=== PATIENT | female | born 2005 | race Caucasian/White ===

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

== ENCOUNTER 2025-02-04 17:15 | Emergency (ER) | payer BC, MEDICAID, SELFPAY ==
[2025-02-04] VITALS (7 sets, daily range): BP systolic 91–112; BP diastolic 55–75; PULSE 78–96; RESP 12–18; TEMP 36.2; O2SAT 95–100; BMI 24.8
--- NOTE | 2025-02-04 17:27 | EDS_ITS ---
HPI HPI - Psych History of Present Illness Chief Complaint: Mental Health [facility] Medical History (Updated 08/28/24 @ 08:[address] Mg Gustafson, DO) EtOH dependence ETOH abuse Cocaine abuse Cocaine abuse Cannabis use disorder Generalized anxiety disorder Bipolar 1 disorder, depressed, severe Allergy/AdvReac Type Severity Reaction Status Date / Time No Known Allergies Allergy Verified 02/04/25 22:36 Family History Other A-fib Alcoholism Anxiety Arthritis Asthma CVA (cerebral vascular accident) Depression Diabetes High cholesterol Melanoma Mental disorder Myocardial infarction Osteoporosis Supraventricular tachycardia Surgical History History of tonsillectomy and adenoidectomy Social History Smoking Status: Current every day smoker tobacco type: e-cigarettes alcohol intake: former substance use type: marijuana and other details: no current use what type of physical activity do you participate in: walking, running, weight training and additional details: Plays softball frequency: 5-6 times per week EXAM Physical Exam Const Vital Signs: 02/04/25 17:15 02/04/25 18:15 02/04/25 19:00 Temperature 97.1 F L Temperature Source Temporal Pulse Rate 92 81 82 Respiratory Rate 18 12 16 Blood Pressure 91/58 L 98/58 L 94/66 Blood Pressure Mean 69 71 75 Pulse Ox 99 95 98 Oxygen Delivery Method Nasal Cannula Room Air Room Air Oxygen Flow Rate (L/min) 2 02/04/25 20:00 02/04/25 21:00 02/04/25 22:00 Temperature Temperature Source Pulse Rate 96 92 95 Respiratory Rate 17 16 16 Blood Pressure 112/71 96/75 110/74 Blood Pressure Mean 84 82 86 Pulse Ox 100 99 97 Oxygen Delivery Method Room Air Room Air Room Air Oxygen Flow Rate (L/min) MDM MDM MDM Narrative Medical decision making narrative: HISTORY OF PRESENT ILLNESS: Chief complaint: Psychosis 19-year-old female history of bipolar, history of jen, approximately 19 weeks here with concern for manic episode. She is brought in by police. They note she is a history of bipolar disorder borderline personality disorder. Per their initial report the patient has not slept for last 6 days and not been eating for the last 2 weeks per their report. They mention bouts of screaming and violent outburst. That time she reported hearing voices. Per them the patient has not been on her medications. Patient received 10 mg of IM Versed and route secondary to violent behavior which limited her capacity to present initial history. REVIEW OF SYSTEMS: Pertinent positives: Violent behavior Pertinent negatives: Suicidal ideation, homicidal patient, auditory visual hallucinations PHYSICAL EXAM: Nursing triage notes reviewed, Vital signs reviewed Constitutional: please see mdm HENT: MMM Eyes: Pupils equal round and reactive to light, Extraocular muscles intact Neck: No stridor, no JVD, full neck ROM Lungs: Clear to auscultation, No wheezing or rales. No increased work of breathing, no conversational dyspnea, no accessory muscle use, no nasal flaring. No respiratory distress noted Heart: Regular rate and rhythm, No murmurs, No rubs and No gallops, 2+ distal pulses (radial, femoral, posterior tibial) in all extremities Abdomen: gravid uterus, Soft, there is no tenderness, rigidity, rebound or guarding, no obvious peritoneal signs, no palpable pulsatile abdominal masses, no auscultated abdominal bruit : No CVAT Extremities: No edema Neuro: No new focal neurological deficits, cranial nerves II through XII intact, 5/5 strength in all present extremities. Intact sensation to light touch in all present extremities, 2+ reflexes bilateral patella tendons. Skin: No rash or lesions noted MEDICAL DECISION MAKING: Chief Complaint: please see HPI External records reviewed: Reviewed prior ED records. Reviewed Clinisync: Was evaluated at [facility] in [place] on 12/18/2024 with a diagnosis of psychosis and discharged to psychiatric hospital. Medications were noted at that time to include Zoloft. Ultrasound at that time showed a single imaging with estimated due date of 06/27/2025 (~19 wks). Patient did receive droperidol during this admission. Factors affecting care: Anxiety, bipolar 1 disorder, PTSD, depression Social determinants of health: n history mental health disease History obtained from others: n please Consults: Behavioral Health - recommended inpatient psych admission. MDM Narrative: Patient was initially hemodynamically stable, afebrile and nontoxic-appearing. Patient was initially drowsy however when aroused to minimal stimuli and answer basic questions. She initially denied suicidal ideation, homicidal ideation, auditory visual hallucinations. Denied any drug use including alcohol. Denying abdominal pain vaginal bleeding or passage of any tissue. heart tones were assessed at greater than 150. IV was placed. Mental health workup initiated. ALL IMAGES (IF OBTAINED) HAVE BEEN PERSONALLY REVIEWED AND INTERPRETED BY MYSELF. Urine tox cream positive for cannabinoid CBC without leukocytosis to suggest systemic inflammation or infection, mild anemia, no thrombocytopenia BMP without evidence of significant electrolyte abnormalities, no anion gap, no acute kidney injury. Urine test is positive Urinalysis with asymptomatic bacteria will give oral antibiotics (will give Keflex) Serum alcohol negative Patient was medically cleared She was evaluated by behavioral medical social consultant recommended inpatient admission The patient and/or family, caregivers express understanding. The patient and/or family, caregivers agrees with the plan. Shared decision making: I will have a discussion with the patient and or visitors regarding risk/benefits of further testing or admission. They will be made aware of of the risk/benefits inherent in this decision they will be given the opportunity to voice understanding. Total critical care time today provided was at least 0 minutes. This excludes separately billable procedures. Critical care time (if documented) is secondary to the patient having high probability of clinically significant/life threatening deterioration in the patient's condition which required my urgent intervention. Impression: 1. Decompensated bipolar disorder 2. Acute psychosis 3. Suicide ideation 4. History of marijuana abuse 5. 19 weeks OB Dispo: Admit to inpatient psychiatric facility This note was generated with [employer] dictation software. It may contain incorrect words, spelling, and punctuation that were not noted in review of the chart prior to signing. Lab Data Labs: Laboratory Results - last 24 hr 02/04/25 02/04/25 18:00 19:27 WBC 9.4 RBC 4.07 L Hgb 11.9 L Hct 34.0 L MCV 83.5 MCH 29.2 MCHC 35.0 RDW Std Deviation 42.5 RDW Coeff of [place] 13.9 Plt Count 243 MPV 9.0 Immature Gran % (Auto) 0.600 Neut % (Auto) 72.0 H Lymph % (Auto) 18.9 L [place] % (Auto) 8.3 Eos % (Auto) 0.0 Baso % (Auto) 0.2 Absolute Neuts (auto) 6.8 Absolute Lymphs (auto) 1.78 Nucleated RBC % 0 Sodium 134 Potassium 3.6 Chloride 101 Carbon Dioxide 20.1 L Anion Gap 13 BUN 7 Creatinine 0.54 L Estim Creat Clear Calc 162.95 Est GFR (MDRD) Non-Af 136 BUN/Creatinine Ratio 13.8 Glucose 90 Calcium 9.2 Serum , Qual POSITIVE Urine Color Straw Urine Clarity Clear Urine pH 6.0 Ur Specific [place] 1.015 Urine Protein 30 H Urine Glucose (UA) Normal Urine Ketones 15 H Urine Occult Blood Negative Urine Nitrite Negative Urine Bilirubin Negative Urine Urobilinogen Normal Ur Leukocyte Esterase 100 H Urine RBC 0 SEEN Urine WBC 0-5 SEEN Ur Squamous Epith Cells 0-5 SEEN Urine Bacteria 2+ Urine Mucus 0 SEEN Urine Opiates Screen NEGATIVE U Buprenorphine Qual NEGATIVE Ur Oxycodone Screen NEGATIVE Urine Methadone Screen NEGATIVE Urine Fentanyl Screen NEGATIVE Ur Barbiturates Screen NEGATIVE Ur Phencyclidine Scrn NEGATIVE Ur Amphetamines Screen NEGATIVE U Benzodiazepines Scrn PRESUMPTIVE POSITIVE Urine Cocaine Screen NEGATIVE U Cannabinoids Screen PRESUMPTIVE POSITIVE Ethyl Alcohol < 10.1 Discharge Plan Triage Chief Complaint: Mental Health ED Provider: Mg Clemens Dx/Rx/DC Orders Primary Care Provider: Minerva Garcia NP Referrals: Minerva Garcia NP, [employer] [Primary Care Provider] - Print Language: Swedish
--- OUTSIDE RECORDS SUMMARY | 2025-02-04 17:43 | XMS RPT_ITS | CCD ---
Author Organization [facility] Team Providers Care Program Management Analyst Name Role Phone Isreal Vega Unavailable Unavailable PROVIDER, UNKNOWN Unavailable Unavailable Moiz Gordon Unavailable Unavailable Fuad Chung Unavailable Unavailable PROVIDER, UNKNOWN Unavailable Unavailable Moiz Gordon Unavailable Unavailable No cloth cutter, Md Primary Care Provider Anuja Moiz Vasquez MD Primary Care Provider Moiz Gordon MD Primary Care Provider [phone] Moiz Gordon MD Primary Care Provider [phone] Moiz Gordon MD Primary Care Provider MG HICKEY Attending Unavailable KAYLI BAILEY Admitting Unavailable MICHAEL LONGORIA Consulting Unavailable Unavailable Primary Care Provider UnavailRAHUL King Attending Unavailable MOIZ GORDON Primary Care Unavailable MOIZ GORDON Referring Unavailable RAHUL REID Attending Unavailable MOIZ GORDON Primary Care Unavailable MOIZ GORDON Referring Unavailable PROVIDER, UNKNOWN Admitting Unavailable PROVIDER, UNKNOWN Attending Unavailable PROVIDER, UNKNOWN Admitting Unavailable PROVIDER, UNKNOWN Attending Unavailable MOIZ GORDON Primary Care UnavailSUDHAKAR Baptiste Attending Unavailable Moiz Gordon MD Primary Care Provider JOSE MOORE-BENCH ASSEMBLER OPERATOR, MINERVA Darling Primary Care Physician [phone] Leo Glover Attending Unavailable Jose BENCH ASSEMBLER OPERATOR, Minerva Primary Care Unavailable Jose VARGAS, Minerva Primary Care Unavailable Amari Osborne Attending UnavailRose Mejia Attending Unavailable Rose Ramirez Referring Unavailable Jose VARGAS, Minerva Primary Care Unavailable Rose Ramirez Attending Unavailable Rose Ramirez Referring Unavailable Jose BENCH ASSEMBLER OPERATOR, Minerva Primary Care Unavailable Mg Gustafson Attending Unavailable Jose BENCH ASSEMBLER OPERATOR, Shubert Primary Care Unavailable Jose VARGAS, Shubert Primary Care Unavailable Anmol Stephens Attending Unavailable Anmol Stephens Attending Unavailable Jose BENCH ASSEMBLER OPERATOR, Shubert Primary Care Unavailable Anmol Stephens Attending Unavailable Jose BENCH ASSEMBLER OPERATOR, Shubert Primary Care Unavailable Anmol Stephens Attending Unavailable Jose BENCH ASSEMBLER OPERATOR, Shubert Primary Care Unavailable Jose BENCH ASSEMBLER OPERATOR, Shubert Primary Care Unavailable Anmol Stephens Attending Unavailable Rose Ramirez Attending Unavailable Rose Ramirez Referring Unavailable Jose BENCH ASSEMBLER OPERATOR, Shubert Primary Care Unavailable Jose BENCH ASSEMBLER OPERATOR, Shubert Primary Care Unavailable Provider, Ed Physician Attending Unavailab Mg Guillen Attending Unavailable Jose BENCH ASSEMBLER OPERATOR, Shubert Primary Care Unavailable JOSE WASTE REMOVALIST-BENCH ASSEMBLER OPERATOR, [facility] Primary Care Unavailab RHONDA Diaz DO Attending Unavailable JOSE WASTE REMOVALIST-BENCH ASSEMBLER OPERATOR, [facility] Care Unavailab SUDHAKAR Lopez Attending Unavailable JOSE WASTE REMOVALIST-BENCH ASSEMBLER OPERATOR, [facility] Care Unavailab BRANDON Shipley DO Attending Unavailable LITA MOIZ [facility] Unavailable INGA NOBLES Attending Unavailable MICHAEL LONGORIA Unavailable MG HICKEY Attending Unavailable KAYLI BAILEY Admitting Unavailable JINA SANABRIA Admitting Unavailable MOIZ GORDON [facility] Unavailable JINA SANABRIA Attending Unavailable MOIZ GORDON [facility] Unavailable MINERVA GARCIA Attending Unavailable ARON VALENCIA Attending Unavailable Lita MEZA, Moiz Peralta [facility] Provider MOIZ GORDON [facility] UnavailLEVI Garvin Attending Unavailable MOIZ GORDON Primary Care UnavailLEVI Garvin Referring Unavailable Allergies Allergy Classification Reported Allergen(s) Allergy Type Date of Onset Reaction(s) Facility (3 sources) buPROPion; Translations: [bupropion] Drug Allergy [facility] (3 sources) cariprazine; Translations: [cariprazine] Drug Allergy [facility] (3 sources) [place]; Translations: [lithium] Drug Allergy [facility] Medications Current Medications Medication Drug Class(es) Dates Sig (Normalized) Sig (Original) acetaminophen 500 mg / pamabrom 25 mg oral tablet (1 source) Start: 11-12-2020 take 1 tablet by mouth every six hours Acetaminophen-Pama brom (Midol) 500-25 mg tablet Active 1 TABLET PO EVERY 6 HOURS November 12, 2020 12:00am amoxicillin 875 mg / clavulanate 125 mg oral tablet (2 sources) Penicillin-class Antibacterial Start: 05-13-2022 End: 05-26-2022 take 1 tablet by mouth every twelve hours amoxicillin-clavul anate (AUGMENTIN) 875-125 MG tablet Take 1 Tablet (875 mg) by mouth every 12 hours for 13 days 26 Tablet 0 05/13/2022 05/26/2022 Active cefdinir 300 mg oral capsule (3 sources) Cephalosporin Antibacterial Start: 12-20-2024 End: 12-25-2024 300 mg, Oral, EVERY 12 HOURS SCHEDULED (2 times per day), 10 doses, First dose on Tu12/20/24 at 1030, Last dose on Thu12/24/24 at 2100, Antimicrobial Indications: Urinary Tract Infection End: 10-27-2022 cefdinir (OMNICEF) 300 MG ca psule Take by mouth 2 times daily 0 10/27/2022 Discontinued cephalexin 500 mg oral capsule (2 sources) Cephalosporin Antibacterial Start: 09-04-2024 End: 09-08-2024 cephalexin 500 mg oral capsule Dose : 500 mg = 1 cap(s), Oral, q6h, X 4 day(s), # 16 cap(s), 0 Refill(s), 09/08/24 3:05:00 AM EST, 66.5 Start Date: 09/04/24 Stop Date: 09/08/24 Status: Ordered Quantity: 16.0 Unit: cap(s) Repeat number: 1 Start: 03-26-2022 End: 05-13-2022 take 1 capsule by mouth twice daily cephALEXin (KEFLEX) 500 MG capsule Take 500 mg by mouth 2 times daily 0 03/26/2022 05/13/2022 Discontinued (Stop Taking (On AVS)) doxycycline hyclate 100 mg oral capsule (5 sources) Tetracycline-class Drug Start: 04-21-2023 End: 05-05-2023 doxycycline (Vibramycin) 100 MG capsule Indications: Skin infection Take 1 capsule (100 mg) by mouth 2 times daily for 14 days. Take with at least 8 ounces (large glass) of water, do not lie down for 30 minutes after 28 capsule 0 04/21/2023 05/05/2023 Active erythromycin 0.005 mg/mg ophthalmic ointment (2 sources) Macrolide, Macrolide Antimicrobial Start: 06-03-2023 End: 06-10-2023 apply 3.5 g into the eye(s) three times daily erythromycin (Romycin) 5 MG/GM ophthalmic ointment Indications: Hordeolum internum of left lower eyelid Apply to left eye 3 times daily for 7 days. 3.5 g 0 06/03/2023 06/10/2023 Active hydrOXYzine hydrochloride 25 mg oral tablet (9 sources) Antihistamine Start: 01-05-2024 End: 02-04-2024 take 1 tablet by mouth every eight hours as needed for anxiety hydrOXYzine HCl (Atarax) 25 MG tablet Indications: Moderate episode of recurrent major depressive disorder (HCC) , Anxiety Take 1 tablet (25 mg) by mouth every 8 hours as needed for anxiety. 90 tablet 0 01/05/2024 02/04/2024 Active Start: 06-06-2019 End: 11-12-2020 take 10 mg by mouth three times daily Hydroxyzine Hcl Discontinued 10 MG PO THREE TIMES A DAY June 06, 2019 12:00am November 12, 2020 2:50pm ibuprofen 200 mg oral tablet (20 sources) Nonsteroidal Anti-inflammatory Drug Start: 11-19-2022 End: 11-19-2022 Ibuprofen (MOTRIN) tablet 400 mg Start: 08-12-2022 End: 11-24-2022 take 2 tablets by mouth every six hours at mealtime as needed for pain ibuprofen 200 MG tablet TAKE 2 TABLETS BY MOUTH EVERY 6 HOURS NEEDED for moderate pain for up to 5 (FIVE) days. take with meals 0 08/12/2022 Active Start: 05-11-2022 End: 05-11-2022 Ibuprofen (MOTRIN) tablet 40 0 mg Start: 05-10-2022 End: 05-10-2022 Ibuprofen (MOTRIN) tablet 40 0 mg Start: 05-10-2022 End: 05-10-2022 Ibuprofen (MOTRIN) tablet 40 0 mg Start: 11-12-2020 take 200 mg by mouth every six hours Ibuprofen Active 200 MG PO EVERY 6 HOURS November 12, 2020 12:00am End: 08-12-2022 take 2 tablets by mouth every eight hours as needed for pain ibuprofen (MOTRIN) 200 MG tablet Take 2 Tablets (400 mg) by mouth every 8 hours as needed for Pain Take with meals. 0 08/12/2022 Discontinued (Stop Taking (On AVS)) End: 05-13-2022 take 1 tablet by mouth every six hours as needed ibuprofen (MOTRIN) 200 MG tablet Take 200 mg by mouth every 6 hours as needed 0 05/13/2022 Discontinued (Stop Taking (On AVS)) lithium carbonate 150 mg oral capsule (1 source) Start: 01-26-2024 End: 03-26-2024 take 3 capsules by mouth once daily lithium 150 MG capsule Indications: Bipolar Mood Disorder Take 3 capsules (450 mg) by mouth Nightly. 90 capsule 1 01/26/2024 03/26/2024 Active LORazepam 0.5 mg oral tablet (1 source) Benzodiazepine Start: 01-26-2024 End: 02-05-2024 take 1 tablet by mouth three times daily as needed for anxiety LORazepam (Ativan) 0.5 MG tablet Indications: Anxiety , Insomnia Take 1 tablet (0.5 mg) by mouth 3 times daily as needed for anxiety for up to 10 days. 30 tablet 0 01/26/2024 02/05/2024 Active Magnesium (20 sources) MAGNESIUM PO Chacorta e by mouth Active MAGNESIUM PO Chacorta e by mouth. 0 Active End: 06-02-2022 MAGNESIUM PO Take by mouth 0 06/02/2022 Discontinued MAGNESIUM PO Chacorta e by mouth 0 Active methylPREDNISolone 4 mg oral tablet (1 source) Corticosteroid Start: 09-24-2023 End: 10-01-2023 methylPREDNISolone (Medrol Dospak) 4 MG tablets Indications: Post-viral cough syndrome Follow schedule on package instructions 21 tablet 0 09/24/2023 10/01/2023 Active nitrofurantoin, macrocrystals 100 mg oral capsule (4 sources) Nitrofuran Antibacterial Start: 05-13-2022 End: 08-25-2022 take 1 capsule by mouth once daily nitrofurantoin (MACRODANTIN) 100 MG capsule Take 1 Capsule (100 mg) by mouth daily for 90 days 30 Capsule 2 05/27/2022 08/25/2022 Active [place] (Nk) (3 sources) Start: 05-09-2022 [place] (Nk) Active May 09, 2022 12:00am ondansetron 4 mg disintegrating oral tablet (7 sources) Serotonin-3 Receptor Antagonist Start: 03-26-2022 End: 06-02-2022 take 1 tablet by mouth every eight hours as needed for nausea ondansetron (ZOFRAN-ODT) 4 MG disintegrating tablet DISSOLVE 1 (ONE) TABLET BY MOUTH EVERY 8 HOURS NEEDED FOR NAUSEA for up to TEN doses 05/13/2022 Active oxyCODONE hydrochloride 5 mg oral tablet (4 sources) Opioid Agonist Start: 11-19-2022 End: 11-22-2022 take 1 tablet by mouth every six hours as needed for pain oxyCODONE, immediate release, (ROXICODONE) 5 MG tablet Take 1 Tablet (5 mg) by mouth every 6 hours as needed for Pain (Severe) for up to 3 days 6 Tablet 0 11/19/2022 11/22/2022 Active Start: 11-18-2022 End: 11-19-2022 take 0.0769 mg by mouth every six hours as needed for pain 5 mg (0.0769 mg/kg/DOSE), Oral, EVERY 6 HOURS PRN, Starting on Thu11/18/22 at 1246, Until Thu11/19/22 at 1556, Moderate Pain = Pain Score 4-6, Severe Pain = Pain Score 7-10 Start: 05-10-2022 End: 05-10-2022 oxyCODONE (immediate release ) (ROXICODONE) tablet 5 mg Start: 05-09-2022 End: 05-09-2022 oxyCODONE (immediate release ) (ROXICODONE) tablet 5 mg PARoxetine hydrochloride 10 mg oral tablet (5 sources) Serotonin Reuptake Inhibitor Start: 01-05-2024 End: 02-04-2024 take 1 tablet by mouth once daily in the morning PARoxetine (Paxil) 10 MG tablet Indications: Moderate episode of recurrent major depressive disorder (HCC) Take 1 tablet (10 mg) by mouth every morning. 30 tablet 0 01/05/2024 02/04/2024 Active Polyethylene Glycols (1 source) Polyethylene Glycol 3350 (MIRALAX PO) Take by mouth every other day Active Probiotic Product (PROBIOTIC-10 PO) (4 sources) Probiotic Produc t (PROBIOTIC-10 PO) Take by mouth Active End: 06-02-2022 Probiotic Product (PROBIOTIC -10 PO) Take by mouth 0 06/02/2022 Discontinued Probiotic Produc t (PROBIOTIC-10 PO) Take by mouth 0 Active QUEtiapine 100 mg oral tablet (2 sources) Atypical Antipsychotic Start: 01-26-2024 End: 02-25-2024 take 1 tablet by mouth once daily QUEtiapine (SEROquel) 100 MG tablet Indications: Bipolar Mood Disorder Take 1 tablet (100 mg) by mouth Nightly. 30 tablet 0 01/26/2024 02/25/2024 Active Start: 01-26-2024 End: 02-25-2024 take 1 tablet by mouth three times daily as needed QUEtiapine (SEROquel) 50 MG tablet Indications: Bipolar Mood Disorder Take 1 tablet (50 mg) by mouth 3 times daily as needed (Insomnia). 30 tablet 0 01/26/2024 02/25/2024 Active Senna Leaves (2 sources) SENNA PO Take by mouth as needed 0 Active sennosides, residential 8.6 mg oral tablet (10 sources) Start: 05-12-2022 End: 04-21-2023 take 1 tablet by mouth once daily senna (SENOKOT) 8.6 MG TABS tablet TAKE 1 TABLET BY MOUTH ONCE DAILY 05/13/2022 Active Start: 05-09-2022 End: 05-11-2022 senna (SENOKOT) tablet 17.2 mg sertraline 25 mg oral tablet (1 source) Serotonin Reuptake Inhibitor Start: 05-22-2022 take 1 tablet by mouth once daily sertraline (ZOLOFT) 25 MG tablet Take 1 tablet by mouth daily 30 tablet 05/22/2022 Active tamsulosin hydrochloride 0.4 mg oral capsule (1 source) alpha-Adrenergic Bhumika Start: 08-12-2022 End: 09-11-2022 take 1 capsule by mouth once daily tamsulosin (FLOMAX) 0.4 MG capusle Take 1 Capsule (0.4 mg) by mouth daily for 30 days 30 Capsule 0 08/12/2022 09/11/2022 Active triamcinolone acetonide 1 mg/ml topical cream (12 sources) Corticosteroid Start: 06-10-2023 triamcinolone (Kenalog) 0.1 % cream Indications: Atopic dermatitis, unspecified type Apply topically 2 times daily. 45 g 0 06/10/2023 Active VITAMIN D, CHOLECALCIFEROL, PO (6 sources) VITAMIN D, CHOLECALCIFEROL, PO Take by mouth Active End: 04-21-2023 VITAMIN D, CHOLECALCIFEROL, PO Take by mouth. 0 04/21/2023 Discontinued (Therapy completed) VITAMIN D, CELIO CALCIFEROL, PO Take by mouth. 0 Active End: 05-13-2022 VITAMIN D, CHOLECALCIFEROL, PO Take by mouth 0 05/13/2022 Discontinued (Stop Taking (On AVS)) Completed/Discontinued Medications Medication Drug Class(es) Dates Sig (Normalized) Sig (Original) acetaminophen 325 mg oral tablet (20 sources) Start: 12-19-2022 End: 12-19-2022 acetaminophen (TYLENOL) 325 MG tablet 650 mg Start: 11-18-2022 End: 11-19-2022 650 mg (40 mg/kg/DAY), Oral, EVERY 6 HOURS EXACT, 360 doses, First dose on Thu11/18/22 at 1500, Last dose on Thu02/16/23 at 0430 Start: 11-18-2022 End: 11-18-2022 acetaminophen (TYLENOL) tabl et 1,000 mg Start: 08-12-2022 End: 08-12-2022 acetaminophen (TYLENOL) tabl et 825 mg Start: 05-09-2022 End: 11-24-2022 take 2 tablets by mouth every six hours as needed for pain acetaminophen (Tylenol) 325 MG tablet TAKE 2 TABLETS BY MOUTH EVERY 6 HOURS NEEDED FOR PAIN (mild pain) for up to 5 (FIVE) days 0 08/12/2022 Active Acetaminophen (T YLENOL 8 HOUR PO) Take by mouth 0 Active ampicillin-sulbactam (UNASYN) 3,000 mg of Unasyn in NaCl 0.9% 66.7 mL IV (1 source) Start: 05-12-2022 End: 05-13-2022 ampicillin-sulbactam (UNASYN) 3,000 mg of Unasyn in NaCl 0.9% 66.7 mL IV ascorbic acid 250 mg chewable tablet (6 sources) Vitamin C End: 04-21-2023 ascorbic acid (Vitamin C) 250 MG chewable tablet Chew 500 mg in the morning. 0 04/21/2023 Discontinued (Therapy completed) Ascorbic Acid (V ITAMIN C) 250 MG tablet Take by mouth daily 0 Active 24 hr buPROPion hydrochloride 150 mg extended release oral tablet (5 sources) Aminoketone Start: 12-17-2023 End: 01-05-2024 take 1 tablet by mouth once daily buPROPion XL (Wellbutrin XL) 150 MG 24 hr tablet Indications: Mild episode of recurrent major depressive disorder (HCC) , Anxiety state , Mental disorder Take 1 tablet (150 mg) by mouth daily. 30 tablet 2 12/21/2023 01/05/2024 Discontinued (Ineffective) calcium chloride 0.0014 meq/ml / potassium chloride 0.004 meq/ml / sodium chloride 0.103 meq/ml / sodium lactate 0.028 meq/ml injectable solution (5 sources) Start: 12-19-2022 End: 12-19-2022 CONTINUOUS, Intravenous, at 100 mL/hr, Starting on Thu12/19/22 at 1230, For 90 days, PACU Start: 11-18-2022 End: 11-18-2022 Lactated Ringers IV Start: 05-09-2022 End: 05-10-2022 Lactated Ringers IV Bolus 1, 000 mL ceFAZolin (ANCEF) 1,000 mg in sterile water 10 mL IV (1 source) Start: 11-18-2022 End: 11-18-2022 1,000 mg (15.4 mg/kg/DOSE), Intravenous, EVERY 6 HOURS, 2 doses, First dose on Thu11/18/22 at 1430, Last dose on Thu11/18/22 at 2100, Administer over 3 Minutes cefepime 1000 mg injection (1 source) Cephalosporin Antibacterial Start: 05-10-2022 End: 05-11-2022 ceFEPime (MAXIPIME) in dextrose IV 2,000 mg cefTRIAXone 2000 mg injection (2 sources) Cephalosporin Antibacterial Start: 05-10-2022 End: 05-10-2022 cefTRIAXone in D5W (ROCEPHIN) IV 2,000 mg Start: 05-09-2022 End: 05-09-2022 cefTRIAXone in D5W (ROCEPHIN ) IV 1,000 mg Diatrizoate (1 source) Start: 06-02-2022 End: 06-02-2022 diatrizoate meglumine (CYSTOGRAFIN) 30 % solution 300 mL 1 ml diphenhydrAMINE hydrochloride 50 mg/ml cartridge (2 sources) Histamine-1 Receptor Antagonist Start: 12-20-2024 End: 12-20-2024 50 mg, IntraVENous, ONCE, 1 dose, On Thu12/20/24 at 1545, IV Push at rate not to exceed 25 mg/min. Start: 11-12-2020 take 1 capsule by [facility] every six hours Diphenhydramine Hcl (Benadryl) 25 mg capsule Active 25 MG PO EVERY 6 HOURS November 12, 2020 12:00am 2 ml droperidol 2.5 mg/ml injection (1 source) Dopamine-2 Receptor Antagonist Start: 12-20-2024 End: 12-20-2024 2.5 mg, IntraVENous, ONCE, 1 dose, On Thu12/20/24 at 1800 Start: 12-20-2024 End: 12-20-2024 2.5 mg, IntraVENous, ONCE, 1 dose, On Thu12/20/24 at 1800 escitalopram 5 mg oral tablet (4 sources) Serotonin Reuptake Inhibitor Start: 06-06-2019 End: 11-12-2020 take 5 mg by mouth once daily Escitalopram Oxalate Discontinued 5 MG PO DAILY June 06, 2019 12:00am November 12, 2020 2:50pm etonogestrel 68 mg drug implant (1 source) Progestin End: 05-09-2022 etonogestrel (NEXPLANON) 68 MG subdermal implant Inject 1 implant into the skin once 0 05/09/2022 Discontinued (* Remove (Not on AVS)) fluticasone propionate 0.05 mg/actuat metered dose nasal spray (2 sources) Corticosteroid Start: 07-29-2022 End: 10-27-2022 fluticasone (FLONASE) 50 MCG/ACT nasal spray 0 07/29/2022 10/27/2022 Discontinued 4 ml furosemide 10 mg/ml injection (1 source) Loop Diuretic Start: 06-02-2022 End: 06-02-2022 furosemide (LASIX) injection 40 mg 1000 ml glucose 50 mg/ml / potassium chloride 0.02 meq/ml / sodium chloride 9 mg/ml injection (1 source) Start: 05-10-2022 End: 05-13-2022 Dextrose 5 % NaCl 0.9% KCl 20 mEq/L IV 250 ml glucose 50 mg/ml / sodium chloride 4.5 mg/ml injection (2 sources) Start: 11-18-2022 End: 11-19-2022 CONTINUOUS, Intravenous, at 60 mL/hr, Starting on Thu11/18/22 at 1330, For 90 days Start: 05-09-2022 End: 05-10-2022 Dextrose 5 % and 0.9% NaCl I V HOMEOPATHIC PRODUCTS PO (2 sources) End: 10-27-2022 HOMEOPATHIC PRODUCTS PO Take by mouth as needed 0 10/27/2022 Discontinued HOMEOPATHIC PROD UCTS PO Take by mouth as needed 0 Active 1 ml HYDROmorphone hydrochloride 1 mg/ml cartridge (1 source) Opioid Agonist Start: 11-18-2022 End: 11-18-2022 HYDROmorphone HCl PF (DILAUDID) injection 200 mcg iopamidol (ISOVUE-300) 61 % injection 5 mL (1 source) Start: 08-12-2022 End: 08-12-2022 iopamidol (ISOVUE-300) 61 % injection 5 mL 1 ml ketorolac tromethamine 30 mg/ml cartridge (4 sources) Nonsteroidal Anti-inflammatory Drug, Cyclooxygenase Inhibitor Start: 11-18-2022 End: 11-19-2022 15 mg (0.923 mg/kg/DAY), Intravenous, EVERY 6 HOURS, 20 doses, First dose on Thu11/18/22 at 1800, Last dose on Thu11/23/22 at 1200 Start: 05-12-2022 End: 05-12-2022 ketorolac (TORADOL) 30 MG/ML Injection 15 mg Start: 05-10-2022 End: 05-10-2022 ketorolac (TORADOL) 30 MG/ML Injection 15 mg Start: 05-09-2022 End: 05-09-2022 ketorolac (TORADOL) 30 MG/ML Injection 15 mg melatonin 3 mg oral tablet (6 sources) Start: 05-11-2022 End: 05-11-2022 melatonin tablet 3 mg Start: 05-11-2022 End: 05-13-2022 melatonin tablet 6 mg Start: 11-12-2020 take 3 mg by mouth at bedtime Melatonin Active 3 MG PO BEDTIME November 12, 2020 12:00am End: 06-02-2022 take 1 tablet by mouth at bedtime as needed for sleep melatonin 3 MG tablet Take 3 mg by mouth at bedtime as needed for Sleep 0 06/02/2022 Discontinued nitrofurantoin, macrocrystals 25 mg / nitrofurantoin, monohydrate 75 mg oral capsule (1 source) Nitrofuran Antibacterial Start: 04-21-2022 End: 05-13-2022 take 1 capsule by mouth twice daily nitrofurantoin monohydrate (MACROBID) 100 MG capsule Take 100 mg by mouth 2 times daily 0 04/21/2022 05/13/2022 Discontinued (Stop Taking (On AVS)) ondansetron (ZOFRAN) 6 mg in NaCl 0.9% 15 mL IV (1 source) Start: 05-09-2022 End: 05-13-2022 ondansetron (ZOFRAN) 6 mg in NaCl 0.9% 15 mL IV Oxygen (2 sources) Start: 12-19-2022 End: 12-19-2022 See Marcelaheet Row, PRN, Starting on Thu12/19/22 at 1208, Until Thu12/19/22 at 1347 Keep sats greater or equal to 95% Start: 08-12-2022 End: 08-12-2022 See Flowsheet Row, PRN, Star ting on Thu08/12/22 at 1058, Until Thu08/12/22 at 1131 Keep sats greater or equal to 95% phenazopyridine hydrochloride 100 mg oral tablet (2 sources) Start: 12-19-2022 End: 12-22-2022 take 1 tablet by mouth three times daily phenazopyridine (PYRIDIUM) 100 MG tablet Take 1 Tablet (100 mg) by mouth 3 times daily for 3 days 9 Tablet 0 12/19/2022 12/22/2022 Start: 08-12-2022 End: 08-19-2022 take 2 tablets by mouth three times daily as needed for pain phenazopyridine (PYRIDIUM) 100 MG tablet Take 2 Tablets (200 mg) by mouth 3 times daily as needed for Pain for up to 7 days 42 Tablet 0 08/12/2022 08/19/2022 Active polyethylene glycol 3350 54059 mg powder for oral solution (13 sources) Osmotic Laxative Start: 11-18-2022 End: 11-19-2022 8.5 g (0.131 g/kg/DAY), Oral, DAILY, 90 doses, First dose on Thu11/18/22 at 1330, Last dose on Thu02/15/23 at 0900 Nursing to dilute with 120 ml of fluid Start: 10-08-2022 End: 04-21-2023 polyethylene glycol, PEG, 33 50 (Glycolax) 17 GM/SCOOP powder Take 17 grams as directed by mouth daily for 90 days 0 10/08/2022 04/21/2023 Discontinued (Therapy completed) Start: 05-13-2022 End: 08-11-2022 take 17 g by mouth once daily polyethylene glycol (MIRALAX;GLYCOLAX) 17 GM/SCOOP powder Take 17 g by mouth daily for 90 days 510 g 2 05/13/2022 08/11/2022 polyethylene gly col (GLYCOLAX) packet Take by mouth every other day 0 Active 2 ml prochlorperazine 5 mg/ml injection (2 sources) Phenothiazine Start: 05-10-2022 End: 05-11-2022 prochlorperazine (COMPAZINE) injection 5 mg 1000 ml sodium chloride 9 mg/ml injection (11 sources) Start: 12-20-2024 End: 12-20-2024 1,000 mL (14.9 mL/kg), IntraVENous, at 2,000 mL/hr, Administer over 30 Minutes, ONCE, On Thu12/20/24 at 1100, For 1 dose, May be administered over 15 minutes if well tolerated. Start: 11-18-2022 End: 11-19-2022 30 mL PRN (0.462 ml/kg/DOSE) , Intravenous, at 0-999 mL/hr, Flush IV line after medication IVPB bag if given., Starting on Thu11/18/22 at 1402, For 90 days Flush IV line after medication IVPB bag if given. Start: 11-18-2022 End: 11-19-2022 10 mL PRN (0.154 ml/kg/DOSE) , Intravenous, at 0-999 mL/hr, Line Care, For mixture of medications, Starting on Thu11/18/22 at 1402, For 90 days For mixture of medications Start: 11-18-2022 End: 11-19-2022 2 mL EVERY 8 HOURS (0.0923 m L/kg/DAY), Intravenous, at 0-999 mL/hr, First dose on Thu11/18/22 at 1430, For 90 days Start: 05-09-2022 End: 05-13-2022 30 mL PRN, Intravenous, at 0 -999 mL/hr, Flush IV line after medication IVPB bag if given., Starting on Thu05/09/22 at 1402, For 90 days Flush IV line after medication IVPB bag if given. Start: 05-09-2022 End: 05-13-2022 10 mL PRN, Intravenous, at 0 -999 mL/hr, Line Care, For mixture of medications, Starting on Thu05/09/22 at 1402, For 90 days For mixture of medications Start: 05-09-2022 End: 05-13-2022 2 mL EVERY 8 HOURS, Intraven ous, at 0-999 mL/hr, First dose on Thu05/09/22 at 1430, For 90 days sulfamethoxazole 800 mg / trimethoprim 160 mg oral tablet (1 source) Dihydrofolate Reductase Inhibitor Antibacterial, Sulfonamide Antimicrobial Start: 12-19-2022 End: 12-22-2022 take 1 tablet by mouth twice daily sulfamethoxazole-trimethoprim (BACTRIM DS) 800-160 MG per tablet Take 1 Tablet (160 mg) by mouth 2 times daily for 3 days 6 Tablet 0 12/19/2022 12/22/2022 200 ml vancomycin 5 mg/ml injection (1 source) Glycopeptide Antibacterial Start: 05-10-2022 End: 05-12-2022 vancomycin in D5W (VANCOCIN) IV 1,000 mg water 1000 mg/ml injectable solution (2 sources) Start: 11-18-2022 End: 11-19-2022 10 mL (0.154 ml/kg/DOSE), Intravenous, PRN, Starting on Thu11/18/22 at 1402, Until Thu11/19/22 at 1556, For mixture of medications For mixture of medications Start: 05-09-2022 End: 05-13-2022 10 mL, Intravenous, PRN, Sta rting on Thu05/09/22 at 1402, Until Thu05/13/22 at 1704, For mixture of medications For mixture of medications WHEAT DEXTRIN (4 sources) End: 04-21-2023 Wheat Dextrin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 above: Performed By: #### A BOBBY CHIU MDW, CMP, LINDA, DIFF, GFR, ALC, CBC #### [address] [address] Barbiturate (u) Negative Normal Negative [facility] Comment on above: Performed By: #### A BOBBY CHIU MDW, CMP, LINDA, DIFF, GFR, ALC, CBC #### [address] [address] Benzodiazepine (u) Negative Normal Negative [facility] Comment on above: Performed By: #### A BOBBY CHIU MDW, CMP, LINDA, DIFF, GFR, ALC, CBC #### [place] [address] Cannabinoid (u) Positive Abnormal Negative [facility] Comment on above: Performed By: #### A BOBBY CHIU MDW, CMP, LINDA, DIFF, GFR, ALC, CBC #### [place] [address] Cocaine Ql (U) Negative Normal [facility] Comment on above: Performed By: #### A BOBBY CHIU MDW, CMP, LINDA, DIFF, GFR, ALC, CBC #### [address] [address] Methadone Ql (U) Negative Normal Negative [facility] Comment on above: Performed By: #### A BOBBY CHIU MDW, CMP, LINDA, DIFF, GFR, ALC, CBC #### [address] [address] Opiate (u) Negative Normal Negative [facility] Comment on above: Performed By: #### A BOBBY CHIU MDW, CMP, LINDA, DIFF, GFR, ALC, CBC #### [place] [address] PCP (u) Negative Normal Negative [facility] Comment on above: Performed By: #### A BOBBY CHIU MDW, CMP, LINDA, DIFF, GFR, ALC, CBC #### [address] [address] Urine Drugs screened: See Below Normal [facility] Comment on above: Result Comment: This drug screen is a presumptive screening only. No confirmation will be performed unless requested. Drugs screened include: Threshold Amphetamines/Methamphetamines 1,000 ng/mL Barbiturates 200 ng/mL Benzodiazepine metabolites 200 ng/mL Cannabinoids (THC metabolites) 50 ng/mL Cocaine 300 ng/mL Opiates 300 ng/mL Methadone 300 ng/mL Phencyclidine (PCP) 25 ng/mL Testing has been performed FOR MEDICAL PURPOSES ONLY. Performed By: #### A BOBBY CHIU MDW, CMP, LINDA, DIFF, GFR, ALC, CBC #### [address] [address] .GFRon 10-14-2024 GFR/1.73 sq M.predicted among non-blacks MDRD (S/P/Bld) [Vol rate/Area] mL/min/{1.73_m2} Normal [facility] Comment on above: Result Comment: Stages of Chronic Kidney Disease (CKD) Stage Description eGFR(ml/min/1.73 sq.m.) CKD 1 Normal kidney function or >=90 normal kindney function with possible kidney damage (ex. Proteinuria) CKD 2 Kidney damage with mild loss 60-89 of kidney function CKD 3a Mild to moderate loss of kidney 45-59 function CKD 3b Moderate to severe loss of 30-44 of kindey function CKD 4 Severe loss of kidney function 15-29 CKD 5 Kidney failure <15 Note: (go live 2024) the eGFR calculation was updated to the 2020 CKD-EPI creatinine equation without a race factor to calculate the eGFR results. Performed By: #### A BOBBY CHIU MDW, CMP, LINDA, DIFF, GFR, ALC, CBC #### [address] [address] .MDWon 10-14-2024 Monocyte Distribution Width 18.99 Normal 0.00-20.00 [facility] Comment on above: Result Comment: For ED adult patients suspected of sepsis, MDW<=20.0 does not rule out sepsis or risk of sepsis Performed By: #### A BOBBY CHIU, MDW, CMP, LINDA, DIFF, GFR, ALC, CBC #### [address] [address] .Manual Diffon 10-14-2024 Basophil %, Manual 0.0 % Normal 0.0-2.5 [facility] Comment on above: Performed By: #### A CETVikki, BOBBY, MDW, CMP, LINDA, DIFF, GFR, ALC, CBC #### [address] [address] Basophil, Abs Manual 0.0 10 3/mcL Normal 0.0-0.2 [facility] Comment on above: Performed By: #### A ARAM, BOBBY, MDW, CMP, LINDA, DIFF, GFR, ALC, CBC #### [place] [address] Eosinophil %, Manual 1.0 % Normal 0.0-7.0 [facility] Comment on above: Performed By: #### A CETBOBBY Florez, MDW, CMP, LINDA, DIFF, GFR, ALC, CBC #### [address] [address] Eosinophil, Abs Manual 0.0 10 3/mcL Normal 0.0-0.7 [facility] Comment on above: Performed By: #### A CETBOBBY Florez, MDW, CMP, LINDA, DIFF, GFR, ALC, CBC #### [address] [address] Lymphocyte %, Manual 46.0 % High 20.0-40.0 [facility] Comment on above: Performed By: #### A CETBOBBY Florez, MDW, CMP, LINDA, DIFF, GFR, ALC, CBC #### [address] [address] Lymphocyte, Abs Manual 2.5 10 3/mcL Normal 0.9-4.3 [facility] Comment on above: Performed By: #### A CETABOBBY, MDW, CMP, LINDA, DIFF, GFR, ALC, CBC #### [address] [address] Monocyte %, Manual 14.0 % High 2.0-13.0 [facility] Comment on above: Performed By: #### A BOBBY CHIU, W, CMP, LINDA, DIFF, GFR, ALC, CBC #### [address] [address] Monocyte, Abs Manual 0.8 10 3/mcL Normal 0.1-1.4 [facility] Comment on above: Performed By: #### A ARAM, BOBBY, MDW, CMP, LINDA, DIFF, GFR, ALC, CBC #### [address] [address] Neutrophil %, Manual 39.0 % Low 50.0-75.0 [facility] Comment on above: Performed By: #### A BOBBY CHIU MDW, CMP, LINDA, DIFF, GFR, ALC, CBC #### [address] [address] Neutrophil, Abs Manual 2.1 10 3/mcL Low 2.3-8.1 [facility] Comment on above: Performed By: #### A BOBBY CHIU MDW, CMP, LINDA, DIFF, GFR, ALC, CBC #### [address] [address] Nucleated RBC 0.0 /100 WBC Normal [facility] Comment on above: Performed By: #### A BOBBY CHIU MDW, CMP, LINDA, DIFF, GFR, ALC, CBC #### [address] [address] .Morphon 10-14-2024 Platelet Estimate Normal Normal [facility] Comment on above: Performed By: #### A BOBBY CHIU MDW, CMP, LINDA, DIFF, GFR, ALC, CBC #### [address] [address] ACETAon 10-14-2024 Acetaminophen [Mass/Vol] 0.0 ug/mL Low 10.0-30.0 [facility] Comment on above: Performed By: #### A CETVikki, BOBBY, MDW, CMP, LINDA, DIFF, GFR, ALC, CBC #### [place] [address] Mauri 10-14-2024 Ethanol Level <3 Normal [facility] Comment on above: Performed By: #### A CETA, BOBBY, MDW, CMP, LINDA, DIFF, GFR, ALC, CBC #### [place] [address] CBCon 10-14-2024 Erythrocyte distribution width (RBC) [Ratio] 13.7 % Normal 11.5-15.5 [facility] Comment on above: Performed By: #### A CETA, BOBBY, MDW, CMP, LINDA, DIFF, GFR, ALC, CBC #### [place] [address] Hematocrit (Bld) [Volume fraction] 39.3 % Normal 34.0-46.0 [facility] Comment on above: Performed By: #### A CETA, MORPH, MDW, CMP, LINDA, DIFF, GFR, ALC, CBC #### [place] [address] Hgb 13.5 G/dL Normal 12.0-16.0 [facility] Comment on above: Performed By: #### A CETA, BOBBY, MDW, CMP, LINDA, DIFF, GFR, ALC, CBC #### [place] [address] MCH (RBC) [Entitic mass] 28.9 pg Normal 27.0-33.0 [facility] Comment on above: Performed By: #### A CETA, BOBBY, MDW, CMP, LINDA, DIFF, GFR, ALC, CBC #### [place] [address] MCHC 34.4 G/dL Normal 32.0-36.0 [facility] Comment on above: Performed By: #### A CETA, MORPH, MDW, CMP, LINDA, DIFF, GFR, ALC, CBC #### [address] [address] MCV (RBC) [Entitic vol] 83.9 fL Normal 80.0-99.0 [facility] Comment on above: Performed By: #### A BOBBY CHIU, W, CMP, LINDA, DIFF, GFR, ALC, CBC #### [address] [address] Platelet 257 10 3/mcL Normal 150-450 [facility] Comment on above: Performed By: #### A ARAM, BOBBY, MDW, CMP, LINDA, DIFF, GFR, ALC, CBC #### [address] [address] Platelet mean volume (Bld) [Entitic vol] 6.4 fL Low 6.6-10.5 [facility] Comment on above: Performed By: #### A BOBBY CHIU, DAVID, CMP, LINDA, DIFF, GFR, ALC, CBC #### [address] [address] RBC 4.68 10 6/mcL Normal 4.10-5.30 [facility] Comment on above: Performed By: #### A BOBBY CHIU MDW, CMP, LINDA, DIFF, GFR, ALC, CBC #### [address] [address] WBC 5.4 10 3/mcL Normal 4.5-10.8 [facility] Comment on above: Performed By: #### A BOBBY CHIU MDW, CMP, LINDA, DIFF, GFR, ALC, CBC #### [address] [address] CMPon 10-14-2024 Albumin Level 4.0 G/dL Normal 3.5-5.0 [facility] Comment on above: Performed By: #### A BOBBY CHIU MDW, CMP, LINDA, DIFF, GFR, ALC, CBC #### [address] [address] Albumin/Globulin [Mass ratio] 1.2 {ratio} Normal 1.1-2.5 [facility] Comment on above: Performed By: #### A BOBBY CHIU MDW, CMP, LINDA, DIFF, GFR, ALC, CBC #### [address] [address] ALP [Catalytic activity/Vol] 88 U/L Normal 40-135 [facility] Comment on above: Performed By: #### A BOBBY CHIU MDW, CMP, LINDA, DIFF, GFR, ALC, CBC #### [place] [address] ALT [Catalytic activity/Vol] 41 U/L Normal 14-59 [facility] Comment on above: Performed By: #### A BOBBY CHIU MDW, CMP, LINDA, DIFF, GFR, ALC, CBC #### [place] [address] AST [Catalytic activity/Vol] 22 U/L Normal 10-40 [facility] Comment on above: Performed By: #### A BOBBY CHIU MDW, CMP, LINDA, DIFF, GFR, ALC, CBC #### [place] [address] Bili Total 0.3 mg/dL Normal 0.2-1.0 [facility] Comment on above: Result Comment: Use of this assay is not recommended for patients undergoing treatment with eltrombopag due to the potential for falsely elevated results. Performed By: #### A BOBBY CHIU MDW, CMP, LINDA, DIFF, GFR, ALC, CBC #### [place] [address] BUN/Creatinine Ratio 13 ratio Normal 7-27 [facility] Comment on above: Performed By: #### A BOBBY CHIU MDW, CMP, LINDA, DIFF, GFR, ALC, CBC #### [address] [address] Calcium [Mass/Vol] 9.6 mg/dL Normal 8.4-10.2 [facility] Comment on above: Performed By: #### A BOBBY CHIU MDW, CMP, LINDA, DIFF, GFR, ALC, CBC #### [address] [address] Chloride [Moles/Vol] 104 mmol/L Normal 98-107 [facility] Comment on above: Performed By: #### A ARAM, BOBBY, MDW, CMP, LINDA, DIFF, GFR, ALC, CBC #### [address] [address] CO2 [Moles/Vol] 26 mmol/L Normal 22-29 [facility] Comment on above: Performed By: #### A ARAM, BOBBY, MDW, CMP, LINDA, DIFF, GFR, ALC, CBC #### [address] [address] Creatinine [Mass/Vol] 0.70 mg/dL Normal 0.55-1.02 [facility] Comment on above: Result Comment: Test ing performed on Siemens Dimension EXL analyzer using a modified kinetic Dionna technique. Performed By: #### A BOBBY CHIU, MDW, CMP, LINDA, DIFF, GFR, ALC, CBC #### [address] [address] Electrolyte Balance 8.0 mEq/L Normal 4.0-15.0 [facility] Comment on above: Performed By: #### A ARAM, BOBBY, MDW, CMP, LINDA, DIFF, GFR, ALC, CBC #### [address] [address] Globulin 3.4 G/dL Normal 1.5-3.8 [facility] Comment on above: Performed By: #### A ARAM, BOBBY, MDW, CMP, LINDA, DIFF, GFR, ALC, CBC #### [address] [address] Glucose [Mass/Vol] 112 mg/dL High 70-105 [facility] Comment on above: Performed By: #### A ARAM, BOBBY, MDW, CMP, LINDA, DIFF, GFR, ALC, CBC #### [address] [address] Potassium [Moles/Vol] 3.8 mmol/L Normal 3.5-5.1 [facility] Comment on above: Performed By: #### A BOBBY CHIU MDW, CMP, LINDA, DIFF, GFR, ALC, CBC #### [address] [address] Sodium [Moles/Vol] 138 mmol/L Normal 136-145 [facility] Comment on above: Performed By: #### A BOBBY CHIU MDW, CMP, LINDA, DIFF, GFR, ALC, CBC #### [address] [address] Total Protein 7.4 G/dL Normal 6.4-8.2 [facility] Comment on above: Performed By: #### A BOBBY CHIU MDW, CMP, LINDA, DIFF, GFR, ALC, CBC #### [address] [address] Urea nitrogen [Mass/Vol] 9 mg/dL Normal 7-18 [facility] Comment on above: Performed By: #### A BOBBY CHIU MDW, CMP, LINDA, DIFF, GFR, ALC, CBC #### [address] [address] CVFLURVon 10-14-2024 FLU A PCR Negative Normal Negative [facility] Comment on above: Performed By: #### C VFLURV #### [address] [address] FLU B PCR Negative Normal Negative [facility] [facility] Comment on above: Performed By: #### C VFLURV #### [address] [address] RSV PCR Negative Normal Negative [facility] Comment on above: Performed By: #### C VFLURV #### [address] [address] SARS-CoV-2 (COVID-19) RNA GRABIEL+probe Ql (Unsp spec) Negative Normal Negative [facility] Comment on above: Result Comment: Resu lts from the Xpert Xpress CoV-2/Flu/RSV plus test should be correlated with the clinical history, epidemiological data, and other data available to the clinical evaluating the patient. Performance of the Xpert Xpress CoV-2/Flu/RSV plus test has only been established in nasopharyngeal swab specimen. Erroneous test results might occur from improper specimen collection, failure to follow the recommended sample collection, handling and storage procedures, technical error, or sample mix-up. False negative results may occur if a virus is present at a level below the analytical limit of detection. Viral nucleic acid may persist in vivo, independent of virus viability. Detection of analyte target(s) does not imply that the corresponding virus(es) are infectious or are the causative agents for clinical symptoms. Recent patient exposure to FluMist or other live attenuated influenza vaccines may cause inaccurate positive results. Performed By: #### C VFLURV #### [place] [id number] LABORATORYOrdered By: Rosa Lyn on 10-14-2024 Acetaminophen [Mass/Vol] 0.0 ug/mL Low 10.0 - 30.0 mcg/mL AO Chemistry S Amphetamines Screen Ql (U) Negative *NA* (10/14/24 1:30 AM) Invalid Interpretation Code Negative AO ADM SS Appearance (U) Clear (10/14/24 1:30 AM) Normal Clear AO Auto Urine SS Barbiturates Screen Ql (U) Negative *NA* (10/14/24 1:30 AM) Invalid Interpretation Code Negative AO ADM SS Benzodiazepines Ql (U) Negative *NA* (10/14/24 1:30 AM) Invalid Interpretation Code Negative AO ADM SS Benzoylecgonine Screen Ql (U) Negative *NA* (10/14/24 1:30 AM) Invalid Interpretation Code Negative AO ADM SS Bilirubin Ql (U) Negative (10/14/24 1:30 AM) Normal Negative AO Auto Urine SS Cannabinoids Screen Ql (U) Positive *ABN* (10/14/24 1:30 AM) Invalid Interpretation Code Negative AO ADM SS Color (U) Yellow (10/14/24 1:30 AM) Normal AO Auto Urine SS FLUAV RNA GRABIEL+probe Ql (Resp) Negative (10/14/24 1:30 AM) Normal Negative AO Auto Urine SS FLUBV RNA GRABIEL+probe Ql (Resp) Negative (10/14/24 1:30 AM) Normal Negative AO Auto Urine SS Glucose Test strip (U) [Mass/Vol] Negative Normal Negative AO Auto Urine SS HCG ( test) Ql Negative (10/14/24 1:30 AM) Normal AO Manual Urine SS Hemoglobin Auto test strip (U) [Mass/Vol] Negative (10/14/24 1:30 AM) Normal Negative AO Auto Urine SS Ketones Ql (U) Negative Normal Negative AO Auto Ur ine SS Methadone Screen Ql (U) Negative *NA* (10/14/24 1:30 AM) Invalid Interpretation Code Negative AO ADM SS Opiates Screen Ql (U) Negative *NA* (10/14/24 1:30 AM) Invalid Interpretation Code Negative AO ADM SS Phencyclidine Ql (U) Negative *NA* (10/14/24 1:30 AM) Invalid Interpretation Code Negative AO ADM SS test (u) int Not detected Invalid Interpretation Code AO Manual Urine SS RSV RNA GRABIEL+probe Ql (Resp) Negative (10/14/24 1:30 AM) Normal Negative AO Auto Urine SS SARS-CoV-2 (COVID-19) RNA GRABIEL+probe Ql (Resp) Negative 6 (10/14/24 1:30 AM) Normal Negative AO Auto Urine SS Comment on above: Interpretive Data: R esults from the Xpert Xpress CoV-2/Flu/RSV plus test should be correlated with the clinical history, epidemiological data, and other data available to the clinical evaluating the patient. Performance of the Xpert Xpress CoV-2/Flu/RSV plus test has only been established in nasopharyngeal swab specimen. Erroneous test results might occur from improper specimen collection, failure to follow the recommended sample collection, handling and storage procedures, technical error, or sample mix-up. False negative results may occur if a virus is present at a level below the analytical limit of detection. Viral nucleic acid may persist in vivo, independent of virus viability. Detection of analyte target(s) does not imply that the corresponding virus(es) are infectious or are the causative agents for clinical symptoms. Recent patient exposure to FluMist or other live attenuated influenza vaccines may cause inaccurate positive results. UA Leuk Est Negative (10/14/24 1:30 AM) Normal Negative AO Auto Urine SS UA Nitrite Negative (10/14/24 1:30 AM) Normal Negative AO Auto Urine SS UA pH 6.0 (10/14/24 1:30 AM) Normal 5.0 - 8.0 AO Auto Urine SS UA Protein Negative Normal Negative AO Auto Urine SS UA Spec Grav >=1.030 *ABN* (10/14/24 1:30 AM) Invalid Interpretation Code 1.015-1.025 AO Auto Urine SS UA Specimen Type Clean Catch (10/14/24 1:30 AM) Normal AO Auto Urine SS UA Urobilinogen 0.2 E.U./dL Normal 0.2-1.0 AO Auto Urine SS Urine Drugs screened: See Below 4 (10/14/24 1:30 AM) Normal AO Chemistry S Comment on above: Interpretive Data: T his drug screen is a presumptive screening only. No confirmation will be performed unless requested. Drugs screened include: Threshold Amphetamines/Methamphetamines 1,000 ng/mL Barbiturates 200 ng/mL Benzodiazepine metabolites 200 ng/mL Cannabinoids (THC metabolites) 50 ng/mL Cocaine 300 ng/mL Opiates 300 ng/mL Methadone 300 ng/mL Phencyclidine (PCP) 25 ng/mL Testing has been performed FOR MEDICAL PURPOSES ONLY. LABORATORYOrdered By: SYSTEM SYSTEM on 10-14-2024 Albumin BCP dye [Mass/Vol] 4.0 G/dL Normal 3.5 - 5.0 G/dL AO ADM SS Albumin/Globulin [Mass ratio] 1.2 {ratio} Normal 1.1 - 2.5 ratio AO ADM SS ALP [Catalytic activity/Vol] 88 U/L Normal 40 - 135 U/L AO ADM SS ALT With P-5'-P [Catalytic activity/Vol] 41 U/L Normal 14 - 59 U/L AO ADM SS AST With P-5'-P [Catalytic activity/Vol] 22 U/L Normal 10 - 40 U/L AO ADM SS Basophil %, Manual 0.0 % Normal 0.0 - 2.5 % AO Wo rkflow SS Basophils (Bld) [#/Vol] 0.0 103/mcL Normal 0.0 - 0.2 10^3/mcL AO Workflow SS Bilirubin [Mass/Vol] 0.3 mg/dL Normal 0.2 - 1 .0 mg/dL AO ADM SS Comment on above: Interpretive Data: U se of this assay is not recommended for patients undergoing treatment with eltrombopag due to the potential for falsely elevated results. Calcium [Mass/Vol] 9.6 mg/dL Normal 8.4 - 10. 2 mg/dL AO ADM SS Chloride [Moles/Vol] 104 mmol/L Normal 98 - 10 7 mmol/L AO ADM SS CO2 [Moles/Vol] 26 mmol/L Normal 22 - 29 mmol/L AO ADM SS Creatinine [Mass/Vol] 0.70 mg/dL Normal 0.55 - 1.02 mg/dL AO ADM SS Comment on above: Interpretive Data: T esting performed on Siemens Dimension EXL analyzer using a modified kinetic Dionna technique. Electrolyte Balance 8.0 mEq/L Normal 4.0 - 15 .0 mEq/L AO ADM SS Eosinophil %, Manual 1.0 % Normal 0.0 - 7.0 % AO Workflow SS Eosinophils (Bld) [#/Vol] 0.0 103/mcL Normal 0.0 - 0.7 10^3/mcL AO Workflow SS Erythrocyte distribution width (RBC) [Ratio] 13.7 % Normal 11.5 - 15.5 % AO Workflow SS Estimated Glomerular Filtration Rate ml/min/1.73sqm Invalid Interpretation Code AO Chemistry S Comment on above: Interpretive Data: Stages of Chronic Kidney Disease (CKD) Stage Description eGFR(ml/min/1.73 sq.m.) CKD 1 Normal kidney function or >=90 normal kindney function with possible kidney damage (ex. Proteinuria) CKD 2 Kidney damage with mild loss 60-89 of kidney function CKD 3a Mild to moderate loss of kidney 45-59 function CKD 3b Moderate to severe loss of 30-44 of kindey function CKD 4 Severe loss of kidney function 15-29 CKD 5 Kidney failure <15 Note: (go live 2024) the eGFR calculation was updated to the 2020 CKD-EPI creatinine equation without a race factor to calculate the eGFR results. Ethanol [Mass/Vol] mg/dL Invalid Interpretation Code AO ADM SS Globulin 3.4 G/dL Normal 1.5 - 3.8 G/dL AO ADM SS Glucose [Mass/Vol] 112 mg/dL High 70 - 105 mg/dL AO ADM SS Hematocrit (Bld) [Volume fraction] 39.3 % Normal 34.0 - 46.0 % AO Workflow SS Hemoglobin (Bld) [Mass/Vol] 13.5 G/dL Normal 12.0 - 16.0 G/dL AO Workflow SS Lymphocytes (Bld) [#/Vol] 2.5 103/mcL Normal 0.9 - 4.3 10^3/mcL AO Workflow SS Lymphocytes/100 WBC (Bld) 46.0 % High 20.0 - 40.0 % AO Workflow SS MCH (RBC) [Entitic mass] 28.9 pg Normal 27.0 - 33.0 pg AO Workflow SS MCHC 34.4 G/dL Normal 32.0 - 36.0 G/dL AO Workflow SS MCV (RBC) [Entitic vol] 83.9 fL Normal 80.0 - 99.0 fL AO Workflow SS Monocyte distribution width Auto (Bld) [Entitic vol] 18.99 1 Normal 0.00 - 20.00 AO Workflow SS Comment on above: Result Comment: For ED adult patients suspected of sepsis, MDW<=20.0 does not rule out sepsis or risk of sepsis Monocytes (Bld) [#/Vol] 0.8 103/mcL Normal 0.1 - 1.4 10^3/mcL AO Workflow SS Monocytes/100 WBC (Bld) 14.0 % High 2.0 - 13.0 % AO Workflow SS Neutrophils (Bld) [#/Vol] 2.1 103/mcL Low 2.3 - 8.1 10^3/mcL AO Workflow SS Neutrophils/100 WBC (Bld) 39.0 % Low 50.0 - 75.0 % AO Workflow SS Nucleated RBC 0.0 /100 WBC Invalid Interpretation Code AO Workflow SS Platelet mean volume (Bld) [Entitic vol] 6.4 fL Low 6.6 - 10.5 fL AO Workflow SS Platelets (Bld) [#/Vol] 257 103/mcL Normal 150 - 450 10^3/mcL AO Workflow SS Platelets LM Ql (Bld) Normal *NA* (10/14/24 1:30 AM) Invalid Interpretation Code AO Workflow SS Potassium [Moles/Vol] 3.8 mmol/L Normal 3.5 - 5.1 mmol/L AO ADM SS Protein [Mass/Vol] 7.4 G/dL Normal 6.4 - 8.2 G/dL AO ADM SS RBC (Bld) [#/Vol] 4.68 106/mcL Normal 4.10 - 5.3 0 10^6/mcL AO Workflow SS Salicylates [Mass/Vol] 0.7 mg/dL Low 2.8 - 20.0 mg/dL AO ADM SS Sodium [Moles/Vol] 138 mmol/L Normal 136 - 145 mmol/L AO ADM SS Urea nitrogen [Mass/Vol] 9 mg/dL Normal 7 - 18 mg/dL AO ADM SS Urea nitrogen/Creatinine [Mass ratio] 13 ratio Normal 7 - 27 ratio AO ADM SS WBC (Bld) [#/Vol] 5.4 103/mcL Normal 4.5 - 10.8 10^3/mcL AO Workflow SS PREGUon 10-14-2024 HCG ( test) Ql (U) Negative Normal [facility] Comment on above: Performed By: #### A BOBBY CHIU MDW, CMP, LINDA, DIFF, GFR, ALC, CBC #### [place] [address] test (u) int Not detected Invalid Interpretation Code [facility] Comment on above: Performed By: #### A BOBBY CHIU MDW, CMP, LINDA, DIFF, GFR, ALC, CBC #### [place] [address] SALon 10-14-2024 Salicylate Level 0.7 mg/dL Low 2.8-20.0 [facility] Comment on above: Performed By: #### A BOBBY CHIU MDW, CMP, LINDA, DIFF, GFR, ALC, CBC #### [place] [address] UDRUGon 10-14-2024 Amphetamine (u) Negative Normal Negative [facility] Comment on above: Performed By: #### A BOBBY CHIU MDW, CMP, LINDA, DIFF, GFR, ALC, CBC #### [address] [address] Barbiturate (u) Negative Normal Negative [facility] Comment on above: Performed By: #### A BOBBY CHIU MDW, CMP, LINDA, DIFF, GFR, ALC, CBC #### [address] [address] Benzodiazepine (u) Negative Normal Negative [facility] Comment on above: Performed By: #### A BOBBY CHIU MDW, CMP, LINDA, DIFF, GFR, ALC, CBC #### [address] [address] Cannabinoid (u) Positive Abnormal Negative [facility] Comment on above: Performed By: #### A BOBBY CHIU MDW, CMP, LINDA, DIFF, GFR, ALC, CBC #### [address] [address] Cocaine Ql (U) Negative Normal Negative [facility] Comment on above: Performed By: #### A BOBBY CHUI MDW, CMP, LINDA, DIFF, GFR, ALC, CBC #### [address] [address] Methadone Ql (U) Negative Normal Negative [facility] Comment on above: Performed By: #### A BOBBY CHIU MDW, CMP, LINDA, DIFF, GFR, ALC, CBC #### [place] [address] Opiate (u) Negative Normal Negative [facility] Comment on above: Performed By: #### A BOBBY CHIU MDW, CMP, LINDA, DIFF, GFR, ALC, CBC #### [place] [address] PCP (u) Negative Normal Negative [facility] Comment on above: Performed By: #### A BOBBY CHIU MDW, CMP, LINDA, DIFF, GFR, ALC, CBC #### [place] [address] Urine Drugs screened: See Below Normal [facility] Comment on above: Result Comment: This drug screen is a presumptive screening only. No confirmation will be performed unless requested. Drugs screened include: Threshold Amphetamines/Methamphetamines 1,000 ng/mL Barbiturates 200 ng/mL Benzodiazepine metabolites 200 ng/mL Cannabinoids (THC metabolites) 50 ng/mL Cocaine 300 ng/mL Opiates 300 ng/mL Methadone 300 ng/mL Phencyclidine (PCP) 25 ng/mL Testing has been performed FOR MEDICAL PURPOSES ONLY. Performed By: #### A BOBBY CHIU MDW, CMP, LINDA, DIFF, GFR, ALC, CBC #### [address] [address] URINon 10-14-2024 Color (U) Yellow Normal [facility] Comment on above: Performed By: #### A BOBBY CHIU MDW, CMP, LINDA, DIFF, GFR, ALC, CBC #### [address] [address] Glucose (U) [Mass/Vol] Negative Normal Negative [facility] Comment on above: Performed By: #### A BOBBY CHIU MDW, CMP, LINDA, DIFF, GFR, ALC, CBC #### [address] [address] Ketones Ql (U) Negative Normal Negative [facility] Comment on above: Performed By: #### A BOBBY CHIU MDW, CMP, LINDA, DIFF, GFR, ALC, CBC #### [place] [address] UA Appear Clear Normal Clear [facility] Comment on above: Performed By: #### A BOBBY CHIU MDW, CMP, LINDA, DIFF, GFR, ALC, CBC #### [address] [address] UA Blood Negative Normal Negative [facility] Comment on above: Performed By: #### A BOBBY CHIU MDW, CMP, LINDA, DIFF, GFR, ALC, CBC #### [address] [address] UA Leuk Est Negative Normal Negative [facility] Comment on above: Performed By: #### A BOBBY CHIU MDW, CMP, LINDA, DIFF, GFR, ALC, CBC #### [address] [address] UA Nitrite Negative Normal Negative [facility] Comment on above: Performed By: #### A BOBBY CHIU MDW, CMP, LINDA, DIFF, GFR, ALC, CBC #### [address] [address] UA pH 6.0 Normal 5.0 - 8.0 [facility] Comment on above: Performed By: #### A ARAM, BOBBY, MDW, CMP, LINDA, DIFF, GFR, ALC, CBC #### [place] [address] UA Protein Negative Normal Negative [facility] Comment on above: Performed By: #### A ARAM, BOBBY, MDW, CMP, LINDA, DIFF, GFR, ALC, CBC #### [place] [address] UA Spec Grav >=1.030 Abnormal 1.015-1.025 [facility] Comment on above: Performed By: #### A CETA, BOBBY, MDW, CMP, LINDA, DIFF, GFR, ALC, CBC #### [place] [address] UA Specimen Type Clean Catch Normal [facility] Comment on above: Performed By: #### A CETVikki, BOBBY, MDW, CMP, LINDA, DIFF, GFR, ALC, CBC #### [place] [address] UA Urobilinogen 0.2 E.U./dL Normal 0.2-1.0 [facility] Comment on above: Performed By: #### A CETVikki, BOBBY, MDW, CMP, LINDA, DIFF, GFR, ALC, CBC #### [place] [address] Urobilinogen (U) [Mass/Vol] Negative Normal Negative [facility] Comment on above: Performed By: #### A CETVikki, BOBBY, MDW, CMP, LINDA, DIFF, GFR, ALC, CBC #### [place] [address] URINALYSIS REFLEX TO CULTURE PERFORMABLEon 10-06-2024 Appearance (U) Clear Normal Clear [facility] Comment on above: Order Comment: For i ndwelling catheters, specimen collection is acceptable on catheter day 1 and 2 only. ? Performed By: #### U [id number] #### [facility] (DEFAULT) [address] [place] [address] Bacteria ABSENT Normal ABSENT [facility] Comment on above: Order Comment: For i ndwelling catheters, specimen collection is acceptable on catheter day 1 and 2 only. ? Performed By: #### U [id number] #### [facility] (DEFAULT) [address] [place] [address] Blood Urine Negative Normal Negative [facility] Comment on above: Order Comment: For i ndwelling catheters, specimen collection is acceptable on catheter day 1 and 2 only. ? Performed By: #### U [id number] #### [facility] (DEFAULT) [address] [place] [address] Color (U) Yellow Normal Yellow [facility] Comment on above: Order Comment: For i ndwelling catheters, specimen collection is acceptable on catheter day 1 and 2 only. ? Performed By: #### U [id number] #### [facility] (DEFAULT) [address] [place] [address] Glucose Ql (U) Negative Normal Negative [facility] Comment on above: Order Comment: For i ndwelling catheters, specimen collection is acceptable on catheter day 1 and 2 only. ? Performed By: #### U [id number] #### [facility] (DEFAULT) [address] [place] [address] Ketones Ql (U) 15 mg/dL = Small Abnormal Negative [facility] Comment on above: Order Comment: For i ndwelling catheters, specimen collection is acceptable on catheter day 1 and 2 only. ? Performed By: #### U [id number] #### [facility] (DEFAULT) [address] [place] [address] Leukocyte esterase Test strip Ql (U) Negative Normal Negative [facility] Comment on above: Order Comment: For i ndwelling catheters, specimen collection is acceptable on catheter day 1 and 2 only. ? Performed By: #### U [id number] #### [facility] (DEFAULT) [address] [place] [address] Nitrites Urine Negative Normal Negative [facility] Comment on above: Order Comment: For i ndwelling catheters, specimen collection is acceptable on catheter day 1 and 2 only. ? Performed By: #### U [id number] #### [facility] (DEFAULT) [address] [place] [address] pH (U) 5.5 [pH] Normal 5.0-7.0 [facility] Comment on above: Order Comment: For i ndwelling catheters, specimen collection is acceptable on catheter day 1 and 2 only. ? Performed By: #### U [id number] #### [facility] (DEFAULT) [address] [place] [address] Protein Urine Negative Normal Negative [facility] Comment on above: Order Comment: For i ndwelling catheters, specimen collection is acceptable on catheter day 1 and 2 only. ? Performed By: #### U [id number] #### [facility] (DEFAULT) [address] [place] [address] RBC Urine 0-2 Normal 0-2 [facility] Comment on above: Order Comment: For i ndwelling catheters, specimen collection is acceptable on catheter day 1 and 2 only. ? Performed By: #### U [id number] #### [facility] (DEFAULT) [address] [place] [address] Specific [place] Urine 1.017 Normal 1.001-1.035 [facility] Comment on above: Order Comment: For i ndwelling catheters, specimen collection is acceptable on catheter day 1 and 2 only. ? Performed By: #### U [id number] #### [facility] (DEFAULT) [address] [place] [address] Squamous/Epithelial Cells 0-2/hpf Normal 0-2/hpf, 3-5/hpf = 1+ [facility] Comment on above: Order Comment: For i ndwelling catheters, specimen collection is acceptable on catheter day 1 and 2 only. ? Performed By: #### U [id number] #### [facility] (DEFAULT) [address] [place] [address] Urobilinogen Urine 1.0 E.U./dL Normal 0.2 E.U/d L, 1.0 E.U/dL [facility] Comment on above: Order Comment: For i ndwelling catheters, specimen collection is acceptable on catheter day 1 and 2 only. ? Performed By: #### U [id number] #### [facility] (DEFAULT) [address] [place] [address] WBC Urine 0 - 5 Normal 0 - 5 [facility] Comment on above: Order Comment: For i ndwelling catheters, specimen collection is acceptable on catheter day 1 and 2 only. ? Performed By: #### U [id number] #### [facility] (DEFAULT) [address] [address] .Auto Diffon 09-03-2024 Basophil, Absolute 0.0 10 3/mcL Normal 0.0-0.3 [facility] Comment on above: Performed By: #### A CAROLYNE, CBC, GFR, BMP, MDW, ADIFF #### [address] [address] Basophils/100 WBC (Bld) 0.7 % Normal 0.0-2.5 [facility] Comment on above: Performed By: #### A CAROLYNE, CBC, GFR, BMP, MDW, ADIFF #### [address] [address] Eosinophil, Absolute 0.1 10 3/mcL Normal 0.0-0.7 [facility] Comment on above: Performed By: #### A CAROLYNE, CBC, GFR, BMP, MDW, ADIFF #### [address] [address] Eosinophils/100 WBC (Bld) 2.0 % Normal 0.0-6.0 [facility] Comment on above: Performed By: #### A CAROLYNE, CBC, GFR, BMP, MDW, ADIFF #### [address] [address] Lymphocyte, Absolute 2.6 10 3/mcL Normal 0.9-4.3 [facility] Comment on above: Performed By: #### A CAROLYNE, CBC, GFR, BMP, MDW, ADIFF #### [address] [address] Lymphocytes/100 WBC (Bld) 38.2 % Normal 20.0-40.0 [facility] Comment on above: Performed By: #### A CAROLYNE, CBC, GFR, BMP, MDW, ADIFF #### [address] [address] Monocyte, Absolute 0.6 10 3/mcL Normal 0.1-1.4 [facility] Comment on above: Performed By: #### A CAROLYNE, CBC, GFR, BMP, MDW, ADIFF #### [address] [address] Monocytes/100 WBC (Bld) 8.2 % Normal 2.0-13.0 [facility] Comment on above: Performed By: #### A CAROLYNE, CBC, GFR, BMP, MDW, ADIFF #### [address] [address] Neutrophils/100 WBC (Bld) 50.9 % Normal 50.0-75.0 [facility] Comment on above: Performed By: #### A CAROLYNE, CBC, GFR, BMP, MDW, ADIFF #### [address] [address] .GFRon 09-03-2024 GFR Non- >60 [facility] Comment on above: Result Comment: GFR Population mean for , Non- Americans Ages 20-29 = 116 mL/min/1.73 sq.m. Ages 30-39 = 107 mL/min/1.73 sq.m. Ages 40-49 = 99 mL/min/1.73 sq.m. Ages 50-59 = 93 mL/min/1.73 sq.m. Ages 60-69 = 85 mL/min/1.73 sq.m. Ages 70+ = 75 mL/min/1.73 sq.m. Chronic Kidney Disease: Less than 60 mL/min/1.73 square meters End Stage Renal Disease: Less than 15 mL/min/1.73 square meters Performed By: #### A CAROLYNE, CBC, GFR, BMP, MDW, ADIFF #### [place] [id number] GFR >60 [facility] Comment on above: Result Comment: GFR Population mean for , Non- Americans Ages 20-29 = 116 mL/min/1.73 sq.m. Ages 30-39 = 107 mL/min/1.73 sq.m. Ages 40-49 = 99 mL/min/1.73 sq.m. Ages 50-59 = 93 mL/min/1.73 sq.m. Ages 60-69 = 85 mL/min/1.73 sq.m. Ages 70+ = 75 mL/min/1.73 sq.m. Chronic Kidney Disease: Less than 60 mL/min/1.73 square meters End Stage Renal Disease: Less than 15 mL/min/1.73 square meters Performed By: #### A CAROLYNE, CBC, GFR, BMP, MDW, ADIFF #### [address] [address] .MDWon 09-03-2024 Monocyte Distribution Width 16.58 Normal 0.00-20.00 [facility] Comment on above: Result Comment: For ED adult patients suspected of sepsis, MDW<=20.0 does not rule out sepsis or risk of sepsis Performed By: #### A CAROLYNE, CBC, GFR, BMP, MDW, ADIFF #### [address] [address] .NEUABSon 09-03-2024 Neutrophil, Absolute 3.5 10 3/mcL Normal 2.3-8.1 [facility] Comment on above: Performed By: #### A CAROLYNE, CBC, GFR, BMP, MDW, ADIFF #### [address] [address] BMPon 09-03-2024 BUN/Creatinine Ratio 12.5 ratio Normal 10.0-22.0 [facility] Comment on above: Performed By: #### A CAROLYNE, CBC, GFR, BMP, MDW, ADIFF #### [address] [address] Calcium [Mass/Vol] 10.0 mg/dL Normal 8.7-10.4 [facility] Comment on above: Performed By: #### A CAROLYNE, CBC, GFR, BMP, MDW, ADIFF #### [address] [address] Chloride [Moles/Vol] 106 mmol/L Normal 98-110 [facility] Comment on above: Performed By: #### A CAROLYNE, CBC, GFR, BMP, MDW, ADIFF #### [address] [address] CO2 [Moles/Vol] 25 mmol/L Normal 22-32 [facility] Comment on above: Performed By: #### A CAROLYNE, CBC, GFR, BMP, MDW, ADIFF #### [address] [address] Creatinine [Mass/Vol] 0.56 mg/dL Normal 0.50-1.20 [facility] Comment on above: Result Comment: Test ing performed on Mag[employer] analyzer using enzymatic creatinine methodology. Performed By: #### A CAROLYNE, CBC, GFR, BMP, MDW, ADIFF #### [address] [address] Electrolyte Balance 8.0 mEq/L Normal 4.0-15.0 [facility] Comment on above: Performed By: #### A CAROLYNE, CBC, GFR, BMP, MDW, ADIFF #### [address] [address] Glucose [Mass/Vol] 98 mg/dL Normal 70-110 [facility] Comment on above: Performed By: #### A CAROLYNE, CBC, GFR, BMP, MDW, ADIFF #### [address] [address] Potassium [Moles/Vol] 3.6 mmol/L Normal 3.5-5.0 [facility] Comment on above: Performed By: #### A CAROLYNE, CBC, GFR, BMP, MDW, ADIFF #### [address] [address] Sodium [Moles/Vol] 139 mmol/L Normal 136-145 [facility] Comment on above: Performed By: #### A CAROLYNE, CBC, GFR, BMP, MDW, ADIFF #### [address] [address] Urea nitrogen [Mass/Vol] 7.0 mg/dL Low 8.0-22.0 [facility] Comment on above: Performed By: #### A CAROLYNE, CBC, GFR, BMP, MDW, ADIFF #### [address] [address] CBCon 09-03-2024 Erythrocyte distribution width (RBC) [Ratio] 13.1 % Normal 11.5-15.5 [facility] Comment on above: Performed By: #### A CAROLYNE, CBC, GFR, BMP, MDW, ADIFF #### [place] [address] Hematocrit (Bld) [Volume fraction] 39.4 % Normal 34.0-46.0 [facility] Comment on above: Performed By: #### A CAROLYNE, CBC, GFR, BMP, MDW, ADIFF #### [place] [id number] Hgb 13.7 G/dL Normal 12.0-16.0 [facility] Comment on above: Performed By: #### A CAROLYNE, CBC, GFR, BMP, MDW, ADIFF #### [address] [address] MCH (RBC) [Entitic mass] 29.1 pg Normal 27.0-33.0 [facility] Comment on above: Performed By: #### A CAROLYNE, CBC, GFR, BMP, MDW, ADIFF #### [place] [id number] MCHC 34.8 G/dL Normal 32.0-36.0 [facility] Comment on above: Performed By: #### A CAROLYNE, CBC, GFR, BMP, MDW, ADIFF #### [place] [id number] MCV (RBC) [Entitic vol] 83.7 fL Normal 80.0-99.0 [facility] Comment on above: Performed By: #### A CAROLYNE, CBC, GFR, BMP, MDW, ADIFF #### [place] [id number] Platelet 316 10 3/mcL Normal 150-450 [facility] Comment on above: Performed By: #### A CAROLYNE, CBC, GFR, BMP, MDW, ADIFF #### [facility] [address] [place] [id number] Platelet mean volume (Bld) [Entitic vol] 7.1 fL Normal 6.6-10.5 [facility] Comment on above: Performed By: #### A CAROLYNE, CBC, GFR, BMP, MDW, ADIFF #### [facility] [address] [place] [id number] RBC 4.70 10 6/mcL Normal 4.10-5.30 [facility] Comment on above: Performed By: #### A CAROLYNE, CBC, GFR, BMP, MDW, ADIFF #### [facility] [address] [place] [address] WBC 6.9 10 3/mcL Normal 4.5-10.8 [facility] Comment on above: Performed By: #### A CAROLYNE, CBC, GFR, BMP, MDW, ADIFF #### [place] [id number] [place] [address] LABORATORYOrdered By: Walter Green on 09-03-2024 Beta HCG ( test) Ql (U) Negative (09/03/24 10:57 PM) [facility] LABORATORYOrdered By: Sveta Baez on 09-03-2024 Appearance (U) Clear (09/03/24 10:46 PM) Normal Clear Auto Urine SS Bacteria LM.HPF (Urine sed) [#/Area] Trace /HPF Invalid Interpretation Code Negative Auto Urine SS Bilirubin Ql (U) Negative (09/03/24 10:46 PM) Normal Neg-Trace Auto Urine SS Color (U) Yellow (09/03/24 10:46 PM) Normal AH Auto Urine SS Glucose Test strip (U) [Mass/Vol] Negative Normal Negative AH Auto Urine SS Hemoglobin Auto test strip (U) [Mass/Vol] Small *ABN* (09/03/24 10:46 PM) Invalid Interpretation Code Neg-Trace AH Auto Urine SS Ketones Ql (U) Trace mg/dL Normal Neg-Trace AH Auto U rine SS UA Leuk Est Large *ABN* (09/03/24 10:46 PM) Invalid Interpretation Code Negative AH Auto Urine SS UA Mucous Trace /HPF Normal AH Auto Urine SS UA Nitrite Negative (09/03/24 10:46 PM) Normal Negative AH Auto Urine SS UA pH 7.5 (09/03/24 10:46 PM) Normal 5.0 - 8.0 AH Auto Urine SS UA Protein 30 mg/dL Normal Negative AH Auto Urine SS UA RBC 3-5 /HPF Invalid Interpretation Code 0-2 AH Auto Urine SS UA Spec Grav 1.010 (09/03/24 10:46 PM) Normal 1.006-1.029 AH Auto Urine SS UA Specimen Type Clean Catch (09/03/24 10:46 PM) Normal AH Auto Urine SS UA Squam Epithelial 0-2 /HPF Normal 0-20 AH Au to Urine SS UA Urobilinogen 0.2 E.U./dL Normal 0.2-1.0 AH Auto Urine SS WBC LM.HPF (Urine sed) [#/Area] 10-20 /HPF Invalid Interpretation Code 0-5 AH Auto Urine SS LABORATORYOrdered By: SYSTEM SYSTEM on 09-03-2024 Basophils (Bld) [#/Vol] 0.0 103/mcL Normal 0.0 - 0.3 10^3/mcL AH Workflow SS Basophils/100 WBC (Bld) 0.7 % Normal 0.0 - 2.5 % AH Workflow SS Calcium [Mass/Vol] 10.0 mg/dL Normal 8.7 - 10. 4 mg/dL AH ADM SS Chloride [Moles/Vol] 106 mmol/L Normal 98 - 11 0 mEq/L AH ADM SS CO2 [Moles/Vol] 25 mmol/L Normal 22 - 32 mEq/L AH ADM SS Creatinine [Mass/Vol] 0.56 mg/dL Normal 0.50 - 1.20 mg/dL AH ADM SS Comment on above: Interpretive Data: T esting performed on Mag[employer] analyzer using enzymatic creatinine methodology. Electrolyte Balance 8.0 mEq/L Normal 4.0 - 15 .0 mEq/L AH ADM SS Eosinophils (Bld) [#/Vol] 0.1 103/mcL Normal 0.0 - 0.7 10^3/mcL AH Workflow SS Eosinophils/100 WBC (Bld) 2.0 % Normal 0.0 - 6.0 % AH Workflow SS Erythrocyte distribution width (RBC) [Ratio] 13.1 % Normal 11.5 - 15.5 % AH Workflow SS GFR/1.73 sq M.predicted among blacks MDRD (S/P/Bld) [Vol rate/Area] ml/min/1.73sqm Invalid Interpretation Code [facility] Comment on above: Interpretive Data: GFR Population mean for , Non- Americans Ages 20-29 = 116 mL/min/1.73 sq.m. Ages 30-39 = 107 mL/min/1.73 sq.m. Ages 40-49 = 99 mL/min/1.73 sq.m. Ages 50-59 = 93 mL/min/1.73 sq.m. Ages 60-69 = 85 mL/min/1.73 sq.m. Ages 70+ = 75 mL/min/1.73 sq.m. Chronic Kidney Disease: Less than 60 mL/min/1.73 square meters End Stage Renal Disease: Less than 15 mL/min/1.73 square meters GFR/1.73 sq M.predicted among non-blacks MDRD (S/P/Bld) [Vol rate/Area] ml/min/1.73sqm Invalid Interpretation Code [facility] Comment on above: Interpretive Data: GFR Population mean for , Non- Americans Ages 20-29 = 116 mL/min/1.73 sq.m. Ages 30-39 = 107 mL/min/1.73 sq.m. Ages 40-49 = 99 mL/min/1.73 sq.m. Ages 50-59 = 93 mL/min/1.73 sq.m. Ages 60-69 = 85 mL/min/1.73 sq.m. Ages 70+ = 75 mL/min/1.73 sq.m. Chronic Kidney Disease: Less than 60 mL/min/1.73 square meters End Stage Renal Disease: Less than 15 mL/min/1.73 square meters Glucose [Mass/Vol] 98 mg/dL Normal 70 - 110 mg/dL ADM Hematocrit (Bld) [Volume fraction] 39.4 % Normal 34.0 - 46.0 % Workflow SS Hemoglobin (Bld) [Mass/Vol] 13.7 G/dL Normal 12.0 - 16.0 G/dL Workflow SS Lymphocytes (Bld) [#/Vol] 2.6 103/mcL Normal 0.9 - 4.3 10^3/mcL Workflow SS Lymphocytes/100 WBC (Bld) 38.2 % Normal 20.0 - 40.0 % AH Workflow SS MCH (RBC) [Entitic mass] 29.1 pg Normal 27.0 - 33.0 pg AH Workflow SS MCHC 34.8 G/dL Normal 32.0 - 36.0 G/dL AH Workflow SS MCV (RBC) [Entitic vol] 83.7 fL Normal 80.0 - 99.0 fL AH Workflow SS Monocyte distribution width Auto (Bld) [Entitic vol] 16.58 1 Normal 0.00 - 20.00 AH Workflow SS Comment on above: Result Comment: For ED adult patients suspected of sepsis, MDW<=20.0 does not rule out sepsis or risk of sepsis Monocytes (Bld) [#/Vol] 0.6 103/mcL Normal 0.1 - 1.4 10^3/mcL AH Workflow SS Monocytes/100 WBC (Bld) 8.2 % Normal 2.0 - 13.0 % AH Workflow SS Neutrophils (Bld) [#/Vol] 3.5 103/mcL Normal 2.3 - 8.1 10^3/mcL AH Workflow SS Neutrophils/100 WBC (Bld) 50.9 % Normal 50.0 - 75.0 % AH Workflow SS Platelet mean volume (Bld) [Entitic vol] 7.1 fL Normal 6.6 - 10.5 fL AH Workflow SS Platelets (Bld) [#/Vol] 316 103/mcL Normal 150 - 450 10^3/mcL AH Workflow SS Potassium [Moles/Vol] 3.6 mmol/L Normal 3.5 - 5.0 mEq/L AH ADM SS RBC (Bld) [#/Vol] 4.70 106/mcL Normal 4.10 - 5.3 0 10^6/mcL AH Workflow SS Sodium [Moles/Vol] 139 mmol/L Normal 136 - 145 mEq/L AH ADM SS Urea nitrogen [Mass/Vol] 7.0 mg/dL Low 8.0 - 22.0 mg/dL AH ADM SS Urea nitrogen/Creatinine [Mass ratio] 12.5 ratio Normal 10.0 - 22.0 ratio AH ADM SS WBC (Bld) [#/Vol] 6.9 103/mcL Normal 4.5 - 10.8 10^3/mcL AH Workflow SS No Panel Informationon 09-03 Culture Urine >100,000 cfu/ml Escherichia coli ORA to follow [facility] UAon 09-03-2024 Color (U) Yellow Normal [facility] Comment on above: Performed By: #### U AMIC, UA #### [place] [address] Glucose (U) [Mass/Vol] Negative Normal Negative [facility] Comment on above: Performed By: #### U AMIC, UA #### [place] [address] Ketones Ql (U) Trace Normal Neg-Trace [facility] Comment on above: Performed By: #### U AMIC, UA #### [place] [address] UA Appear Clear Normal Clear [facility] Comment on above: Performed By: #### U AMIC, UA #### [place] [address] UA Blood Small Abnormal Neg-Trace [facility] Comment on above: Performed By: #### U AMIC, UA #### [place] [address] UA Leuk Est Large Abnormal Negative [facility] Comment on above: Performed By: #### U AMIC, UA #### [place] [address] UA Nitrite Negative Normal Negative [facility] Comment on above: Performed By: #### U AMIC, UA #### [place] [address] UA pH 7.5 Normal 5.0 - 8.0 [facility] Comment on above: Performed By: #### U AMIC, UA #### [place] [address] UA Protein 30 mg/dL Normal Negative [facility] Comment on above: Performed By: #### U AMIC, UA #### [place] [address] UA Spec Grav 1.010 Normal 1.006-1.029 [facility] Comment on above: Performed By: #### U AMIC, UA #### [place] [address] UA Specimen Type Clean Catch Normal [facility] Comment on above: Performed By: #### U AMIC, UA #### [place] [address] UA Urobilinogen 0.2 E.U./dL Normal 0.2-1.0 [facility] Comment on above: Performed By: #### U AMIC, UA #### [place] [address] Urobilinogen (U) [Mass/Vol] Negative Normal Neg-Trace [facility] Comment on above: Performed By: #### U AMIC, UA #### [place] [address] UAMICon 09-03-2024 UA Bacteria Trace Abnormal Negative [facility] Comment on above: Performed By: #### U AMIC, UA #### [place] [address] UA Mucous Trace Normal [facility] Comment on above: Performed By: #### U AMIC, UA #### [place] [address] UA RBC 3-5 Abnormal 0-2 [facility] Comment on above: Performed By: #### U AMIC, UA #### [place] [address] UA Squam Epithelial 0-2 Normal 0-20 [facility] Comment on above: Performed By: #### U AMIC, UA #### [place] [address] UA WBC 10-20 Abnormal 0-5 [facility] Comment on above: Performed By: #### U AMIC, UA #### [place] [address] Urine Cultureon 08-29-2024 [facility] Klebsiella pneumonia e sp pneum Bradford Count >100,000 Klebsiella pneumoniae sp pneum: REACTION Ampicillin Islt ORA Ampicillin+Sulbac Islt ORA <=2 S Cefepime Islt ORA <=0.12 S cefTRIAXone Islt ORA <=0.25 S Ciprofloxacin Islt ORA <=0.06 S B-Lactamase Extended Susc Islt NEG Gentamicin Islt ORA <=1 S levoFLOXacin Islt ORA <=0.12 S Meropenem Islt ORA <=0.25 S Nitrofurantoin Islt ORA <=16 S Pip+Tazo Islt ORA <=4 S TMP SMX Islt ORA <=20 S Normal [facility] Comment on above: Performed By: #### M 100.2515 #### [facility] [address] 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 She moved to [place] from [place] and has not sought psychiatric care and is not taking medication. She is irrational and manic and has been demonstrating manipulative behavior which has led to the police being called on her multiple times. Secondary to her persistent fanta and inability to care for self please felt she be better served being evaluated at the hospital and therefore she was brought in for evaluation. Patient denies any homicidal or suicidal ideation [facility] Medical History (Updated 08/28/24 @ 08:[address] Mg Gustafson DO) EtOH dependence ETOH abuse Cocaine abuse Cocaine abuse Cannabis use disorder Generalized anxiety disorder Bipolar 1 disorder, depressed, severe Allergy/AdvReac Type Severity Reaction Status Date / Time No Known Allergies Allergy Verified 08/27/24 16:42 Family History Other A-fib Alcoholism Anxiety Arthritis Asthma CVA (cerebral vascular accident) Depression Diabetes High cholesterol Melanoma Mental disorder Myocardial infarction Osteoporosis Supraventricular tachycardia Surgical History History of tonsillectomy and adenoidectomy Social History Smoking Status: Current every day smoker tobacco type: e-cigarettes alcohol intake: former substance use type: marijuana and other details: no current use what type of physical activity do you participate in: walking, running, weight training and additional details: Plays softball frequency: 5-6 times per week ROS ROS ED Constitutional Constitutional ED: Denies chills or fever(s) Eyes Eyes: Denies blurry vision or change in vision ENT ENT ED: Denies sore throat Cardiovascular Cardiovascular: Denies chest pain Respiratory/Chest Respiratory/Chest: Denies cough or dyspnea Gastrointestinal Gastrointestinal: Denies abdominal pain, diarrhea, nausea or vomiting Genitourinary Genitourinary ED: Denies dysuria Musculoskeletal Musculoskeletal: Denies myalgias Integumentary Denies rash Neurologic Neurologic: Denies headache(s) Psychiatric Psychiatric: Denies suicidal ideation or suicidal thoughts Hematologic/Lymphatic Hematologic/Lymphatic: Denies easy bleeding or easy bruising EXAM Physical Exam Const Vital Signs: 08/27/24 22:38 08/27/24 23:16 08/28/24 00:00 Temperature 98.5 F 98.1 F Temperature Source Temporal Oral Pulse Rate 115 H 102 H 99 Respiratory Rate 18 16 16 Blood Pressure 133/85 H 120/78 121/77 Blood Pressure Mean 101 92 91 Pulse Ox 97 96 96 Oxygen Delivery Method Room Air Room Air Room Air 08/28/24 01:00 08/28/24 02:00 Temperature Temperature Source Pulse Rate 16 L 16 L Respiratory Rate Blood Pressure Blood Pressure Mean Pulse Ox Oxygen Delivery Method Positive well nourished and well developed General Appearance ED: well developed; Negative for pallor HEENT HEENT Narrative: Normocephalic atraumatic Eyes PERRL and EOMs intact bilaterally General Eye ED: Negative for scleral icterus Neck supple Neck Narrative: No nuchal rigidity or meningeal signs Resp normal respiratory effort and clear to auscultation bilaterally Cardio regular rate and regular rhythm GI normal to inspection, nondistended, normoactive bowel sounds, non-tender, non-distended and no masses Auscultation: normoactive bowel sounds Palpation: soft Extremity normal to inspection Extremity Narrative: No asymmetric edema no pitting edema negative Homans' sign bilaterally Neuro oriented x3, CN's II-XII intact bilaterally and no sensory deficits noted Sensorium / Orientation: alert Motor Exam: strength 5/5 throughout Psych Psych Narrative: Patient is manic with flight of ideas but no homicidal or suicidal ideation Skin no rashes or lesions noted General Skin Exam: Negative for jaundice or pallor MDM MDM MDM Narrative Medical decision making narrative: Patient presented to the ER slightly tachycardic but otherwise with stable vitals. She is known bipolar and has not been taking her medications. She has been called upon multiple times by the police secondary to manic behavior and manipulative behavior. She is not homicidal or (more content not included)... Normal [facility] Urine Drug Screen (VISTA)on 08-28-2024 AMPHETAMINES Negative Normal <1000 ng/mL [facility] Comment on above: Performed By: #### L 100.0100, L700.6800, L505.5000, L501.9100, L500.2500 #### [facility] [address] [place], [address] BARBITIURATES Negative Normal < 200 ng/mL [facility] Comment on above: Performed By: #### L 100.0100, L700.6800, L505.5000, L501.9100, L500.2500 #### [facility] [address] [place], [address] BENZODIAZIPINE Negative Normal < 200 ng/mL [facility] Comment on above: Performed By: #### L 100.0100, L700.6800, L505.5000, L501.9100, L500.2500 #### [facility] [address] [place], [address] COCAINE Negative Normal < 300 ng/mL [facility] Comment on above: Performed By: #### L 100.0100, L700.6800,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 [#/Vol] 6.5 10*3/uL Normal 4.5-13.0 [facility] Comment on above: Performed By: #### L [id number] ####Informatics Scientist: NICOLA MCCLURE ([id number])[facility] ([facility])[address] [place] [address] Basophils (Bld) [#/Vol] 0.0 10*3/uL Normal 0.0-0.1 [facility] Comment on above: Performed By: #### L [id number] ####Informatics Scientist: NICOLA MCCLURE ([id number])[facility])[address] [place] [address] Basophils/100 WBC (Bld) 0.3 % Normal 0.0-1.0 [facility] Comment on above: Performed By: #### L [id number] ####Informatics Scientist: NICOLA MCCLURE ([id number])[facility])[address] [place] [address] Eosinophils (Bld) [#/Vol] 0.0 10*3/uL Normal 0.0-0.3 [facility] Comment on above: Performed By: #### L [id number] ####Informatics Scientist: NICOLA MCCLURE ([id number])[address] Eosinophils/100 WBC (Bld) 0.2 % Normal 0.0-3.0 [facility] Comment on above: Performed By: #### L [id number] ####Informatics Scientist: NICOLA MCCLURE ([id number])[address] Erythrocyte distribution width (RBC) [Ratio] 12.1 % Normal 11.5-15.0 [facility] Comment on above: Performed By: #### L [id number] ####Informatics Scientist: NICOLA MCCLURE ([id number])[address] Hematocrit (Bld) [Volume fraction] 41.0 % Normal 37.0-46.0 [facility] Comment on above: Performed By: #### L [id number] ####Informatics Scientist: NICOLA MCCLURE ([id number])[address] Hemoglobin (Bld) [Mass/Vol] 14.1 g/dL Normal 12.0-15.0 [facility] Comment on above: Performed By: #### L [id number] ####Informatics Scientist: NICOLA MCCLURE ([id number])[facility] ([facility])[address] [place] [address] IMMATURE GRANS % 0.3 % Normal 0.0-2.0 [facility] Comment on above: Performed By: #### L [id number] ####Informatics Scientist: NICOLA MCCLURE ([id number])[facility])[address] [place] [address] IMMATURE GRANS ABSOLUTE 0.0 10*3/uL Normal <0.1 [facility] Comment on above: Performed By: #### L [id number] ####Informatics Scientist: NICOLA MCCLURE ([id number])[facility])[address] [place] [address] Lymphocytes (Bld) [#/Vol] 1.4 10*3/uL Low 2.5-4.5 [facility] Comment on above: Performed By: #### L [id number] ####Informatics Scientist: NICOLA MCCLURE ([id number])[facility] ([facility])[address] [place] [address] Lymphocytes/100 WBC (Bld) 21.4 % Low 25.0-45.0 [facility] Comment on above: Performed By: #### L [id number] ####Informatics Scientist: NICOLA MCCLURE ([id number])[facility])[address] [place] [address] MCH (RBC) [Entitic mass] 28.6 pg Normal 25.0-35.0 [facility] Comment on above: Performed By: #### L [id number] ####Informatics Scientist: NICOLA MCCLURE ([id number])[facility])[address] [place] [address] MCHC 34.4 % Normal 31.0-37.0 [facility] Comment on above: Performed By: #### L [id number] ####Informatics Scientist: NICOLA MCCLURE ([id number])[facility])[address] [place] [address] MCV (RBC) [Entitic vol] 83.2 fL Normal 78.0-96.0 [facility] Comment on above: Performed By: #### L [id number] ####Informatics Scientist: NICOLA MCCLURE ([id number])[facility])[address] [place] [address] Monocytes (Bld) [#/Vol] 0.5 10*3/uL Normal 0.3-0.6 [facility] Comment on above: Performed By: #### L [id number] ####Informatics Scientist: NICOLA MCCLURE ([id number])[facility] ([facility])[address] [place] [address] Monocytes/100 WBC (Bld) 8.3 % High 3.0-6.0 [facility] Comment on above: Performed By: #### L [id number] ####Informatics Scientist: NICOLA MCCLURE ([id number])[facility])[address] [place] [address] NEUTROPHILS ABSOLUTE 4.5 10*3/uL Normal 3.4-6.1 [facility] Comment on above: Performed By: #### L [id number] ####Informatics Scientist: NICOLA MCCLURE ([id number])[facility])[address] [place] [address] Neutrophils/100 WBC (Bld) 69.5 % High 34.0-64.0 [facility] Comment on above: Performed By: #### L [id number] ####Informatics Scientist: NICOLA MCCLURE ([id number])[facility])[address] [place] [address] NRBC 0.0 /100 WBCs Normal 0.0-2.0 [facility] Comment on above: Performed By: #### L [id number] ####Informatics Scientist: NICOLA MCCLURE ([id number])[facility])[address] [place] [address] Platelet mean volume (Bld) [Entitic vol] 9.1 fL Normal 9.0-12.7 [facility] Comment on above: Performed By: #### L [id number] ####Informatics Scientist: NICOLA MCCLURE ([id number])[facility] ([facility])[address] [place] [address] Platelets (Bld) [#/Vol] 301 10*3/uL Normal 150-450 [facility] Comment on above: Performed By: #### L [id number] ####Informatics Scientist: NICOLA MCCLURE ([id number])[facility] ([facility])[address] [place] [address] RBC (Bld) [#/Vol] 4.93 10*6/uL High 4.10-4.80 [facility] Comment on above: Performed By: #### L [id number] ####Informatics Scientist: NICOLA MCCLURE ([id number])[facility] ([facility])[address] [place] [address] WBC (Bld) [#/Vol] 6.5 10*3/uL Normal 4.5-13.0 [facility] Comment on above: Performed By: #### L [id number] ####Informatics Scientist: NICOLA MCCLURE ([id number])[facility] ([facility])[address] [place] [address] CKon 01-12-2024 CK [Catalytic activity/Vol] 36 U/L Normal 30-170 [facility] Comment on above: Performed By: #### L AB62, NEC744, ZXA859, LAB15, LAB46 ####Informatics Scientist: NICOLA MCCLURE ([id number])[facility] ([facility])[address] [place] [address] CK [Catalytic activity/Vol] 36 U/L Normal 30-170 [facility] Comment on above: Performed By: #### L AB62, [id number], [id number], LAB15, LAB46 ####Informatics Scientist: NICOLA MCCLURE ([id number])[facility])[address] [place] [address] COMPLETE URINALYSISon 2023 BACTERIA (#/HPF) IN URINE Negative Normal Negative [facility] Comment on above: Performed By: #### L [id number] #### Informatics Scientist: NICOLA MCCLURE ([id number]) [facility] [facility]) [address] [place] [address] BILIRUBIN, TOTAL PRESENCE IN URINE Negative Normal Negative [facility] Comment on above: Performed By: #### L [id number] #### Informatics Scientist: NICOLA MCCLURE ([id number]) [facility] ([facility]) [address] [place] [address] Clarity (U) Clear Normal Clear [facility] Comment on above: Performed By: #### L [id number] #### Informatics Scientist: NICOLA MCCLURE ([id number]) [facility] ([facility]) [address] [place] [address] Color (U) Light Yellow Normal Lt. Yellow [facility] Comment on above: Performed By: #### L [id number] #### Informatics Scientist: NICOLA MCCLURE ([id number]) [facility] ([facility]) [address] [place] [address] GLUCOSE (MG/DL) IN URINE Normal Normal Normal (<70) [facility] Comment on above: Performed By: #### L [id number] #### Informatics Scientist: NICOLA MCCLURE ([id number]) [facility] ([facility]) [address] [place] [address] HEMOGLOBIN PRESENCE IN URINE Negative Normal Negative [facility] Comment on above: Performed By: #### L [id number] #### Informatics Scientist: NICOLA MCCLURE ([id number]) [facility] ([facility]) [address] [place] [address] HYALINE CASTS (#/LPF) IN URINE SEDIMENT BY MICROSCOPY Negative Normal Negative [facility] Comment on above: Performed By: #### L [id number] #### Informatics Scientist: NICOLA MCCLURE ([id number]) [facility] ([facility]) [address] [place] [address] Ketones Ql (U) 40 mg/dL Abnormal Negative [facility] Comment on above: Performed By: #### L [id number] #### Informatics Scientist: NICOLA MCCLURE ([id number]) [facility] ([facility]) [address] [place] [address] LEUKOCYTE ESTERASE PRESENCE IN URINE BY TEST STRIP Negative Normal Negative [facility] Comment on above: Performed By: #### L [id number] #### Informatics Scientist: NICOLA MCCLURE ([id number]) [facility] ([facility]) [address] [place] [address] [place] MUCUS (#/LPF) IN URINE SEDIMENT Few Normal Negative [facility] Comment on above: Performed By: #### L [id number] #### Informatics Scientist: NICOLA MCCLURE ([id number]) [facility] ([facility]) [address] [place] [address] NITRITE PRESENCE IN URINE Negative Normal Negative [facility] Comment on above: Performed By: #### L [id number] #### Informatics Scientist: NICOLA MCCLURE ([id number]) [facility] ([facility]) [address] [place] [address] pH (U) 6.0 [pH] Normal 5.0-8.0 [facility] Comment on above: Performed By: #### L [id number] #### Informatics Scientist: NICOLA MCCLURE ([id number]) [facility] ([facility]) [address] [place] [address] Protein (U) [Mass/Vol] 10 mg/dL Abnormal Negative [facility] Comment on above: Performed By: #### L [id number] #### Informatics Scientist: NICOLA MCCLURE ([id number]) [facility] ([facility]) [address] [place] [address] [place] RBC (#/HPF) IN URINE SEDIMENT 0-2 Normal 0-2 [facility] Comment on above: Performed By: #### L [id number] #### Informatics Scientist: NICOLA MCCLURE ([id number]) [facility] ([facility]) [address] [place] [address] Specific gravity (U) [Rel density] >1.030 High 1.005-1.030 [facility] Comment on above: Performed By: #### L [id number] #### Informatics Scientist: NICOLA MCCLURE ([id number]) [facility] ([facility]) [address] [place] [address] [place] SQUAMOUS EPITHELIAL CELLS (#/HPF) IN URINE SEDIMENT 0-2 Normal 3-5 [facility] Comment on above: Performed By: #### L [id number] #### Informatics Scientist: NICOLA MCCLURE ([id number]) [facility] ([facility]) [address] [place] [address] [place] UROBILINOGEN (MG/DL) IN URINE Normal Normal Normal (0-1) [facility] Comment on above: Performed By: #### L [id number] #### Informatics Scientist: NICOLA MCCLURE ([id number]) [facility] ([facility]) [address] [place] [address] WBC (LEUKOCYTE) (#/HPF) IN URINE SEDIMENT 0-2 Normal 0-5 [facility] Comment on above: Performed By: #### L [id number] #### Informatics Scientist: NICOLA MCCLURE ([id number]) [facility] ([facility]) [address] [place] [address] [place] BACTERIA (#/HPF) IN URINE Negative Normal Negative [facility] Comment on above: Performed By: #### L [id number] ####Informatics Scientist: NICOLA MCCLURE ([id number])[facility] ([facility])[address] [place] [address] [place] BILIRUBIN, TOTAL PRESENCE IN URINE Negative Normal Negative [facility] Comment on above: Performed By: #### L [id number] ####Informatics Scientist: NICOLA MCCLURE ([id number])[facility] ([facility])[address] [place] [address] Clarity (U) Clear Normal Clear [facility] Comment on above: Performed By: #### L [id number] ####Informatics Scientist: NICOLA MCCLURE ([id number])[facility] ([facility])[address] [place] [address] [place] Color (U) Light Yellow Normal Lt. Yellow [facility] Comment on above: Performed By: #### L [id number] ####Informatics Scientist: NICOLA MCCLURE ([id number])[facility] ([facility])[address] [place] [address] GLUCOSE (MG/DL) IN URINE Normal Normal Normal (<70) [facility] Comment on above: Performed By: #### L [id number] ####Informatics Scientist: NICOLA MCCLURE ([id number])[facility] ([facility])[address] [place] [address] HEMOGLOBIN PRESENCE IN URINE Negative Normal Negative [facility] Comment on above: Performed By: #### L [id number] ####Informatics Scientist: NICOLA MCCLURE ([id number])[facility] ([facility])[address] [place] [address] HYALINE CASTS (#/LPF) IN URINE SEDIMENT BY MICROSCOPY Negative Normal Negative [facility] Comment on above: Performed By: #### L [id number] ####Informatics Scientist: NICOLA MCCLURE ([id number])[facility] ([facility])[address] [place] [address] Ketones Ql (U) 40 mg/dL Abnormal Negative [facility] Comment on above: Performed By: #### L [id number] ####Informatics Scientist: NICOLA MCCLURE ([id number])[facility] ([facility])[address] [place] [address] LEUKOCYTE ESTERASE PRESENCE IN URINE BY TEST STRIP Negative Normal Negative [facility] Comment on above: Performed By: #### L [id number] ####Informatics Scientist: NICOLA MCCLURE ([id number])[facility] ([facility])[address] [place] [address] [place] MUCUS (#/LPF) IN URINE SEDIMENT Few Normal Negative [facility] Comment on above: Performed By: #### L [id number] ####Informatics Scientist: NICOLA MCCLURE ([id number])[facility] ([facility])[address] [place] [address] [place] NITRITE PRESENCE IN URINE Negative Normal Negative [facility] Comment on above: Performed By: #### L [id number] ####Informatics Scientist: NICOLA MCCLURE ([id number])[facility] ([facility])[address] [place] [address] pH (U) 6.0 [pH] Normal 5.0-8.0 [facility] Comment on above: Performed By: #### L [id number] ####Informatics Scientist: NICOLA MCCLURE ([id number])[facility] ([facility])[address] [place] [address] Protein (U) [Mass/Vol] 10 mg/dL Abnormal Negative [facility] Comment on above: Performed By: #### L [id number] ####Informatics Scientist: NICOLA MCCLURE ([id number])[facility] ([facility])[address] [place] [address] RBC (#/HPF) IN URINE SEDIMENT 0-2 Normal 0-2 [facility] Comment on above: Performed By: #### L [id number] ####Informatics Scientist: NICOLA MCCLURE ([id number])[facility] ([facility])[address] [place] [address] Specific gravity (U) [Rel density] >1.030 High 1.005-1.030 [facility] Comment on above: Performed By: #### L [id number] ####Informatics Scientist: NICOLA MCCLURE ([id number])[facility] ([facility])[address] [place] [address] SQUAMOUS EPITHELIAL CELLS (#/HPF) IN URINE SEDIMENT 0-2 Normal 3-5 [facility] Comment on above: Performed By: #### L [id number] ####Informatics Scientist: NICOLA MCCLURE ([id number])[facility] ([facility])[address] [place] [address] UROBILINOGEN (MG/DL) IN URINE Normal Normal Normal (0-1) [facility] Comment on above: Performed By: #### L [id number] ####Informatics Scientist: NICOLA MCCLURE ([id number])[facility] ([facility])[address] [place] [address] WBC (LEUKOCYTE) (#/HPF) IN URINE SEDIMENT 0-2 Normal 0-5 [facility] Comment on above: Performed By: #### L [id number] ####Informatics Scientist: NICOLA MCCLURE ([id number])[facility] ([facility])[address] [place] [address] COMPREHENSIVE METABOLIC PANE Dominic 01-12-2024 Albumin [Mass/Vol] 4.7 g/dL Normal 3.5-5.0 [facility] Comment on above: Performed By: #### L [id number] #### Informatics Scientist: NICOLA MCCLURE ([id number]) [facility] ([facility]) [address] [place] [address] ALP [Catalytic activity/Vol] 51 U/L Normal 38-126 [facility] Comment on above: Performed By: #### L [id number] #### Informatics Scientist: NICOLA MCCLURE ([id number]) [facility] ([facility]) [address] [place] [address] ALT [Catalytic activity/Vol] 12 U/L Normal 0-34 [facility] Comment on above: Performed By: #### L [id number] #### Informatics Scientist: NICOLA MCCLURE ([id number]) [facility] ([facility]) [address] [place] [address] Anion gap [Moles/Vol] 9 mmol/L Normal 3-13 [facility] Comment on above: Performed By: #### L [id number] #### Informatics Scientist: NICOLA MCCLURE ([id number]) [facility] ([facility]) [address] [place] [address] AST [Catalytic activity/Vol] 20 U/L Normal 15-46 [facility] Comment on above: Performed By: #### L [id number] #### Informatics Scientist: NICOLA MCCLURE ([id number]) [facility] ([facility]) [address] [place] [address] Bilirubin [Mass/Vol] 0.8 mg/dL Normal 0.2-1.3 [facility] Comment on above: Performed By: #### L [id number] #### Informatics Scientist: NICOLA MCCLURE ([id number]) [facility] ([facility]) [address] [place] [address] Calcium [Mass/Vol] 9.9 mg/dL Normal 8.4-10.4 [facility] Comment on above: Performed By: #### L [id number] #### Informatics Scientist: NICOLA MCCLURE ([id number]) [facility] ([facility]) [address] [place] [address] [place] Chloride [Moles/Vol] 103 mmol/L Normal 98-107 [facility] Comment on above: Performed By: #### L [id number] #### Informatics Scientist: NICOLA MCCLURE ([id number]) [facility] ([facility]) [address] [place] [address] CO2 [Moles/Vol] 23 mmol/L Normal 22-30 [facility] Comment on above: Performed By: #### L [id number] #### Informatics Scientist: NICOLA MCCLURE ([id number]) [facility] ([facility]) [address] [place] [address] [place] Creatinine [Mass/Vol] 0.55 mg/dL Normal 0.52-1.04 [facility] Comment on above: Performed By: #### L [id number] #### Informatics Scientist: NICOLA MCCLURE ([id number]) [facility] ([facility]) [address] [place] [address] [place] GLOMERULAR FILTRATION RATE ML/MIN/1.73 SQ M.PREDICTED >90.0 Normal >60.0 [facility] Comment on above: Result Comment: Calc ulation based on the Chronic Kidney Disease Epidemiology Collaboration (CKD-EPI) equation refit without adjustment for race Performed By: #### L [id number] #### Informatics Scientist: NICOLA MCCLURE ([id number]) [facility] ([facility]) [address] [place] [address] [place] Glucose [Mass/Vol] 89 mg/dL Normal 70-100 [facility] Comment on above: Performed By: #### L [id number] #### Informatics Scientist: NICOLA MCCLURE ([id number]) [facility] ([facility]) [address] [place] [address] Potassium [Moles/Vol] 4.2 mmol/L Normal 3.5-5.1 [facility] Comment on above: Performed By: #### L [id number] #### Informatics Scientist: NICOLA MCCLURE ([id number]) [facility] ([facility]) [address] [place] [address] Protein [Mass/Vol] 7.7 g/dL Normal 6.3-8.2 [facility] Comment on above: Performed By: #### L [id number] #### Informatics Scientist: NICOLA MCCLURE ([id number]) [facility] ([facility]) [address] [place] [address] Sodium [Moles/Vol] 135 mmol/L Normal 135-145 [facility] Comment on above: Performed By: #### L [id number] #### Informatics Scientist: NICOLA MCCLURE ([id number]) [facility] ([facility]) [address] [place] [address] Urea nitrogen [Mass/Vol] 10 mg/dL Normal 7-17 [facility] Comment on above: Performed By: #### L [id number] #### Informatics Scientist: NICOLA MCCLURE ([id number]) [facility] ([facility]) [address] [place] [address] Albumin [Mass/Vol] 4.7 g/dL Normal 3.5-5.0 [facility] Comment on above: Performed By: #### L [id number], [id number] ####Informatics Scientist: NICOLA MCCLURE ([id number])[facility] ([facility])[address] [place] [address] ALP [Catalytic activity/Vol] 51 U/L Normal 38-126 [facility] Comment on above: Performed By: #### L [id number], LAB18 ####Informatics Scientist: NICOLA MCCLURE ([id number])[facility] ([facility])[address] [place] [address] [place] ALT [Catalytic activity/Vol] 12 U/L Normal 0-34 [facility] Comment on above: Performed By: #### L [id number], LAB18 ####Informatics Scientist: NICOLA MCCLURE ([id number])[facility] ([facility])[address] [place] [address] Anion gap [Moles/Vol] 9 mmol/L Normal 3-13 [facility] Comment on above: Performed By: #### L [id number], LAB18 ####Informatics Scientist: NICOLA MCCLURE ([id number])[facility] ([facility])[address] [place] [address] AST [Catalytic activity/Vol] 20 U/L Normal 15-46 [facility] Comment on above: Performed By: #### L [id number], LAB18 ####Informatics Scientist: NICOLA MCCLURE ([id number])[facility] ([facility])[address] [place] [address] Bilirubin [Mass/Vol] 0.8 mg/dL Normal 0.2-1.3 [facility] Comment on above: Performed By: #### L [id number], LAB18 ####Informatics Scientist: NICOLA MCCLURE ([id number])[facility] ([facility])[address] [place] [address] Calcium [Mass/Vol] 9.9 mg/dL Normal 8.4-10.4 [facility] Comment on above: Performed By: #### L AB17, LAB18 ####Informatics Scientist: NICOLA MCCLURE ([id number])[facility] ([facility])[address] [place] [address] [place] Chloride [Moles/Vol] 103 mmol/L Normal 98-107 [facility] Comment on above: Performed By: #### L [id number], LAB18 ####Informatics Scientist: NICOLA MCCLURE ([id number])[facility])[address] [place] [address] [place] CO2 [Moles/Vol] 23 mmol/L Normal 22-30 [facility] Comment on above: Performed By: #### L AB17, LAB18 ####Informatics Scientist: NICOLA MCCLURE ([id number])[facility] ([facility])[address] [place] [address] Creatinine [Mass/Vol] 0.55 mg/dL Normal 0.52-1.04 [facility] Comment on above: Performed By: #### L AB17, LAB18 ####Informatics Scientist: NICOLA MCCLURE ([id number])[facility])[address] [place] [address] GLOMERULAR FILTRATION RATE ML/MIN/1.73 SQ M.PREDICTED >90.0 Normal >60.0 [facility] Comment on above: Result Comment: Calc ulation based on the Chronic Kidney Disease Epidemiology Collaboration (CKD-EPI) equation refit without adjustment for race Performed By: #### L AB17, LAB18 ####Informatics Scientist: NICOLA MCCLURE ([id number])[facility] ([facility])[address] [place] [address] Glucose [Mass/Vol] 89 mg/dL Normal 70-100 [facility] Comment on above: Performed By: #### L AB17, LAB18 ####Informatics Scientist: NICOLA MCCLURE ([id number])[facility] ([facility])[address] [place] [address] Potassium [Moles/Vol] 4.2 mmol/L Normal 3.5-5.1 [facility] Comment on above: Performed By: #### L AB17, LAB18 ####Informatics Scientist: NICOLA MCCLURE ([id number])[facility])[address] [place] [address] Protein [Mass/Vol] 7.7 g/dL Normal 6.3-8.2 [facility] Comment on above: Performed By: #### L AB17, LAB18 ####Informatics Scientist: NICOLA MCCLURE ([id number])[facility])[address] [place] [address] Sodium [Moles/Vol] 135 mmol/L Normal 135-145 [facility] Comment on above: Performed By: #### L AB17, LAB18 ####Informatics Scientist: NICOLA MCCLURE ([id number])[facility] [place] [address] Urea nitrogen [Mass/Vol] 10 mg/dL Normal 7-17 [facility] Comment on above: Performed By: #### L AB17, LAB18 ####Informatics Scientist: NICOLA MCCLURE ([id number])[facility] ([facility] [place] [address] CT CERVICAL SPINE WO IV CONT RASTon 01-12-2024 CT CERVICAL SPINE WO IV CONTRAST Patient Name: AHSAN BUNDY : 01/11/2006 Exam Date/Time: 01/12/2024 14:31 Procedure: CT CERVICAL SPINE WO IV CONTRAST Ordering Provider: FOLEY NATHAN Reason For Exam: Polytrauma, blunt EXAMINATION: CT CERVICAL SPINE WO IV CONTRAST CLINICAL HISTORY: Polytrauma, blunt COMPARISON: None TECHNIQUE: Thin isotropic axial images were obtained from the skull base to the upper thoracic spine without intravenous contrast. Dose reduction was employed with automated exposure control. FINDINGS: Craniocervical Junction: Congenital nonsegmentation of C2-C3. Alignment: Anatomic Vertebrae: No acute fracture or traumatic malalignment. No aggressive osseous lesions. Soft Tissues: No acute abnormality. Canal and Foramina: No stenosis IMPRESSION: No acute cervical spine fracture or traumatic malalignment. Report Dictated on Electronically Signed By: Stef Larson MD Electronically Signed Date/Time: 01/12/2024 2:47 PM EDT Normal [facility] CT CERVICAL SPINE WO IV CONTRAST Patient Name: AHSAN BUNDY : 01/11/2006 Exam Date/Time: 01/12/2024 14:31 Procedure: CT CERVICAL SPINE WO IV CONTRAST Ordering Provider: FOLEY NATHAN Reason For Exam: Polytrauma, blunt EXAMINATION: CT CERVICAL SPINE WO IV CONTRAST CLINICAL HISTORY: Polytrauma, blunt COMPARISON: None TECHNIQUE: Thin isotropic axial images were obtained from the skull base to the upper thoracic spine without intravenous contrast. Dose reduction was employed with automated exposure control. FINDINGS: Craniocervical Junction: Congenital nonsegmentation of C2-C3. Alignment: Anatomic Vertebrae: No acute fracture or traumatic malalignment. No aggressive osseous lesions. Soft Tissues: No acute abnormality. Canal and Foramina: No stenosis IMPRESSION: No acute cervical spine fracture or traumatic malalignment. Report Dictated on Electronically Signed By: Stef Larson MD Electronically Signed Date/Time: 01/12/2024 2:47 PM EDT [facility] CT CHEST ABDOMEN PELVIS W CO NTRASTon 01-12-2024 CT CHEST ABDOMEN PELVIS W CONTRAST Patient Name: AHSAN BUNDY : 01/11/2006 [facility]#: [id number] Exam Date/Time: 01/12/2024 14:31 Procedure: CT CHEST ABDOMEN PELVIS W CONTRAST Ordering Provider: FOLEY NATHAN Reason For Exam: Polytrauma, blunt CT CHEST WITH CONTRAST: EXAM DATE AND TIME: 01/12/2024 2:31 PM EDT INDICATION: 18 years Female with trauma, pain COMPARISON: None TECHNIQUE: Transaxial sequence through the chest from lung apices through the bases with 1 mm reconstruction during dynamic infusion of 75 mL intravenous contrast. Coronal and sagittal reconstructions included. Dose reduction was employed with automated exposure control. FINDINGS: Lungs: No consolidation or atelectasis. No parenchymal or pleural-based nodule or mass. No lung laceration, contusion or pneumothorax. Pleural fluid: None. Heart/Great vessels: No abnormality. Mediastinum/Sherrie: No mass identified. Chest wall and lower neck: Unremarkable. Osseous structures: No abnormality. IMPRESSION: 1. No acute traumatic injury to the chest. CT ABDOMEN AND PELVIS WITH CONTRAST EXAM DATE AND TIME: 01/12/2024 2:31 PM EDT INDICATION: 18 years Female with trauma, pain COMPARISON: None TECHNIQUE: Transaxial sequence through the abdomen and pelvis following oral contrast with dynamic intravenous infusion of 75 mL of 370 mg% contrast media with a single injection for the chest, abdomen and pelvis. Coronal and sagittal reconstructions included. Dose reduction was employed with automated exposure control. FINDINGS: Liver: Normal size and contour. No focal lesion. Biliary tree: Normal caliber. The gallbladder is nondistended. Spleen: Normal. Adrenals: Normal. Pancreas: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 colby urement (mass/volume)Ordered By: Leo Glover on 12-10-2023 Calcium [Mass/Vol] 9.6 mg/dL 8.5-10.1 [facility] Serum or plasma choriogonado tropin detectionOrdered By: Leo Glover on 12-10-2023 HCG ( test) Ql Negative [facility] Serum or plasma creatinine m easurement (mass/volume)Ordered By: Leo Glover on 12-10-2023 Creatinine [Mass/Vol] 0.71 mg/dL 0.55-1.02 [facility] Comment on above: The validity of the calculated GFR & GFRAA in patients over 70 years has not been determined. Clinical correlation is essential. Serum or plasma urea nitroge n measurement (mass/volume)Ordered By: Leo Glover on 12-10-2023 Urea nitrogen [Mass/Vol] 12 mg/dL 7-18 [facility] Thin prep Papanicolaou smear with manual screeningOrdered By: Leo Glover on 12-10-2023 Thin prep Papanicolaou smear with manual screening 2 5-15 [facility] Urine Drug Screen (VISTA)on 12-10-2023 AMPHETAMINES Negative Normal <1000 ng/mL [facility] Comment on above: Performed By: #### L 100.0100, L700.6800, L505.5000, L501.9100, L500.2500 #### [facility] Laboratory [address] [place], [address] BARBITIURATES Negative Normal < 200 ng/mL [facility] Comment on above: Performed By: #### L 100.0100, L700.6800, L505.5000, L501.9100, L500.2500 #### [facility] [address] [place], [address] BENZODIAZIPINE Negative Normal < 200 ng/mL [facility] Comment on above: Performed By: #### L 100.0100, L700.6800, L505.5000, L501.9100, L500.2500 #### [facility] [address] [place], [address] COCAINE Negative Normal < 300 ng/mL [facility] Comment on above: Performed By: #### L 100.0100, L700.6800, L505.5000, L501.9100, L500.2500 #### [facility] [address] [place], [address] ECSTACY Negative Normal < 500 ng/mL [facility] Comment on above: Performed By: #### L 100.0100, L700.6800, L505.5000, L501.9100, L500.2500 #### [facility] [address] [place] [address] METHADONE Negative Normal < 300 ng/mL [facility] Comment on above: Performed By: #### L 100.0100, L700.6800, L505.5000, L501.9100, L500.2500 #### [facility] [address] [place], [facility] OPIATES Negative Normal < 300 ng/mL [facility] Comment on above: Performed By: #### L 100.0100, L700.6800, L505.5000, L501.9100, L500.2500 #### [facility] Laboratory [facility] [place], [place], [facility] PCP Negative Normal < 25 ng/mL [facility] Comment on above: Performed By: #### L 100.0100, L700.6800, L505.5000, L501.9100, L500.2500 #### [facility] Laboratory [facility] [place], [facility] THC Positive Abnormal < 50 ng/mL [facility] Comment on above: Performed By: #### L 100.0100, L700.6800, L505.5000, L501.9100, L500.2500 #### [facility] [address] [place], [facility] VISTA UDS PH 6 Normal [facility] Comment on above: Performed By: #### L 100.0100, L700.6800, L505.5000, L501.9100, L500.2500 #### [facility] [address] [place], [address] Urine phencyclidine (PCP) de tectionOrdered By: Leo Glover on 12-10-2023 Phencyclidine Ql (U) Negative < 25 ng/mL [facility] Laboratory - Microbiology an d Antimicrobial susceptibilityon 05-20-2023 S. pyogenes Ag Ql (Throat) Negative Negative, None Detected [facility] [employer] No Panel Informationon 05-20 Interpretation and review of laboratory results Normal [facility] [employer] Progress Noteon 05-11-2023 [employer] Authentication Interface Message Text Harsh Love is here in follow-up for: Ureteropelvic Junction Obstruction History of Presenting Problem: 05/11/2023: History provided by mom. Not having any issues. Since last seen- UTIs: No; Unexplained fevers: No; Visible hematuria: No. Voids: every 3 hours. Incontinence: No. BM daily (type 4-5). Recurrent flank/abdominal pain: No. Renal/bladder US (05/11/2023): R 10.6 (splitting HN on some images), L 11.2 (grade 1 HN, AP 7 mm); Bladder: no pvr; Rectum: no significant stool Old notes (for reference): 02/02/2023: History provided by mom and patient. No issues. Since last seen- UTIs: No; Unexplained fevers: No; Visible hematuria: No. Incontinence: No. BM not every day. Recurrent flank/abdominal pain: No. Renal/bladder US (02/02/2023): R 10.88 (Gr 1-2 HN, 2cm AP), L 9.89+ (splitting HN, 1 cm); Bladder: normal wall; Rectum: unremarkable 12/19/22 Cysto/stent pull 11/18/22: R lap pyeloplasty, stent exchange 10/27/2022: Video visit. History provided by mom and patient. Hasnt had any of the prior pain since last seen. Has discomfort from stent with start of sports practice. Annoying, able to continue practice. Since last seen- UTIs: No; Unexplained fevers: No; Visible hematuria: No. BM every couple days (type 4 and 3). Recurrent flank/abdominal pain: No. Working normally. 09/12/2022: History provided by mom. Had back pain 08/18. Started on the right side and went on for about 5 hours. Has not had flank pain since 08/18. Worked a long day and may have been more constipated at time. Right after surgery, there were a couple days of pain. In August, has not had a day of pain where it was hurting very badly. Has had a lot of issues with constipation lately as well. Did not have bowel movement all weekend last . Thursday had stomach pain. Worried that surgery will not take pain away. Has had a lot of stent discomfort. When jumping around, can feel the stent and it feels uncomfortable. Was very bad for about 2-3 days after surgery. Renal/Bladder US (09/12/2022): R 10.56 (minimal HN), L 12 (splitting LP on some images, no significant HN); Bladder: stent visible; Rectum: unremarkable 08/12/22: Cysto/R stent (6x26) 07/28/2022: History provided by patient. Still having frequent pain on right side. Notice when active. 3/7 days. Variable time: 20 minutes to an hour. Better with ibuprofen/tylenol. Since last seen- UTIs: No; Unexplained fevers: No; Visible hematuria: No. BM every other day, did clean out and taking full cap daily. Misses BM when forgets to take miralax. Have alarm set. 07/01/2022: History provided by mom. Has been having a lot more frequent side pain. Was ill over the weekend and vomited. Usually when her side hurts, she can lay down and rest and it'll get better. This week she missed school one day. Now pain is happening a few times per week. Also complaining of dysuria. No fever. Has right flank pain. Does not move/radiate. Has more pain when it is touched. Last week did senna and miralax. Has not had time to do a clean out because she has not been at home for an entire day. Thinking that maybe they will do it today. BM at least once a day usually. Did senna and had diarrhea and then did not go for a few days. Voiding probably every three hours. Trying to do the two hour schedule but it's hard. At school, goes about twice. Drinks water mostly. Has been trying to do elimination diet. Difficult to follow a diet when she is always on the go. A couple over last few weeks. Havent done clean out. Pain more common when works extra hours. Has been drinking more at work. 06/02/2022: History provided by Mom and patient. Was admitted for pyelonephritis on 05/09. CT showing right hydronephrosis, consistent with right UPJ obstruction. Urine culture <10k enterococcus and staphylococcus. She was treated for the infection and was put on macrobid. She denies any UTIs, Voids 4-6 times per day. She has occasional flank pain but does not last long. Daily soft BM.Some pain during exam, but think related to position. Right side. Right sided pain- pressure, like being hit in the side. . 05/09/22 [facility] urine culture >100k Enterococcus per report. Given rocephin and culture repeated at [facility] (<10k Enterococcus, <10k staph). 04/16/22 UCx nl anabel and >100k Enterococcus. 04/07/22 Macrobid BID x 7 days ordered. 04/04/22 UCx >100k Enterococcus, 10-50k E Coli. UA neg. VCUG 06/02/2022: no VUR, normal bladder/urethra, no PVR, stool burden Lasix scan 06/02/2022: R 44, L 56, both drain well before lasix CT scan: R > L HN, R crossing vessel Past Medical History: Past Medical History: Diagnosis Date Depression Hydronephrosis MRSA (methicillin resistant Staphylococcus aureus) Pyelonephritis Sepsis 05/10/2022 Past Surgical History: Procedure Laterality Date CYSTOSCOPY N/A 12/19/2022 CYSTOSCOPY WITH STENT REMOVAL performed by Rahul Reid MD at [facility] OR PYELOPLASTY Right 11/18/2022 LAPAROSCOPIC PY (more content not included)... Normal [facility] Urine cultureon 12-21-2022 Bacteria identified Cx Nom (U) Staphylococcus epidermidis Abnormal [facility] Comment on above: >10,000 CFU/ml Interpretation and review of laboratory results Abnormal [facility] Specimen Information Type: Urine-Cysto Source: [facility] POCT urine HCGOrdered By: Brian Pretty on 12-19-2022 Clear Background *Present [facility] Control Line *Present [facility] HCG ( test) Ql (U) Negative Negative [facility] Interpretation and review of laboratory results Normal [facility] LOT # [id number] [facility] Basic Metabolic Panelon 10-30 Calcium [Mass/Vol] 8.9 mg/dL 7.6 - 11. 0 mg/dL [facility] Chloride [Moles/Vol] 106 mmol/L 96 - 10 8 mmol/L [facility] CO2 [Moles/Vol] 20.2 mmol/L Low 22.0 - 29.0 mmol/L [facility] Creatinine [Mass/Vol] 0.59 mg/dL 0.50 - 1.00 mg/dL [facility] Glucose [Mass/Vol] 122 mg/dL High 70 - 99 mg/dL [facility] Comment on above: Criteria for Diagnos is of Diabetes: Fasting Specimen (no caloric intake for at least 8 hours): <100 mg/dL Normal 100-125 mg/dL Increased risk for Diabetes >125 mg/dL Diagnostic for Diabetes Random Glucose (any time of day without regard to last meal): > or = 200 mg/dL plus Classic Symptoms of Diabetes Interpretation and review of laboratory results Abnormal [facility] Potassium [Moles/Vol] 3.7 mmol/L 3.3 - 5.1 mmol/L [facility] Sodium [Moles/Vol] 137 mmol/L 133 - 145 mmol/L [facility] Urea nitrogen [Mass/Vol] 6 mg/dL 4 - 19 mg/dL [facility] Hemoglobinon 11-19-2022 Hemoglobin (Bld) [Mass/Vol] 12.7 g/dL 12.0 - 15.0 g/dl [facility] Release to patient->[facility] No Panel Informationon 11-19 Release to patient->[facility] eGFRon 11-19-2022 GFR/1.73 sq M.predicted among non-blacks MDRD (S/P/Bld) [Vol rate/Area] 118.44 mL/min/{1.73_m2} [facility] Comment on above: Reference range: > 3 months: >90 ml/min/1.73m^2 Ref. Range change effective 11/23/2017 Hemoglobinon 11-18-2022 Hemoglobin (Bld) [Mass/Vol] 13.8 g/dL 12.0 - 15.0 g/dl [facility] Release to patient->[facility] POCT urine HCGOrdered By: Disha Lugo on 11-18-2022 Clear Background *Present [facility] Control Line *Present [facility] HCG ( test) Ql (U) Negative Negative [facility] Interpretation and review of laboratory results Normal [facility] LOT # [id number] [facility] XR Abdomen Viewson IMPRESSION: Single A P supine view of the abdomen was performed and presented on a single image. There is no overt increase in degree of stool loading. Bowel gas pattern is nonobstructed. No abnormal calcifications. Bones are normal. There is a right double J stent. There is some irregularity of the stent wall, but no calcifications. This report has been created using voice recognition software [facility] CLINICAL HISTORY: Stent, check for encrustation COMPARISON: 08/12/[address] [facility] Lucy Scales, DO - 10/27/2022 CLINICAL HISTORY: Stent, check for encrustation COMPARISON: 08/12/22 IMPRESSION: Single AP supine view of the abdomen was performed and presented on a single image. There is no overt increase in degree of stool loading. Bowel gas pattern is nonobstructed. No abnormal calcifications. Bones are normal. There is a right double J stent. There is some irregularity of the stent wall, but no calcifications. This report has been created using voice recognition software [facility] Study observation (narrative) [facility] XR Abdomen ViewsOrdered By: Lucy Scales on 10-27-2022 [facility] Work Phone: POCT urine HCGOrdered By: Courtney James on 08-12-2022 Clear Background *Present [facility] Control Line *Present [facility] HCG ( test) Ql (U) Negative Negative [facility] Interpretation and review of laboratory results Normal [facility] LOT # [id number] [facility] NM Kidney Views W Tc-99m Krysta tiatide Escobar 06-02-2022 IMPRESSION: Dilation of the right renal collecting system without evidence of obstruction. This report has been created using voice recognition software [facility] CLINICAL HISTORY: hydronephrosis TECHNIQUE: Following intravenous administration of 4 mCi Tc 99m MAG 3, sequential 2 second frames of the chest and abdomen were obtained through 2 minutes post tracer injection. The patient was given 40 milligrams of Lasix intravenously at 30 minutes post tracer injection and 60 second acquisitions were acquired up to 60 minutes following the initial radiotracer injection. Region of interest over both kidneys was used to generate split function and time / activity curves. COMPARISON: Renal ultrasound 05/10/2022 FINDINGS: KIDNEY STRUCTURE: Both kidneys were promptly visualized and orthotopic. There is dilation of right central renal collecting system as well as the renal calyces. SPLIT FUNCTION: Left kidney: 56% total renal function Right kidney: 44% total renal function COLLECTING SYSTEMS: On the left, time to peak activity is 6 minutes. There is adequate clearance of tracer activity from the left collecting system. T1/2 clearance is 18 minutes minutes on the left. On the right, time to peak activity is 13 minutes. Clearance of tracer activity from the right collecting system is mildly delayed relative to the left collecting system. T1/2 clearance is 17 minutes on the right. Following Lasix administration, there is continued prompt clearance of radiotracer from the bilateral kidneys. No evidence of obstruction. [facility] Mariaelena Gutierrez, DO - 06/02/2022 CLINICAL HISTORY: hydronephrosis TECHNIQUE: Following intravenous administration of 4 mCi Tc 99m MAG 3, sequential 2 second frames of the chest and abdomen were obtained through 2 minutes post tracer injection. The patient was given 40 milligrams of Lasix intravenously at 30 minutes post tracer injection and 60 second acquisitions were acquired up to 60 minutes following the initial radiotracer injection. Region of interest over both kidneys was used to generate split function and time / activity curves. COMPARISON: Renal ultrasound 05/10/2022 FINDINGS: KIDNEY STRUCTURE: Both kidneys were promptly visualized and orthotopic. There is dilation of right central renal collecting system as well as the renal calyces. SPLIT FUNCTION: Left kidney: 56% total renal function Right kidney: 44% total renal function COLLECTING SYSTEMS: On the left, time to peak activity is 6 minutes. There is adequate clearance of tracer activity from the left collecting system. T1/2 clearance is 18 minutes minutes on the left. On the right, time to peak activity is 13 minutes. Clearance of tracer activity from the right collecting system is mildly delayed relative to the left collecting system. T1/2 clearance is 17 minutes on the right. Following Lasix administration, there is continued prompt clearance of radiotracer from the bilateral kidneys. No evidence of obstruction. IMPRESSION: Dilation of the right renal collecting system without evidence of obstruction. This report has been created using voice recognition software [facility] Rad[facility] Study observation (narrative) [facility] NM Kidney Views W Tc-99m Krysta tiatide IVOrdered By: Kaden Diaz on 06-02-2022 [facility] Work Phone: RF Urinary bladder and Ureth ra Views W contrast intra bladder during voidingon 06-02-2022 IMPRESSION: No evidence of vesicoureteral reflux. 2. Moderate stool loading. This report has been created using voice recognition software [facility] CLINICAL HISTORY: hydronephrosis TECHNIQUE: Low-dose fluoroscopy (3 frames/sec) was used to perform a voiding cystourethrogram. Fluoroscopy time: 0.8 minutes Estimated Dose area product: 211.8 uGy-m2. Contrast: 510 mL Cystografin administered per bladder catheter. 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 BLADDER: The bladder was filled one time with contrast to the point of spontaneous voiding. The urinary bladder appears smooth walled and normal. RIGHT: No vesicoureteral reflux LEFT: No vesicoureteral reflux VOIDING/URETHRA: Voiding demonstrates a normal urethra. There was a small amount of post-void residual. [facility] Lucy Scales DO - 06/02/2022 CLINICAL HISTORY: hydronephrosis TECHNIQUE: Low-dose fluoroscopy (3 frames/sec) was used to perform a voiding cystourethrogram. Fluoroscopy time: 0.8 minutes Estimated Dose area product: 211.8 uGy-m2. Contrast: 510 mL Cystografin administered per bladder catheter. 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 BLADDER: The bladder was filled one time with contrast to the point of spontaneous voiding. The urinary bladder appears smooth walled and normal. RIGHT: No vesicoureteral reflux LEFT: No vesicoureteral reflux VOIDING/URETHRA: Voiding demonstrates a normal urethra. There was a small amount of post-void residual. IMPRESSION: No evidence of vesicoureteral reflux. 2. Moderate stool loading. This report has been created using voice recognition software [facility] Radiology Study observation (narrative) [facility] RF Urinary bladder and Ureth ra Views W contrast intra bladder during voidingOrdered By: Lucy Scales on 06-02-2022 [facility] Work Phone: Basic Metabolic Panelon 05-01 Calcium [Mass/Vol] 8.8 mg/dL 7.6 - 11 mg/dL [facility] Chloride [Moles/Vol] 105 mmol/L 96 - 10 8 mmol/L [facility] CO2 [Moles/Vol] 23.8 mmol/L 22 - 29 mmol/L [facility] Creatinine [Mass/Vol] 0.76 mg/dL 0.5 - 1 mg/dL [facility] Glucose [Mass/Vol] 107 mg/dL High 70 - 99 mg/dL [facility] Comment on above: Criteria for Diagnos is of Diabetes: Fasting Specimen (no caloric intake for at least 8 hours): <100 mg/dL Normal 100-125 mg/dL Increased risk for Diabetes >125 mg/dL Diagnostic for Diabetes Random Glucose (any time of day without regard to last meal): > or = 200 mg/dL plus Classic Symptoms of Diabetes Interpretation and review of laboratory results Abnormal [facility] Potassium [Moles/Vol] 3.4 mmol/L 3.3 - 5.1 mmol/L [facility] Sodium [Moles/Vol] 140 mmol/L 133 - 145 mmol/L [facility] Urea nitrogen [Mass/Vol] 3 mg/dL Low 4 - 19 mg/dL [facility] No Panel Informationon 05-13 Release to patient->[facility] eGFRon 05-13-2022 GFR/1.73 sq M.predicted among non-blacks MDRD (S/P/Bld) [Vol rate/Area] 92.49 mL/min/{1.73_m2} [facility] Comment on above: Reference range: > 3 months: >90 ml/min/1.73m^2 Ref. Range change effective 11/23/2017 Basic Metabolic Panelon 05-01 Calcium [Mass/Vol] 9.0 mg/dL 7.6 - 11 mg/dL [facility] Chloride [Moles/Vol] 106 mmol/L 96 - 10 8 mmol/L [facility] CO2 [Moles/Vol] 23.5 mmol/L 22 - 29 mmol/L [facility] Creatinine [Mass/Vol] 0.80 mg/dL 0.5 - 1 mg/dL [facility] Glucose [Mass/Vol] 112 mg/dL High 70 - 99 mg/dL [facility] Comment on above: Criteria for Diagnos is of Diabetes: Fasting Specimen (no caloric intake for at least 8 hours): <100 mg/dL Normal 100-125 mg/dL Increased risk for Diabetes >125 mg/dL Diagnostic for Diabetes Random Glucose (any time of day without regard to last meal): > or = 200 mg/dL plus Classic Symptoms of Diabetes Potassium [Moles/Vol] 3.6 mmol/L 3.3 - 5.1 mmol/L [facility] Sodium [Moles/Vol] 137 mmol/L 133 - 145 mmol/L [facility] Urea nitrogen [Mass/Vol] 3 mg/dL Low 4 - 19 mg/dL [facility] C-reactive proteinon 022 C-Reactive Protein 7.4 mg/dL High 0 - 1 mg/dL [facility] Comment on above: CRP determinations i n neonates should be interpreted with caution. CRP may be elevated in circumstances not associated with inflammation (e.g. difficult delivery, pneumothorax). In premature neonates CRP levels may not rise to abnormal levels even if sepsis is present; some speculate that immature liver function decreases the ability to generate a CRP response. No Panel Informationon 05-12 Interpretation and review of laboratory results Abnormal [facility] Release to patient->[facility] Urine cultureon 05-12-2022 Bacteria identified Cx Nom (U) Enterococcus faecalis Abnormal [facility] Comment on above: <10,000 CFU/ml Bacteria identified Cx Nom (U) Staphylococcus aureus Abnormal [facility] Comment on above: <10,000 CFU/ml Interpretation and review of laboratory results Abnormal [facility] Specimen Information Type: Urine-Catheter Source: Urine Culture 10,000 - 50,000 CFU/ml of Normal Skin/urogenital anabel present [facility] eGFRon 05-12-2022 GFR/1.73 sq M.predicted among non-blacks MDRD (S/P/Bld) [Vol rate/Area] 87.87 mL/min/{1.73_m2} [facility] Comment on above: Reference range: > 3 months: >90 ml/min/1.73m^2 Ref. Range change effective 11/23/2017 Basic Metabolic Panelon 05-01 Calcium [Mass/Vol] 8.5 mg/dL 7.6 - 11 mg/dL [facility] Chloride [Moles/Vol] 111 mmol/L High 96 - 10 8 mmol/L [facility] CO2 [Moles/Vol] 19 mmol/L Low 22 - 29 mmol/L [facility] Creatinine [Mass/Vol] 0.57 mg/dL 0.5 - 1 mg/dL [facility] Glucose [Mass/Vol] 172 mg/dL High 70 - 99 mg/dL [facility] Comment on above: Criteria for Diagnos is of Diabetes: Fasting Specimen (no caloric intake for at least 8 hours): <100 mg/dL Normal 100-125 mg/dL Increased risk for Diabetes >125 mg/dL Diagnostic for Diabetes Random Glucose (any time of day without regard to last meal): > or = 200 mg/dL plus Classic Symptoms of Diabetes Potassium [Moles/Vol] 3.8 mmol/L 3.3 - 5.1 mmol/L [facility] Comment on above: Hemolysis detected. Results may be falsely elevated. Interpret results with caution. Sodium [Moles/Vol] 138 mmol/L 133 - 145 mmol/L [facility] Urea nitrogen [Mass/Vol] 5 mg/dL 4 - 19 mg/dL [facility] C-reactive proteinon 022 C-Reactive Protein 11.9 mg/dL High 0 - 1 mg/dL [facility] Comment on above: CRP determinations i n neonates should be interpreted with caution. CRP may be elevated in circumstances not associated with inflammation (e.g. difficult delivery, pneumothorax). In premature neonates CRP levels may not rise to abnormal levels even if sepsis is present; some speculate that immature liver function decreases the ability to generate a CRP response. No Panel Informationon 05-11 Interpretation and review of laboratory results Abnormal [facility] Release to patient->[facility] Vancomycin, Trough- PLEASE D RAW SAMPLE PRIOR TO 4th DOSE OF VANCOMYCIN Escobar 05-11-2022 Vancomycin, Trough 11.3 ug/mL 7 - 15 ug/mL [facility] Comment on above: Drawn immediately pr ior to dose. Prior to 4th dose Release to patient->[facility] eGFRon 05-11-2022 GFR/1.73 sq M.predicted among non-blacks MDRD (S/P/Bld) [Vol rate/Area] 123.32 mL/min/{1.73_m2} [facility] Comment on above: Reference range: > 3 months: >90 ml/min/1.73m^2 Ref. Range change effective 11/23/2017 Basic Metabolic Panelon 05-01 Calcium [Mass/Vol] 8.2 mg/dL 7.6 - 11 mg/dL [facility] Chloride [Moles/Vol] 106 mmol/L 96 - 10 8 mmol/L [facility] CO2 [Moles/Vol] 21.9 mmol/L Low 22 - 29 mmol/L [facility] Creatinine [Mass/Vol] 0.72 mg/dL 0.5 - 1 mg/dL [facility] Glucose [Mass/Vol] 139 mg/dL High 70 - 99 mg/dL [facility] Comment on above: Criteria for Diagnos is of Diabetes: Fasting Specimen (no caloric intake for at least 8 hours): <100 mg/dL Normal 100-125 mg/dL Increased risk for Diabetes >125 mg/dL Diagnostic for Diabetes Random Glucose (any time of day without regard to last meal): > or = 200 mg/dL plus Classic Symptoms of Diabetes Interpretation and review of laboratory results Abnormal [facility] Potassium [Moles/Vol] 3.1 mmol/L Low 3.3 - 5.1 mmol/L [facility] Sodium [Moles/Vol] 137 mmol/L 133 - 145 mmol/L [facility] Urea nitrogen [Mass/Vol] 6 mg/dL 4 - 19 mg/dL [facility] Blood Gas, Venouson 05-10-20 22 CO2 [Moles/Vol] 24.2 mmol/L 24 - 30 mmol/L [facility] HCO3 (Bld) [Moles/Vol] 23.1 mmol/L 22 - 28 mmol/L [facility] Hemoglobin (Bld) [Mass/Vol] 10.1 g/dL Low 12 - 16 g/dl [facility] Interpretation and review of laboratory results Abnormal [facility] O2 Hgb Giovanny 92.9 % T.Hgb [facility] Comment on above: No reference range e stablished for this specimen type Oxygen saturation in Blood 95.3 % [facility] Comment on above: No reference range e stablished for this specimen type pCO2, Venous 38.7 [facility] pH Giovanny 7.393 [facility] pO2 Venous 67.7 mm Hg [facility] Comment on above: No reference range e stablished for this specimen type STD BE Venous -1.2 mmol/L [facility] Comment on above: No reference range e stablished for this specimen type Temperature, venous 37 degrees C [facility] Please draw off IV Release to patient->[facility] C-reactive proteinon 022 C-Reactive Protein 12 mg/dL High 0 - 1 mg/dL [facility] Comment on above: CRP determinations i n neonates should be interpreted with caution. CRP may be elevated in circumstances not associated with inflammation (e.g. difficult delivery, pneumothorax). In premature neonates CRP levels may not rise to abnormal levels even if sepsis is present; some speculate that immature liver function decreases the ability to generate a CRP response. Interpretation and review of laboratory results Abnormal [facility] Release to patient->Automatic [facility] C.trachomatis/GC PCR Panelon 05-10-2022 C. trachomatis DNA GRABIEL+probe Ql (Unsp spec) See Below [facility] Comment on above: Source: URINE Colle guillermina: 05/09/22 00:00 Site: Received : 05/10/22 09:59 C. trachomatis PCR on GeneXpert FINAL 05/10/22 11:36 NEGATIVE-Chlamydia trachomatis DNA: NOT DETECTED. - GC PCR on GeneXpert FINAL 05/10/22 11:36 NEGATIVE-Neisseria gonorrhea DNA: NOT DETECTED. - Method: DNA detection by RT PCR on a GeneXpert analyzer. - NOTE: This Amplified DNA Assay should not be used for the evaluation of suspected sexual abuse or for other medico-legal indications. Interpret results with caution! Volume of urine submitted for testing was greater than 50mL, which may result in reduced assay sensitivity. - Screening urine specimens for Chlamydia trachomatis and Neisseria gonorrhoeae using nucleic acid amplification is an accurate and sensitive method compared to standard techniques of detection of these pathogens. Because the pathogen is diluted in urine, it is somewhat less sensitive than a direct swab specimen evaluated by nucleic acid amplification techniques. Reason for preventin g automatic release->Other Release to patient->Manual release only [facility] Complete Blood Count with Di fferentialon 05-10-2022 Differential Complete Manual [facility] Erythrocyte distribution width (RBC) [Ratio] 12.4 % 0 - 14.4 % [facility] Hematocrit (Bld) [Volume fraction] 36.7 % Low 37 - 46 % [facility] Hemoglobin (Bld) [Mass/Vol] 13.0 g/dL 12 - 15 g/dl [facility] Immature granulocytes/100 WBC (Bld) 0.6 % [facility] Comment on above: Immature Granulocyte Percent includes promyelocytes, myelocytes, and metamyelocytes. IG% > 1.0 indicates a left shift is present. With automated differentials, bands are included in the neutrophil count and not in the Immature Granulocyte Percent. MCH (RBC) [Entitic mass] 29.3 pg 25 - 35 pg [facility] MCHC 35.4 % 31 - 37 % [facility] MCV (RBC) [Entitic vol] 82.8 fL 78 - 96 fl [facility] Nucleated RBC/100 WBC (Bld) [Ratio] 0 % -1 - 0 % [facility] Platelet mean volume (Bld) [Entitic vol] 9.0 fL [facility] Comment on above: MPV is platelet range and age dependent Platelets (Bld) [#/Vol] 161 10*3/uL [facility] RBC (Bld) [#/Vol] 4.43 10*6/uL [facility] WBC (Bld) [#/Vol] 16.0 10*3/uL High [facility] Lactate,WBon 05-10-2022 Lactate,WB 1.1 mmol/L 0.5 - 1.6 mmol/L [facility] Please draw off IV Release to patient->[facility] Lipaseon 05-10-2022 Lipase [Catalytic activity/Vol] 21 U/L 13 - 95 U/L [facility] Manual Differentialon 2021 % Metamyelocytes 0 % 0 - 0 % [facility] % Monocytes 12 % High 3 - 6 % [facility] % Myelocytes 0 % 0 - 0 % [facility] % Promyelocytes 0 % 0 - 0 % [facility] Absolute Neutrophil No. 12.8 High [facility] Atypical Lymphocytes 1 % 0 - 8 % [facility] Band Neutrophil 13 % High 5 - 11 % [facility] Cell Morphology Normal [facility] Lymphocytes 7 % Low 25 - 45 % [facility] Segmented Neutrophils 67 % High 34 - 64 % [facility] No Panel Informationon 05-10 Interpretation and review of laboratory results Abnormal [facility] Release to patient->[facility] Release to patient->[facility] US Kidneyon 05-10-2022 IMPRESSION: 1. Moderate to severe right pelvocaliectasis, similar to the CT exam 05/08/2022. No obstructing stone or mass identified. Imaging appearance could be due to ureteropelvic junction obstruction. 2. Prominent left extrarenal pelvis without intrarenal pelviectasis or caliectasis. 3. Enlarged kidneys for age, height, and weight bilaterally. 4. Grossly unremarkable renal Doppler evaluation. This report has been created using voice recognition software [facility] CLINICAL HISTORY: pt px with pyelo TECHNIQUE: Ramirez scale sonography of the kidneys and urinary bladder was performed. Color and spectral Doppler evaluation of the aorta and renal arteries were also performed. COMPARISON: Renal ultrasound 05/02/2022, CT abdomen/pelvis 05/08/2022 FINDINGS: The bilateral kidneys are enlarged, right greater than left. The right kidney measures 15.1 cm in length, the left kidney measures 13.4 cm in length. Corticomedullary differentiation is preserved. There is moderate to severe right pelviectasis without most mild left pelviectasis. There is central and peripheral right caliectasis. No left caliectasis. The extrarenal pelvis on the right is massively dilated, similar to the CT exam 05/08/2022. Prominent left extrarenal pelvis also unchanged. Ureters below this level are not visualized. The urinary bladder is moderately distended without wall thickening or intrinsic debris. DOPPLER FINDINGS: AORTA peak velocity is 89 cm/sec. RIGHT renal artery peak velocity is 53 cm/sec. LEFT renal artery peak velocity is 96 cm/sec. Normal arterial waveforms are present. INTRAPARENCHYMAL ARTERIES: Normal low resistance arterial waveforms with forward diastolic flow. Intraparenchymal resistive indices range from 0.52-0.69 on the right and from 0.43-0.55 on the left. VEINS: There is color Doppler flow within the renal veins and IVC with normal venous waveforms. [facility] Mariaelena Gutierrez DO - 05/10/2022 CLINICAL HISTORY: pt px with pyelo TECHNIQUE: Ramirez scale sonography of the kidneys and urinary bladder was performed. Color and spectral Doppler evaluation of the aorta and renal arteries were also performed. COMPARISON: Renal ultrasound 05/02/2022, CT abdomen/pelvis 05/08/2022 FINDINGS: The bilateral kidneys are enlarged, right greater than left. The right kidney measures 15.1 cm in length, the left kidney measures 13.4 cm in length. Corticomedullary differentiation is preserved. There is moderate to severe right pelviectasis without most mild left pelviectasis. There is central and peripheral right caliectasis. No left caliectasis. The extrarenal pelvis on the right is massively dilated, similar to the CT exam 05/08/2022. Prominent left extrarenal pelvis also unchanged. Ureters below this level are not visualized. The urinary bladder is moderately distended without wall thickening or intrinsic debris. DOPPLER FINDINGS: AORTA peak velocity is 89 cm/sec. RIGHT renal artery peak velocity is 53 cm/sec. LEFT renal artery peak velocity is 96 cm/sec. Normal arterial waveforms are present. INTRAPARENCHYMAL ARTERIES: Normal low resistance arterial waveforms with forward diastolic flow. Intraparenchymal resistive indices range from 0.52-0.69 on the right and from 0.43-0.55 on the left. VEINS: There is color Doppler flow within the renal veins and IVC with normal venous waveforms. IMPRESSION: 1. Moderate to severe right pelvocaliectasis, similar to the CT exam 05/08/2022. No obstructing stone or mass identified. Imaging appearance could be due to ureteropelvic junction obstruction. 2. Prominent left extrarenal pelvis without intrarenal pelviectasis or caliectasis. 3. Enlarged kidneys for age, height, and weight bilaterally. 4. Grossly unremarkable renal Doppler evaluation. This report has been created using voice recognition software [facility] Radiology Study observation (narrative) [facility] US KidneyOrdered By: Mariaelena Diaz on 05-10-2022 [facility] Work Phone: US.doppler Pelvis vesselson 05-10-2022 IMPRESSION: 1. Moderate to severe right pelvocaliectasis, similar to the CT exam 05/08/2022. No obstructing stone or mass identified. Imaging appearance could be due to ureteropelvic junction obstruction. 2. Prominent left extrarenal pelvis without intrarenal pelviectasis or caliectasis. 3. Enlarged kidneys for age, height, and weight bilaterally. 4. Grossly unremarkable renal Doppler evaluation. This report has been created using voice recognition software [facility] CLINICAL HISTORY: pt px with pyelo TECHNIQUE: Ramirez scale sonography of the kidneys and urinary bladder was performed. Color and spectral Doppler evaluation of the aorta and renal arteries were also performed. COMPARISON: Renal ultrasound 05/02/2022, CT abdomen/pelvis 05/08/2022 FINDINGS: The bilateral kidneys are enlarged, right greater than left. The right kidney measures 15.1 cm in length, the left kidney measures 13.4 cm in length. Corticomedullary differentiation is preserved. There is moderate to severe right pelviectasis without most mild left pelviectasis. There is central and peripheral right caliectasis. No left caliectasis. The extrarenal pelvis on the right is massively dilated, similar to the CT exam 05/08/2022. Prominent left extrarenal pelvis also unchanged. Ureters below this level are not visualized. The urinary bladder is moderately distended without wall thickening or intrinsic debris. DOPPLER FINDINGS: AORTA peak velocity is 89 cm/sec. RIGHT renal artery peak velocity is 53 cm/sec. LEFT renal artery peak velocity is 96 cm/sec. Normal arterial waveforms are present. INTRAPARENCHYMAL ARTERIES: Normal low resistance arterial waveforms with forward diastolic flow. Intraparenchymal resistive indices range from 0.52-0.69 on the right and from 0.43-0.55 on the left. VEINS: There is color Doppler flow within the renal veins and IVC with normal venous waveforms. [facility] Mariaelena Gutierrez DO - 05/10/2022 CLINICAL HISTORY: pt px with pyelo TECHNIQUE: Ramirez scale sonography of the kidneys and urinary bladder was performed. Color and spectral Doppler evaluation of the aorta and renal arteries were also performed. COMPARISON: Renal ultrasound 05/02/2022, CT abdomen/pelvis 05/08/2022 FINDINGS: The bilateral kidneys are enlarged, right greater than left. The right kidney measures 15.1 cm in length, the left kidney measures 13.4 cm in length. Corticomedullary differentiation is preserved. There is moderate to severe right pelviectasis without most mild left pelviectasis. There is central and peripheral right caliectasis. No left caliectasis. The extrarenal pelvis on the right is massively dilated, similar to the CT exam 05/08/2022. Prominent left extrarenal pelvis also unchanged. Ureters below this level are not visualized. The urinary bladder is moderately distended without wall thickening or intrinsic debris. DOPPLER FINDINGS: AORTA peak velocity is 89 cm/sec. RIGHT renal artery peak velocity is 53 cm/sec. LEFT renal artery peak velocity is 96 cm/sec. Normal arterial waveforms are present. INTRAPARENCHYMAL ARTERIES: Normal low resistance arterial waveforms with forward diastolic flow. Intraparenchymal resistive indices range from 0.52-0.69 on the right and from 0.43-0.55 on the left. VEINS: There is color Doppler flow within the renal veins and IVC with normal venous waveforms. IMPRESSION: 1. Moderate to severe right pelvocaliectasis, similar to the CT exam 05/08/2022. No obstructing stone or mass identified. Imaging appearance could be due to ureteropelvic junction obstruction. 2. Prominent left extrarenal pelvis without intrarenal pelviectasis or caliectasis. 3. Enlarged kidneys for age, height, and weight bilaterally. 4. Grossly unremarkable renal Doppler evaluation. This report has been created using voice recognition software [facility] Radiology Study observation (narrative) [facility] eGFRon 05-10-2022 GFR/1.73 sq M.predicted among non-blacks MDRD (S/P/Bld) [Vol rate/Area] 97.63 mL/min/{1.73_m2} [facility] Comment on above: Reference range: > 3 months: >90 ml/min/1.73m^2 Ref. Range change effective 11/23/2017 Absolute lymphocyte counton 05-09-2022 Lymphocytes Auto (Unsp spec) [#/Vol] 0.60 10*3/uL 0.83-4.51 [facility] Work Phone: Basophil percentageon 2021 Basophil percentage 0 SEEN /hpf 0-5 [facility] Work Phone: Basophils/100 WBC (Bld) 0.1 % 0-1 [facility] Work Phone: Bilirubin [Mass/Vol] 0.50 mg/dL 0.20-1.00 [facility] Work Phone: Comment on above: For patients on eltr ombopag therapy, use of [place] TBIL is not recommended. Chloride [Moles/Vol] 102 mmol/L 98-107 [facility] Work Phone: Eosinophils/100 WBC (Bld) 0.0 % 0-3 [facility] Work Phone: Glucose [Mass/Vol] 102 mg/dL 74-106 [facility] Work Phone: Comment on above: Fasting Glucose resu lt from 100 to 125 mg/dL suggests IMPAIRED HOMEOSTASIS per A.D.A. criteria. Lactate [Moles/Vol] 1.1 mmol/L 0.4-2.0 [facility] Work Phone: Neutrophils (Bld) [#/Vol] 14.4 10*3/uL 2.0-7.7 [facility] Work Phone: Neutrophils/100 WBC (Bld) 89.8 % 34-64 [facility] Work Phone: Potassium [Moles/Vol] 3.5 mmol/L 3.5-5.1 [facility] Work Phone: Protein [Mass/Vol] 8.0 g/dL 6.4-8.2 [facility] Work Phone: Sodium [Moles/Vol] 136 mmol/L 136-145 [facility] Work Phone: WBC (Bld) [#/Vol] 16.0 10*3/uL 4.5-13.0 [facility] Work Phone: Beta hCG serum qualon 2021 Beta HCG ( test) Ql Negative [facility] Work Phone: Bilirubin Test strip Ql (U)o n 05-09-2022 Bilirubin Ql (U) Negative Negative [facility] Work Phone: Blood erythrocytes count (nu mber/volume)on 05-09-2022 RBC (Bld) [#/Vol] 4.68 10*6/uL 4.1-4.8 [facility] Work Phone: Blood hemoglobin measurement (mass/volume)on 05-09-2022 Hemoglobin (Bld) [Mass/Vol] 13.6 g/dL 12.0-15.0 [facility] Work Phone: Blood lymphocytes/100 leukoc yteson 05-09-2022 Lymphocytes/100 WBC (Bld) 3.8 % 25-45 [facility] Work Phone: Blood manual differential co mment interpretation (narrative result)on 05-09-2022 Manual differential comment Cruz (Bld) [Interp] SCANNED [facility] Work Phone: Blood monocytes/100 leukocyt eson 05-09-2022 Monocytes/100 WBC (Bld) 5.9 % 3-6 [facility] Work Phone: Blood platelet mean volumeon 05-09-2022 Platelet mean volume (Bld) [Entitic vol] 8.7 fL 6.2-12.0 [facility] Work Phone: Determination of erythrocyte mean corpuscular volume (MCV)on 05-09-2022 MCV (RBC) [Entitic vol] 84.4 fL 78-96 [facility] Work Phone: Hematocrit Auto (Bld) [Volum e fraction]on 05-09-2022 Hematocrit (Bld) [Volume fraction] 39.5 % 37-46 [facility] Work Phone: INR in Blood by Coagulation assayon 05-09-2022 INR Coag (Bld) [Relative time] 1.0 {INR} [facility] Work Phone: Ketones Test strip Ql (U)on 05-09-2022 Ketones Ql (U) 15 mg/dl Negative [facility] Work Phone: Laboratory - Chemistry and C hemistry - challengeon 05-09-2022 ALP [Catalytic activity/Vol] 62 U/L 47-119 [facility] Work Phone: ALT [Catalytic activity/Vol] 17 U/L 13-56 [facility] Work Phone: CO2 [Moles/Vol] 26.0 mmol/L 21.0-32.0 [facility] Work Phone: Globulin (S) [Mass/Vol] 3.6 g/dL 2.2-4.2 [facility] Work Phone: Urea nitrogen/Creatinine [Mass ratio] 10.0 mg/mg 10-20 [facility] Work Phone: Laboratory - Coagulationon 0 05-09-2022 aPTT Coag (Bld) [Time] 30.8 s 24.1-36.2 [facility] Work Phone: PT Coag (PPP) [Time] 13.2 s 11.7-14.9 [facility] Work Phone: Laboratory - Hematology and Cell countson 05-09-2022 Erythrocyte distribution width (RBC) [Entitic vol] 36.7 fL 35.1-43.9 [facility] Work Phone: Erythrocyte distribution width (RBC) [Ratio] 12.2 % 11.6-14.6 [facility] Work Phone: Immature granulocytes/100 WBC (Bld) 0.400 % 0.0-0.9 [facility] Work Phone: Comment on above: IG% - Immature Granu locytes (promyelocytes, myelocytes and metamyelocytes) > 1% indicates that a LEFT SHIFT is Present. MCH (RBC) [Entitic mass] 29.1 pg 25.0-35.0 [facility] Work Phone: Nucleated RBC/100 WBC (Bld) [Ratio] 0 % 0-5 [facility] Work Phone: MCHC Auto (RBC) [Mass/Vol]on 05-09-2022 MCHC (RBC) [Mass/Vol] 34.4 g/dL 32-36 [facility] Work Phone: Mucus LM Ql (Urine sed)on Mucus Ql (Urine sed) 0 SEEN /hpf [facility] Work Phone: Nitrite Test strip Ql (U)on 05-09-2022 Nitrite Ql (U) Negative Negative [facility] Work Phone: No Panel Informationon 05-09 Release to patient->Automatic [facility] Estimated Creatinine Clearance Calc 112.72 ml/min [facility] Work Phone: Estimated GFR (MDRD) Amer TNP [facility] Work Phone: Comment on above: Test not performedAf rican [place] GFR Calc Estimated GFR (MDRD) Non-Af [facility] Work Phone: Comment on above: Test not performedNo n- GFR Calc Troponin I High Sensitivity 3 pg/mL 3.0-54.0 [facility] Work Phone: Comment on above: Please Note: New Marcia t Units and Gender Specific Reference Ranges. For more information see Policy Stat Procedure [place] High Sensitivity Troponin (TNIH) and attachments. Platelets bldon 05-09-2022 Platelets (Bld) [#/Vol] 225 10*3/uL 150-450 [facility] Work Phone: Protein Test strip Ql (U)on 05-09-2022 Protein Ql (U) Negative Negative [facility] Work Phone: Respiratory Panel Film Array on 05-09-2022 Interpretation and review of laboratory results Abnormal [facility] Respiratory pathogens DNA and RNA panel GRABIEL+non-probe (Nph) See Below Abnormal [facility] Comment on above: Source: NPH Collecte d: 05/09/22 16:59 Site: Received : 05/09/22 17:26 Respiratory Panel Film Array FINAL 05/09/22 18:20 - NEGATIVE: No SARS-CoV-2 detected. POSITIVE: Rhinovirus/Enterovirus detected. - The Film Array Respiratory Panel detects DNA or RNA for the following organisms: Adenovirus SARS-CoV-2 Coronavirus 229E Coronavirus HKU1 Coronavirus NL63 Coronavirus OC43) Human metapneumovirus Rhinovirus/Enterovirus Influenza A virus (targets H1, H3, and H1-2009) Influenza B virus Parainfluenza Virus 1 Parainfluenza Virus 2 Parainfluenza Virus 3 Parainfluenza Virus 4 Respiratory Syncytial virus (RSV) Bordetella parapertussis Bordetella pertussis Chlamydia pneumoniae Mycoplasma pneumoniae - Comment: Negative results do not preclude SARS-CoV-2 infection and should not be used as the sole basis for treatment or other patient management decisions. Negative results must be combined with clinical observations, patient history, and epidemiological information. - Method: The [employer] Respiratory Panel 2.1 (RP2.1) is a multiplexed nucleic acid test intended for the simultaneous qualitative detection and differentiation of nucleic acids from multiple viral and bacterial respiratory organisms, including nucleic acid from Severe Acute Respiratory Syndrome Coronavirus 2 (SARS-CoV-2). This test is FDA [place] authorized. [facility] Serum or plasma albumin colby urement (mass/volume)on 05-09-2022 Albumin [Mass/Vol] 4.4 g/dL 3.2-5.0 [facility] Work Phone: Serum or plasma albumin/glob ulin mass ratioon 05-09-2022 Albumin/Globulin [Mass ratio] 1.2 {ratio} 0.9-2.4 [facility] Work Phone: Serum or plasma calcium colby urement (mass/volume)on 05-09-2022 Calcium [Mass/Vol] 9.6 mg/dL 8.5-10.1 [facility] Work Phone: Serum or plasma creatinine m easurement (mass/volume)on 05-09-2022 Creatinine [Mass/Vol] 0.80 mg/dL 0.55-1.02 [facility] Work Phone: Comment on above: The validity of the calculated GFR & GFRAA in patients over 70 years has not been determined. Clinical correlation is essential. Serum or plasma urea nitroge n measurement (mass/volume)on 05-09-2022 Urea nitrogen [Mass/Vol] 8 mg/dL 7-18 [facility] Work Phone: Squamous epithelial cells de tection in urine sediment by light microscopyon 05-09-2022 Epithelial cells.squamous LM Ql (Urine sed) 0-5 SEEN /hpf 5-10 [facility] Work Phone: Thin prep Papanicolaou smear with manual screeningon 05-09-2022 Thin prep Papanicolaou smear with manual screening 12 U/L 15-37 [facility] Work Phone: Thin prep Papanicolaou smear with manual screening 8 5-15 [facility] Work Phone: Urinalysis, Automated-Weirono n 05-09-2022 Mucous Ur Small [facility] RBC, Urine 0.0 /uL 0 - 20 /uL [facility] Squamous Epithelial Cells Ur 2 /uL 0 - 20 /uL [facility] WBC UR 0.0 /uL 0 - 20 /uL [facility] Urinalysis, Complete (Chemis try & Micro)on 05-09-2022 Bilirubin Ur Negative Negative mg/dL [facility] Character Clear [facility] Color Ur Yellow [facility] Glucose Ur Negative Negative mg/dL [facility] Hemoglobin Ur Negative Negative RBC's/uL [facility] Interpretation and review of laboratory results Abnormal [facility] Ketones Ur 2+ Abnormal Negative mg/dL [facility] Leukocyte Esterase Ur Negative Negati ve leuk/ul [facility] Nitrite Ql (U) Negative Negative mg/dl [facility] pH Ur 6.0 [facility] Protein Ur Negative Neg.-Trace mg/dL [facility] Specific gravity (U) [Rel density] 1.005 [facility] Urobilinogen (U) [Mass/Vol] Negative Negative mg/dl [facility] Volume Ur 12 ml 12 [facility] Urine blood detectionon RBC Ql (U) Negative Negative [facility] Work Phone: RBC Ql (U) 0 SEEN /hpf 0-5 [facility] Work Phone: Urine clarityon 05-09-2022 Clarity (U) Sl. Cloudy Clear [facility] Work Phone: Urine color determinationon 05-09-2022 Color (U) Yellow Yellow [facility] Work Phone: Urine glucose detectionon Glucose Ql (U) Normal mg/dl Normal [facility] Work Phone: Urine leukocyte esterase det ection by dipstickon 05-09-2022 Leukocyte esterase Test strip Ql (U) Negative Negative [facility] Work Phone: Urine pHon 05-09-2022 pH (U) 7.0 [pH] 5.0 - 8.0 [facility] Work Phone: Urine sediment bacteria coun t by microscopy (number/high power field)on 05-09-2022 Bacteria LM.HPF (Urine sed) [#/Area] 1 /[HPF] None Seen [facility] Work Phone: Urine specific gravity measu rementon 05-09-2022 Specific gravity (U) [Rel density] 1.010 1.002-1.030 [facility] Work Phone: Urobilinogen Auto test strip Ql (U)on 05-09-2022 Urobilinogen Ql (U) Normal mg/dl Normal [facility] Work Phone: CNOVon 05-05-2019 CNOV Office Visit ([facility]WSTR ) HARSH LOVE ([id number]) 5 F Date Time Provider Department 05/05/19 11:45 AM JORDAN LANDAVERDE) WSTR During your visit today, we recorded the following information about you: Temperature Pulse Respiration Blood pressure 99.7 degrees 110/minute 17/minute 92/68 Weight 59 kg Jordan Landaverde PA-C 05/05/2019 2:36 PM Signed Subjective HPI Pt presents with vomiting, diarrhea, fevers and a rash for 2 days. She had vomited two days ago and had a few bouts of watery stool the past 2 days. No recent antibiotics or travel. No blood in the stool. She has an itchy diffuse rash on her arms and abdomen area as well that started yesterday. Her fever did break today. No vomiting or diarrhea today. She did take some tylenol otc. She is here with mom. No cough, sore throat, congestion or ear pain. Review of Systems Constitutional: Positive for fever and malaise/fatigue. HENT: Negative. Negative for congestion, ear pain and sore throat. Eyes: Negative. Respiratory: Negative for cough. Cardiovascular: Negative for chest pain. Gastrointestinal: Positive for abdominal pain, diarrhea, nausea and vomiting. Negative for blood in stool, constipation and melena. Genitourinary: Negative. Musculoskeletal: Negative. Skin: Positive for itching and rash. All other systems reviewed and are negative. PAST MEDICAL HISTORY Diagnosis Date - NEGATIVE MEDICAL HISTORY Current Outpatient Medications Medication Sig Dispense Refill - ibuprofen (ADVIL) 200 mg tablet Take 200 mg by mouth every 6 hours as needed. - ondansetron orally disintegrating (ZOFRAN ODT) 4 mg disintegrating tablet Take 1 tablet by mouth every 8 hours as needed. 12 tablet 0 - guaiFENesin (MUCINEX) 600 mg 12 hr tablet Take 1 tablet by mouth twice daily. (Patient not taking: Reported on 05/05/2019 ) 30 tablet 0 - Ascorbic Acid (VITAMIN C) 250 mg chew Take 500 mg by mouth once daily. - lidocaine viscous (LIDOCAINE VISCOUS) 2 % solution Gargle and spit 10-15mLs every 3-4 hours as need for throat discomfort. (Patient not taking: Reported on 11/02/2018 ) 120 mL 0 No current facility-administered medications for this visit. No past surgical history on file. No family history on file. Social History Tobacco Use - Smoking status: Never Smoker - Smokeless tobacco: Never Used Substance Use Topics - Alcohol use: Not on file - Drug use: Not on file BP 92/68 Pulse 110 Temp 37.6 ?C (99.7 ?F) Resp 17 Wt 59 kg (130 lb) SpO2 99% Objective Physical Exam Constitutional: She is well-developed, well-nourished, and in no distress. HENT: Right Ear: Tympanic membrane, external ear and ear canal normal. Left Ear: Tympanic membrane, external ear and ear canal normal. Nose: Nose normal. Mouth/Throat: Uvula is midline, oropharynx is clear and moist and mucous membranes are normal. Neck: Normal range of motion. Neck supple. Cardiovascular: Normal rate, regular rhythm and normal heart sounds. Pulmonary/Chest: Effort normal and breath sounds normal. Abdominal: Mild diffuse TTP of the abdomen with no guarding or rebound. No RLQ pain on palpation, no sign of appendicitis. Bowel sounds active. Lymphadenopathy: She has no cervical adenopathy. Neurological: She is alert. Skin: Skin is warm and dry. Rash noted. Pt has diffuse faint red macular rash on her arms and abdomen diffusely. Blanches. No petechiae or purpura. Psychiatric: Affect normal. Nursing note and vitals reviewed. ASSESSMENT/PLAN: 1. Vomiting and diarrhea - ICD9: 787.03, 787.91, ICD10: R11.10, R19.7 (primary diagnosis) Given zofran for nausea. Abdomen benign on exam here. Discussed pushing fluids and BRAT diet. If she develops severe abdominal pain, intractable vomiting, recommend ER. Mom agreeable. Rash appears to be viral exanthem. May take benadryl if itchy. 2. Viral illness - ICD9: 079.99, ICD10: B34.9 - Discussed viral etiology and rationale for treatment. - Rapid strep negative in office today - Symptomatic treatment with prn analgesia - Supportive care with fluids and rest - RAPID STREP TEST B/O - GROUP A STREPTOCOCCUS BY PCR Jordan Landaverde PA-C Referring Provider: SELF [200] Allergies As of Date: 05/05/2019 (No Known Allergies) Date Reviewed: 05/05/2019 Reviewed by: Magalie Delgadillo Cma - Fully Assessed Reason for Visit: bodyaches [Other] Cmt: x 3 days Fatigue [46] Cmt: x 3 days Nausea AND Vomiting [237] Cmt: x 2 days Diarrhea [35] Cmt: x 2 days Rash [1087] Cmt: on (both) arms and (both) feet x today Primary Visit Diagnosis:Vomiting and diarrhea [R11.10, R19.7] Other Visit Diagnosis:Viral illness [B34.9] Order(s):ondansetron orally disintegrating (ZOFRAN ODT) 4 mg disintegrating tabletTake 1 tablet by mouth every 8 hours as needed.Disp: 12 tabletRfl: 0 RAPID STREP TEST B/O [1016698] Order #: [id number] GROUP A STREPTOCOCCUS BY PCR [SQGASPCR] Order #: [id number] Prescriptions as of 05/05/2019 Sig: IBUPROFEN 200 MG TABLET Take 200 mg by mouth every 6 * ONDANSETRON 4 MG DISINTEGRATI* Take 1 tablet by mouth every * GUAIFENESIN ER 600 MG TABLET,* Take 1 tablet by mouth twice * Patient not taking: Reported on 05/05/2019 ASCORBIC ACID (VITAMIN C) 250* Take 500 mg by mouth once marcos* LIDOCAINE 2 % MUCOSAL SOLUTION Gargle and spit 10-15mLs ever* Patient not taking: Reported on 11/02/2018 Problem List As Of Date: 05/05/2019 (None) Prescriptions ordered this encounter Disp Refills Start End ONDANSETRON 4 MG DISINTEGRATING TABL* 12 t* 0 05/05/2019 Route: ORAL Sig: Take 1 tablet by mouth every 8 hours as needed. Letter Text Letter Text Encounter Status:Closed by JORDAN LANDAVERDE PA-C on 05/05/19 Normal [facility] Group A Strep by PCRon 05-05 GAS Specimen Source Throat Swab Normal [facility] Comment on above: Performed By: #### G ASPCR #### [facility] [address] [place], [place] [address] Group A Strep PCR Negative Normal [facility] Comment on above: Result Comment: This test was developed and its performance characteristics determined by [facility]'s [facility] [place] ( [facility]). It has not been cleared or approved by the FDA. [facility] is regulated under CLIA as qualified to perform high complexity testing. This test is used for clinical purposes. It should not be regarded as investigational or for research. Performed By: #### G ASPCR #### [facility] [address] [place], [place] [address] PROGRESSon 05-05-2019 PROGRESS HNO ID: [id number] Author: Jordan Sow) Jael Service: ? Author Type: Physician Coordinator Of Health Services Type: Progress Notes Filed: 05/05/2019 2:36 PM Note Text: Subjective HPI Pt presents with vomiting, diarrhea, fevers and a rash for 2 days. She had vomited two days ago and had a few bouts of watery stool the past 2 days. No recent antibiotics or travel. No blood in the stool. She has an itchy diffuse rash on her arms and abdomen area as well that started yesterday. Her fever did break today. No vomiting or diarrhea today. She did take some tylenol otc. She is here with mom. No cough, sore throat, congestion or ear pain. Review of Systems Constitutional: Positive for fever and malaise/fatigue. HENT: Negative. Negative for congestion, ear pain and sore throat. Eyes: Negative. Respiratory: Negative for cough. Cardiovascular: Negative for chest pain. Gastrointestinal: Positive for abdominal pain, diarrhea, nausea and vomiting. Negative for blood in stool, constipation and melena. Genitourinary: Negative. Musculoskeletal: Negative. Skin: Positive for itching and rash. All other systems reviewed and are negative. PAST MEDICAL HISTORY Diagnosis Date - NEGATIVE MEDICAL HISTORY Current Outpatient Medications Medication Sig Dispense Refill - ibuprofen (ADVIL) 200 mg tablet Take 200 mg by mouth every 6 hours as needed. - ondansetron orally disintegrating (ZOFRAN ODT) 4 mg disintegrating tablet Take 1 tablet by mouth every 8 hours as needed. 12 tablet 0 - guaiFENesin (MUCINEX) 600 mg 12 hr tablet Take 1 tablet by mouth twice daily. (Patient not taking: Reported on 05/05/2019 ) 30 tablet 0 - Ascorbic Acid (VITAMIN C) 250 mg chew Take 500 mg by mouth once daily. - lidocaine viscous (LIDOCAINE VISCOUS) 2 % solution Gargle and spit 10-15mLs every 3-4 hours as need for throat discomfort. (Patient not taking: Reported on 11/02/2018 ) 120 mL 0 No current facility-administered medications for this visit. No past surgical history on file. No family history on file. Social History Tobacco Use - Smoking status: Never Smoker - Smokeless tobacco: Never Used Substance Use Topics - Alcohol use: Not on file - Drug use: Not on file BP 92/68 Pulse 110 Temp 37.6 ?C (99.7 ?F) Resp 17 Wt 59 kg (130 lb) SpO2 99% Objective Physical Exam Constitutional: She is well-developed, well-nourished, and in no distress. HENT: Right Ear: Tympanic membrane, external ear and ear canal normal. Left Ear: Tympanic membrane, external ear and ear canal normal. Nose: Nose normal. Mouth/Throat: Uvula is midline, oropharynx is clear and moist and mucous membranes are normal. Neck: Normal range of motion. Neck supple. Cardiovascular: Normal rate, regular rhythm and normal heart sounds. Pulmonary/Chest: Effort normal and breath sounds normal. Abdominal: Mild diffuse TTP of the abdomen with no guarding or rebound. No RLQ pain on palpation, no sign of appendicitis. Bowel sounds active. Lymphadenopathy: She has no cervical adenopathy. Neurological: She is alert. Skin: Skin is warm and dry. Rash noted. Pt has diffuse faint red macular rash on her arms and abdomen diffusely. Blanches. No petechiae or purpura. Psychiatric: Affect normal. Nursing note and vitals reviewed. ASSESSMENT/PLAN: 1. Vomiting and diarrhea - ICD9: 787.03, 787.91, ICD10: R11.10, R19.7 (primary diagnosis) Given zofran for nausea. Abdomen benign on exam here. Discussed pushing fluids and BRAT diet. If she develops severe abdominal pain, intractable vomiting, recommend ER. Mom agreeable. Rash appears to be viral exanthem. May take benadryl if itchy. 2. Viral illness - ICD9: 079.99, ICD10: B34.9 - Discussed viral etiology and rationale for treatment. - Rapid strep negative in office today - Symptomatic treatment with prn analgesia - Supportive care with fluids and rest - RAPID STREP TEST B/O - GROUP A STREPTOCOCCUS BY PCR Jordan Landaverde PA-C Normal [facility] HARSH LOVE ([id number]) 5 F Date Time Provider Department 11/03/18 JORDAN LANDAVERDE) WSMEGAN During your visit today, we recorded the following information about you: Jordan Landaverde PA-C 11/03/2018 6:28 AM Signed Please call patient parents and let know that her influenza A was positive. Demetrice Orozco LPN 11/03/2018 12:03 PM Signed Parent of patient notified (FRANCA).Demetrice Orozco LPN Allergies As of Date: 11/03/2018 (No Known Allergies) Date Reviewed: 11/02/2018 Reviewed by: Jennie Rothman Ma - Fully Assessed Reason for Visit: Results [95] Prescriptions as of 11/03/2018 Sig: GUAIFENESIN ER 600 MG TABLET,* Take 1 tablet by mouth twice * IBUPROFEN 200 MG TABLET Take 200 mg by mouth every 6 * ASCORBIC ACID (VITAMIN C) 250* Take 500 mg by mouth once marcos* LIDOCAINE 2 % MUCOSAL SOLUTION Gargle and spit 10-15mLs ever* Patient not taking: Reported on 11/02/2018 Problem List As Of Date: 11/03/2018 (None) Encounter Status:Closed by DEMETRICE OROZCO LPN on 11/03/[address] [facility] CNOVon 11-02-2018 CNOV Office Visit (UCWSTR ) HARSH LOVE ([id number]) 5 F Date Time Provider Department 11/02/18 10:15 AM LOAN BABIN During your visit today, we recorded the following information about you: Temperature Pulse Respiration Blood pressure 96.9 degrees 116/minute 18/minute 94/62 Weight 56.7 kg Loan Babin APRN.ORACLE DBA 11/02/2018 10:53 AM Signed Flu (Influenza) What is the flu? The flu is a viral infection of the nose, throat, trachea, and bronchi that occurs every winter. Major epidemics every 3 or 4 years (for example, influenza). The main symptoms are a stuffy nose, sore throat, and nagging cough. There may be more muscle pain, headache, fever, and chills than colds usually cause. For most people, influenza is just a bad cold and bed rest is not necessary. Flu is not dangerous to people who are otherwise healthy. How can I take care of my child? The treatment of flu depends on a child's main symptoms and is no different from the treatment for other viral respiratory infections. Bed rest is not necessary. Fever or aches Use acetaminophen (Tylenol) every 6 hours or ibuprofen (Advil) every 8 hours for fever over 102?F (39?C). Children and adolescents who may have influenza should never take aspirin because it may cause Christie's syndrome. Cough or hoarseness For children over age 4 give cough drops. If your child is 1 to 4 years old, give corn syrup (1/2 to 1 teaspoon as needed). Sore throat Use hard candy for children over 4 years old. Warm chicken broth may also help children over 1 year old. Stuffy nose Warm-water or saline nosedrops and suction (or nose blowing) will open most blocked noses. Use nasal washes at least four times a day or whenever your child can't breathe through the nose. Saline nosedrops are made by adding 1/2 teaspoon of salt to 1 cup of warm water. Contagiousness Influenza spreads rapidly because the incubation period is only 24 to 36 hours and the virus is very contagious. Your child may return to day care or school after the fever is gone and he feels up to it. Does my child need antiviral medicine? Most healthcare providers do not use antiviral medicines because they only reduce the time that your child is sick by a day or so. Usually the runny nose lasts 7 to 14 days and the cough lasts 2 to 3 weeks. All antiviral medicines must be given within 48 hours of the start of influenza symptoms to have an effect. Antiviral medicine is usually only used to treat children at high-risk for complications from the flu. Talk with your healthcare provider about this. Does my child need a flu shot? Yearly flu shots have always been recommended for high-risk children over 6 months of age. These children often have complications from influenza, such as pneumonia. Parents and siblings of high-risk children should also get a flu shot. Children are considered high-risk if they have the following conditions: Lung disease, such as asthma Heart disease, such as a congenital heart disease Muscle disease, such as muscular dystrophy Metabolic disease, such as diabetes Renal disease, such as nephrotic syndrome Cancer or immune system conditions Diseases requiring long-term aspirin therapy. In 2006, the [place] [employer] added all children age 6 months to 5 years to the list of people who should get a flu shot. Recent research has shown that healthy children younger than 24 months are at as great a risk of complications as children with the high-risk conditions listed above. When should I call my child's healthcare provider? Call IMMEDIATELY if: Your child is having trouble breathing. Your child starts to act very sick. Call during office hours if: Your child develops any complications such as an earache, sinus pain or pressure, or a fever lasting over 3 days. You have other questions or concerns. Published by [employer]. This content is reviewed periodically and is subject to change as new health information becomes available. The information is intended to inform and educate and is not a replacement for medical evaluation, advice, diagnosis or treatment by a healthcare professional. Written by Mariah Cain M.D., author of Your Child's Health, [employer]. Copyright ? 2006 [employer] and/or one of its subsidiaries. All Rights Reserved. Copyright ? [employer] 2008 Pediatric Advisor Loan Babin APRN.ORACLE DBA 11/02/2018 11:13 AM Addendum Subjective HPI Pt accompanied by mother. Pt presents with c/o tactile fever, chills, myalgias, sore throat and cough x 3 days. She did not receive influenza vaccine this season. Cough is frequent, dry, nonproductive. +chest tightness Denies wheezing, coughing fits, dyspnea, increased WOB. Has not taken any OTC medications other than tylenol for fevers. Exposed to sick contacts at school. Review of Systems Constitutional: Positive for chills and fever. Negative for malaise/fatigue. HENT: Positive for congestion and sore throat. Negative for ear pain. Respiratory: Positive for cough. Negative for hemoptysis, sputum production, shortness of breath and wheezing. Musculoskeletal: Positive for myalgias. Skin: Negative for rash. Objective Physical Exam Constitutional: She is oriented to person, place, and time and well-developed, well-nourished, and in no distress. No distress. HENT: Head: Normocephalic. Right Ear: Hearing, tympanic membrane, external ear and ear canal normal. Left Ear: Hearing, tympanic membrane, external ear and ear canal normal. Nose: Nose normal. Right sinus exhibits no maxillary sinus tenderness and no frontal sinus tenderness. Left sinus exhibits no maxillary sinus tenderness and no frontal sinus tenderness. Mouth/Throat: Uvula is midline, oropharynx is clear and moist and mucous membranes are normal. No oropharyngeal exudate, posterior oropharyngeal edema, posterior oropharyngeal erythema or tonsillar abscesses. Eyes: Pupils are equal, round, and reactive to light. Conjunctivae are normal. Right eye exhibits no discharge. Left eye exhibits no discharge. Neck: Neck supple. Cardiovascular: Normal rate, regular rhythm and normal heart sounds. Exam reveals no gallop and no friction rub. No murmur heard. Pulmonary/Chest: Effort normal and breath sounds normal. No accessory muscle usage. No tachypnea. No respiratory distress. She has no decreased breath sounds (CTA, good air movement throughout, no cough noted during exam.). She has no wheezes. She has no rhonchi. She has no rales. Lymphadenopathy: She has no cervical adenopathy. Neurological: She is alert and oriented to person, place, and time. Skin: Skin is warm. She is not diaphoretic. BP 94/62 Pulse (!) 116 Temp 36.1 ?C (96.9 ?F) (Tympanic) Resp 18 Wt 56.7 kg (125 lb) SpO2 97% .Patient presents with: Sore Throat: cough and headache x 1 day PAST MEDICAL HISTORY Diagnosis Date - NEGATIVE MEDICAL HISTORY No past surgical history on file. ALLERGIES Patient has no known allergies. MEDICATIONS ibuprofen (ADVIL) 200 mg tablet Take 200 mg by mouth every 6 hours as needed. guaiFENesin (MUCINEX) 600 mg 12 hr tablet Take 1 tablet by mouth twice daily. Ascorbic Acid (VITAMIN C) 250 mg chew Take 500 mg by mouth once daily. lidocaine viscous (LIDOCAINE VISCOUS) 2 % solution Gargle and spit 10-15mLs every 3-4 hours as need for throat discomfort. No family history on file. Social History Tobacco Use - Smoking status: Never Smoker Substance Use Topics - Alcohol use: Not on file - Drug use: Not on file ASSESSMENT/PLAN: 1. Sore throat - ICD9: 462, ICD10: J02.9 (primary diagnosis) - Rapid Strep negative in the office today and Throat culture pending - Discussed supportive care treatment with fluids, rest and analgesia. - Contagious dz precautions discussed- including considered contagious until on antibiotics for 24 hours - The patient should follow up in 3-5 days if symptoms persist or worsen - Call back if drooling, increased temperature, symptoms of dehydration and/or still sick in one week - GROUP A STREPTOCOCCUS BY PCR - RAPID STREP TEST B/O 2. Influenza-like illness - ICD9: 799.89, ICD10: R69 - RAPID PCR ASSAY FOR INFLUENZA - GUAIFENESIN ER 600 MG TABLET, EXTENDED RELEASE 12 HR Mother declines offer for tamiflu at this time. Reviewed and printed influenza education. The patient/mother is instructed to return or seek emergency treatment if symptoms become worse or with any acute change in condition. The patient/mother verbalizes understanding and is in agreement with plan of care. Loan Babin CNP Referring Provider: SELF [200] Allergies As of Date: 11/02/2018 (No Known Allergies) Date Reviewed: 11/02/2018 Reviewed by: Jennie Rothman Ma - Fully Assessed Reason for Visit: Sore Throat [200] Cmt: cough and headache x 1 day Primary Visit Diagnosis:Sore throat [J02.9] Other Visit Diagnosis:Influenza-lik e illness [R69] Order(s):GROUP A STREPTOCOCCUS BY PCR [SQGASPCR] Order #: [id number] RAPID STREP TEST B/O [2337680] Order #: [id number] RAPID PCR ASSAY FOR INFLUENZA [SQFLUPCR] Order #: [id number] guaiFENesin (MUCINEX) 600 mg 12 hr tabletTake 1 tablet by mouth twice daily.Disp: 30 tabletRfl: 0 Prescriptions as of 11/02/2018 Sig: IBUPROFEN 200 MG TABLET Take 200 mg by mouth every 6 * GUAIFENESIN ER 600 MG TABLET,* Take 1 tablet by mouth twice * ASCORBIC ACID (VITAMIN C) 250* Take 500 mg by mouth once marcos* LIDOCAINE 2 % MUCOSAL SOLUTION Gargle and spit 10-15mLs ever* Patient not taking: Reported on 11/02/2018 Problem List As Of Date: 11/02/2018 (None) Other instructions from your clinician: Flu (Influenza) What is the flu? The flu is a viral infection of the nose, throat, trachea, and bronchi that occurs every winter. Major epidemics every 3 or 4 years (for example, influenza). The main symptoms are a stuffy nose, sore throat, and nagging cough. There may be more muscle pain, headache, fever, and chills than colds usually cause. For most people, influenza is just a bad cold and bed rest is not necessary. Flu is not dangerous to people who are otherwise healthy. How can I take care of my child? The treatment of flu depends on a child's main symptoms and is no different from the treatment for other viral respiratory infections. Bed rest is not necessary. Fever or aches Use acetaminophen (Tylenol) every 6 hours or ibuprofen (Advil) every 8 hours for fever over 102?F (39?C). Children and adolescents who may have influenza should never take aspirin because it may cause Christie's syndrome. Cough or hoarseness For children over age 4 give cough drops. If your child is 1 to 4 years old, give corn syrup (1/2 to 1 teaspoon as needed). Sore throat Use hard candy for children over 4 years old. Warm chicken broth may also help children over 1 year old. Stuffy nose Warm-water or saline nosedrops and suction (or nose blowing) will open most blocked noses. Use nasal washes at least four times a day or whenever your child can't breathe through the nose. Saline nosedrops are made by adding 1/2 teaspoon of salt to 1 cup of warm water. Contagiousness Influenza spreads rapidly because the incubation period is only 24 to 36 hours and the virus is very contagious. Your child may return to day care or school after the fever is gone and he feels up to it. Does my child need antiviral medicine? Most healthcare providers do not use antiviral medicines because they only reduce the time that your child is sick by a day or so. Usually the runny nose lasts 7 to 14 days and the cough lasts 2 to 3 weeks. All antiviral medicines must be given within 48 hours of the start of influenza symptoms to have an effect. Antiviral medicine is usually only used to treat children at high-risk for complications from the flu. Talk with your healthcare provider about this. Does my child need a flu shot? Yearly flu shots have always been recommended for high-risk children over 6 months of age. These children often have complications from influenza, such as pneumonia. Parents and siblings of high-risk children should also get a flu shot. Children are considered high-risk if they have the following conditions: Lung disease, such as asthma Heart disease, such as a congenital heart disease Muscle disease, such as muscular dystrophy Metabolic disease, such as diabetes Renal disease, such as nephrotic syndrome Cancer or immune system conditions Diseases requiring long-term aspirin therapy. In 2006, the [place] [employer] added all children age 6 months to 5 years to the list of people who should get a flu shot. Recent research has shown that healthy children younger than 24 months are at as great a risk of complications as children with the high-risk conditions listed above. When should I call my child's healthcare provider? Call IMMEDIATELY if: Your child is having trouble breathing. Your child starts to act very sick. Call during office hours if: Your child develops any complications such as an earache, sinus pain or pressure, or a fever lasting over 3 days. You have other questions or concerns. Published by [employer]. This content is reviewed periodically and is subject to change as new health information becomes available. The information is intended to inform and educate and is not a replacement for medical evaluation, advice, diagnosis or treatment by a healthcare professional. Written by Mariah Cain M.D., author of Your Child's Health, [employer]. Copyright ? 2007 [employer] and/or one of its subsidiaries. All Rights Reserved. Copyright ? [employer] 2008 Pediatric Advisor Prescriptions ordered this encounter Disp Refills Start End GUAIFENESIN ER 600 MG TABLET, EXTEND* 30 t* 0 11/02/2018 Route: ORAL Sig: Take 1 tablet by mouth twice daily. Letter Text Encounter Status:Closed by LOAN BABIN CNP on 11/02/18 [facility] A Strep by PCRon 11-02 GAS Specimen Source Throat Swab Normal [facility] Comment on above: Performed By: #### G ASPCR #### [facility] [address] [place], [place] [address] Group A Strep PCR Negative Normal [facility] Comment on above: Result Comment: This test was developed and its performance characteristics determined by [facility]'s Gerry Weeks [facility] Pathology and Laboratory Medicine [place] ([facility]). It has not been cleared or approved by the FDA. [facility] is regulated under CLIA as qualified to perform high-complexity testing. This test is used for clinical purposes. It should not be regarded as investigational or for research. Performed By: #### G ASPCR #### [facility] [address] [place], [place] [address] PROGRESSon 11-02-2018 PROGRESS HNO ID: [id number] Author: Loan Babin Service: ? Author Type: Nurse Practitioner Type: Progress Notes Filed: 11/02/2018 11:13 AM Note Text: Subjective HPI Pt accompanied by mother. Pt presents with c/o tactile fever, chills, myalgias, sore throat and cough x 3 days. She did not receive influenza vaccine this season. Cough is frequent, dry, nonproductive. +chest tightness Denies wheezing, coughing fits, dyspnea, increased WOB. Has not taken any OTC medications other than tylenol for fevers. Exposed to sick contacts at school. Review of Systems Constitutional: Positive for chills and fever. Negative for malaise/fatigue. HENT: Positive for congestion and sore throat. Negative for ear pain. Respiratory: Positive for cough. Negative for hemoptysis, sputum production, shortness of breath and wheezing. Musculoskeletal: Positive for myalgias. Skin: Negative for rash. Objective Physical Exam Constitutional: She is oriented to person, place, and time and well-developed, well-nourished, and in no distress. No distress. HENT: Head: Normocephalic. Right Ear: Hearing, tympanic membrane, external ear and ear canal normal. Left Ear: Hearing, tympanic membrane, external ear and ear canal normal. Nose: Nose normal. Right sinus exhibits no maxillary sinus tenderness and no frontal sinus tenderness. Left sinus exhibits no maxillary sinus tenderness and no frontal sinus tenderness. Mouth/Throat: Uvula is midline, oropharynx is clear and moist and mucous membranes are normal. No oropharyngeal exudate, posterior oropharyngeal edema, posterior oropharyngeal erythema or tonsillar abscesses. Eyes: Pupils are equal, round, and reactive to light. Conjunctivae are normal. Right eye exhibits no discharge. Left eye exhibits no discharge. Neck: Neck supple. Cardiovascular: Normal rate, regular rhythm and normal heart sounds. Exam reveals no gallop and no friction rub. No murmur heard. Pulmonary/Chest: Effort normal and breath sounds normal. No accessory muscle usage. No tachypnea. No respiratory distress. She has no decreased breath sounds (CTA, good air movement throughout, no cough noted during exam.). She has no wheezes. She has no rhonchi. She has no rales. Lymphadenopathy: She has no cervical adenopathy. Neurological: She is alert and oriented to person, place, and time. Skin: Skin is warm. She is not diaphoretic. BP 94/62 Pulse (!) 116 Temp 36.1 ?C (96.9 ?F) (Tympanic) Resp 18 Wt 56.7 kg (125 lb) SpO2 97% .Patient presents with: Sore Throat: cough and headache x 1 day PAST MEDICAL HISTORY Diagnosis Date - NEGATIVE MEDICAL HISTORY No past surgical history on file. ALLERGIES Patient has no known allergies. MEDICATIONS ibuprofen (ADVIL) 200 mg tablet Take 200 mg by mouth every 6 hours as needed. guaiFENesin (MUCINEX) 600 mg 12 hr tablet Take 1 tablet by mouth twice daily. Ascorbic Acid (VITAMIN C) 250 mg chew Take 500 mg by mouth once daily. lidocaine viscous (LIDOCAINE VISCOUS) 2 % solution Gargle and spit 10-15mLs every 3-4 hours as need for throat discomfort. No family history on file. Social History Tobacco Use - Smoking status: Never Smoker Substance Use Topics - Alcohol use: Not on file - Drug use: Not on file ASSESSMENT/PLAN: 1. Sore throat - ICD9: 462, ICD10: J02.9 (primary diagnosis) - Rapid Strep negative in the office today and Throat culture pending - Discussed supportive care treatment with fluids, rest and analgesia. - Contagious dz precautions discussed- including considered contagious until on antibiotics for 24 hours - The patient should follow up in 3-5 days if symptoms persist or worsen - Call back if drooling, increased temperature, symptoms of dehydration and/or still sick in one week - GROUP A STREPTOCOCCUS BY PCR - RAPID STREP TEST B/O 2. Influenza-like illness - ICD9: 799.89, ICD10: R69 - RAPID PCR ASSAY FOR INFLUENZA - GUAIFENESIN ER 600 MG TABLET, EXTENDED RELEASE 12 HR Mother declines offer for tamiflu at this time. Reviewed and printed influenza education. The patient/mother is instructed to return or seek emergency treatment if symptoms become worse or with any acute change in condition. The patient/mother verbalizes understanding and is in agreement with plan of care. Loan Babin, [employer]LE DBA Normal [facility] Rapid PCR Assay FLUon 2018 Influenza A PCR Positive Critically abnormal [facility] Comment on above: Performed By: #### F LUPCR #### [place] [id number] [place] [address] Influenza B PCR Negative Normal [facility] Comment on above: Performed By: #### F LUPCR #### [place] [id number] [place] [address] Specimen source Nom (Unsp spec) Nasopharyngeal Swab Normal [facility] Comment on above: Performed By: #### F LUPCR #### [place] [address] Surgical Pathology [facility] Surgical Pathology [id number] [facility] PATHOLOGY AND LABORATORY MEDICINE [address] [place] [address] [phone] Fax - FINAL SURGICAL PATHOLOGY REPORT NAME: HARSH LOVE .O.B.: 2005 12 Y F BILLING NO.: [id number] SDS 01 PROCEDURE 02/25/2018 DATE:SURGEON: FUAD CHUNG DO RECEIVED 02/25/2018 DATE:ATTENDING: FUAD CHUNG DO REPORT DATE: 03/08/2018 COPIES TO: DIAGNOSIS:TONSILL ECTOMY - FRAGMENTS OF UNREMARKABLE TONSILLAR TISSUE (GROSSDIAGNOSIS ONLY).LINUS/JOSE LUIS THOMPSON M.D. CLINICAL INFORMATION: Hypertrophy tonsils and adenoidsSPECIMEN: TONSILS AND ADENOIDS GROSS DESCRIPTION:Bilateral tonsilsReceived in formalin are bilateral tonsils oriented with a pinindicating the right tonsil. The right tonsil is 3 x 2.6 x 2.2 cm andthe left tonsil is 3.3 x 2 x 2 cm. Sectioning of each reveals a sanchez,lobulated, cut surface with flecks of sanchez, pasty material interspersed. No masses are identified. Adenoid tissue is not received within thespecimen. The specimen is for gross exam only. No sections submitted. (ss no micro) LINUS/SUBHASHisclaimer: The following statement applies to allimmunohistochemistry , in situ hybridization, molecular studies, andimmunofluorescence testing.The use of one or more reagents in the above tests is regulated as ananalyte specific reagent (ASR). These tests were developed and theirperformance characteristics determined by the clinical laboratories [facility]. They have not been cleared by the US Food and DrugAdministration (FDA). The FDA has determined that such clearance orapproval is not necessary.All the above immunostains were performed on paraffin embedded tissue.Appropriate positive and negative controls (where applicable) were runin parallel with the patient's specimen; these controls showed expectedstaining pattern, with acceptable intensity of staining.Immunohistoche mical assays have not been validated on decalcifiedtissues. Results should be interpreted with caution given the raisedpossibility of false negativity on decalcified specimens.Case reviewed at [place] [address] [address] [facility], [id number]. DEPARTMENT OF PATHOLOGY AND LABORATORY MEDICINE [place], [place] [address] Normal [facility] Culture, urine Bacteria identified Cx Nom (U) Enterococcus faecalis [facility] Work Phone: Vital Signs Date Time Vital Sign Value Performing Clinician Facility 12-21-2024 06:52-0400 Body temperature 97 [degF] Levi Doyle MD Work Phone: [facility] 12-21-2024 06:52-0400 Diastolic blood pressure 65 mm[Hg] Levi Doyle MD Work Phone: [facility] 12-21-2024 06:52-0400 Heart rate 94 /min Levi Doyle MD Work Phone: [facility] 12-21-2024 06:52-0400 Respiratory rate 20 /min Levi Doyle MD Work Phone: [facility] 12-21-2024 06:52-0400 SaO2% (BldA) [Mass fraction] 98 % Levi Doyle MD Work Phone: [facility] 12-21-2024 06:52-0400 Systolic blood pressure 111 mm[Hg] Levi Doyle MD Work Phone: [facility] 12-20-2024 06:52-0400 Body height 157.5 cm Levi Doyle MD Work Phone: [facility] 12-20-2024 06:52-0400 Body mass index (BMI) [Ratio] 27.07 kg/m2 Levi Doyle MD Work Phone: [facility] 12-20-2024 06:52-0400 Body weight 67.13 kg Levi Doyle MD Work Phone: [facility] 10-15-2024 11:53-[address] Pressure Cuff Size DR SUDHAKAR SNEED MD [facility] 10-15-2024 11:53-[address] SUDHAKAR SNEED MD [facility] 10-15-2024 11:53-[address] SUDHAKAR SNEED MD [facility] 10-15-2024 11:53-0500 Body temperature 98.42 [degF] DR SUDHAKAR SNEED MD [facility] 10-15-2024 11:53-0500 Diastolic Blood Pressure Non-Invasive 65 mm[Hg] DR SUDHAKAR SNEED MD [facility] 10-15-2024 11:53-0500 Heart rate 93 /min DR SUDHAKAR SNEED MD [facility] 10-15-2024 11:53-0500 Respiratory rate 16 /min DR SUDHAKAR SNEED MD [facility] 10-15-2024 11:53-0500 Systolic Blood Pressure Non-Invasive 105 mm[Hg] DR SUDHAKAR SNEED MD [facility] 10-14-2024 02:37-0500 Heart rate 101 /min BRANDON DURESKA DO [facility] 10-14-2024 02:37-0500 Respiratory rate 18 /min BRANDON DURESKA DO [facility] 10-14-2024 00:59-0500 Body temperature 98.24 [degF] BRANDON DURESKA DO [facility] 10-14-2024 00:59-0500 Diastolic Blood Pressure Non-Invasive 74 mm[Hg] BRANDON DURESKA DO [facility] 10-14-2024 00:59-0500 Heart rate 115 /min BRANDON DURESKA DO [facility] 10-14-2024 00:59-0500 Respiratory rate 20 /min BRANDON DURESKA DO [facility] 10-14-2024 00:59-0500 Systolic Blood Pressure Non-Invasive 109 mm[Hg] BRANDON DURESKA DO [facility] 09-04-2024 03:53-0500 Diastolic Blood Pressure Non-Invasive 79 mm[Hg] NIDAL CHOUJAA DO [facility] 09-04-2024 03:53-0500 Heart rate 82 /min NIDAL CHOUJAA DO [facility] 09-04-2024 03:53-0500 Respiratory rate 18 /min NIDAL CHOUJAA DO [facility] 09-04-2024 03:53-0500 Systolic Blood Pressure Non-Invasive 126 mm[Hg] NIDAL CHOUJAA DO [facility] 09-03-2024 23:09-0500 Diastolic Blood Pressure Non-Invasive 72 mm[Hg] NIDAL CHOUJAA DO [facility] 09-03-2024 23:09-0500 Heart rate 84 /min NIDAL CHOUJAA DO [facility] 09-03-2024 23:09-0500 Respiratory rate 18 /min NIDAL CHOUJAA DO [facility] 09-03-2024 23:09-0500 Systolic Blood Pressure Non-Invasive 118 mm[Hg] NIDAL CHOUJAA DO [facility] 09-03-2024 22:04-0500 Body temperature 97.52 [degF] NIDAL CHOUJAA DO [facility] 09-03-2024 22:04-0500 Body weight 66.5 kg NIDAL CHOUJAA DO [facility] 09-03-2024 22:04-0500 Diastolic Blood Pressure Non-Invasive 76 mm[Hg] NIDAL CHOUJAA DO [facility] 09-03-2024 22:04-0500 Heart rate 102 /min [facility] DO [facility] 09-03-2024 22:04-0500 Respiratory rate 16 /min [facility] CH[facility] DO [facility] 09-03-2024 22:04-0500 Systolic Blood Pressure Non-Invasive 111 mm[Hg] [facility] 01-05-2024 11:51-0400 Body mass index (BMI) [Percentile] Per age and sex 64.92 % Inga Bessieenthal WASTE REMOVALIST - [employer] Work Phone: [facility] 01-05-2024 11:51-0400 Body mass index (BMI) [Ratio] 22.65 kg/m2 Inga Bridenthal WASTE REMOVALIST - [employer] Work Phone: [facility] [employer] 01-05-2024 11:51-0400 Body temperature 97.81 [degF] Inga Bridenthal [employer] Work Phone: [facility] 01-05-2024 11:51-0400 Body weight 65.59 kg Inga Bessieenthal [employer] Work Phone: [facility] 01-05-2024 11:51-0400 Diastolic blood pressure 62 mm[Hg] Inga Bridenthal [employer] Work Phone: [facility] 01-05-2024 11:51-0400 Heart rate 108 /min Inga Bridenthal [employer] Work Phone: [facility] 01-05-2024 11:51-0400 Respiratory rate 14 /min Inga Bridenthal [employer] Work Phone: [facility] 01-05-2024 11:51-0400 SaO2% (BldA) [Mass fraction] 98 % Inga Bessieenthal [employer] Work Phone: [facility] 01-05-2024 11:51-0400 Systolic blood pressure 98 mm[Hg] Inga Bessieenthal [employer] Work Phone: [facility] 12-21-2023 09:54-0400 Body height 170.2 cm Minerva Jose [employer] Work Phone: [facility] 12-21-2023 09:54-0400 Body mass index (BMI) [Percentile] Per age and sex 72.56 % Minerva Garcia [employer] Work Phone: [facility] 12-21-2023 09:54-0400 Body mass index (BMI) [Ratio] 23.52 kg/m2 Minerva Garcia [employer] Work Phone: [facility] 12-21-2023 09:54-0400 Body weight 68.13 kg Minerva Garcia [employer] Work Phone: [facility] 12-21-2023 09:54-0400 Diastolic blood pressure 67 mm[Hg] Minerva Garcia [employer] Work Phone: [facility] 12-21-2023 09:54-0400 Heart rate 84 /min Minerva Garcia [employer] Work Phone: [facility] 12-21-2023 09:54-0400 SaO2% (BldA) [Mass fraction] 97 % Minerva Garcia [employer] Work Phone: [facility] 12-21-2023 09:54-0400 Systolic blood pressure 113 mm[Hg] Minerva Garcia [employer] Work Phone: [facility] 12-11-2023 01:21-0400 Body temperature 98 [degF] [facility] 12-11-2023 01:21-0400 Diastolic blood pressure 74 mm[Hg] [facility] 12-11-2023 01:21-0400 Heart rate 71 /min [facility] 12-11-2023 01:21-0400 Respiratory rate 14 /min [facility] 12-11-2023 01:21-0400 SaO2% (BldA) [Mass fraction] 98 % [facility] 12-11-2023 01:21-0400 Systolic blood pressure 110 mm[Hg] [facility] 12-10-2023 12:47-0400 Body height 170.18 cm [facility] 12-10-2023 12:47-0400 Body mass index (BMI) [Percentile] Per age and sex 68.4 % [facility] 12-10-2023 12:47-0400 Body mass index (BMI) [Ratio] 23 kg/m2 [facility] 12-10-2023 12:47-0400 Body weight 66.7 kg [facility] 10-12-2023 14:36-0500 Body height 170.2 cm Minerva Garcia [employer] Work Phone: [facility] 10-12-2023 14:36-0500 Body mass index (BMI) [Percentile] Per age and sex 72.88 % Minerva Jose [employer] Work Phone: [facility] 10-12-2023 14:36-0500 Body mass index (BMI) [Ratio] 23.49 kg/m2 Minerva Garcia [employer] Work Phone: [facility] 10-12-2023 14:36-0500 Body weight 68.04 kg Minerva Garcia [employer] Work Phone: [facility] 10-12-2023 14:36-0500 Diastolic blood pressure 69 mm[Hg] Minerva Garcia [employer] Work Phone: [facility] 10-12-2023 14:36-0500 Heart rate 74 /min Minerva Garcia [employer] Work Phone: [facility] 10-12-2023 14:36-0500 SaO2% (BldA) [Mass fraction] 98 % Minerva Garcia [employer] Work Phone: [facility] 10-12-2023 14:36-0500 Systolic blood pressure 108 mm[Hg] Minerva Garcia [employer] Work Phone: [facility] 09-24-2023 10:49-0500 Body temperature 98.6 [degF] Inga Bridenthal [employer] Work Phone: [facility] 09-24-2023 10:49-0500 Body weight 68.95 kg Inga Bridenthal [employer] Work Phone: [facility] 09-24-2023 10:49-0500 Diastolic blood pressure 67 mm[Hg] Inga Bridenthal [employer] Work Phone: [facility] 09-24-2023 10:49-0500 Heart rate 93 /min Inga Bridenthal [employer] Work Phone: [facility] 09-24-2023 10:49-0500 Respiratory rate 16 /min Inga Bridenthal [employer] Work Phone: [facility] 09-24-2023 10:49-0500 SaO2% (BldA) [Mass fraction] 96 % Inga Bridenthal [employer] Work Phone: [facility] 09-24-2023 10:49-0500 Systolic blood pressure 102 mm[Hg] Inga Nobles [employer] Work Phone: [facility] 06-10-2023 11:33-0400 Heart rate 96 /min Minerva Garcia [employer] Work Phone: [facility] 06-10-2023 11:03-0400 Body temperature 98.71 [degF] Minerva Garcia [employer] Work Phone: [facility] 06-10-2023 11:03-0400 Body weight 66.22 kg Minerva Garcia [employer] Work Phone: [facility] 06-10-2023 11:03-0400 Diastolic blood pressure 65 mm[Hg] Minerva Garcia [employer] Work Phone: [facility] 06-10-2023 11:03-0400 Respiratory rate 20 /min Minerva Garcia [employer] Work Phone: [facility] 06-10-2023 11:03-0400 SaO2% (BldA) [Mass fraction] 97 % Minerva Garcia [employer] Work Phone: [facility] 06-10-2023 11:03-0400 Systolic blood pressure 100 mm[Hg] Minerva Garcia [employer] Work Phone: [facility] 06-01-2023 15:26-0400 Body height 170.2 cm Minerva Garcia [employer] Work Phone: [facility] 06-01-2023 15:26-0400 Body mass index (BMI) [Percentile] Per age and sex 71.09 % Minerva Garcia [employer] Work Phone: [facility] 06-01-2023 15:26-0400 Body mass index (BMI) [Ratio] 23.12 kg/m2 Minerva Jose [employer] Work Phone: [facility] 06-01-2023 15:26-0400 Body weight 66.95 kg Minerva Gracia [employer] Work Phone: [facility] 06-01-2023 15:26-0400 Diastolic blood pressure 70 mm[Hg] Minerva Garcia [employer] Work Phone: [facility] 06-01-2023 15:26-0400 Heart rate 95 /min Minerva Garcia [employer] Work Phone: [facility] 06-01-2023 15:26-0400 SaO2% (BldA) [Mass fraction] 98 % Minerva Garcia [employer] Work Phone: [facility] 06-01-2023 15:26-0400 Systolic blood pressure 100 mm[Hg] Minerva Garcia [employer] Work Phone: [facility] 05-20-2023 10:40-0400 Body temperature 98.91 [degF] Inga Bridenthal [employer] Work Phone: [facility] 05-20-2023 10:40-0400 Body weight 64.95 kg Inga Bridenthal [employer] Work Phone: [facility] 05-20-2023 10:40-0400 Diastolic blood pressure 54 mm[Hg] Inga Bridenthal [employer] Work Phone: [facility] 05-20-2023 10:40-0400 Heart rate 93 /min Inga Bridenthal [employer] Work Phone: [facility] 05-20-2023 10:40-0400 Respiratory rate 18 /min Inga Bridenthal [employer] Work Phone: [facility] 05-20-2023 10:40-0400 SaO2% (BldA) [Mass fraction] 97 % Inga Bridenthal [employer] Work Phone: [facility] 05-20-2023 10:40-0400 Systolic blood pressure 86 mm[Hg] Inga Bridenthal [employer] Work Phone: [facility] 04-28-2023 15:14-0400 Body height 170.2 cm Inga Peraltaal [employer] Work Phone: [facility] 04-28-2023 15:14-0400 Body mass index (BMI) [Percentile] Per age and sex 69.3 % Inga Peraltaal [employer] Work Phone: [facility] 04-28-2023 15:14-0400 Body mass index (BMI) [Ratio] 22.87 kg/m2 Ingaeliot Laenthal [employer] Work Phone: [facility] 04-28-2023 15:14-0400 Body temperature 97.7 [degF] Inga Bridenthal [employer] Work Phone: [facility] 04-28-2023 15:14-0400 Body weight 66.22 kg Inga Peraltaal [employer] Work Phone: [facility] 04-28-2023 15:14-0400 Diastolic blood pressure 69 mm[Hg] Ingaeliot Peraltaal [employer] Work Phone: [facility] 04-28-2023 15:14-0400 Heart rate 88 /min Ingaeliot Peraltaal [employer] Work Phone: [facility] 04-28-2023 15:14-0400 SaO2% (BldA) [Mass fraction] 99 % Inga Peraltaal [employer] Work Phone: [facility] 04-28-2023 15:14-0400 Systolic blood pressure 106 mm[Hg] Inga Bridenthal [employer] Work Phone: [facility] 04-21-2023 15:31-0400 Body height 170.2 cm Inga Bridenthal [employer] Work Phone: [facility] 04-21-2023 15:31-0400 Body mass index (BMI) [Percentile] Per age and sex 65.04 % Inga Laenthal [employer] Work Phone: [facility] 04-21-2023 15:31-0400 Body mass index (BMI) [Ratio] 22.4 kg/m2 Inga Bridenthal [employer] Work Phone: [facility] 04-21-2023 15:31-0400 Body temperature 98.6 [degF] Inga Bridenthal [employer] Work Phone: [facility] 04-21-2023 15:31-0400 Body weight 64.86 kg Inga Bessieenthal [employer] Work Phone: [facility] 04-21-2023 15:31-0400 Diastolic blood pressure 66 mm[Hg] Inga Bessieenthal [employer] Work Phone: [facility] 04-21-2023 15:31-0400 Heart rate 104 /min Inga Bridenthal [employer] Work Phone: [facility] 04-21-2023 15:31-0400 SaO2% (BldA) [Mass fraction] 98 % Inga Laenthal [employer] Work Phone: [facility] 04-21-2023 15:31-0400 Systolic blood pressure 106 mm[Hg] Inga Laenthal [employer] Work Phone: [facility] 12-19-2022 13:15-0400 Diastolic blood pressure 58 mm[Hg] Rahul Reid MD Work Phone: [facility] 12-19-2022 13:15-0400 Heart rate 63 /min Rahul Reid MD Work Phone: [facility] 12-19-2022 13:15-0400 Respiratory rate 12 /min Rahul Reid MD Work Phone: [facility] 12-19-2022 13:15-0400 SaO2% (BldA) [Mass fraction] 99 % Rahul Reid MD Work Phone: [facility] 12-19-2022 13:15-0400 Systolic blood pressure 91 mm[Hg] Rahul Reid MD Work Phone: [facility] 12-19-2022 12:05-0400 Body temperature 97.9 [degF] Rahul Reid MD Work Phone: [facility] 12-19-2022 10:35-0400 Body height 169.2 cm Rahul Reid MD Work Phone: [facility] 12-19-2022 10:35-0400 Body mass index (BMI) [Percentile] Per age and sex 71.24 % Rahul Reid MD Work Phone: [facility] 12-19-2022 10:35-0400 Body mass index (BMI) [Ratio] 22.95 kg/m2 Rahul Reid MD Work Phone: [facility] 12-19-2022 10:35-0400 Body weight 65.7 kg Rahul Reid MD Work Phone: [facility] 11-19-2022 12:00-0400 Body temperature 98.1 [degF] Rahul Reid MD Work Phone: [facility] 11-19-2022 12:00-0400 Diastolic blood pressure 70 mm[Hg] Rahul Reid MD Work Phone: [facility] 11-19-2022 12:00-0400 Heart rate 76 /min Rahul Reid MD Work Phone: [facility] 11-19-2022 12:00-0400 Respiratory rate 16 /min Rahul Reid MD Work Phone: [facility] 11-19-2022 12:00-0400 Systolic blood pressure 118 mm[Hg] Rahul Reid MD Work Phone: [facility] 11-19-2022 04:35-0400 SaO2% (BldA) [Mass fraction] 99 % Rahul Reid MD Work Phone: [facility] 11-18-2022 06:20-0400 Body height 169.2 cm Rahul Reid MD Work Phone: [facility] 11-18-2022 06:20-0400 Body mass index (BMI) [Percentile] Per age and sex 69.44 % Rahul Reid MD Work Phone: [facility] 11-18-2022 06:20-0400 Body mass index (BMI) [Ratio] 22.7 kg/m2 Rahul Reid MD Work Phone: [facility] 11-18-2022 06:20-0400 Body weight 65 kg Rahul Reid MD Work Phone: [facility] 10-20-2022 14:25-0500 Body height 170.2 cm Minerva Garcia [employer] Work Phone: [facility] 10-20-2022 14:25-0500 Body mass index (BMI) [Percentile] Per age and sex 72.16 % Minerva Jose [employer] Work Phone: [facility] 10-20-2022 14:25-0500 Body mass index (BMI) [Ratio] 22.99 kg/m2 Minerva Garcia [employer] Work Phone: [facility] 10-20-2022 14:25-0500 Body weight 66.59 kg Minerva Garcia [employer] Work Phone: [facility] 10-20-2022 14:25-0500 Diastolic blood pressure 68 mm[Hg] Minerva Garcia [employer] Work Phone: [facility] 10-20-2022 14:25-0500 Heart rate 96 /min Minerva Garcia [employer] Work Phone: [facility] 10-20-2022 14:25-0500 SaO2% (BldA) [Mass fraction] 98 % Minerva Garcia [employer] Work Phone: [facility] 10-20-2022 14:25-0500 Systolic blood pressure 114 mm[Hg] Minerva Garcia [employer] Work Phone: [facility] 08-12-2022 11:35-0500 Body temperature 97.5 [degF] Rahul Reid MD Work Phone: [facility] 08-12-2022 11:35-0500 Diastolic blood pressure 69 mm[Hg] Rahul Reid MD Work Phone: [facility] 08-12-2022 11:35-0500 Heart rate 75 /min Rahul Reid MD Work Phone: [facility] 08-12-2022 11:35-0500 Respiratory rate 16 /min Rahul Reid MD Work Phone: [facility] 08-12-2022 11:35-0500 SaO2% (BldA) [Mass fraction] 98 % Rahul Reid MD Work Phone: [facility] 08-12-2022 11:35-0500 Systolic blood pressure 105 mm[Hg] Rahul Reid MD Work Phone: [facility] 08-12-2022 09:00-0500 Body height 169 cm Rahul Reid MD Work Phone: [facility] 08-12-2022 09:00-0500 Body mass index (BMI) [Percentile] Per age and sex 73.24 % Rahul Reid MD Work Phone: [facility] 08-12-2022 09:00-0500 Body mass index (BMI) [Ratio] 23.04 kg/m2 Rahul Reid MD Work Phone: [facility] 08-12-2022 09:00-0500 Body weight 65.8 kg Rahul Reid MD Work Phone: [facility] 06-02-2022 08:39-0400 Body weight 64.2 kg Julia Cole [employer] Work Phone: [facility] 05-13-2022 12:00-0400 Heart rate 60 /min Rowan Madsion DO Work Phone: [facility] 05-13-2022 12:00-0400 Respiratory rate 16 /min Rowan Madison DO Work Phone: [facility] 05-13-2022 11:15-0400 Body temperature 98.2 [degF] Rowan Madison DO Work Phone: [facility] 05-13-2022 11:15-0400 Diastolic blood pressure 76 mm[Hg] Rowan Madison DO Work Phone: [facility] 05-13-2022 11:15-0400 Systolic blood pressure 105 mm[Hg] Rowan Madison DO Work Phone: [facility] 05-12-2022 11:00-0400 SaO2% (BldA) [Mass fraction] 99 % Rowan Madison DO Work Phone: [facility] 05-09-2022 14:00-0400 Body height 170.2 cm Rowan Madison DO Work Phone: [facility] 05-09-2022 14:00-0400 Body mass index (BMI) [Percentile] Per age and sex 71.93 % Rowan Madison DO Work Phone: [facility] 05-09-2022 14:00-0400 Body mass index (BMI) [Ratio] 22.75 kg/m2 Rowan Madison DO Work Phone: [facility] 05-09-2022 14:00-0400 Body weight 65.9 kg Rowan Madison DO Work Phone: [facility] 05-09-2022 12:57-0400 Body temperature 98.6 [degF] [facility] Work Phone: 05-09-2022 12:57-0400 Diastolic blood pressure 65 mm[Hg] [facility] Work Phone: 05-09-2022 12:57-0400 Heart rate 96 /min [facility] Work Phone: 05-09-2022 12:57-0400 Respiratory rate 22 /min [facility] Work Phone: 05-09-2022 12:57-0400 SaO2% (BldA) [Mass fraction] 98 % [facility] Work Phone: 05-09-2022 12:57-0400 Systolic blood pressure 108 mm[Hg] [facility] Work Phone: 05-09-2022 09:06-0400 Body height 170.18 cm [facility] Work Phone: 05-09-2022 09:06-0400 Body mass index (BMI) [Percentile] Per age and sex 71.5 % [facility] Work Phone: 05-09-2022 09:06-0400 Body mass index (BMI) [Ratio] 22.7 kg/m2 [facility] Work Phone: 05-09-2022 09:06-0400 Body weight 65.77 kg [facility] Work Phone: Encounters Encounter Date Encounter Type Care Provider Facility Start: 12-20-2024 Emergency department patient visit MOIZ PERALTA LITA [facility] Start: 12-20-2024 End: 12-21-2024 Emergency department patient visit Levi Doyle MD Work Phone: [facility] Comment on above: Psychosis, unspecifi ed psychosis type (HCC) (Primary Dx) Start: 10-17-2024 End: 10-21-2024 Evaluation and management of inpatient [facility] Start: 10-15-2024 End: 10-15-2024 Emergency department patient visit DR SUDHAKAR SNEED MD [facility] Start: 10-14-2024 End: 10-14-2024 Emergency department patient visit BRANDON SHETH DO [facility] Start: 10-06-2024 Emergency department patient visit Facility:[facility] Start: 09-03-2024 End: 09-04-2024 Emergency department patient visit RHONDA PARKS DO [facility] Start: 08-27-2024 End: 08-28-2024 Emergency department patient visit Mgja Gustafson Facility:[facility] Start: 08-27-2024 End: 08-27-2024 Emergency department patient visit Minerva Garcia NP Facility:[facility] Start: 08-15-2024 End: 08-16-2024 Emergency department patient visit Minerva Garcia NP Facility:[facility] Start: 08-10-2024 ambulatory Minerva Garcia NP Facility :[facility] Start: 08-07-2024 End: 08-07-2024 Emergency department patient visit MOIZ GORDON Facility:[facility] Start: 08-07-2024 Encounter for genera l adult medical examination without abnormal findings SUDHAKAR FISHER [facility] Start: 06-12-2024 End: 06-12-2024 Emergency department patient visit [facility] Facility:[facility] Start: 06-03-2024 End: 06-03-2024 ambulatory UNKNOWN PROVIDER Facility:[facility] Start: 05-12-2024 End: 05-12-2024 ambulatory Minerva Garcia [employer] Facility:[facility] Start: 05-09-2024 End: 05-09-2024 ambulatory RAHUL REID [facility] Start: 04-04-2024 End: 04-04-2024 ambulatory Anmol Bello See Facility:[facility] Start: 03-17-2024 End: 03-17-2024 ambulatory Anmol L Seese Facility:[facility] Start: 03-01-2024 End: 03-01-2024 ambulatory Anmol L Seese Facility:[facility] Start: 02-29-2024 End: 03-23-2024 ambulatory Rose Ramirez Facility:[facility] Start: 02-12-2024 End: 02-28[facility] Start: 02-01-2024 End: 02-11-2024 ambulatory [facility] Facility:[facility] Start: 01-26-2024 ambulatory ARON VALENCIA [facility] Start: 01-26-2024 Telephone encounter Esau Valencia MD Work Phone: [facility] Psychiatry Start: 01-20-2024 ambulatory MOIZ GORDON [facility] Start: 01-13-2024 ambulatory MOIZ GORDON [facility] Start: 01-12-2024 End: 01-12-2024 ambulatory UNKNOWN PROVIDER Facility:[facility] Start: 01-12-2024 Evaluation and management of inpatient MG HICKEY [facility] Start: 01-12-2024 End: 01-26-2024 Evaluation and management of inpatient MICHAEL LONGORIA [facility] Start: 01-08-2024 ambulatory [facility] Start: 01-08-2024 Patient encounter [facility] Start: 01-05-2024 End: 01-05-2024 [facility]ulatory [facility] Start: 01-05-2024 Patient encounter procedure Van Casey RN [facility] Clinical Communication Start: 01-05-2024 End: 01-05-2024 Office outpatient visit 15 minutes Inga Nobles [employer] Work Phone: [facility] Comment on above: 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); Anxiety Start: 01-05-2024 End: 01-05-2024 Office outpatient visit 25 minutes Inga Nobles [employer] Work Phone: [facility] Comment on above: 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); Anxiety Start: 12-21-2023 End: 12-21-2023 Office outpatient visit 25 minutes Minerva Garcia [employer] Work Phone: [facility] Comment on above: 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) (Primary Dx); Anxiety state; Mental disorder Start: 12-21-2023 End: 12-21-2023 ambulatory MOIZ GORDON [facility] Start: 12-10-2023 End: 12-11-2023 Emergency department patient visit [facility] Work Phone: Start: 10-12-2023 End: 10-12-2023 Office outpatient visit 15 minutes Minerva Garcia [employer] Work Phone: [facility] Comment on above: Recurrent fever (Jacqueline danie Dx); Other fatigue; Cough, unspecified type Start: 10-09-2023 ambulatory Maranda Carter RN [facility] Clinical Communication Start: 10-09-2023 Patient encounter procedure Maranda Ho RN [facility] Clinical Communication Start: 09-24-2023 ambulatory Mireya Simpson RN [facility] Cl inical Communication Start: 09-24-2023 Patient encounter procedure Mireya Simpson RN [facility] Clinical Communication Start: 09-24-2023 End: 09-24-2023 Office outpatient visit 15 minutes Inga Nobles [employer] Work Phone: [facility] Comment on above: Post-viral cough syn drome (Primary Dx) Start: 06-10-2023 End: 06-10-2023 Office outpatient visit 15 minutes Minerva Garcia [employer] Work Phone: [facility] Comment on above: Atopic dermatitis, u nspecified type (Primary Dx); Visit for suture removal Start: 06-03-2023 End: 06-03-2023 Patient encounter procedure Minerva Garcia [employer] Work Phone: [facility] Comment on above: Neoplasm of uncertai n behavior of skin of lower extremity (Primary Dx); Hordeolum internum of left lower eyelid Start: 06-01-2023 End: 06-01-2023 Office outpatient visit 15 minutes Minerva Garcia [employer] Work Phone: [facility] Comment on above: Neoplasm of uncertai n behavior of skin of lower extremity (Primary Dx); Need for meningococcus vaccine Start: 05-20-2023 ambulatory Saranya Beck RN [facility] Clin ical Communication Start: 05-20-2023 Patient encounter procedure Saranya Beck RN [facility] Clinical Communication Start: 05-20-2023 End: 05-20-2023 Office outpatient visit 15 minutes Inga Bridenthal [employer] Work Phone: [facility] Comment on above: Sore throat (Primary Dx); Skin lesion Start: 05-20-2023 End: 05-20-2023 Office outpatient visit 25 minutes Inga Bridenthal [employer] Work Phone: [facility] Comment on above: Sore throat (Primary Dx); Skin lesion Start: 05-11-2023 End: 05-11-2023 ambulatory RAHUL REID [facility] Start: 04-28-2023 End: 04-28-2023 Office outpatient visit 15 minutes Inga Bridenthal WASTE REMOVALIST - [employer] Work Phone: [facility] Comment on above: Skin infection (Prim juno Dx) Start: 04-24-2023 ambulatory Kristin Sanchez RN [facility] Clinical Communication Start: 04-24-2023 Patient encounter procedure Kristin Sanchez RN [facility] Clinical Communication Start: 04-21-2023 End: 04-21-2023 Office outpatient visit 15 minutes Inga Bridenthal [employer]ASTE REMOVALIST - [employer] Work Phone: [facility] Comment on above: Skin infection (Prim juno Dx) Start: 12-19-2022 End: 12-19-2022 Preprocedural examination done Rahul Reid MD Work Phone: [facility] Start: 12-19-2022 End: 12-19-2022 Subsequent hospital visit by physician Rahul Reid MD Work Phone: [facility] Comment on above: Ureteropelvic juncti on (UPJ) obstruction, right (Primary Dx); Pre-operative examination Start: 11-18-2022 End: 11-19-2022 Preprocedural examination done Rahul Reid MD Work Phone: [facility] Start: 11-18-2022 End: 11-19-2022 Subsequent hospital visit by physician Rahul Reid MD Work Phone: [facility] Comment on above: Obstruction of right ureteropelvic junction (UPJ) (Primary Dx); Mental disorder; Anxiety state; Pre-operative examination; Right flank pain; Infrequent urination; Major depressive disorder, single episode, severe without psychosis; Hydronephrosis with ureteropelvic junction (UPJ) obstruction; Moderate episode of recurrent major depressive disorder; Ureteropelvic junction (UPJ) obstruction, right; Hydronephrosis, unspecified hydronephrosis type Start: 10-27-2022 End: 10-27-2022 Subsequent hospital visit by physician Rahul Reid MD Work Phone: Radiology Comment on above: Hydronephrosis, unsp ecified hydronephrosis type; Ureteral stent present Start: 10-20-2022 End: 10-20-2022 Patient encounter status Minerva S Jose WASTE REMOVALIST - [employer] Work Phone: [facility] Start: 10-20-2022 End: 10-20-2022 Periodic preventive med est patient 12-17yrs Minerva Garcia WASTE REMOVALIST - [employer] Work Phone: [facility] Comment on above: Well adolescent visi t (Primary Dx); Routine sports physical exam; Mild episode of recurrent major depressive disorder (HCC); Anxiety state; Ureteropelvic junction (UPJ) obstruction, right; Hydronephrosis, unspecified hydronephrosis type; Slow transit constipation; Ingrown hair Start: 08-12-2022 End: 08-12-2022 Preprocedural examination done Rahul Reid MD Work Phone: [facility] Start: 08-12-2022 End: 08-12-2022 Subsequent hospital visit by physician Rahul Reid MD Work Phone: [facility] Comment on above: Hydronephrosis, unsp ecified hydronephrosis type (Primary Dx); Slow transit constipation; Anxiety state; Pre-operative examination; Right flank pain; Hydronephrosis with ureteropelvic junction (UPJ) obstruction; Ureteropelvic junction (UPJ) obstruction, right Start: 06-02-2022 End: 06-02-2022 Subsequent hospital visit by physician Julia DOMINGO Work Phone: Radiology Comment on above: Pyelonephritis; Hydronephrosis, unspecified hydronephrosis type Start: 05-09-2022 End: 05-13-2022 Evaluation and management of inpatient Rowan Madison DO Work Phone: [facility] Comment on above: Pyelonephritis (Prim juno Dx) Start: 05-09-2022 End: 05-09-2022 Emergency department patient visit [facility]Emergency Department Start: 05-08-2022 End: 05-08-2022 ambulatory [facility] Work Phone: Start: 05-08-2022 End: 05-08-2022 Patient encounter procedure [facility]-Cat Scan, [facility] Start: 05-02-2022 End: 05-02-2022 ambulatory [facility] Work Phone: Start: 05-02-2022 End: 05-02-2022 Patient encounter procedure [facility]-Ultrasound, [facility] Start: 02-25-2018 Ambulatory Fuad Chung [facility] Start: 04-15-2017 Ambulatory Israel Vega [facility] Procedures Date Procedure Procedure Detail Performing Clinician Start: 12-20-2024 Ecg routine ecg w/least 12 lds w/i&r Levi Doyle MD Work Phone: Start: 12-20-2024 Blood typing serologic abo Levi bhandari MD Work Phone: Start: 12-20-2024 Blood count complete auto&auto difrntl wbc Levi Doyle MD Work Phone: Start: 12-20-2024 Us uterus 14 wk transabdl 08/31 gestat Levi Doyle MD Work Phone: Start: 12-20-2024 Blood count complete auto&auto difrntl wbc Levi Doyle MD Work Phone: Start: 12-20-2024 Drug tst prsmv instrmnt chem analyzers pr date Levi Doyle MD Work Phone: Start: 12-20-2024 Urnls dip stick/tablet reagent auto microscopy Levi Doyle MD Work Phone: Start: 01-12-2024 Antibody screen MG HICKEY Comment on above: Performed By: #### [id number] #### Informatics Scientist: NICOLA MCCLURE ([id number]) [facility] ([facility]) [address] [place] [address] Start: 01-12-2024 Antibody screen MOIZ GORDON Comment on above: Performed By: #### [id number] ####Medical Di jame: NICOLA MCCLURE ([id number])[facility] ([facility])[address] [place] [address] Start: 05-20-2023 Iaadiadoo streptococcus group a Inga Fabianal [employer]E REMOVALIST [employer] Work Phone: Start: 04-21-2023 Cul bact xcpt urine blood/stool aerobic isol Inga Bessieenthal [employer] REM[employer]IST - [employer] Work Phone: Start: 12-19-2022 End: 12-19-2022 CYSTOSCOPY WITH STENT REMOVAL Rahul Reid MD Work Phone: Start: 12-19-2022 Culture bacterial quanttative colony count urine Rahul Reid MD Work Phone: Start: 12-19-2022 Urine test visual color cmprsn meths Tiffany Kinney [employer] Work Phone: Start: 11-19-2022 Basic metabolic 2000 panel - Serum or Plasma Sandra Cortes RN Start: 11-19-2022 Blood count hemoglobin Sandra Cortes RN Start: 11-19-2022 GFR/1.73 sq M.predicted among non-blacks MDRD (S/P/Bld) [Vol rate/Area] Rahul Reid MD Work Phone: Start: 11-18-2022 Blood count hemoglobin Gilberto Jane MD Work Phone: Start: 11-18-2022 Culture bacterial quanttative colony count urine Rahul Reid MD Work Phone: Start: 11-18-2022 End: 11-18-2022 LAPAROSCOPIC PYELOPLASTY Rahul Reid MD Work Phone: Start: 11-18-2022 Urine test visual color cmprsn meths Francoise Ramires [employer] Work Phone: Start: 10-27-2022 Radiologic exam abdomen 1 view Rahul Reid MD Work Phone: Start: 08-12-2022 Urine test visual color cmprsn meths Beth Cortes [employer] Work Phone: Start: 06-02-2022 Kidney img morphology vascular flow 1 w/rx Julia Youssefi [employer] REM[employer] Work Phone: Start: 06-02-2022 Urethrocystography voiding rs&i Julia Youssefi [employer] Work Phone: Start: 05-13-2022 Basic metabolic panel calcium total Avirath N Elvia DO Work Phone (unformatted): [phone] Start: 05-13-2022 GFR/1.73 sq M.predicted among non-blacks MDRD (S/P/Bld) [Vol rate/Area] Avirath N Elvia DO Work Phone (unformatted): [phone] Start: 05-12-2022 Basic metabolic panel calcium total Avirath N Elvia DO Work Phone (unformatted): [phone] Start: 05-12-2022 C-reactive protein Avirath N Elvia DO Work Phone (unformatted): [phone] Start: 05-12-2022 GFR/1.73 sq M.predicted among non-blacks MDRD (S/P/Bld) [Vol rate/Area] Avirath N Elvia DO Work Phone (unformatted): [phone] Start: 05-11-2022 Drug screen quantitative vancomycin Avirath N Elvia DO Work Phone (unformatted): [phone] Start: 05-11-2022 Basic metabolic panel calcium total Avirath N Elvia DO Work Phone (unformatted): [phone] Start: 05-11-2022 C-reactive protein Avirath N Elvia DO Work Phone (unformatted): [phone] Start: 05-11-2022 GFR/1.73 sq M.predicted among non-blacks MDRD (S/P/Bld) [Vol rate/Area] Avirath N Elvia DO Work Phone (unformatted): [phone] Start: 05-10-2022 Blood gases any combination ph pco2 po2 co2 hco3 Keara Billy RN Start: 05-10-2022 Assay of lactate Keara Robertson N Start: 05-10-2022 C-reactive protein Avirath N Elvia DO Work Phone (unformatted): [phone] Start: 05-10-2022 COMPLETE BLOOD COUNT WITH DIFFERENTIAL Avirath N Elvia DO Work Phone (unformatted): [phone] Start: 05-10-2022 Manual Differential panel - Blood Avirath N Elvia DO Work Phone (unformatted): [phone] Start: 05-10-2022 End: 05-10-2022 [facility] real time w/image complete Avirath N Elvia DO Work Phone (unformatted): [phone] Start: 05-10-2022 Basic metabolic panel calcium total Anna Lynn MD Work Phone: Start: 05-10-2022 GFR/1.73 sq M.predicted among non-blacks MDRD (S/P/Bld) [Vol rate/Area] Anna Lynn MD Work Phone: Start: 05-09-2022 Culture bacterial quanttative colony count urine Avirath N Elvia DO Work Phone (unformatted): [phone] Start: 05-09-2022 URINALYSIS, AUTOMATED-[place] Avirath N Pu milton DO Work Phone (unformatted): [phone] Start: 05-09-2022 Iadna respiratry probe & rev trnscr 08-24 target Darby De La Cruz RN Start: 05-09-2022 Plain chest X-ray Start: 05-09-2022 Iadna chlamydia trachomatis amplified probe tq Avirath N Elvia DO Work Phone (unformatted): [phone] Start: 05-08-2022 Computed tomography of abdomen and pelvis with contrast Start: 05-02-2022 US urinary tract Urine culture Viral antigen assay Plan of Treatment Date Care Activity Detail Author Start: 01-11-2066 RSV Immunization aged 60 or older (1 - 1-dose 60+ series) RSV Immunization aged 60 or older (1 - 1-dose 60+ series) [facility] Start: 2065 RSV Immunization aged 60 or older (1 - 1-dose 60+ series) RSV Immunization aged 60 or older (1 - 1-dose 60+ series) [facility] Start: 01-12-2056 Zoster Vaccines (1 of 2) Zoster Vaccines (1 of 2) [facility] Start: 10-31-2055 Zoster Vaccines (1 of 2) Zoster Vaccines (1 of 2) [facility] Start: 04-16-2028 DTaP/Tdap/Td vaccine (9 - Td or Tdap) DTaP/Tdap/Td vaccine (9 - Td or Tdap) [facility] Start: 04-16-2028 DTaP/Tdap/Td Vaccines (5 - Td or Tdap) DTaP/Tdap/Td Vaccines (5 - Td or Tdap) [facility] Start: 04-16-2028 DTaP/Tdap/Td Vaccines (9 - Td or Tdap) DTaP/Tdap/Td Vaccines (9 - Td or Tdap) [facility] Start: 04-16-2028 Tetanus Diphtheria and Pertussis Vaccines (5 - Td or Tdap) Tetanus Diphtheria and Pertussis Vaccines (5 - Td or Tdap) [facility] Start: 04-16-2028 Tetanus Diphtheria and Pertussis Vaccines (8 - Td or Tdap) Tetanus Diphtheria and Pertussis Vaccines (8 - Td or Tdap) [facility] Start: 03-31-2025 Influenza vaccination Flu vaccine (Season Ended) [facility] Start: 01-12-2025 Adolescent Depression Screening Adolescent Depression Screening [facility] Start: 12-20-2024 Adolescent Depression Screening Adolescent Depression Screening [facility] Start: 07-15-2024 Depression Monitoring Depression Monitoring [facility] Start: 06-21-2024 Depression Monitoring Depression Monitoring [facility] Start: 06-21-2024 Depresssion Monitoring Depresssion Monitoring [facility] Start: 05-01-2024 COVID-19 Vaccine ( season) COVID-19 Vaccine ( season) [facility] Start: 05-01-2024 Influenza vaccination Influenza Vaccine (Season Ended) [facility] Start: 04-21-2024 Adolescent Depression Screening Adolescent Depression Screening [facility] Start: 03-21-2024 End: 03-21-2024 Patient encounter procedure 03/21/2024 9:00 AM EDT Office Visit [facility] [address] [id number] Minerva Garcia, WASTE REMOVALIST - [facility] [address] [place] [address] [facility] Start: 02-28-2024 Influenza vaccination Influenza Vaccine (#1) [facility] Comment on above: Postponed from 05/01/2023 (Patient Refus ed) Start: 01-12-2024 Hepatitis C screening Hepatitis C Screening [facility] Start: 12-10-2023 End: 12-10-2023 Suicide precautions [facility] Start: 12-10-2023 Referral to service [facility] Start: 10-31-2023 Hepatitis C screening [facility] Start: 10-22-2023 Depresssion Monitoring Depresssion Monitoring [facility] Start: 10-21-2023 End: 10-21-2023 Patient encounter procedure [facility] Start: 10-20-2023 COVID-19 Vaccine (#1) COVID-19 Vaccine (#1) [facility] Comment on above: Postponed from 05/02/2006 (Patient Refus ed) Start: 10-20-2023 HIV screening HIV Screening [facility] Comment on above: Postponed from 2005 (Patient Refus ed) Start: 10-12-2023 End: 10-12-2024 25-hydroxyvitamin D3 [Mass/volume] in Serum or Plasma Vitamin D Deficiency Screening (Vit D 25) Lab Routine Recurrent fever Other fatigue Cough, unspecified type Expected: 10/12/2023 (Approximate), Expires: 10/12/2024 [facility] Comment on above: Expected: 10/12/2023 (Approximate), Expi res: 10/12/2024 Start: 10-12-2023 End: 10-12-2024 C reactive protein [Mass/volume] in Serum or Plasma C-reactive protein Lab Routine Recurrent fever Other fatigue Cough, unspecified type Expected: 10/12/2023 (Approximate), Expires: 10/12/2024 [facility] Comment on above: Expected: 10/12/2023 (Approximate), Expi res: 10/12/2024 Start: 10-12-2023 End: 10-12-2024 CBC W Auto Differential panel - Blood CBC auto differential Lab Routine Recurrent fever Other fatigue Cough, unspecified type Expected: 10/12/2023 (Approximate), Expires: 10/12/2024 [facility] Comment on above: Expected: 10/12/2023 (Approximate), Expi res: 10/12/2024 Start: 10-12-2023 End: 10-12-2024 Comprehensive metabolic 1998 panel - Serum or Plasma Comprehensive metabolic panel Lab Routine Recurrent fever Other fatigue Cough, unspecified type Expected: 10/12/2023 (Approximate), Expires: 10/12/2024 [facility] Comment on above: Expected: 10/12/2023 (Approximate), Expi res: 10/12/2024 Start: 10-12-2023 End: 10-12-2024 Erythrocyte sedimentation rate Sedimentation rate, automated Lab Routine Recurrent fever Other fatigue Cough, unspecified type Expected: 10/12/2023 (Approximate), Expires: 10/12/2024 [facility] Comment on above: Expected: 10/12/2023 (Approximate), Expi res: 10/12/2024 Start: 10-12-2023 End: 10-12-2024 Nuclear Ab [Titer] in Serum by Immunofluorescence GAEL Lab Routine Recurrent fever Other fatigue Cough, unspecified type Expected: 10/12/2023 (Approximate), Expires: 10/12/2024 [facility] Work Phone: Comment on above: Expected: 10/12/2023 (Approximate), Expi res: 10/12/2024 Start: 10-12-2023 End: 10-12-2024 Reagin Ab [Presence] in Serum by RPR RPR Lab Routine Recurrent fever Other fatigue Cough, unspecified type Expected: 10/12/2023 (Approximate), Expires: 10/12/2024 [facility] Comment on above: Expected: 10/12/2023 (Approximate), Expi res: 10/12/2024 Start: 10-12-2023 End: 10-12-2024 Rheumatoid factor [Units/volume] in Serum or Plasma Rheumatoid factor Lab Routine Recurrent fever Other fatigue Cough, unspecified type Expected: 10/12/2023 (Approximate), Expires: 10/12/2024 [facility] Comment on above: Expected: 10/12/2023 (Approximate), Expi res: 10/12/2024 Start: 10-12-2023 End: 10-12-2024 Thyrotropin [Units/volume] in Serum or Plasma TSH Lab Routine Recurrent fever Other fatigue Cough, unspecified type Expected: 10/12/2023 (Approximate), Expires: 10/12/2024 [facility] Comment on above: Expected: 10/12/2023 (Approximate), Expi res: 10/12/2024 Start: 06-10-2023 End: 06-10-2023 Patient encounter procedure 06/10/2023 11:00 AM EDT Office Visit [facility] [address] [place] [address] Minerva Garcia, WASTE REMOVALIST - [employer] [address] [place], [place] [phone] [facility] Start: 06-03-2023 End: 06-03-2023 Patient encounter procedure 06/03/2023 10:00 AM EDT Office Visit [facility] [address] [place] [address] [place] [address] Minerva Garcia, WASTE REMOVALIST - [employer] [address] [place] [address] [facility] Start: 05-01-2023 COVID-19 Vaccine ( season) COVID-19 Vaccine ( season) [facility] Start: 05-01-2023 Influenza vaccination Influenza Vaccine (#1) [facility] Start: 04-28-2023 End: 04-28-2023 Patient encounter procedure 04/28/2023 3:20 PM EDT Office Visit [facility] [address] [place] [address] Inga Nobles, WASTE REMOVALIST [employer] [address] [place] [address] [facility] Start: 04-21-2023 End: 04-21-2024 Aerobic and Anaerobic Culture with Stain [facility] Work Phone: Comment on above: Expected: 04/21/2023 (Approximate), Expi res: 04/21/2024 Start: 02-27-2023 Influenza vaccination Influenza Vaccine (#1) [facility] Comment on above: Postponed from 05/01/2022 (Patient Refus ed) Start: 02-02-2023 End: 02-02-2023 Patient encounter procedure 02/02/2023 1:00 PM EDT Office Visit [facility] [address], [address] [place], [place] [phone] Rahul Reid MD [address] [facility] [address] [place], [place] [id number] [facility] Start: 12-09-2022 End: 12-09-2022 Admission to same day surgery center 12/09/2022 9:30 AM EDT - 12/09/2022 1:30 PM EDT Surgery [place] [place] [address] Rahul Reid MD [address] [place] [address] LAPAROSCOPIC PYELOPLASTY [facility] Comment on above: LAPAROSCOPIC PYELOPLASTY Start: 12-09-2022 End: 12-09-2022 LAPAROSCOPIC PYELOPLASTY LAPAROSCOPIC PYELOPLASTY Hydronephrosis, unspecified hydronephrosis type Right flank pain 12/09/2022 9:30 AM EDT [facility] Start: 12-09-2022 Subsequent hospital visit by physician 12/09/2022 9:30 AM EDT Hospital Encounter [facility] [place] [address] Rahul Reid MD [address] [place] [address] [facility] Start: 11-14-2022 End: 11-14-2022 Admission to same day surgery center 11/14/2022 7:20 AM EDT - 11/14/2022 7:50 AM EDT Surgery [facility] [place] [address] Rahul Reid MD [address] [place] [address] CYSTOSCOPY WITH STENT REMOVAL [facility] Comment on above: CYSTOSCOPY WITH STENT REMOVAL Start: 11-14-2022 End: 11-14-2022 CYSTOSCOPY WITH STENT REMOVAL CYSTOSCOPY WITH STENT REMOVAL Right flank pain 11/14/2022 7:20 AM EDT [facility] Start: 11-14-2022 Subsequent hospital visit by physician 11/14/2022 7:20 AM EDT Hospital Encounter [facility] [place] [address] Rahul Reid MD [address] [place], [place] [id number] [facility] Start: 09-30-2022 End: 09-30-2022 Admission to same day surgery center 09/30/2022 Surgery Rahul Reid MD [address] [facility] [address] [place], [place] [phone] LAPAROSCOPIC PYELOPLASTY [facility] Comment on above: LAPAROSCOPIC PYELOPLASTY Start: 09-30-2022 End: 09-30-2022 LAPAROSCOPIC PYELOPLASTY LAPAROSCOPIC PYELOPLASTY Hydronephrosis, unspecified hydronephrosis type Right flank pain 09/30/2022 7:30 AM EST [facility] Start: 09-30-2022 Subsequent hospital visit by physician 09/30/2022 Hospital Encounter Rahul Reid MD [address] [facility] [address] [place], [place] [id number] [facility] Start: 08-12-2022 End: 08-12-2022 CYSTOSCOPY WITH STENT INSERTION CYSTOSCOPY WITH STENT INSERTION Right flank pain Hydronephrosis, unspecified hydronephrosis type 08/12/2022 10:17 AM EST [facility] Start: 08-04-2022 End: 08-04-2022 Patient encounter procedure 08/04/2022 Office Visit Urology Rahul Reid MD [address] [facility] [address] [place], [place] [id number] [facility] Start: 05-09-2022 End: 05-09-2022 [facility] Work Phone: Start: 05-09-2022 End: 05-09-2022 Blood culture [facility] Work Phone: Start: 05-01-2022 FLU (#1) FLU (#1) [facility] Start: 01-11-2022 Meningococcal Vaccine (1 - 2-dose series) Meningococcal Vaccine (1 - 2-dose series) [facility] Start: 2021 MenACWY (2 - 2-dose series) MenACWY (2 - 2-dose series) [facility] Start: 2021 MenB (1 of 2 - MenB 2-Dose Series Bexsero) MenB (1 of 2 - MenB 2-Dose Series Bexsero) [facility] Start: 2021 MenB (1 of 2 - MenB 2-Dose Series) MenB (1 of 2 - MenB 2-Dose Series) [facility] Start: 2021 Meningococcal B vaccine (1 of 2 - Standard) Meningococcal B vaccine (1 of 2 - Standard) [facility] Start: 2021 Meningococcal Vaccine (2 - 2-dose series) Meningococcal Vaccine (2 - 2-dose series) [facility] Start: 2021 Screening for Chlamydia trachomatis Chlamydia/GC screen [facility] Start: 01-11-2021 HPV Vaccines (1 - 3-dose series) HPV Vaccines (1 - 3-dose series) [facility] Start: 2020 Hearing Screening Hearing Screening [facility] Start: 2020 HIV screening HIV screen [facility] Start: 2020 Vision Screening Vision Screening [facility] Start: 01-11-2019 Varicella vaccination Varicella Vaccines (1 of 2 - 13+ 2-dose series) [facility] Start: 2017 Adolescent Depression Screening Adolescent Depression Screening [facility] Start: 2017 Depression Monitoring Depression Monitoring [facility] Start: 10-31-2015 MenB (1 of 2 - MenB 2-Dose Bexsero Series ) MenB (1 of 2 - MenB 2-Dose Bexsero Series ) [facility] Start: 01-11-2013 DTaP/Tdap/Td Vaccines (1 - Tdap) DTaP/Tdap/Td Vaccines (1 - Tdap) [facility] Start: 01-06-2011 Varicella (1 of 2 - 2-dose childhood series) Varicella (1 of 2 - 2-dose childhood series) [facility] Start: 01-11-2007 Hepatitis A Vaccines (1 of 2 - 2-dose series) Hepatitis A Vaccines (1 of 2 - 2-dose series) [facility] Start: 05-14-2007 MMR Vaccines (1 of 2 - Standard series) MMR Vaccines (1 of 2 -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 for days at a time). Speech may speed up and become difficult for others to understand. You may appear to others as if you are in your own world. In a depressive episode, you may feel a lack of interest in normal activities. Sometimes there is sadness or guilt without any clear reason. Thinking may become slow and there can be a lack energy orfeeling of hopelessness. Some people have thoughts of harming themselves at this stage. Thoughts can even turn to suicide. Between these phases you may actually feel OK. This does not mean that the illness is gone. People with this disorder will usually have to treat it all of their life. Medicine and good care can greatly reduce the symptoms. The exact cause of this illness is unknown. However, there is a genetic link that makes a person more likely to get this problem. Also, the use of drugs such as speed (amphetamine) and cocaine increase the chances of this illness appearing. Home care Here is what you can do at home: Ongoing care and support help people manage this disease. Find a healthcare provider and therapist who meet your needs. Seek help when you feel like you may be heading into either a manic episode or a depressive state. Be sure to take your medicine and get regular blood work to check the levels of medicine in your body. Take the medicine and get the follow-up lab work as prescribed, even if you think you don t needto do it. Be certain to tell each of your healthcare providers about all of the prescription and jawv-ehz-jsbujyd medicines, and supplements you take. Certain supplements interact with medicines and result in dangerous side effects. You can also use your pharmacist as a resource person when you have questions about medicine interactions. Talk with your family and trusted friends about your thoughts and feelings. Ask them to help you recognize behavior changes early so you can get help and medicines can be adjusted. Alcohol and drugs can bring on an episode, and make them worse If your life is severely impacted by this illness, the Americans with Disabilities Act (ADA) may provide help. The ADA protects people with chronic physical and mental health problems. If you are having trouble keeping jobs, managing workplace issues, or caring for yourself because of your bipolar d isorder, contact your local ADA office to see if it can help. The [place] Department of Justice operatesa toll-free ADA information line at: 631.388.3659 (Voice); or 064-737-7855 (TTY). It can help you locate a local office. Follow-up care Follow up with your healthcare provider or therapist as advised. They can help you to find ways to improve your life. Call 911 Call 911 if any of these happen: You have suicidal thoughts, a plan, and the means to harm yourself, or serious thoughts of hurting someone else Trouble breathing Confusion Drowsiness or trouble wakening Fainting or loss of consciousness Rapid heart rate, very low heart rate, or a new irregular heart rate Seizure New chest pain that becomes more severe, lasts longer, or spreads into your shoulder, arm, neck, jaw, or back When to seek medical advice Call your healthcare provider right away if any of these happen: Feeling like your symptoms are getting worse (depression, agitation, and excess energy) Unable to eat or sleep for more than 48 hours Feeling out of control (racing thoughts, or poor concentration) Feeling like you want to harm yourself or another Being unable to care for yourself [phone] [employer]. [address] [place] [address], [place] [address]. All rights reserved. This information is not intended as a substitute for professional medical care. Always follow yourhealthcare professional's instructions. Depression Depression is one of the most common mental health problems today. It is not just a state of unhappiness or sadness. It is a true disease. The cause seems to be related to a decrease in chemicals that transmit signals in the brain. Having a family history of depression, alcoholism, or suicide increases the risk. Chronic illness, chronic pain, migraine headaches, and high emotional stress also increase the risk. Depression is something we tend to recognize in others, but may have a hard time seeing in ourselves. It can show in many physical and emotional ways: Loss of appetite Overeating Not being able to sleep Sleeping too much Tiredness not related to physical exertion Restlessness or irritability Slowness of movement or speech Feeling depressed or withdrawn Loss of interest in things you once enjoyed Trouble concentrating, poor memory, trouble making decisions Thoughts of harming or killing oneself, or thoughts that life is not worth living Low self-esteem The treatment for depression may include both medicine and psychotherapy. Antidepressants can reduce suffering and can improve the ability to function during the depressed period. Therapy can offer emotional support and help you understand emotional factors that may be causing the depression. Home care Ongoing care and support help people manage this disease. Find a healthcare provider and therapist who meet your needs. Seek help when you feel like you may be getting ill. Be kind to yourself. Make it a point to do things that you enjoy (gardening, walking in nature, going to a movie). Reward yourself for small successes. Take care of your physical body. Eat a balanced diet (low in saturated fat and high in fruits and vegetables). Exercise at least 3 times a week for 30 minutes. Even mild-moderate exercise (like briskwalking) can make you feel better. Don't drink alcohol, which can make depression worse. Take medicine as prescribed. Tell each of your healthcare providers about all of the prescription and eoub-hxj-trllsgd medicines, vitamins, and supplements you take. Certain supplements interact with medicines and can result in dangerous side effects. Ask your pharmacist when you have questions about medicine interactions. Talk with your family and trusted friends about your feelings and thoughts. Ask them to help you recognize behavior changes early so you can get help and, if needed, medicine can be adjusted. Follow-up care Follow up with your healthcare provider, or as advised. Call 911 Call 911 if you: Have suicidal thoughts, a suicide plan, and the means to carry out the plan; or serious thoughts ofhurting someone else Have trouble breathing Are very confused Feel very drowsy or have trouble awakening Faint or lose consciousness Have new chest pain that becomes more severe, lasts longer, or spreads into your shoulder, arm, neck, jaw, or back When to seek medical advice Call your healthcare provider right away if any of these happen: Feeling extreme depression, fear, anxiety, or anger toward yourself or others Feeling out of control Feeling that you may try to harm yourself or another Hearing voices that others do not hear Seeing things that others do not see Can t sleep or eat for 3 days in a row Friends or family express concern over your behavior and ask you to seek help [phone] [employer]. [address] [place] [address]. All rights reserved. This information is not intended as a substitute for professional medical care. Always follow yourhealthcare professional's instructions. Additional Information VACCINATE! IT SAVES LIVES! Members of the community who have not yet received the COVID-19 vaccine and would like to receive it can visit one of [facility] vaccine clinics. There are many vaccine clinic locations within the [facility]. For locations and available times, please visit www.gettheshot.coronavirus.[place].gov/. It is important to note that some COVID mobile vaccine clinics are held outdoors and may be canceled in rainy or stormy conditions. To learn more about pediatric vaccinations (ages 5-11), we invite you to visit the [facility] webpage. https://www.[facility].org/pages/9444-Jxvre-Ecmzucwdfcf-Uhgmlpggai-Munpo-Lcx stions.htmlTo learn more about the COVID-19 vaccine, we invite you to visit the CDC website for a list of frequently asked questions. https://www.cdc.gov/coronavirus/2019-ncov/vaccines/faq.html [facility] Patient Portal Access Instructions: Stay connected with your healthcare team and access your personal medical information anytime with the [facility] Patient Portal. If you would like a full copy of your medical records please contact the [facility] Medical Records Department Thursday through Thursday between 8a.m. and 4:30p.m. Please follow the directions below to access the portal: 1.Access the email account you provided upon registration to the [facility].2.Look for an invitation email from [facility].3.Open the email and access the invitation link: Accept Invitation to [facility].Fill in the required young to create your account. Sign into [email or web address] with your username and password that you created in the above steps to stay up to date. You can then view a summary of results, a summary of your visits, and the ability to download your summaries to your computer or send the information securely to a physician. Remember that your healthcare information is confidential, so carefully consider who you will allow to register on the [facility] Patient Portal for access to your information. You can also access the [facility] Patient Portal on the [employer]. Simply click on Health Records under [employer] and then click on the [employer] logo. HOW TO SAFELY DISPOSE OF PRESCRIPTION MEDICATIONS Please use one of the following methods to safely dispose of your unused medications. 1.Use a drug disposal kit: the drug disposal pouch allows you to safely discard your old and unuseddrugs. Ask your nurse to give you one when you are discharged.2.Visit a local take-back location: Many local pharmacies and police departments have programs that collect old and unwanted prescriptiondrugs. Call your local pharmacy or go to http://[employer]design Multimedia/6T3Ae7f to find one close to you.3.Make use of household items: Use cat litter or old coffee grounds to dispose medications if other options arenot available. Mix your drugs with these household products, seal them in an airtight container andthrow it into the garbage. Call [facility]: [phone] to be sure your drugs can be disposed of in this way. Some medicines may require a different approach.4.Never flush your medications down the toilet. IF YOU HAVE BEEN PRESCRIBED AN OPIOIDS FOR PAIN If you have been prescribed an opioid (such as hydrocodone, oxycodone or morphine), it is critical to understand the possible side effects and risks of opioid pain medications. Even when taken as directed, opioids can have several side effects including: Tolerance, meaning you might need to take more of a medication for the same pain relief. Nausea, vomiting and/or constipation. Sleepiness, dizziness, dry mouth, confusion, depression or itching. Physical dependence, meaning you have withdrawal symptoms when a medication is stopped ? this can develop within a few days. KNOW YOUR RESPONSIBILITIES It is important to know exactly how much and how often to take the opioid pain medications you are prescribed. Never take opioids in higher amounts or more often than prescribed. Do not combine opioids with alcohol or other drugs that cause drowsiness, such as benzodiazepines, also known as benzos,including diazepam and alprazolam, muscle relaxants or sleep aids. Never sell or share prescriptionopioids. This is illegal. Store opioids in a secure place and out of reach of others (including children, family, friends and visitors). The last page(s) of this document has been signed and retained as a CHART COPY Signatures Patient Education Materials Bipolar Disorder Bipolar Disorder Depression Medication Leaflets My discharge plan and instructions have been reviewed and explained to me and I,HARSH LOVE understand my current condition and have read and understand these discharge instructions. I have received a written copy of the plan/instructions. If I have questions, I am aware that I should contact my doctor. 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02-14-2025 Note* Exam Date Time Procedure Performing Provider Status 10/14/24 1:21 AM EKG [ED AOH] - CV BRANDON SHETH DO; A [facility] (Verified) ECG Final Report Sinus rhythm Borderline short HI interval RSR' in V1 or V2, right VCD or RVH Electronic Signature: BRANDON SHETH DO 10/14/2024 01:32:33 [facility]01-06-2025 Note. MICRO - Microbiology PROCEDURE: Urine Culture [O1 *1] SOURCE: Urine BODY SITE: COLLECTED DATE/TIME: 09/03/2024 22:46 EST RECEIVED DATE/TIME: 09/04/2024 00:01 EST START DATE/TIME: 09/04/2024 00:01 EST FREE TEXT SOURCE: FINAL REPORTS Final Report [] Verified Date/Time/Personnel: 09/05/2024 08:54 EST >100,000 cfu/ml Escherichia coli ESBL Extended-Spectrum B-Lactamase isolate may be clinically resistant to therapy with Penicillins, Cephalosporinsor Aztreonam despite apparent in vitro susceptibility to some of these agents. Use of Imipenem is currently restricted to Infectious Disease /Intensivists. Please consult Physicians accordingly. PRELIMINARY REPORTS Preliminary Report [] Verified Date/Time/Personnel: 09/04/2024 10:09 EST >100,000 cfu/ml Escherichia coli ORA to follow SUSCEPTIBILITY RESULTS Escherichia coli ESBL Antibiotic ORA Dilut ORA Inter Ampicillin >16 Resistant Ampicillin/ 8/4 Resistant Sulbactam Aztreonam >16 Resistant Cefazolin >16 Resistant Ceftazidime/ <=4 Susceptible Avibactam Ceftolozane/ <=2 Susceptible Tazobactam Ceftriaxone >32 Suspected ESBL Front Desk Team Member Cefuroxime >16 Resistant Ciprofloxacin >2 Resistant Ertapenem <=0.5 Susceptible Gentamicin <=2 Susceptible ID Panel Not Not Applicable Applicable Imipenem <=1 Susceptible Levofloxacin >4 Resistant Meropenem <=1 Susceptible Minocycline <=4 Susceptible Nitrofurantoin <=32 Susceptible Trimethoprim/ >2/38 Resistant Sulfa Order Comments O1: Urine Culture Added by Discern Performing Locations *1: This test was performed at: [facility], [address] [place] [address], [facility] , [facility] [id number] Hospital Discharge instructions Patient Education 09/04/2024 03:19:08 Bladder Infection, Female (Adult) Bladder Infection, Female (Adult) Urine is normally doesn't have any bacteria in it. But bacteria can get into the urinary tract fromthe skin around the rectum. Or they can travel in the blood from elsewhere in the body. Once they are in your urinary tract, they can cause infection in the urethra (urethritis), the bladder (cystitis), or the kidneys (pyelonephritis). The most common place for an infection is in the bladder. This is called a bladder infection. This is one of the most common infections in women. Most bladder infections are easily treated. They are not serious unless the infection spreads to the kidney. The phrases bladder infection, UTI, and cystitis are often used to describe the same thing. But they are not always the same. Cystitis is an inflammation of the bladder. The most common cause of cystitis is an infection. Symptoms The infection causes inflammation in the urethra and bladder. This causes many of the symptoms. Themost common symptoms of a bladder infection are: Pain or burning when urinating Having to urinate more often than usual Urgent need to urinate Only a small amount of urine comes out Blood in urine Abdominal discomfort. This is usually in the lower abdomen above the pubic bone. Cloudy urine Strong- or bad-smelling urine Unable to urinate (urinary retention) Unable to hold urine in (urinary incontinence) Fever Loss of appetite Confusion (in older adults) Causes Bladder infections are not contagious. You can't get one from someone else, from a toilet seat, or from sharing a bath. The most common cause of bladder infections is bacteria from the bowels. The bacteria get onto the skin around the opening of the urethra. From there, they can get into the urine and travel up to thebladder, causing inflammation and infection. This usually happens because of: Wiping improperly after urinating. Always wipe from front to back. Bowel incontinence Procedures such as having a catheter inserted Older age Not emptying your bladder. This can allow bacteria a chance to grow in your urine. Dehydration Constipation Sex Use of a diaphragm for control Treatment Bladder infections are diagnosed by a urine test. They are treated with antibiotics and usually clear up quickly without complications. Treatment helps prevent a more serious kidney infection. Medicines Medicines can help in the treatment of a bladder infection: Take antibiotics until they are used up, even if you feel better. It is important to finish them tomake sure the infection has cleared. You can use acetaminophen or ibuprofen for pain, fever, or discomfort, unless another medicine was prescribed. If you have chronic liver or kidney disease, talk with your healthcare provider before using these medicines. Also talk with your provider if you've ever had a stomach ulcer or gastrointestinal bleeding, or are taking blood-thinner medicines. If you are given phenazopydridine to reduce burning with urination, it will cause your urine to become a bright orange color. This can stain clothing. Care and prevention These self-care steps can help prevent future infections: Drink plenty of fluids to prevent dehydration and flush out your bladder. Do this unless you must restrict fluids for other health reasons, or your doctor told you not to. Proper cleaning after going to the bathroom is important. Wipe from front to back after using the toilet to prevent the spread of bacteria. Urinate more often. Don't try to hold urine in for a long time. Wear loose-fitting clothes and cotton underwear. Avoid tight-fitting pants. Improve your diet and prevent constipation. Eat more fresh fruit and vegetables, and fiber, and less junk and fatty foods. Avoid sex until your symptoms are gone. Avoid caffeine, alcohol, and spicy foods. These can irritate your bladder. Urinate right after intercourse to flush out your bladder. If you use control pills and have frequent bladder infections, discuss it with your doctor. Follow-up care Call your healthcare provider if all symptoms are not gone after 3 days of treatment. This is especially important if you have repeat infections. If a culture was done, you will be told if your treatment needs to be changed. If directed, you cancall to find out the results. If X-rays were done, you will be told if the results will affect your treatment. Call 911 Call 911 if any of the following occur: Trouble breathing Hard to wake up or confusion Fainting or loss of consciousness Rapid heart rate When to seek medical advice Call your healthcare provider right away if any of these occur: Fever of 100.4 F (38.0 C) or higher, or as directed by your healthcare provider Symptoms are not better by the third day of treatment Back or belly (abdominal) pain that gets worse Repeated vomiting, or unable to keep medicine down Weakness or dizziness Vaginal discharge Pain, redness, or swelling in the outer vaginal area (labia) [phone] [employer]. [address] [place] [address]. All rights reserved. This information is not intended as a substitute for professional medical care. Always follow yourhealthcare professional's instructions. Follow Up Care 09/03/2024 22:04:01 With:MINERVA GARCIA Address: [address] [place] [id number]- When:2-4 days [facility] 01-05-2025 Emergency department Discharge summary Discharge Instructions Thank you for allowing [facility] to assist you with your healthcare needs. The following is importantdischarge information regarding your hospital visit. Diagnosis from Today's Visit Acute cystitis What to Do Next Instructions from Your Care Team Discharge Return to Work, School, or Sports (Return to Work, School, or Sports) (Discharge Return to status) - Ordered -- May return to: work, 09/04/24 3:05:00 EST Post Acute Orders No qualifying data available. 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 What How Much When Instructions Last Dose New cephalexin (cephalexin 500 mg oral capsule) 1 cap by mouth Every 6 hours Duration: 4 Days Printed Prescription Please take this list to your next doctor s visit. Bring all medications you take, including over the counter medications, herbals and other supplements with you to your doctor s visit. Patients and families are reminded to discard old lists and to update any records with all medication providers or retail pharmacies. Education Materials Bladder Infection, Female (Adult) Urine is normally doesn't have any bacteria in it. But bacteria can get into the urinary tract fromthe skin around the rectum. Or they can travel in the blood from elsewhere in the body. Once they are in your urinary tract, they can cause infection in the urethra (urethritis), the bladder (cystitis), or the kidneys (pyelonephritis). The most common place for an infection is in the bladder. This is called a bladder infection. This is one of the most common infections in women. Most bladder infections are easily treated. They are not serious unless the infection spreads to the kidney. The phrases bladder infection, UTI, and cystitis are often used to describe the same thing. But they are not always the same. Cystitis is an inflammation of the bladder. The most common cause of cystitis is an infection. Symptoms The infection causes inflammation in the urethra and bladder. This causes many of the symptoms. Themost common symptoms of a bladder infection are: Pain or burning when urinating Having to urinate more often than usual Urgent need to urinate Only a small amount of urine comes out Blood in urine Abdominal discomfort. This is usually in the lower abdomen above the pubic bone. Cloudy urine Strong- or bad-smelling urine Unable to urinate (urinary retention) Unable to hold urine in (urinary incontinence) Fever Loss of appetite Confusion (in older adults) Causes Bladder infections are not contagious. You can't get one from someone else, from a toilet seat, or from sharing a bath. The most common cause of bladder infections is bacteria from the bowels. The bacteria get onto the skin around the opening of the urethra. From there, they can get into the urine and travel up to thebladder, causing inflammation and infection. This usually happens because of: Wiping improperly after urinating. Always wipe from front to back. Bowel incontinence Procedures such as having a catheter inserted Older age Not emptying your bladder. This can allow bacteria a chance to grow in your urine. Dehydration Constipation Sex Use of a diaphragm for control Treatment Bladder infections are diagnosed by a urine test. They are treated with antibiotics and usually clear up quickly without complications. Treatment helps prevent a more serious kidney infection. Medicines Medicines can help in the treatment of a bladder infection: Take antibiotics until they are used up, even if you feel better. It is important to finish them tomake sure the infection has cleared. You can use acetaminophen or ibuprofen for pain, fever, or discomfort, unless another medicine was prescribed. If you have chronic liver or kidney disease, talk with your healthcare provider before using these medicines. Also talk with your provider if you've ever had a stomach ulcer or gastrointestinal bleeding, or are taking blood-thinner medicines. If you are given phenazopydridine to reduce burning with urination, it will cause your urine to become a bright orange color. This can stain clothing. Care and prevention These self-care steps can help prevent future infections: Drink plenty of fluids to prevent dehydration and flush out your bladder. Do this unless you must restrict fluids for other health reasons, or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 End Time: 2:20PM Summary of [facility]. Reviewed events leading up to hospitalization, Pt reported feeling manic. Explored Pt experiences of being manic, as well as positive coping skills. Provided worksheets on emotional regulation skills as well as support and encouragement. Ended session early as pt reported feeling tired and wanting to return to her room. MENTAL STATUS EXAM General Observations: Appearance: [x] Neatly groomed [] Unkempt [] Disheveled [] Other Demeanor: [x] Spontaneous [] Hostile [] Mistrustful [] Preoccupied [] Demanding Activity: [x] Normal [] Hyperactive [] Hypoactive Speech: [x] Clear [] Slurred []Rapid [] Pressured [] Slow [] Soft spoken [] Loud [] Mute [] Rambling [] Incoherent [] Word salad [] Nonsensical Eye Contact: [x] Average [] Sporadic [] Poor [] Avoidant [] Intense MOOD & AFFECT: Mood: [x] Euthymic [] Depressed [] Anxious [] Angry [] Euphoric [] Irritable [] Other: Affect: [x] congruent [] Blunted [] Constricted [] Flat [] Inappropriate [] Labile BEHAVIOR: [x] Cooperative [] Resistant [] Agitated [] Impulsive [] Hyperactive [] Aggresive [] Assaultive [] Restless [] Anhedonia [] Akathisia [] Dissociating [] Withdrawn [] Irritable [] Relaxed [] Tired/fatigued [] Tearful [] Pacing [] Easily Startled [] Trembling/shaking Grimaces COGNITION: Thought Processes: [x] Logical [] Flushing [] Circumstantial [] Tangential [] Loose [] Incoherent [] Blocked [] Racing [] Flight of Ideas Thought Content: Delusions: [] Grandiose [] Persecutory [] Somatic [] Adventist [] Bizarre [] Nihilistic [x] None reported/observed Other: [] Autistic [] Obsessions [] Guilt [] Phobic [] Guarded Preoccupied [] Ideas of Reference [] Preoccupation with Suicidal Ideation [x] None Reported [] Ideation [] Intent [] Plan [] Self abusive behaviors (assess lethality if present) Homicidal Ideation [x] None Reported [] Ideation [] Intent [] Plan [] Aggressive behaviors (assess lethality of present) Perceptions: [x] Within normal limits [] Illusions [] Depersonalization [] Derealization [] Hallucinations: [] Auditory [] Visual [] Olfactory []Gustatory [] Tactile [] Visceral Oriented to: [x] Person [x] Place [x] Time [x] Situation Level of Consciousness: [x] Alert [] Clouded [] Fluctuating Memory Tested: [] Yes [x] No Memory Disturbance: [] Yes [x] No Attention Deficit: [] Yes [x] No Judgment: [] Good [x] Fair [] Poor Insight: [] Good [x] Fair [] Poor Comments re: significant MSE findings: N/A Therapeutic Intervention: [facility] provided supportive listening and reflection. Utilized Pt centered techniques to validate Pt's emotions and thoughts, and to allow Pt to process through recent stressors. Explored options Pt can engage in to improve mental health and coping skills. Patient Response to Intervention: receptive Goal(s) Addressed During Session: Control Deterioration of Symptoms, Improve or Maintain Level of Functioning to Avoid future Hospitalizations, and Explore Core Issues Underlying Illness Progress Towards Goal: Moderate progress [facility]05-23-2024 NoteInpatient Psychiatric Progress Note 01/21/24 AHSAN Bundy was seen in follow up for depression, which is chronic in nature. On exam, Zahira was resting in bed. She reports feeling tired, but okay. Reports she had some difficulty sleeping last night and so she took Seroquel and Ativan which helped her get to sleep but she is feeling tired this morning. Continues to endorse some ongoing depression and anxiety but reports feeling better than when she was initially admitted to the unit. She currently denies suicidal thoughts, no intent or plan. Has been compliant with lithium and quetiapine for mood stabilization and anxiety. She does endorse feeling tired, slightly sedated, and yesterday apparently felt feverish but not today. She feels somewhat bored by being in the hospital which is in some ways increasing her anxiety but she is understanding of the need for admission due to recent suicide attempt. She has been following up with family and they have been visiting. She has not been going to groups yet, I did encourage her today to at least go to 1 or 2 of them which she agreed to. Per staff she has been calm, cooperative, compliant with treatment. Medications: lithium, 450 mg, Oral, Nightly QUEtiapine, 100 mg, Oral, Nightly PRN medications: acetaminophen OR acetaminophen, LORazepam, polyethylene glycol (PEG) 3350, promethazine, QUEtiapine Mental Status Examination: Vitals : BP 97/71 Pulse 103 Temp 36.7 ?C (98 ?F) (Temporal) Resp 16 Ht 1.676 m (5' 6) Wt 65.8 kg (145 lb) SpO2 97% BMI 23.40 kg/m? APPEARANCE: Fairly groomed. BEHAVIOR: normal PSYCHOMOTOR: within normal limits SPEECH: Soft LANGUAGE: Naming intact MOOD: Depressed AFFECT: Constricted THOUGHT PROCESS: Goal-directed THOUGHT CONTENT: normal PERCEPTIONS/HALLUCINATIONS: denies ABSTRACTION: good INSIGHT: fair, including concerning psychiatric condition. JUDGMENT: fair, including concerning psychiatric condition. ORIENTATION: Appropriate to age, Person, Place, and Time MEMORY: recent and remote memory intact ATTENTION SPAN: good CONCENTRATION: good FUND OF KNOWLEDGE: good GAIT: Within normal limits ROS: [x] All negative/unchanged except if checked. Explain positive(checked items) below: [x] Constitutional [] Eyes [] Ear/Nose/Mouth/Throat [] Respiratory [] CV [] GI [] [] Musculoskeletal [] Skin/Breast [] Neurological [] Endocrine [] Heme/Lymph [] Allergic/Immunologic Explanation: slight feverish yesterday ASSESSMENT: 1.) Bipolar 1 current episode depressed, severe, w/o psychosis 2.) Unspecified anxiety disorder 3.) PTSD Patient symptoms :are improving Patient continues to need, on a daily basis, active treatment furnished directly by or requiring the supervision of inpatient psychiatric personnel. Treatment Plan: -Continue lithium 450 mg daily and Seroquel 100 mg daily for mood stabilization and sleep. Continue Ativan as needed for anxiety. Will not make any changes today. New Melle level yesterday was 0.6 and in normal range. Will continue to adjust medications as tolerable. -Requires ongoing inpatient admission due to significant recent suicide attempt and self harming behaviors. Most likely will be here through the weekend due to risk of self-harm. Continue Current Medications if not otherwise stated. Will continue to titrate medications and assess for effectiveness and tolerability. Continue Follow-up. Continue crisis intervention oriented psychotherapy, group and milieu therapies. Social work and transitional care continue to assist with necessary family liaison and discharge planning. Pt expressed agreement and understanding with treatment plan. PSYCHOTHERAPY/COUNSELING: Supportive, therapeutic interview Note: Please note this report has been produced using speech recognition software and may contain errors related to that system including errors in grammar, punctuation, and spelling, as well as words and phrases that may be inappropriate. If there are any questions or concerns please feel free to contact the dictating provider for clarification.[facility] 01-21-2024 NoteInpatient Psychiatric Progress Note 01/21/24 AHSAN Bundy was seen in follow up for depression, which is chronic in nature. On exam, Zahira was resting in bed. She reports feeling tired, but okay. Reports she had some difficulty sleeping last night and so she took Seroquel and Ativan which helped her get to sleep but she is feeling tired this morning. Continues to endorse some ongoing depression and anxiety but reports feeling better than when she was initially admitted to the unit. She currently denies suicidal thoughts, no intent or plan. Has been compliant with lithium and quetiapine for mood stabilization and anxiety. She does endorse feeling tired, slightly sedated, and yesterday apparently felt feverish but not today. She feels somewhat bored by being in the hospital which is in some ways increasing her anxiety but she is understanding of the need for admission due to recent suicide attempt. She has been following up with family and they have been visiting. She has not been going to groups yet, I did encourage her today to at least go to 1 or 2 of them which she agreed to. Per staff she has been calm, cooperative, compliant with treatment. Medications: lithium, 450 mg, Oral, Nightly QUEtiapine, 100 mg, Oral, Nightly PRN medications: acetaminophen OR acetaminophen, LORazepam, polyethylene glycol (PEG) 3350, promethazine, QUEtiapine Mental Status Examination: Vitals : BP 97/71 Pulse 103 Temp 36.7 ?C (98 ?F) (Temporal) Resp 16 Ht 1.676 m (5' 6) Wt 65.8 kg (145 lb) SpO2 97% BMI 23.40 kg/m? APPEARANCE: Fairly groomed. BEHAVIOR: normal PSYCHOMOTOR: within normal limits SPEECH: Soft LANGUAGE: Naming intact MOOD: Depressed AFFECT: Constricted THOUGHT PROCESS: Goal-directed THOUGHT CONTENT: normal PERCEPTIONS/HALLUCINATIONS: denies ABSTRACTION: good INSIGHT: fair, including concerning psychiatric condition. JUDGMENT: fair, including concerning psychiatric condition. ORIENTATION: Appropriate to age, Person, Place, and Time MEMORY: recent and remote memory intact ATTENTION SPAN: good CONCENTRATION: good FUND OF KNOWLEDGE: good GAIT: Within normal limits ROS: [x] All negative/unchanged except if checked. Explain positive(checked items) below: [x] Constitutional [] Eyes [] Ear/Nose/Mouth/Throat [] Respiratory [] CV [] GI [] [] Musculoskeletal [] Skin/Breast [] Neurological [] Endocrine [] Heme/Lymph [] Allergic/Immunologic Explanation: slight feverish yesterday ASSESSMENT: 1.) Bipolar 1 current episode depressed, severe, w/o psychosis 2.) Unspecified anxiety disorder 3.) PTSD Patient symptoms :are improving Patient continues to need, on a daily basis, active treatment furnished directly by or requiring the supervision of inpatient psychiatric personnel. Treatment Plan: -Continue lithium 450 mg daily and Seroquel 100 mg daily for mood stabilization and sleep. Continue Ativan as needed for anxiety. Will not make any changes today. New Melle level yesterday was 0.6 and in normal range. Will continue to adjust medications as tolerable. -Requires ongoing inpatient admission due to significant recent suicide attempt and self harming behaviors. Most likely will be here through the weekend due to risk of self-harm. Continue Current Medications if not otherwise stated. Will continue to titrate medications and assess for effectiveness and tolerability. Continue Follow-up. Continue crisis intervention oriented psychotherapy, group and milieu therapies. Social work and transitional care continue to assist with necessary family liaison and discharge planning. Pt expressed agreement and understanding with treatment plan. PSYCHOTHERAPY/COUNSELING: Supportive, therapeutic interview Note: Please note this report has been produced using speech recognition software and may contain errors related to that system including errors in grammar, punctuation, and spelling, as well as words and phrases that may be inappropriate. If there are any questions or concerns please feel free to contact the dictating provider for clarification.[facility] 01-20-2024 NoteIndividual Therapy Progress Note [facility] met with pt to discuss counseling options while in the hospital of group therapy daily and meeting individually. Pt refused counseling services at this time. [facility]05-22-2024 NoteIndividual Therapy Progress [facility] to discuss counseling options while in the hospital of group therapy daily and meeting individually. Pt refused counseling services at this time. [facility] note Subjective Patient seen for routine follow-up of suicidality which is her chief complaint. Patient continues to look very dysphoric and hopeless on exam today. She states she still very much wants to and is visibly more anxious. I do a brief physical exam today and her upper extremities have very mild rigidity. The patient's gait is normal but she is tremulous throughout much of the exam. She appears visibly anxious and states that her heart rate feels very high. She is offered some lorazepam as needed for severe anxiety. Her eyes continue to dart around during the exam. The patient reports that she feels like her thoughts are racing all day. She cannot get out of bed. Staff noted her to be incredibly depressed. I speak with patient's family today. Because they are very concerned for the patient's safety I shared with him that the most rational medication addition would be lithium therapy. I explained that this has trans diagnostic antisuicide effects and also is a useful mood stabilizer and either unipolar or bipolar depression. Because she is showing signs of psychomotor agitation, previously had potential hypomanic emergent symptoms from antidepressant treatment and has a history of very erratic behavior I explained that antidepressant therapy would be concerning for her and actually could worsen her safety profile. The the family is in agreement with this and they are willing to have her stay in the hospital as long as it takes. I explained that likely the patient will be here at least another week but her care will be transferred to one of my colleagues for the next week. I explained that I would personally recommend the patient stay all of next week and plan for an early discharge the following week. I also explained that PHP and IOP would be a good stepdown level of care and I explained that I would be happy to take on her case as an outpatient for continuity of care. They appreciate the offer and are wanting to continue to be supportive to the patient so that she can improve. Side effects of the patient's prescribed psychiatric medications were denied including pain myalgias nausea or vomiting stomach pain drooling headache or blurry vision urinary changes bowel changes oversedation sleep changes or appetite changes. Objective Vitals: 01/15/24 0729 BP: 117/72 Pulse: 113 Resp: 18 Temp: 36.7 ?C (98 ?F) SpO2: 98% Mental Status Exam: Appearance: appropriately dressed and healthy looking, Behavior: Speech is delayed but psychomotor agitation present in terms of eyes darting around and fidgeting throughout exam Speech: Speech is very slow soft and has long pauses between answers Mood is described as depressed affect congruent very blunted and dysphoric. Obviously anxious with some degree of muscle rigidity seemingly from anxiety Thought content: Hopelessness and despondency Thought process: logical and coherent, Insight and judgment are both fair Suicidal Intentions: No Suicidal Plan: No Activity normal Associations: Goal-Directed Orientation: oriented to person and place. Attention fair. Concentration fair. Memory Recent: intact, Remote:intact. Language Naming: intact, Repetition: intact. Fund of knowledge: fair Assessment and Plan Unspecified mood disorder, current severe episode of depression with melancholic features and suicidality Comorbid severe PTSD versus cluster B traits - Continue medications listed below - Continue to monitor response - We may have to add a second mood stabilizer depending on rate of symptomatic improvement - Given severity of suicide attempt and black box warning of SSRI's for teens, mood stabilizers may be the more appropriate initial biological treatment given the uncertain nature of the patient's ultimate diagnosis. -continue to offer daily supportive therapy that is trauma informed regardless. -Transfer of care to different primary psychiatrist next week, family is open to patient staying for all of next week and [facility] discharge early the following week. lithium, 450 mg, Oral, Nightly QUEtiapine, 75 mg, Oral, Nightly As of 01/15/24 symptoms of depression still severe enough to make inpatient level care medically necessary, and is expected that this treatment will improve said symptoms. Chart reviewed and staff consulted about patient progress and behaviors. Narrative portions of note written using Web[employer] dictation software. Efforts are made to dictate clearly and proofread but errors in dictation still may occur. Please reach out to author with any clarifying questions. 1 Chronic problem that is currently exacerbated was reviewed today and the prescription medications used for this problem were reviewed and managed. Plan to Bill at moderate level of medical decision making. Mg Hickey, [facility] [id number] [facility] Inpatient Psychiatry provider progress note Subjective Patient seen for routine follow-up of suicidality which is her chief complaint. Patient continues to look very dysphoric and hopeless on exam today. She states she still very much wants to and is visibly more anxious. I do a brief physical exam today and her upper extremities have very mild rigidity. The patient's gait is normal but she is tremulous throughout much of the exam. She appears visibly anxious and states that her heart rate feels very high. She is offered some lorazepam as needed for severe anxiety. Her eyes continue to dart around during the exam. The patient reports that she feels like her thoughts are racing all day. She cannot get out of bed. Staff noted her to be incredibly depressed. I speak with patient's family today. Because they are very concerned for the patient's safety I shared with him that the most rational medication addition would be lithium therapy. I explained that this has trans diagnostic antisuicide effects and also is a useful mood stabilizer and either unipolar or bipolar depression. Because she is showing signs of psychomotor agitation, previously had potential hypomanic emergent symptoms from antidepressant treatment and has a history of very erratic behavior I explained that antidepressant therapy would be concerning for her and actually could worsen her safety profile. The the family is in agreement with this and they are willing to have her stay in the hospital as long as it takes. I explained that likely the patient will be here at least another week but her care will be transferred to one of my colleagues for the next week. I explained that I would personally recommend the patient stay all of next week and plan for an early discharge the following week. I also explained that PHP and IOP would be a good stepdown level of care and I explained that I would be happy to take on her case as an outpatient for continuity of care. They appreciate the offer and are wanting to continue to be supportive to the patient so that she can improve. Side effects of the patient's prescribed psychiatric medications were denied including pain myalgias nausea or vomiting stomach pain drooling headache or blurry vision urinary changes bowel changes oversedation sleep changes or appetite changes. Objective Vitals: 01/15/24 0729 BP: 117/72 Pulse: 113 Resp: 18 Temp: 36.7 ?C (98 ?F) SpO2: 98% Mental Status Exam: Appearance: appropriately dressed and healthy looking, Behavior: Speech is delayed but psychomotor agitation present in terms of eyes darting around and fidgeting throughout exam Speech: Speech is very slow soft and has long pauses between answers Mood is described as depressed affect congruent very blunted and dysphoric. Obviously anxious with some degree of muscle rigidity seemingly from anxiety Thought content: Hopelessness and despondency Thought process: logical and coherent, Insight and judgment are both fair Suicidal Intentions: No Suicidal Plan: No Activity normal Associations: Goal-Directed Orientation: oriented to person and place. Attention fair. Concentration fair. Memory Recent: intact, Remote:intact. Language Naming: intact, Repetition: intact. Fund of knowledge: fair Assessment and Plan Unspecified mood disorder, current severe episode of depression with melancholic features and suicidality Comorbid severe PTSD versus cluster B traits - Continue medications listed below - Continue to monitor response - We may have to add a second mood stabilizer depending on rate of symptomatic improvement - Given severity of suicide attempt and black box warning of SSRI's for teens, mood stabilizers may be the more appropriate initial biological treatment given the uncertain nature of the patient's ultimate diagnosis. -continue to offer daily supportive therapy that is trauma informed regardless. -Transfer of care to different primary psychiatrist next week, family is open to patient staying for all of next week and [facility] discharge early the following week. lithium, 450 mg, Oral, Nightly QUEtiapine, 75 mg, Oral, Nightly As of 01/15/24 symptoms of depression still severe enough to make inpatient level care medically necessary, and is expected that this treatment will improve said symptoms. Chart reviewed and staff consulted about patient progress and behaviors. Narrative portions of note written using WebVet dictation software. Efforts are made to dictate clearly and proofread but errors in dictation still may occur. Please reach out to author with any clarifying questions. 1 Chronic problem that is currently exacerbated was reviewed today and the prescription medications used for this problem were reviewed and managed. Plan to Bill at moderate level of medical decision making. Mg Hickey, [facility] [id number] [facility] Inpatient Psychiatry provider progress note Subjective Patient seen for routine follow-up of suicidality which is her chief complaint. Patient appears obviously depressed and dysphoric on exam today. Her responses are still delayed but she is more fluid in her speech today. She states that she slept better last night but still feels very hopeless and suicidal. She can contract for safety on the unit but she states that she does not want to live. She reports that she feels very deeply fatigued and tired and just wants to lay in bed all day. She appears obviously depressed and still demonstrates some degree of psychomotor agitation in terms of fidgeting and her eyes darting around the room as we talk. She attempts to share that she feels exhausted and that during her visit with her family recently she cried for most of the time. We discussed in some detail her diagnosis of severe depression and my concern that she possibly could have bipolar depression given her symptomatic presentation and other features of her presentation. She is understanding of this and willing to consider psychotherapy and medication management strategies intended to help with this. I shared that we will watch her for at least 1 more day and monitor how her symptoms improved. I sure that we may add a second mood stabilizer if she continues to exhibit severe depressive symptomatology. She is amenable to this. Questions and concerns are addressed. Side effects of the patient's prescribed psychiatric medications were denied including pain myalgias nausea or vomiting stomach pain drooling headache or blurry vision urinary changes bowel changes oversedation sleep changes or appetite changes. Objective Vitals: 01/14/24 0845 BP: 105/65 Pulse: 91 Resp: 18 Temp: 36.8 ?C (98.2 ?F) SpO2: 99% Mental Status Exam: Appearance: appropriately dressed and healthy looking, Behavior: Speech is delayed but psychomotor agitation present in terms of eyes darting around and fidgeting throughout exam Speech: Speech is very slow soft and has long pauses between answers Mood is described as depressed affect congruent very blunted and dysphoric Thought content: Hopelessness and despondency Thought process: logical and coherent, Insight and judgment are both fair Suicidal Intentions: No Suicidal Plan: No Activity normal Associations: Goal-Directed Orientation: oriented to person and place. Attention fair. Concentration fair. Memory Recent: intact, Remote:intact. Language Naming: intact, Repetition: intact. Fund of knowledge: fair Assessment and Plan Unspecified mood disorder, current severe episode of depression with melancholic features and suicidality Comorbid severe PTSD versus cluster B traits - Continue medications listed below - Continue to monitor response - We may have to add a second mood stabilizer depending on rate of symptomatic improvement - Given severity of suicide attempt and black box warning of SSRI's for teens, mood stabilizers may be the more appropriate initial biological treatment given the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 presently involved in investigation. He is under significant stress because of this. Patient has missed school because of influenza, COVID and now work-related because of lack of sleep and stress. Patient suicidal thoughts were exacerbated after doing synthetic marijuana last evening. She has multiple symptoms of depression. Prior similar symptoms: Yes Recent Illness/Hospitalization: No PFSH PFSH Home Medications NK 05/09/22 [History Last Taken Unknown] Allergy/AdvReac Type Severity Reaction Status Date / Time No Known Allergies Allergy Verified 12/10/23 12:47 Family History Other A-fib Arthritis Supraventricular tachycardia Surgical History History of tonsillectomy and adenoidectomy Social History Smoking Status: Never smoker what type of physical activity do you participate in: walking, running, weight training and additional details: Plays softball frequency: 5-6 times per week ROS ROS ED Constitutional Constitutional ED: Denies chills, fever(s) or subjective Eyes Eyes: Denies blurry vision, change in vision or diplopia ENT ENT ED: Denies ear pain, rhinorrhea or sore throat Cardiovascular Cardiovascular: Denies chest pain, orthopnea, palpitations, paroxysmal nocturnaldyspnea or racing heartbeat Respiratory/Chest Respiratory/Chest: Denies cough, dyspnea, dyspnea on exertion, orthopnea, paroxysmal nocturnal dyspnea or sputum Gastrointestinal Gastrointestinal: Denies abdominal pain, diarrhea, melena, nausea or vomiting Genitourinary Genitourinary ED: Denies dysuria, hematuria or urinary frequency Musculoskeletal Musculoskeletal: Denies arthralgias, back pain, myalgias or neck pain Neurologic Neurologic: Denies headache(s), paresthesias or weakness Psychiatric Psychiatric: Reports anxiety, depression, suicidal ideation and suicidal thoughts Hematologic/Lymphatic Hematologic/Lymphatic: Denies easy bleeding or easy bruising Allergic/Immunologic Allergic/Immunologic ED: Denies mouth swelling, tongue swelling or urticaria EXAM Physical Exam Const Vital Signs: 12/10/23 12:47 12/10/23 14:05 Temperature 98 F Temperature Source Temporal Pulse Rate 80 75 Respiratory Rate 14 16 Blood Pressure 117/78 107/84 L Blood Pressure Mean 91 91 Pulse Ox 100 94 Oxygen Delivery Method Room Air Room Air Positive well nourished and well developed General Appearance ED: well developed and NAD; Negative for pallor HEENT Reports TM's clear and moist mucous membranes normocephalic and atraumatic Tympanic Membrane ED: Yes TM's clear Eyes PERRL and EOMs intact bilaterally General Eye ED: Negative for pale conjunctiva or scleral icterus Neck no lymphadenopathy, supple and no JVD Resp normal respiratory effort and clear to auscultation bilaterally Cardio S1 normal heart sound, S2 normal heart sound and no murmurs Rate: regular rate Rhythm: regular rhythm GI non-tender, non-distended and no masses Auscultation: normoactive bowel sounds Palpation: soft Back/Spine no CVA tenderness Extremity normal to inspection Neuro oriented x3, CN's II-XII intact bilaterally, no sensory deficits noted and deep tendon reflexes 2+ bilaterally Art Coma Scale: document GCS findings Spontaneous Sensorium / Orientation: alert Motor Exam: strength 5/5 throughout Psych Appearance: grossly normal and appropriate Attitude: calm Activity / Motor Behavior: appropriate eye contact; Negative for psychomotor agitation, psychomotor slowing, fidgetting, hyperactive, disorganized, restless,mannerisms or avoids eye contact Speech: normal speech and other Patient very detailed and explicit. Mood & Affect: depressed, tearful and flat affect Thought Process: normal thought process Thought Content: suicidality, No phobia(s), No delusion(s), No hallucination(s),No ideas of reference, No derealization, No depersonalization, No rumination(s),No compulsion(s) and No obsession(s) Attention / Concentration: attention grossly intact Memory / Cognition: memory grossly intact Insight: limited Judgement: questionable Skin General Skin Exam: Negative for jaundice or pallor Lesions: no lesions Rashes: no rashes MDM MDM MDM Narrative Medical decision making narrative: Patient with depression and suicidal thoughts and plan that was escalated last evening. Patient under multiple stressors. Patient will need inpatient treatment in light of what she voiced regarding suicidal thoughts for some time and escalation last evening. History & Record Review Additional record(s) reviewed:: Prior outpatient record (Approximately 3 years ago patient was admitted to [facility] psychiatric unit for depression with suicidal thoughts and attempt.) Lab Data Attestation: I reviewed the patient's lab results. Lab results narrative: CBC is unremarkable. Electrolyte panel is unremarkable. Chloride is slightly elevated which is nonsignificant. Serum is negative. Alcohol was nondetected. Labs: Laboratory Results - last 24 hr 12/10/23 12/10/23 13:55 16:24 WBC 6.9 RBC 5.00 H Hgb 14.3 Hct 42.9 MCV 85.8 MCH 28.6 MCHC 33.3 RDW Std Deviation 38.4 RDW Coeff of Neville 12.2 Plt Count 347 MPV 8.8 Immature Gran % (Auto) 0.100 Neut % (Auto) 60.6 Lymph % (Auto) 28.3 Payne % (Auto) 10.0 H Eos % (Auto) 0.4 Baso % (Auto) 0.6 Absolute Neuts (auto) 4.2 Absolute Lymphs (auto) 1.95 Nucleated RBC % 0 Sodium 137 Potassium 3.8 Chloride 108 H Carbon Dioxide 27.0 Anion Gap 2 L BUN 12 Creatinine 0.71 Estim Creat Clear Calc 124.96 Est GFR (MDRD) Af Amer 138 Est GFR (MDRD) Non-Af 114 BUN/Creatinine Ratio 16.9 Glucose 93 Calcium 9.6 Serum , Qual NEGATIVE Urine Opiates Screen NEGATIVE Urine Methadone Screen NEGATIVE Ur Barbiturates Screen NEGATIVE Ur Phencyclidine Scrn NEGATIVE Ur Amphetamines Screen NEGATIVE MDMA (Ecstasy) Screen NEGATIVE U Benzodiazepines Scrn NEGATIVE Urine Cocaine Screen NEGATIVE U Cannabinoids Screen POSITIVE H Ur Drug Screen Comment Ethyl Alcohol < 3.0 EKG Initial EKG: Attestation: I personally reviewed and interpreted this EKG as follows: Interpretation: Sinus Rhythm (Rate is 83. There is an RR prime in V1. This is a normal variant for a young person. Parables 112 ms. QRS duration 92 ms. QT duration 362 ms. [place] is normal) Management Discussion w/another healthcare provider: plate worker helper/Case management Treatment and Re-Evaluation Narrative: [place] was asked to contact crisis for evaluation for hospitalization. 1761 Discharge Plan Triage Chief Complaint: Suicidal ED Provider: Leo Glover Dx/Rx/DC Orders Clinical Impression: Complex posttraumatic stress disorder, Depression with suicidal ideation Prescriptions: No Action NK Primary Care Provider: Minerva Garcia NP Referrals: Minerva Garcia BENCH ASSEMBLER OPERATOR, BENCH ASSEMBLER OPERATOR-C [Primary Care Provider] - Disposition Disposition: Psychiatric Hospital or Unit Discharge Location: [facility] [place] What to do if you have Problems For any increased pain, shortness of breath, bleeding, nausea or vomiting, chestpain, or any unexpected problems, contact your Primary Care Provider. Call [facility] ([phone]) or report to the closest Emergency Room. Call 911 if necessary. 12/10/232137 <Electronically signed by Leo Glover MD> Cosigner Signature (if applicable): CC: LIVAN Garcia ~ Signed [facility] Work Phone: [phone]) 908-876302-12-2024 History of Present illness Narrative* Vannesa Lim MA - 10/12/2023 2:40 PM EST Patient was verified by name and . * Minerva Garcia APRN - ADITHYA - 10/12/2023 2:40 PM EST Images from the original note were not included. 10/12/2023 Harsh Love (: 2005) is a 17 y.o. female , Established patient, here for evaluation of the following chief complaint(s): Cough and Fever ASSESSMENT/PLAN: 1. Recurrent fever - GAEL - C-reactive protein - Rheumatoid factor - RPR - Sedimentation rate, automated - TSH - Comprehensive metabolic panel - Vitamin D Deficiency Screening (Vit D 25) - CBC auto differential - Will notify of blood work results. 2. Other fatigue - GAEL - C-reactive protein - Rheumatoid factor - RPR - Sedimentation rate, automated - TSH - Comprehensive metabolic panel - Vitamin D Deficiency Screening (Vit D 25) - CBC auto differential - Will notify of blood work results. 3. Cough, unspecified type - GAEL - C-reactive protein - Rheumatoid factor - RPR - Sedimentation rate, automated - TSH - Comprehensive metabolic panel - Vitamin D Deficiency Screening (Vit D 25) - CBC auto differential - Offered CXR for further evaluation but states symptoms are improving. Declines at this time but will let me know if they change their mind. - Will notify of blood work results. Follow up for follow up pending blood work. SUBJECTIVE/OBJECTIVE: FLAVIO House presents today with her mother with concerns of a persisting coughs and fevers. Symptoms have been occurring intermittently since July. States she has just not felt good since July. Tested positive for COVID-19 in July. Has missed so much work that she is at risk of losing her job. Most recent fever was 100.4 F on Thursday last week. Has been struggling with a cough sinceJuly as well. Was treated with Azithromycin and Prednisone on 09/24/23. Feels the cough has improved with the antibiotic and steroid. Mother states there is family history of autoimmune conditionsand would like workup done today- lupus, Crohn's on maternal side. Denies history of asthma. See ROS for additional information. Review of Systems Constitutional: Positive for chills, fatigue and fever. Negative for appetite change and unexpectedweight change. HENT: Positive for congestion. Negative for ear discharge, ear pain, rhinorrhea, sinus pressure, sinus pain, sore throat and trouble swallowing. Respiratory: Negative for cough, chest tightness, shortness of breath and wheezing. Cardiovascular: Negative for chest pain, palpitations and leg swelling. Gastrointestinal: Negative for abdominal distention, abdominal pain, blood in stool, constipation, nausea and vomiting. Endocrine: Negative for cold intolerance and heat intolerance. Genitourinary: Negative for dysuria and hematuria. Musculoskeletal: Negative for arthralgias, joint swelling and myalgias. Skin: Negative for color change, pallor, rash and wound. Hematological: Negative for adenopathy. Does not bruise/bleed easily. Vitals: 10/12/23 1436 BP: 108/69 Pulse: 74 SpO2: 98% Weight: 150 lb (68 kg) Height: 5' 7 (1.702 m) Body mass index is 23.49 kg/m . Physical Exam Constitutional: General: She is not in acute distress. Appearance: Normal appearance. She is not ill-appearing or diaphoretic. HENT: Head: Normocephalic and atraumatic. Right Ear: Tympanic membrane, ear canal and external ear normal. Left Ear: Tympanic membrane, ear canal and external ear normal. Nose: Rhinorrhea present. Rhinorrhea is clear. Right Turbinates: Swollen. Left Turbinates: Swollen. Mouth/Throat: Mouth: Mucous membranes are moist. Pharynx: Oropharynx is clear. No oropharyngeal exudate or posterior oropharyngeal erythema. Eyes: Extraocular Movements: Extraocular movements intact. Pupils: Pupils are equal, round, and reactive to light. Neck: Thyroid: No thyroid mass or thyromegaly. Vascular: No carotid bruit. Cardiovascular: Rate and Rhythm: Normal rate and regular rhythm. Heart sounds: Normal heart sounds. No murmur heard. No friction rub. Pulmonary: Effort: Pulmonary effort is normal. Breath sounds: Normal breath sounds. No wheezing, rhonchi or rales. Abdominal: General: Bowel sounds are normal. There is no distension. Palpations: Abdomen is soft. There is no mass. Tenderness: There is no abdominal tenderness. There is no guarding or rebound. Musculoskeletal: General: No swelling. Cervical back: Neck supple. No rigidity or tenderness. Lymphadenopathy: Head: Right side of head: No tonsillar adenopathy. Left side of head: No tonsillar adenopathy. Cervical: No cervical adenopathy. Skin: General: Skin is warm and dry. Coloration: Skin is not pale. Findings: No erythema or rash. Neurological: Mental Status: She is alert and oriented to person, place, and time. Motor: No weakness. Gait: Gait normal. Psychiatric: Mood and Affect: Mood normal. Behavior: Behavior normal. Thought Content: Thought content normal. Judgment: Judgment normal. An electronic signature was used to authenticate this note. TERESA Kay CNP 10/12/2023 3:07 PM documented in this encounterSThe MetroHealth [id number] Telephone encounter Note* Telephone Encounter - TERESA Kay CNP - 10/12/2023 8:41 AM EST Will see as scheduled. [id number] Miscellaneous Notes* Telephone Encounter - TERESA Kay CNP - 10/12/2023 8:41 AM EST Will see as scheduled. * Telephone Encounter - Maranda Ho RN - 10/09/2023 12:41 PM EST S: Patient's mother spoke with [facility] nurse regarding cough. B: Onset of symptoms/concern 2-3 months. TERE: 09/24/2023 - post-viral cough syndrome. A: Patient's mother reports patient complaining of ongoing cough, sinus congestion, pale, weak, body aches, run down, fever on and off (none today) Denies chest pain, difficulty breathing, earache,wheezing. Patient not with caller, unable to fully triage. Patient's mother reports patient has missed so much school and work due to the constant viruses. Reports patient went to a half day of school today so that she can work this evening. Reports using Tylenol, Ibuprofen, Flonase, Nyquil, and prescribed medications as directed with minimal relief. Patient's mother requesting an in depth office visit with labs. Pharmacy and allergies verified/reviewed with patient's mother. R: Patient's mother advised message would be sent to provider for review. Patient's mother verbalized understanding. call or contact centre manager provider, Jimena messaged at this time. Per Jimena, I am comfortable waiting until Thursday for her to be seen unless symptoms worsen. Patient's mother advised, verbalized u nderstanding. Office visit scheduled for 10/12/2023 with Jimena. Insurance verified per policy. Patient's motherunderstands care advice. No further needs at this time. Patient's mother instructed to call back with new or worsening symptoms. Reason for Disposition Fever present > 3 days (72 hours) Protocols used: [id number] documented in this [facility]02-09-2024 Telephone encounter Note* Telephone Encounter - Maranda Ho RN - 10/09/2023 12:41 PM EST S: Patient's mother spoke with [facility] nurse regarding cough. B: Onset of symptoms/concern 2-3 months. TERE: 09/24/2023 - post-viral cough syndrome. A: Patient's mother reports patient complaining of ongoing cough, sinus congestion, pale, weak, body aches, run down, fever on and off (none today) Denies chest pain, difficulty breathing, earache,wheezing. Patient not with caller, unable to fully triage. Patient's mother reports patient has missed so much school and work due to the constant viruses. Reports patient went to a half day of school today so that she can work this evening. Reports using Tylenol, Ibuprofen, Flonase, Nyquil, and prescribed medications as directed with minimal relief. Patient's mother requesting an in depth office visit with labs. Pharmacy and allergies verified/reviewed with patient's mother. R: Patient's mother advised message would be sent to provider for review. Patient's mother verbalized understanding. call or contact centre manager provider, Jimena messaged at this time. Per Jimena, I am comfortable waiting until Thursday for her to be seen unless symptoms worsen. Patient's mother advised, verbalized u nderstanding. Office visit scheduled for 10/12/2023 with Jimena. Insurance verified per policy. Patient's motherunderstands care advice. No further needs at this time. Patient's mother instructed to call back with new or worsening symptoms. Reason for Disposition Fever present > 3 days (72 hours) Protocols used: [id number] [employer]01-25-2024 Evaluation + Plan note* Assessment & Plan Note - TERESA Mejia CNP - 09/24/2023 5:04 PM ESTAssociated Problem(s): Post- viral cough syndrome Lung sounds are clear, likely postviral cough, no further antibiotic treatment recommended or indicated at this time. Recommend starting fluticasone nasal spray to help with nasal congestion, Medrol Dosepak. Start tlnm-nxv-mvafapq guaifenesin dextromethorphan for cough as directed. Follow-up if symptoms have not improved next week. At that time would recommend trying bronchodilator. [employer]01-25-2024 Miscellaneous Notes* Assessment & Plan Note - TERESA Mejia CNP - 09/24/2023 5:04 PM ESTAssociated Problem(s): Post- viral cough syndrome Lung sounds are clear, likely postviral cough, no further antibiotic treatment recommended or indicated at this time. Recommend starting fluticasone nasal spray to help with nasal congestion, Medrol Dosepak. Start vvhm-uei-giugixt guaifenesin dextromethorphan for cough as directed. Follow-up if symptoms have not improved next week. At that time would recommend trying bronchodilator. documented in this [facility]01-25-2024 History of Present illness Narrative* Sada Rodriguez - 09/24/2023 10:40 AM EST Patient was identified by name and Date of . * TERESA Mejia CNP - 09/24/2023 10:40 AM EST Images from the original note were not included. 09/24/2023 Harsh Love (: 2005) is a 17 y.o. female , Established patient, here for evaluation of the following chief complaint(s): Cough, Coughing Up Blood, Vomiting, and Generalized Body Aches ASSESSMENT/PLAN: 1. Post-viral cough syndrome Assessment & Plan: Lung sounds are clear, likely postviral cough, no further antibiotic treatment recommended or indicated at this time. Recommend starting fluticasone nasal spray to help with nasal congestion, Medrol Dosepak. Start ziac-ymb-zdfdhqd guaifenesin dextromethorphan for cough as directed. Follow-up if symptoms have not improved next week. At that time would recommend trying bronchodilator. Orders: - methylPREDNISolone (Medrol Dospak) 4 MG tablets; Follow schedule on package instructions, Normal Follow up if symptoms worsen or fail to improve. SUBJECTIVE/OBJECTIVE: HPI - Harsh Love (: 2005) is a 17 y.o. female , Established patient, here for the evaluation of the following chief complaint(s): Cough, Coughing Up Blood, Vomiting, and Generalized Body Aches Ongoing since mid July. Had viral URI with coughing-got a little better then had covid in the beginning of July, reports symptoms somewhat improved however the cough continued, [facility] and was treated with azithromycin and finished 2 days. Continues to havecough intermittently productive mild sinus congestion. No fever or chills. Sometimes coughs so hardshe could vomit. Yesterday had a coughing fit and vomited and there was small streaks of blood in the sputum, reports overall it is somewhat better after having the azithromycin but the coughing is very bothersome. Had tried cough drops but not much else for her cough Prior to Admission medications Medication Sig Start Date End Date Taking? Authorizing Provider acetaminophen (Tylenol) 325 MG tablet TAKE 2 TABLETS BY MOUTH EVERY 6 HOURS NEEDED FOR PAIN (mild pain) for up to 5 (FIVE) days 08/12/22 Yes Historical Provider, ibuprofen 200 MG tablet TAKE 2 TABLETS BY MOUTH EVERY 6 HOURS NEEDED for moderate pain for up to5 (FIVE) days. take with meals 08/12/22 Yes Historical Provider, triamcinolone (Kenalog) 0.1 % cream Apply topically 2 times daily. 06/10/23 Yes SASHA Kay CNP MAGNESIUM PO Take by mouth. Historical Provider, Review of Systems Constitutional: Negative for activity change, appetite change, chills, fatigue and fever. HENT: Positive for congestion. Negative for nosebleeds, postnasal drip, sinus pressure and sore throat. Respiratory: Positive for cough and shortness of breath (With coughing). Negative for wheezing. Cardiovascular: Positive for chest pain (With coughing). Gastrointestinal: Negative. Genitourinary: Negative for difficulty urinating. Neurological: Negative. Vitals: 09/24/23 1049 BP: 102/67 Pulse: (!) 93 Resp: 16 Temp: 37 C (98.6 F) TempSrc: Infrared SpO2: 96% Weight: 152 lb (68.9 kg) Physical Exam Constitutional: General: She is not in acute distress. Appearance: Normal appearance. She is not ill-appearing. HENT: Head: Normocephalic and atraumatic. Right Ear: Tympanic membrane normal. Left Ear: Tympanic membrane normal. Nose: Congestion present. Mouth/Throat: Mouth: Mucous membranes are moist. Pharynx: Oropharynx is clear. Comments: Mild postnasal drainage Eyes: Conjunctiva/sclera: Conjunctivae normal. Cardiovascular: Rate and Rhythm: Normal rate and regular rhythm. Pulses: Normal pulses. Heart sounds: Normal heart sounds. Pulmonary: Effort: Pulmonary effort is normal. Breath sounds: Normal breath sounds. Comments: Speaking full sentences without difficulty. Noted intermittent harsh sounding cough triggered with deep breaths Lymphadenopathy: Cervical: No cervical adenopathy. Skin: General: Skin is warm and dry. Neurological: Mental Status: She is alert and oriented to person, place, and time. An electronic signature was used to authenticate this note. TERESA Mejia CNP 09/24/2023 5:06 PM documented in this [facility]01-25-2024 Instructions* Patient Instructions* TERESA Mejia CNP - 09/24/2023 10:40 AM EST Mucinex DM Fluticasone nasal spray. documented in this [facility]01-25-2024 Telephone encounter Note* Telephone Encounter - TERESA Mejia CNP - 09/24/2023 8:46 AM EST Noted. Agree with disposition. [id number] Miscellaneous Notes* Telephone Encounter - TERESA Mejia CNP - 09/24/2023 8:46 AM EST Noted. Agree with disposition. * Telephone Encounter - Mireya Simpson RN - 09/24/2023 7:18 AM EST S: Patient mother spoke with [facility] nurse regarding cough and sore throat, had Zpak from [facility] B: Onset of symptoms/concern 2 weeks A: was coughing so hard last night coughed blood--(works @ [employer] and Nurse checked her throat and looks red and irritated from coughing. Would like to be seen R:Scheduled Same Day appt today 09/24/23 @ 10:40a with R Bridenthal. Advised to push fluids, gargle warm salt water, honey off the spoon. Patient mother understands care advice. No further needs at this time. Patient instructed to call back with new or worsening symptoms. Reason for Disposition [1] Blood-tinged sputum has been coughed up AND [2] more than once Answer Assessment - Initial Assessment Questions . Protocols used: [id number] documented in this [facility]01-25-2024 Telephone encounter Note* Telephone Encounter - Mireya Simpson RN - 09/24/2023 7:18 AM EST S: Patient mother spoke with [facility] nurse regarding cough and sore throat, had Zpak from [facility] B: Onset of symptoms/concern 2 weeks A: was coughing so hard last night coughed blood--(works @ [employer] and Nurse checked her throat and looks red and irritated from coughing. Would like to be seen R:Scheduled Same Day appt today 09/24/23 @ 10:40a with R Bridenthal. Advised to push fluids, gargle warm salt water, honey off the spoon. Patient mother understands care advice. No further needs at this time. Patient instructed to call back with new or worsening symptoms. Reason for Disposition [1] Blood-tinged sputum has been coughed up AND [2] more than once Answer Assessment - Initial Assessment Questions . Protocols used: [id number] [facility] [id number] History of Present illness Narrative* Sada Rodriguez - 06/10/2023 11:00 AM EDT Patient was identified by name and Date of . * Minerva Garcia, WASTE REMOVALIST - [employer] - 06/10/2023 11:00 AM EDT Images from the original note were not included. 06/10/2023 Harsh Love (: 2005) is a 17 y.o. female , Established patient, here for evaluation of the following chief complaint(s): Suture / Staple Removal and Rash ASSESSMENT/PLAN: 1. Atopic dermatitis, unspecified type - triamcinolone (Kenalog) 0.1 % cream; Apply topically 2 times daily., Starting 06/10/2023, Normal - Will treat affected area with Triamcinolone based off of punch biopsy results. - Discussed signs and symptoms warranting follow up in the office- verbalized understanding. 2. Visit for suture removal - Tolerated well. Follow up if symptoms worsen or fail to improve. SUBJECTIVE/OBJECTIVE: HPI - Harsh presents today with her mother to have her suture removed from her left thigh from apunch biopsy she had done 1 week ago. Results of the punch biopsy showed findings consistent with atopic dermatitis. Negative for fungal organisms. States the area the suture was placed has healed well and denies redness, drainage, or pain. Review of Systems Skin: Positive for rash. Vitals: 06/10/23 1103 06/10/23 1133 BP: 100/65 Pulse: (!) 111 (!) 96 Resp: 20 Temp: 37.1 C (98.7 F) TempSrc: Infrared SpO2: 97% Weight: 146 lb (66.2 kg) There is no height or weight on file to calculate BMI. Physical Exam Constitutional: General: She is not in acute distress. Appearance: She is not ill-appearing or diaphoretic. Pulmonary: Effort: Pulmonary effort is normal. Skin: Neurological: Mental Status: She is alert and oriented to person, place, and time. Psychiatric: Mood and Affect: Mood normal. Behavior: Behavior normal. Thought Content: Thought content normal. Judgment: Judgment normal. Suture Removal Equipment utilized: -non-sterile procedure gloves -suture kit -gauze Procedure: Patient in comfortable position. Used forceps to pickler helper one end of the suture and cut suture with scissors close to skin. Removed suture pulling in the direction of the knotted side and wound closure. One (1) suture(s) removed. Wound edges well-approximated with no drainage or odor noted. Wound edges pink and without erythema or edema. Patient tolerated well without complaints of pain or discomfort. An electronic signature was used to authenticate this note. TERESA Kay CNP 06/10/2023 11:33 AM documented in this [facility]10-04-2023 History of Present illness Narrative* Delfina Suarez MA - 06/03/2023 10:00 AM EDT eye * TERESA Kay CNP - 06/03/2023 10:00 AM EDT Images from the original note were not included. 06/03/2023 Harsh Love (: 2005) is a 17 y.o. female , Established patient, here for evaluation of the following chief complaint(s): Procedure (Punch biopsy left thigh) and Eye Problem (L eye Swollen and painful thought it was a styused warm compress last night and it made it worse) ASSESSMENT/PLAN: 1. Neoplasm of uncertain behavior of skin of lower extremity - Tissue exam - Will notify of results. - Return in 10 days for suture removal. 2. Hordeolum internum of left lower eyelid - erythromycin (Romycin) 5 MG/GM ophthalmic ointment; Apply to left eye 3 times daily for 7 days., Starting 06/03/2023, Until Thu06/10/2023, Normal - Eye care/hygiene discussed. - Warm, moist compresses multiple times per day. - Discussed signs and symptoms warranting follow up in the office- verbalized understanding. Follow up in about 10 days (around 06/13/2023) for suture removal. SUBJECTIVE/OBJECTIVE: HPI Yovany House presents today for a punch biopsy of a skin lesion on her left inner thigh. States this is a recurring issue for her. States she area starts as a red spot that progresses to a scabbed irritated lesion that will drain. Has been on numerous antibiotics and it does not seem to help. Denies fevers. Also has concerns regarding swelling of her left lower eyelid that started a couple of days ago. Has applied a heating pad without much improvement. Denies eye pain or drainage. Denies known trauma to the area. Review of Systems Constitutional: Negative for chills and fever. Eyes: Negative for photophobia, pain and visual disturbance. Respiratory: Negative for shortness of breath. Cardiovascular: Negative for chest pain. Skin: Positive for color change. There were no vitals filed for this visit. There is no height or weight on file to calculate BMI. Physical Exam Constitutional: General: She is not in acute distress. Appearance: Normal appearance. She is not ill-appearing or diaphoretic. Eyes: General: Left eye: Hordeolum present.No foreign body or discharge. Extraocular Movements: Left eye: Normal extraocular motion and no nystagmus. Conjunctiva/sclera: Left eye: No exudate or hemorrhage. Pulmonary: Effort: Pulmonary effort is normal. Skin: Comments: Raised, circular scaling lesion noted on left inner thigh. Neurological: Mental Status: She is alert and oriented to person, place, and time. Psychiatric: Mood and Affect: Mood normal. Behavior: Behavior normal. Thought Content: Thought content normal. Judgment: Judgment normal. Punch Biopsy: Informed consent: Discussed the risks (permanent scarring, light or dark discoloration, infection, pain, bleeding, bruising, redness, blister formation, and recurrence of the lesion) and the benefitsof the procedure, as well as the alternatives. Informed consent was obtained. Anesthesia: 2% lidocaine with epinephrine- 5 mL The area was prepared and draped in a standard fashion. The skin was then stretched perpendicular to the skin tension lines and the lesion removed using a 3 mm punch. The resulting ellipse was then closed. The wound was closed with 4-0 ethilon using simple interrupted stitches. 1 stitch placed. Antibiotic ointment and a sterile dressing applied. The specimen was sent for pathologic examination. The patient tolerated the procedure well. The patient was instructed on post-op care. An electronic signature was used to authenticate this note. TERESA Kay CNP 06/03/2023 10:34 AM documented in this [facility]10-02-2023 History of Present illness Narrative* Delfina Suarez MA - 06/01/2023 3:20 PM EDT Patient verified by last name and date of . * TERESA Kay CNP - 06/01/2023 3:20 PM EDT Images from the original note were not included. 06/01/2023 Harsh Love (: 2005) is a 17 y.o. female , Established patient, here for evaluation of the following chief complaint(s): Skin Lesion (Has spots - have done cultures in the past and had couple atb and topical atb now has about 4-5 lesions ) and Immunizations (Menveo ) ASSESSMENT/PLAN: 1. Neoplasm of uncertain behavior of skin of lower extremity - Return for punch biopsy. 2. Need for meningococcus vaccine - Meningococcal ACWY-CRM (Menveo) 4-valent conjugate vaccine - VIS provided in AVS Follow up in 2 days (on 06/03/2023) for punch biopsy left inner thigh- 10 AM slot please. SUBJECTIVE/OBJECTIVE: HPI - Has issues with recurrent sores on her legs. States she area starts as a red spot that progresses to a scabbed irritated lesion that will drain. Has been on numerous antibiotics and it does notseem to help. Denies fevers. Health Maintenance: Would like her second meningococcal vaccination today. First dose was 04/16/18 and tolerated well. Declines a flu vaccination. Review of Systems Constitutional: Negative for chills and fever. Respiratory: Negative for chest tightness and shortness of breath. Cardiovascular: Negative for chest pain. Skin: Positive for color change. Vitals: 06/01/23 1526 BP: 100/70 Pulse: (!) 95 SpO2: 98% Weight: 147 lb 9.6 oz (67 kg) Height: 5' 7 (1.702 m) Body mass index is 23.12 kg/m . Physical Exam Constitutional: General: She is not in acute distress. Appearance: She is not ill-appearing or diaphoretic. Cardiovascular: Rate and Rhythm: Normal rate and regular rhythm. Heart sounds: Normal heart sounds. No murmur heard. No friction rub. Pulmonary: Effort: Pulmonary effort is normal. Skin: General: Skin is warm and dry. Comments: Raised, circular scaling lesion noted on left inner thigh. Neurological: Mental Status: She is alert and oriented to person, place, and time. Psychiatric: Mood and Affect: Mood normal. Behavior: Behavior normal. Thought Content: Thought content normal. Judgment: Judgment normal. An electronic signature was used to authenticate this note. TERESA Kay CNP 06/01/2023 4:27 PM * Vannesa Lim MA - 06/01/2023 3:20 PM EDT After obtaining consent, and per orders of Minerva Garcia CNP, injection of Menveo given in left deltoid by Vannesa Lim. Patient instructed to report any adverse reaction immediately. documented in this [facility]09-20-2023 Evaluation + Plan note* Assessment & Plan Note - TERESA Mejia CNP - 05/20/2023 12:21 PM EDTAssociated Problem(s): Skin lesion 2 separate lesions noted. Mild erythema. Possibly insect bites. Local inflammation. Non tender. Notlikely r/t other symptoms. Continue to monitor. Ok to put topical antibiotic on it or anti-itch cream. Follow up for worsening or failure for resolution. Does not appear to be recurrent staph infection. [id number] Miscellaneous Notes* Assessment & Plan Note - TERESA Mejia CNP - 05/20/2023 12:21 PM EDTAssociated Problem(s): Skin lesion 2 separate lesions noted. Mild erythema. Possibly insect bites. Local inflammation. Non tender. Notlikely r/t other symptoms. Continue to monitor. Ok to put topical antibiotic on it or anti-itch cream. Follow up for worsening or failure for resolution. Does not appear to be recurrent staph infection. * Assessment & Plan Note - TERESA Mejia CNP - 05/20/2023 12:20 PM EDTAssociated Problem(s): Sore throat Negative strep. Most likely viral. Vs stable. Non toxic appearing. documented in this [facility]09-20-2023 Miscellaneous Notes* Assessment & Plan Note - TERESA Mejia CNP - 05/20/2023 12:21 PM EDTAssociated Problem(s): Skin lesion 2 separate lesions noted. Mild erythema. Possibly insect bites. Local inflammation. Non tender. Notlikely r/t other symptoms. Continue to monitor. Ok to put topical antibiotic on it or anti-itch cream. Follow up for worsening or failure for resolution. Does not appear to be recurrent staph infection. * Assessment & Plan Note - TERESA Mejia CNP - 05/20/2023 12:20 PM EDTAssociated Problem(s): Sore throat Negative strep. Most likely viral. Vs stable. Non toxic appearing. * Addendum Note - TERESA Mejia CNP - 05/20/2023 10:40 AM EDT Addended by: INGA NOBLES on: 05/22/2023 06:46 AM Modules accepted: Level of Service documented in this [facility]09-20-2023 Evaluation + Plan note* Assessment & Plan Note - TERESA Mejia CNP - 05/20/2023 12:20 PM EDTAssociated Problem(s): Sore throat Negative strep. Most likely viral. Vs stable. Non toxic appearing. [id number] History of Present illness Narrative* Sada Rodriguez - 05/20/2023 10:40 AM EDT Patient was identified by name and Date of . POC strep test completed. Results entered and given to provider. * TERESA Mejia CNP - 05/20/2023 10:40 AM EDT Images from the original note were not included. 05/20/2023 Harsh Love (: 2005) is a 17 y.o. female , Established patient, here for evaluation of the following chief complaint(s): Sore Throat (Started on thursday), MRSA, Night Sweats (/), Fatigue (/), Generalized Body Aches, and Headache ASSESSMENT/PLAN: 1. Sore throat Assessment & Plan: Negative strep. Most likely viral. Vs stable. Non toxic appearing. Orders: - AMB POC RAPID STREP A 2. Skin lesion Assessment & Plan: 2 separate lesions noted. Mild erythema. Possibly insect bites. Local inflammation. Non tender. Notlikely r/t other symptoms. Continue to monitor. Ok to put topical antibiotic on it or anti-itch cream. Follow up for worsening or failure for resolution. Does not appear to be recurrent staph infection. Reviewed and provided written patient education/instructions regarding diagnosis and management. Reviewed symptom management with non-pharmacological interventions and appropriate use of otc medications for relief of symptoms. Follow up for worsening or no improvement in symptoms. Follow up if symptoms worsen or fail to improve. SUBJECTIVE/OBJECTIVE: FLAVIO - Harsh Love (: 2005) is a 17 y.o. female , Established patient, here for the evaluation of the following chief complaint(s): Sore Throat (Started on thursday), MRSA, Night Sweats (/), Fatigue (/), Generalized Body Aches, and Headache Presents with mom. Covid 19 negative this am at home. Sore throat, body aches, sweats, headache. No fever but feels hot. Some mild stomach pain. Slight nausea, no vomiting. Took ibuprofen yesterday. Acetaminophen this morning at 1am. Missed school this morning. Noticed 2 areas on buttocks that might be bug bites from being at a concert at [employer] over the weekend. Itchy. Hx of staph infection so was worried it might be that. No other areas. Itch, no pain, non tender to touch. No drainage. Hasn't done anything for it. Thinks she may still have a vaginal yeast infection, slight itchiness. Reports doing 2 days of 3 ofover the counter monistat treatment. States she will try the monistat again and follow up with us if not resolving. Prior to Admission medications Medication Sig Start Date End Date Taking? Authorizing Provider acetaminophen (Tylenol) 325 MG tablet TAKE 2 TABLETS BY MOUTH EVERY 6 HOURS NEEDED FOR PAIN (mild pain) for up to 5 (FIVE) days 08/12/22 Yes Historical Provider, ibuprofen 200 MG tablet TAKE 2 TABLETS BY MOUTH EVERY 6 HOURS NEEDED for moderate pain for up to5 (FIVE) days. take with meals 08/12/22 Yes Historical Provider, MAGNESIUM PO Take by mouth. Yes Historical Provider, Review of Systems Constitutional: Positive for appetite change, fatigue and fever. Negative for activity change and chills. HENT: Positive for congestion and sore throat. Negative for postnasal drip, rhinorrhea, sinus pressure and sinus pain. Respiratory: Negative for cough, chest tightness, shortness of breath and wheezing. Cardiovascular: Negative for chest pain. Gastrointestinal: Positive for abdominal pain (mild generalized.) and nausea. Negative for constipation, diarrhea and vomiting. Genitourinary: Positive for vaginal discharge (slight itchy. - had yeast infection). Negative for difficulty urinating. Musculoskeletal: Negative for neck stiffness. Vitals: 05/20/23 1040 BP: 86/54 Pulse: (!) 93 Resp: 18 Temp: 37.2 C (98.9 F) TempSrc: Oral SpO2: 97% Weight: 143 lb 3.2 oz (65 kg) Physical Exam Constitutional: Appearance: Normal appearance. She is not ill-appearing. HENT: Head: Normocephalic and atraumatic. Right Ear: Tympanic membrane normal. Left Ear: Tympanic membrane normal. Nose: No congestion or rhinorrhea. Mouth/Throat: Mouth: Mucous membranes are moist. Pharynx: Oropharynx is clear. Posterior oropharyngeal erythema present. Eyes: Conjunctiva/sclera: Conjunctivae normal. Cardiovascular: Rate and Rhythm: Normal rate and regular rhythm. Pulses: Normal pulses. Heart sounds: Normal heart sounds. Pulmonary: Effort: Pulmonary effort is normal. Breath sounds: Normal breath sounds. Abdominal: General: Bowel sounds are normal. Tenderness: There is no abdominal tenderness. Musculoskeletal: Right lower leg: No edema. Left lower leg: No edema. Lymphadenopathy: Cervical: Cervical adenopathy present. Skin: General: Skin is warm and dry. Comments: Left buttock apprx 1.5 x 1.5 cm area of erythema, dryness. No drainage. Non tender, no induration. Noted smaller similar lesion on the right buttock. Neurological: Mental Status: She is alert. An electronic signature was used to authenticate this note. TERESA Mejia CNP 05/20/2023 12:28 PM documented in this [facility]09-20-2023 History of Present illness Narrative* Sada Rodriguez - 05/20/2023 10:40 AM EDT Patient was identified by name and Date of . POC strep test completed. Results entered and given to provider. * TERESA Mejia CNP - 05/20/2023 10:40 AM EDT Images from the original note were not included. 05/20/2023 Harsh Love (: 2005) is a 17 y.o. female , Established patient, here for evaluation of the following chief complaint(s): Sore Throat (Started on thursday), MRSA, Night Sweats (/), Fatigue (/), Generalized Body Aches, and Headache ASSESSMENT/PLAN: 1. Sore throat Assessment & Plan: Negative strep. Most likely viral. Vs stable. Non toxic appearing. Orders: - AMB POC RAPID STREP A 2. Skin lesion Assessment & Plan: 2 separate lesions noted. Mild erythema. Possibly insect bites. Local inflammation. Non tender. Notlikely r/t other symptoms. Continue to monitor. Ok to put topical antibiotic on it or anti-itch cream. Follow up for worsening or failure for resolution. Does not appear to be recurrent staph infection. Reviewed and provided written patient education/instructions regarding diagnosis and management. Reviewed symptom management with non-pharmacological interventions and appropriate use of otc medications for relief of symptoms. Follow up for worsening or no improvement in symptoms. Follow up if symptoms worsen or fail to improve. SUBJECTIVE/OBJECTIVE: HPI - Harsh Love (: 2005) is a 17 y.o. female , Established patient, here for the evaluation of the following chief complaint(s): Sore Throat (Started on thursday), MRSA, Night Sweats (/), Fatigue (/), Generalized Body Aches, and Headache Presents with mom. Covid 19 negative this am at home. Sore throat, body aches, sweats, headache. No fever but feels hot. Some mild stomach pain. Slight nausea, no vomiting. Took ibuprofen yesterday. Acetaminophen this morning at 1am. Missed school this morning. Noticed 2 areas on buttocks that might be bug bites from being at a concert at [employer] over the weekend. Itchy. Hx of staph infection so was worried it might be that. No other areas. Itch, no pain, non tender to touch. No drainage. Hasn't done anything for it. Thinks she may still have a vaginal yeast infection, slight itchiness. Reports doing 2 days of 3 ofover the counter monistat treatment. States she will try the monistat again and follow up with us if not resolving. Prior to Admission medications Medication Sig Start Date End Date Taking? Authorizing Provider acetaminophen (Tylenol) 325 MG tablet TAKE 2 TABLETS BY MOUTH EVERY 6 HOURS NEEDED FOR PAIN (mild pain) for up to 5 (FIVE) days 08/12/22 Yes Historical Provider, ibuprofen 200 MG tablet TAKE 2 TABLETS BY MOUTH EVERY 6 HOURS NEEDED for moderate pain for up to5 (FIVE) days. take with meals 08/12/22 Yes Historical Provider, MAGNESIUM PO Take by mouth. Yes Historical Provider, Review of Systems Constitutional: Positive for appetite change, fatigue and fever. Negative for activity change and chills. HENT: Positive for congestion and sore throat. Negative for postnasal drip, rhinorrhea, sinus pressure and sinus pain. Respiratory: Negative for cough, chest tightness, shortness of breath and wheezing. Cardiovascular: Negative for chest pain. Gastrointestinal: Positive for abdominal pain (mild generalized.) and nausea. Negative for constipation, diarrhea and vomiting. Genitourinary: Positive for vaginal discharge (slight itchy. - had yeast infection). Negative for difficulty urinating. Musculoskeletal: Negative for neck stiffness. Vitals: 05/20/23 1040 BP: 86/54 Pulse: (!) 93 Resp: 18 Temp: 37.2 C (98.9 F) TempSrc: Oral SpO2: 97% Weight: 143 lb 3.2 oz (65 kg) Physical Exam Constitutional: Appearance: Normal appearance. She is not ill-appearing. HENT: Head: Normocephalic and atraumatic. Right Ear: Tympanic membrane normal. Left Ear: Tympanic membrane normal. Nose: No congestion or rhinorrhea. Mouth/Throat: Mouth: Mucous membranes are moist. Pharynx: Oropharynx is clear. Posterior oropharyngeal erythema present. Eyes: Conjunctiva/sclera: Conjunctivae normal. Cardiovascular: Rate and Rhythm: Normal rate and regular rhythm. Pulses: Normal pulses. Heart sounds: Normal heart sounds. Pulmonary: Effort: Pulmonary effort is normal. Breath sounds: Normal breath sounds. Abdominal: General: Bowel sounds are normal. Tenderness: There is no abdominal tenderness. Musculoskeletal: Right lower leg: No edema. Left lower leg: No edema. Lymphadenopathy: Cervical: Cervical adenopathy present. Skin: General: Skin is warm and dry. Comments: Left buttock apprx 1.5 x 1.5 cm area of erythema, dryness. No drainage. Non tender, no induration. Noted smaller similar lesion on the right buttock. Neurological: Mental Status: She is alert. An electronic signature was used to authenticate this note. TERESA Mejia CNP 05/20/2023 12:28 PM documented in this [facility]09-20-2023 Instructions* Patient Instructions* TERESA Mejia CNP - 05/20/2023 10:40 AM EDT Apply topical antibiotic to areas on the buttocks. Monitor closely for any worsening symptoms or signs that it is staph infection again. * Attachments The following attachments cannot be sent through Care Everywhere. * Sore Throat Discharge Instructions, Child (Filipino) documented in this [facility]09-20-2023 Instructions* Patient Instructions* TERESA Mejia CNP - 05/20/2023 10:40 AM EDT Apply topical antibiotic to areas on the buttocks. Monitor closely for any worsening symptoms or signs that it is staph infection again. * Attachments The following attachments cannot be sent through Care Everywhere. * Sore Throat Discharge Instructions, Child (Filipino) documented in this [facility]09-20-2023 Note* Addendum Note - TERESA Mejia CNP - 05/20/2023 10:40 AM EDTAddended by: INGA NOBLES on: 05/22/2023 06:46 AM Modules accepted: Level of Service [id number] Telephone encounter Note* Telephone Encounter - TERESA Mejia CNP - 05/20/2023 10:35 AM EDT Noted. Agree with disposition. [id number] Miscellaneous Notes* Telephone Encounter - TERESA Mejia CNP - 05/20/2023 10:35 AM EDT Noted. Agree with disposition. * Telephone Encounter - Saranya Beck RN - 05/20/2023 9:24 AM EDT S: Patient called the clinical access center with complaint of sore throat and spots on her body (did have a previous Staph infection). B: Ongoing off and on the past few days. OV 04/28/23 for staph infection. A: Patient c/o Was in for staph infection was treated with antibiotics. Red spots have come back toher legs. Sore throat 04/09, red spots on her throat. Was sweating last night. No fever. Covid test negative. Able to drink and eat. R: Appointment scheduled 05/20/23 at 1040 with Jeanine Nobles . Insurance verified. Instructed to bring medications to OV and wear a mask. Home Care advice given. Patient instructed to call back with worsening symptoms, concerns or questions. Patient verbalized understanding. Message to the office for review by the provider and needs recommendation from Provider for treatment going forward. Reason for Disposition Sore throat pain is SEVERE and not improved after 2 hours of pain medicine Protocols used: Sore [id number] documented in this encounterSThe [facility] [id number] Telephone encounter Note* Telephone Encounter - Saranya Beck RN - 05/20/2023 9:24 AM EDT S: Patient called the clinical access center with complaint of sore throat and spots on her body (did have a previous Staph infection). B: Ongoing off and on the past few days. OV 04/28/23 for staph infection. A: Patient c/o Was in for staph infection was treated with antibiotics. Red spots have come back toher legs. Sore throat 04/09, red spots on her throat. Was sweating last night. No fever. Covid test negative. Able to drink and eat. R: Appointment scheduled 05/20/23 at 1040 with Jeanine Nobles . Insurance verified. Instructed to bring medications to OV and wear a mask. Home Care advice given. Patient instructed to call back with worsening symptoms, concerns or questions. Patient verbalized understanding. Message to the office for review by the provider and needs recommendation from Provider for treatment going forward. Reason for Disposition Sore throat pain is SEVERE and not improved after 2 hours of pain medicine Protocols used: Sore [id number] [facility] [id number] Evaluation + Plan note* Assessment & Plan Note - TERESA Mejia CNP - 04/28/2023 4:54 PM EDTAssociated Problem(s): Skin infection Improving. Continue doxycyline. Follow up if symptoms worsen or fail to resolve. [id number] Miscellaneous Notes* Assessment & Plan Note - TERESA Mejia CNP - 04/28/2023 4:54 PM EDTAssociated Problem(s): Skin infection Improving. Continue doxycyline. Follow up if symptoms worsen or fail to resolve. documented in this encounterSThe MetroHealth [id number] History of Present illness Narrative* TERESA Mejia CNP - 04/28/2023 3:20 PM EDT Images from the original note were not included. 04/28/2023 Harsh Love (: 2005) is a 17 y.o. female , Established patient, here for evaluation of the following chief complaint(s): Wound Check (1 week f/u) ASSESSMENT/PLAN: 1. Skin infection Assessment & Plan: Improving. Continue doxycyline. Follow up if symptoms worsen or fail to resolve. Follow up if symptoms worsen or fail to improve. SUBJECTIVE/OBJECTIVE: FLAVIO Love (: 2005) is a 17 y.o. female , Established patient, here for the evaluation of the following chief complaint(s): Wound Check (1 week f/u) Presents with mom. Started on doxycycline for staph infection over legs bilaterally. Culture not MRSA, however resistant to clindamycin. Reports lesions are dried, no new areas have developed. No fever or chills. Feelsfine otherwise. Prior to Admission medications Medication Sig Start Date End Date Taking? Authorizing Provider acetaminophen (Tylenol) 325 MG tablet TAKE 2 TABLETS BY MOUTH EVERY 6 HOURS NEEDED FOR PAIN (mild pain) for up to 5 (FIVE) days 08/12/22 Yes Historical Provider, doxycycline (Vibramycin) 100 MG capsule Take 1 capsule (100 mg) by mouth 2 times daily for 14 days.Take with at least 8 ounces (large glass) of water, do not lie down for 30 minutes after 04/21/23 05/05/23 Yes TERESA Mejia CNP ibuprofen 200 MG tablet TAKE 2 TABLETS BY MOUTH EVERY 6 HOURS NEEDED for moderate pain for up to5 (FIVE) days. take with meals 08/12/22 Yes Historical Provider, MAGNESIUM PO Take by mouth. Yes Historical Provider, Review of Systems Constitutional: Negative for activity change, diaphoresis, fatigue and fever. Respiratory: Negative. Cardiovascular: Negative. Skin: Positive for wound (healing over legs bilaterally). Vitals: 04/28/23 1514 BP: 106/69 Pulse: 88 Temp: 36.5 C (97.7 F) TempSrc: Oral SpO2: 99% Weight: 146 lb (66.2 kg) Height: 5' 7 (1.702 m) Physical Exam Constitutional: General: She is not in acute distress. Appearance: Normal appearance. She is not ill-appearing. HENT: Head: Normocephalic and atraumatic. Pulmonary: Effort: Pulmonary effort is normal. Skin: General: Skin is warm and dry. Comments: Healing lesions, dry, scattered over legs bilaterally. No new lesions noted. Mostly over posterior thighs. 2 dry lesions healing noted over bilateral forearms Neurological: Mental Status: She is alert and oriented to person, place, and time. An electronic signature was used to authenticate this note. TERESA Mejia CNP 04/28/2023 4:55 PM documented in this [place] [id number] Instructions* Patient Instructions* TERESA Mejia CNP - 04/28/2023 3:20 PM EDT Complete antibiotic therapy. documented in this [facility]08-25-2023 Telephone encounter Note* Telephone Encounter - TERESA Mejia CNP - 04/24/2023 1:20 PM EDT Noted. Continue antibiotics. Await culture results [facility] [id number] Miscellaneous Notes* Telephone Encounter - TERESA Mejia CNP - 04/24/2023 1:20 PM EDT Noted. Continue antibiotics. Await culture results * Telephone Encounter - Kristin Sanchez RN - 04/24/2023 12:43 PM EDT S: Patient spoke with [facility] nurse regarding call from the office regarding culture results B: TERE 04/21/23 culture taking at visit. 04/28/23 Culture showing Gram stain showed No polymorphonuclear leukocytes seen Many Gram positive cocci in clusters Rare Gram positive bacilli A: Mother states that she is still getting pimple like patches on her legs. The open wounds that she had that were open, are starting to heal. Mother states that she feels run down. Denies fever. Shestates that she is tolerating the Doxycycline without to much GI upset. R: Please reach out to patient's mother if needed. Patient's mother understands care advice. No further needs at this time. Patient instructed to callback with new or worsening symptoms. Reason for Disposition Caller has nonurgent medication question about med that PCP prescribed and triager unable to answerquestion Protocols used: Medication Question [id number] documented in this encounterSThe Metro[facility] [id number] Telephone encounter Note* Telephone Encounter - Kristin Sanchez RN - 04/24/2023 12:43 PM EDT S: Patient spoke with [facility] nurse regarding call from the office regarding culture results B: 04/21/23 culture taking at visit. 04/28/23 Culture showing Gram stain showed No polymorphonuclear leukocytes seen Many Gram positive cocci in clusters Rare Gram positive bacilli A: Mother states that she is still getting pimple like patches on her legs. The open wounds that she had that were open, are starting to heal. Mother states that she feels run down. Denies fever. Shestates that she is tolerating the Doxycycline without to much GI upset. R: Please reach out to patient's mother if needed. Patient's mother understands care advice. No further needs at this time. Patient instructed to callback with new or worsening symptoms. Reason for Disposition Caller has nonurgent medication question about med that PCP prescribed and triager unable to answerquestion Protocols used: Medication Question [id number] [facility] [id number] Evaluation + Plan note* Assessment & Plan Note - TERESA Mejia CNP - 04/21/2023 5:00 PM EDTAssociated Problem(s): Skin infection Obtained culture. Will treat for suspected MRSA. Start doxycycline 100 mg twice daily x 14 days. Follow up in 1 week, sooner for worsening symptoms [facility] [id number] Miscellaneous Notes* Assessment & Plan Note - TERESA Mejia CNP - 04/21/2023 5:00 PM EDTAssociated Problem(s): Skin infection Obtained culture. Will treat for suspected MRSA. Start doxycycline 100 mg twice daily x 14 days. Follow up in 1 week, sooner for worsening symptoms documented in this [facility]08-22-2023 History of Present illness Narrative* TERESA Mejia CNP - 04/21/2023 3:40 PM EDT Images from the original note were not included. 04/21/2023 Harsh Love (: 2005) is a 17 y.o. female , Established patient, here for evaluation of the following chief complaint(s): Impetigo ([facility] urgent care f/up 04/01/23) ASSESSMENT/PLAN: 1. Skin infection Assessment & Plan: Obtained culture. Will treat for suspected MRSA. Start doxycycline 100 mg twice daily x 14 days. Follow up in 1 week, sooner for worsening symptoms Orders: - doxycycline (Vibramycin) 100 MG capsule; Take 1 capsule (100 mg) by mouth 2 times daily for 14 days. Take with at least 8 ounces (large glass) of water, do not lie down for 30 minutes after, Starting 04/21/2023, Until e 05/05/2023, Normal - Aerobic and Anaerobic Culture with Stain Follow up for Recheck. SUBJECTIVE/OBJECTIVE: HPI - Harsh Love (: 2005) is a 17 y.o. female , Established patient, here for the evaluation of the following chief complaint(s): Impetigo ([facility] urgent care f/up 04/01/23) Presents with mom. Reports completing round of antibiotics oral and topical. Keflex 4 times daily x7 days. Done on 04/09/2023. Seemed better and seemed to be resolving, however over the weekend developed additional lesions on the legs bilaterally. No fever or chills. No n/v/d. Does feel slightly fatigued. Mom states that daughter had several mrsa infections when she was younger. Prior to Admission medications Medication Sig Start Date End Date Taking? Authorizing Provider acetaminophen (Tylenol) 325 MG tablet TAKE 2 TABLETS BY MOUTH EVERY 6 HOURS NEEDED FOR PAIN (mild pain) for up to 5 (FIVE) days 08/12/22 Yes Historical Provider, ibuprofen 200 MG tablet TAKE 2 TABLETS BY MOUTH EVERY 6 HOURS NEEDED for moderate pain for up to5 (FIVE) days. take with meals 08/12/22 Yes Historical Provider, ascorbic acid (Vitamin C) 250 MG chewable tablet Chew 500 mg in the morning. Historical Provider, MAGNESIUM PO Take by mouth. Historical Provider, polyethylene glycol, PEG, 3350 (Glycolax) 17 GM/SCOOP powder Take 17 grams as directed by mouth daily for 90 days 10/08/22 Historical Provider, senna (Senokot) 8.6 MG tablet Take 1 tablet by mouth daily. 05/13/22 Historical Provider, VITAMIN D, CHOLECALCIFEROL, PO Take by mouth. Historical Provider, Wheat Dextrin (BENEFIBER PO) Take by mouth. Historical Provider, Review of Systems Constitutional: Positive for fatigue. Negative for activity change, appetite change, chills and fever. HENT: Negative. Respiratory: Negative. Cardiovascular: Negative. Gastrointestinal: Negative. Genitourinary: Negative. Skin: Positive for wound. Neurological: Negative. Vitals: 04/21/23 1531 BP: 106/66 Pulse: (!) 104 Temp: 37 C (98.6 F) TempSrc: Oral SpO2: 98% Weight: 143 lb (64.9 kg) Height: 5' 7 (1.702 m) Physical Exam Constitutional: General: She is not in acute distress. Appearance: Normal appearance. She is not ill-appearing. HENT: Head: Normocephalic and atraumatic. Pulmonary: Effort: Pulmonary effort is normal. Skin: General: Skin is warm and dry. Findings: Lesion and rash present. Comments: Lesions in various stages of healing on bilateral lower legs. Wound on right knee open and draining clear fluid. Pustular lesions on back of left leg. Surround erythema, no induration. Neurological: Mental Status: She is alert and oriented to person, place, and time. An electronic signature was used to authenticate this note. TERESA Mejia CNP 04/21/2023 5:05 PM documented in this [facility]04-21-2023 Procedure note* Op Note - Rahul Reid MD - 12/19/2022 11:58 AM EDT OPERATIVE REPORT NAME: Harsh Love UNIT#: [id number] [facility]#: [id number] DATE OF : 2005 DATE: 12/19/2022 SURGEON: RAHUL REID M.D. CARPENTRY SUPERVISOR: Mathieu PREOPERATIVE DIAGNOSIS: Right UPJ obstruction s/p lap pyeloplasty POSTOPERATIVE DIAGNOSIS: Same PROCEDURE: Cystoscopy with stent removal ANESTHESIA: General. ESTIMATED BLOOD LOSS: <1 mL. DRAINS: None. SPECIMENS: Urine for culture. COMPLICATIONS: None acutely. INDICATION: Harsh Love has an indwelling stent due to UPJ obstruction and presents todayfor removal. The risks and benefits of surgery were discussed with the family in clinic and reviewed on the day of surgery. They expressed understanding and elected to proceed. DESCRIPTION OF PROCEDURE: After informed consent had been obtained and the risks and benefits of the procedure explained to the patient's family, the patient was taken back to the operating room and placed in the supine position. After induction of anesthesia and administration of preoperative antibiotics, the patient was placed in the dorsolithotomy position. All extremities were appropriately padded. Timeout was undertaken identifying patient, procedure, site, and surgeon. We began by advancing the rigid cystoscope through the patient's urethra into the bladder. Urine was taken and sent for culture. The stent was identified emanating from the right ureteral orifice. Itwas grasped and removed intact. We replaced the scope into the bladder and performed a systematic evaluation. There was normal irritation from the stent but no other abnormality. We now drained urinefrom the bladder. The scope was removed. Lidocaine jelly was administered into the urethra. The patient was then returned to the supine position, awakened from anesthesia, and transferred to the recovery room once in stable condition. I was present and participated in the entire procedure and all instruments were accounted for at the conclusion of the case. DISPOSITION: The patient will be discharged home once stable from anesthesia and will follow-up in 1 month for a postoperative check and ultrasound. Rahul Reid M.D. [facility]04-21-2023 Miscellaneous Notes* Op Note - Rahul Reid MD - 12/19/2022 11:58 AM EDT OPERATIVE REPORT NAME: Harsh Love UNIT#: [id number] [facility]#: [id number] DATE OF : 2005 DATE: 12/19/2022 SURGEON: RAHUL REID M.D. CARPENTRY SUPERVISOR: Mathieu PREOPERATIVE DIAGNOSIS: Right UPJ obstruction s/p lap pyeloplasty POSTOPERATIVE DIAGNOSIS: Same PROCEDURE: Cystoscopy with stent removal ANESTHESIA: General. ESTIMATED BLOOD LOSS: <1 mL. DRAINS: None. SPECIMENS: Urine for culture. COMPLICATIONS: None acutely. INDICATION: Harsh Love has an indwelling stent due to UPJ obstruction and presents todayfor removal. The risks and benefits of surgery were discussed with the family in clinic and reviewed on the day of surgery. They expressed understanding and elected to proceed. DESCRIPTION OF PROCEDURE: After informed consent had been obtained and the risks and benefits of the procedure explained to the patient's family, the patient was taken back to the operating room and placed in the supine position. After induction of anesthesia and administration of preoperative antibiotics, the patient was placed in the dorsolithotomy position. All extremities were appropriately padded. Timeout was undertaken identifying patient, procedure, site, and surgeon. We began by advancing the rigid cystoscope through the patient's urethra into the bladder. Urine was taken and sent for culture. The stent was identified emanating from the right ureteral orifice. Itwas grasped and removed intact. We replaced the scope into the bladder and performed a systematic evaluation. There was normal irritation from the stent but no other abnormality. We now drained urinefrom the bladder. The scope was removed. Lidocaine jelly was administered into the urethra. The patient was then returned to the supine position, awakened from anesthesia, and transferred to the recovery room once in stable condition. I was present and participated in the entire procedure and all instruments were accounted for at the conclusion of the case. DISPOSITION: The patient will be discharged home once stable from anesthesia and will follow-up in 1 month for a postoperative check and ultrasound. Rahul Reid M.D. * Plan of Care - Brianne Gupta RN - 12/19/2022 10:58 AM EDT Problem: Anxiety, Patient/Family Goal: Effective coping Outcome: Ongoing Problem: Falls, Risk of Goal: Absence of falls Outcome: Ongoing Goal: Absence of physical injury Outcome: Ongoing Problem: Infection Risk, Surgical Site Goal: Absence of infection signs and symptoms Outcome: Ongoing Problem: Adverse Surgical Event, Risk of Goal: Absence of injury Outcome: Ongoing documented in this [facility]04-21-2023 Attending History and physical note* Rahul Reid MD - 12/19/2022 11:25 AM EDT Interval H&P No changes in health per patient. No fevers, cough, vomiting, rash. Last week was sick, but has been well this week. Regular rate and rhythm. Lungs clear to auscultation bilaterally. OR with Dr. Reid Right side marked Bryan Murdock MD Baseline burning since this stent was placed. No fever in last few days (family had virus last week). Surgery and risks reviewed. All questions answered. Mom, dad, and patient expressed understanding and wished to proceed. Rahul Reid MD Source Note - Tiffany Kinney APRN-ORACLE DBA - 12/16/2022 11:00 AM EDT PRE-OP CONSULTATION This is a telemedicine video visit requested by the patient/guardian that was performed with the patient's location at home and the provider's location at office. DATE OF SERVICE: 12/16/2022 BENCH ASSEMBLER OPERATOR PROVIDER: CHAYO Colbert SURGICAL DIAGNOSIS: Right Ureteropelvic junction (UPJ) obstruction Proposed surgery date: 12/19/2022 Proposed surgical procedure: CYSTOSCOPY WITH STENT REMOVAL Advice/opinion was requested by Rahul Reid MD for pre-surgical consultation. CHIEF COMPLAINT: stent removal HISTORY OF PRESENT ILLNESS: Harsh Love is a 17 y.o. 1 m.o. female who is being consulted via telehealth/video for perioperative evaluation. Harsh is being seen for Right Ureteropelvic junction (UPJ) obstruction. PMH significant for depression and anxiety. Zahira had UTI back in February 2022 and it did not resolve despite several rounds of antibiotics. She began seeing urology for workup, however by May she went septic. Stent placed in July 2022 that was removed in October 2022 and a new stent placed. Scheduled procedure is to remove stent that was placed in October. The history is provided by the patient and mother and a chart review for evaluation for surgical risk factors. She is otherwise healthy. MEDICAL/SURGICAL HISTORY: Past Medical History: Diagnosis Date Depression Hydronephrosis MRSA (methicillin resistant Staphylococcus aureus) Pyelonephritis Sepsis 05/10/2022 Past Surgical History: Procedure Laterality Date PYELOPLASTY Right 11/18/2022 LAPAROSCOPIC PYELOPLASTY performed by Rahul Reid MD at [facility] OR TONSILLECTOMY AND ADENOIDECTOMY URETER STENT PLACEMENT Right 08/12/2022 CYSTOSCOPY WITH RIGHT STENT INSERTION performed by Rahul Reid MD at [facility] OR Past hospitalizations: yes - October 2022 observation following surgery DRUG/FOOD ALLERGIES: No Known Allergies MEDICATIONS: Outpatient Encounter Medications as of 12/16/2022 Medication Sig Dispense Refill Wheat Dextrin (BENEFIBER PO) Take by mouth (Patient not taking: Reported on 12/16/2022) Acetaminophen (TYLENOL 8 HOUR PO) Take by mouth polyethylene glycol (GLYCOLAX) packet Take by mouth every other day (Patient not taking: Reported on 12/16/2022) No facility-administered encounter medications on file as of 12/16/2022. ANESTHESIA HISTORY: Difficulty with anesthesia? No Family history of difficulty with anesthesia? no Signs/symptoms of BRYAN? no BLEEDING HISTORY: History of bleeding issues in patient? no Bleeding problems in family? no History of anemia in patient? no Sickle Cell issues in patient or family? N/A REVIEW OF SYSTEMS: Comprehensive review of systems: History obtained from Mother and the patient. General ROS: negative Psychological ROS: positive for - anxiety and depression Allergy and Immunology ROS: positive for - seasonal allergies Respiratory ROS: no cough, shortness of breath, or wheezing Cardiovascular ROS: no chest pain or dyspnea on exertion Urinary ROS: positive for - dysuria and urinary frequency/urgency Neurological ROS: negative for - seizures A complete ROS was performed. Pertinent positives have been documented above or are in the HPI. Allother systems were negative. Recent Illnesses? Yes, GI virus last week that has resolved HISTORY: Noncontributory DEVELOPMENTAL HISTORY: Milestones: All met as expected IMMUNIZATIONS: Stated as up to date SOCIAL/FAMILY HISTORY: Harsh lives with parents and one brother Special Needs: None Preferred Language: Filipino School: 11 Smoking/Alcohol/Drug Use or Exposure: None Family History Problem Relation Age of Onset Fibromyalgia Mother No known problems Father Bleeding Problem Maternal Grandmother h/o stroke - afib related Anesth Problems Neg Hx VITAL SIGNS: Temp and weight obtained via home equipment/family during this Telehealth visit. Completed set of vital signs to be completed on the day of this procedure. Vitals: 12/16/22 1116 Temp: 36.1 C (97 F) Ht Readings from Last 1 Encounters: 11/18/22 169.2 cm (83 %, Z= 0.97)* * Growth percentiles are based on CDC (Girls, 2-20 Years) data. Wt Readings from Last 1 Encounters: 12/16/22 67.5 kg (85 %, Z= 1.04)* * Growth percentiles are based on CDC (Girls, 2-20 Years) data. No height and weight on file for this encounter. SpO2 Readings from Last 3 Encounters: 11/19/22 99% 08/12/22 98% 05/12/22 99% PHYSICAL EXAM: Focused provider physical to be completed on the day of this procedure General: Patient appears healthy, well developed, well nourished, in no acute distress Head: atraumatic Neuro: alert, oriented appropriately for age Eyes: sclera and conjunctiva clear Ears: External ears WNL Nose: No drainage noted Dentition: intact Throat: oropharynx is poorly visualized, mucous membranes are pink and moist Neck: there is full range of motion Chest: Respirations appear easy, no signs of distress Cardiac: deferred Abdomen: deferred Back: deferred : deferred Skin: pink Lymphatic: not examined Musculoskeletal: Moves all extremities DIAGNOSTIC STUDIES REVIEWED: The following lab results have been ordered/reviewed. HCG DOS Calcium Date Value Ref Range Status 11/19/2022 8.9 7.6 - 11.0 mg/dL Final Carbon Dioxide Date Value Ref Range Status 11/19/2022 20.2 (L) 22.0 - 29.0 mmol/L Final Chloride Date Value Ref Range Status 11/19/2022 106 96 - 108 mmol/L Final Creatinine Date Value Ref Range Status 11/19/2022 0.59 0.50 - 1.00 mg/dL Final Glucose Date Value Ref Range Status 11/19/2022 122 (H) 70 - 99 mg/dL Final Comment: Criteria for Diagnosis of Diabetes: Fasting Specimen (no caloric intake for at least 8 hours): <100 mg/dL Normal 100-125 mg/dL Increased risk for Diabetes >125 mg/dL Diagnostic for Diabetes Random Glucose (any time of day without regard to last meal): > or = 200 mg/dL plus Classic Symptoms of Diabetes Potassium Date Value Ref Range Status 11/19/2022 3.7 3.3 - 5.1 mmol/L Final Sodium Date Value Ref Range Status 11/19/2022 137 133 - 145 mmol/L Final BUN Date Value Ref Range Status 11/19/2022 6 4 - 19 mg/dL Final RBC Date Value Ref Range Status 05/10/2022 4.43 4.10 - 4.80 10E12/L Final RDW Date Value Ref Range Status 05/10/2022 12.4 0.0 - 14.4 % Final WBC Date Value Ref Range Status 05/10/2022 16.0 (H) 4.5 - 13.0 10E9/L Final Hematocrit Date Value Ref Range Status 05/10/2022 36.7 (L) 37.0 - 46.0 % Final Hemoglobin Date Value Ref Range Status 11/19/2022 12.7 12.0 - 15.0 g/dl Final MCH Date Value Ref Range Status 05/10/2022 29.3 25.0 - 35.0 pg Final MCHC Date Value Ref Range Status 05/10/2022 35.4 31.0 - 37.0 % Final MCV Date Value Ref Range Status 05/10/2022 82.8 78.0 - 96.0 fl Final MPV Date Value Ref Range Status 05/10/2022 9.0 fl Final Comment: MPV is platelet range and age dependent % Eosinophils Date Value Ref Range Status 06/08/2019 1.80 0.00 - 3.00 % Final Lymphocytes Date Value Ref Range Status 05/10/2022 7 (L) 25 - 45 % Final % Monocytes Date Value Ref Range Status 05/10/2022 12 (H) 3 - 6 % Final % Neutrophils Date Value Ref Range Status 06/08/2019 49.4 34.0 - 64.0 % Final Neutrophil # Date Value Ref Range Status 06/08/2019 2.7 10E3/uL Final Hemoglobin Date Value Ref Range Status 11/19/2022 12.7 12.0 - 15.0 g/dl Final No results found for: APTT, INR TSH Date Value Ref Range Status 06/08/2019 1.069 0.350 - 5.500 uIU/mL Final HCG,Urine Date Value Ref Range Status 06/08/2019 Negative mIU/mL Final Comment: Non females and males-Negative females-Positive No results found for: HCGSERUM ASSESSMENT: Patient Active Problem List Diagnosis Mental disorder Major depressive disorder, single episode, severe without psychosis Anxiety state Moderate episode of recurrent major depressive disorder Ureteropelvic junction (UPJ) obstruction, right Hydronephrosis Infrequent urination Right flank pain Obstruction of right ureteropelvic junction (UPJ) Harsh Love is a 17 y.o. 1 m.o. female with Right Ureteropelvic junction (UPJ) obstruction. [facility] physical examination limited due to telehealth via video encounter. Pertinent and/or unperformed aspects of physical exam due to these limitations will be performed and/or addended by attending provider/anesthesia on day of surgery. Family instructed to contact the surgery center/PSH if any changes occur since this evaluation. PLAN: Surgery as scheduled Pain management team Patient/family education Nutritional management Hemodynamic monitoring Respiratory monitoring -HCG DOS. No other labs required prior to surgery. -Educated family that if patient develops viral illness, fever, requires unexpected breathing treatments or antibiotics or any other changes prior to surgery to notify the surgery center. -Educated family to stop all herbals/multivitamins/ibuprofen products at least 3 days prior to surgery. -Remove all piercings and nail swedish/acrylics on the day of surgery -Pre-operative acetaminophen ordered- Educated on benefits of pre-op analgesia and agree with administration. Please verify dose with anesthesia prior to administration. To be given upon arrival and after vital signs have been obtained -Patient and her mom do not express anxiety or concern regarding procedure and anesthesia. -Directed mom to [facility] web site to watch video on preparing for surgery. Care coordination: Moiz Gordon MD PCP OTHER FINDINGS OR COMMENTS: Cc: MD Tiffany Ruiz APRN-CNP 12/16/2022 2:02 PM This visit was conducted via telehealth. I spent 40 minutes with patient/family and performing chart review for this consult. Counseling and/or coordination of care was greater than 50% of the total time spent on the encounter. [facility]04-21-2023 History and physical note* Rahul Reid MD - 12/19/2022 11:25 AM EDT Interval H&P No changes in health per patient. No fevers, cough, vomiting, rash. Last week was sick, but has been well this week. Regular rate and rhythm. Lungs clear to auscultation bilaterally. OR with Dr. Reid Right side marked Bryan Murdock MD Baseline burning since this stent was placed. No fever in last few days (family had virus last week). Surgery and risks reviewed. All questions answered. Mom, dad, and patient expressed understanding and wished to proceed. Rahul Reid MD Source Note - Tiffany Kinney APRN-CNP - 12/16/2022 11:00 AM EDT PRE-OP CONSULTATION This is a telemedicine video visit requested by the patient/guardian that was performed with the patient's location at home and the provider's location at office. DATE OF SERVICE: 12/16/2022 BENCH ASSEMBLER OPERATOR PROVIDER: Tiffany Kinney APRN-ADITHYA SURGICAL DIAGNOSIS: Right Ureteropelvic junction (UPJ) obstruction Proposed surgery date: 12/19/2022 Proposed surgical procedure: CYSTOSCOPY WITH STENT REMOVAL Advice/opinion was requested by Rahul Reid MD for pre-surgical consultation. CHIEF COMPLAINT: stent removal HISTORY OF PRESENT ILLNESS: Harsh Love is a 17 y.o. 1 m.o. female who is being consulted via telehealth/video for perioperative evaluation. Harsh is being seen for Right Ureteropelvic junction (UPJ) obstruction. PMH significant for depression and anxiety. Zahira had UTI back in February 2022 and it did not resolve despite several rounds of antibiotics. She began seeing urology for workup, however by May she went septic. Stent placed in July 2022 that was removed in October 2022 and a new stent placed. Scheduled procedure is to remove stent that was placed in October. The history is provided by the patient and mother and a chart review for evaluation for surgical risk factors. She is otherwise healthy. MEDICAL/SURGICAL HISTORY: Past Medical History: Diagnosis Date Depression Hydronephrosis MRSA (methicillin resistant Staphylococcus aureus) Pyelonephritis Sepsis 05/10/2022 Past Surgical History: Procedure Laterality Date PYELOPLASTY Right 11/18/2022 LAPAROSCOPIC PYELOPLASTY performed by Rahul Reid MD at [facility] OR TONSILLECTOMY AND ADENOIDECTOMY URETER STENT PLACEMENT Right 08/12/2022 CYSTOSCOPY WITH RIGHT STENT INSERTION performed by Rahul Reid MD at [facility] OR Past hospitalizations: yes - October 2022 observation following surgery DRUG/FOOD ALLERGIES: No Known Allergies MEDICATIONS: Outpatient Encounter Medications as of 12/16/2022 Medication Sig Dispense Refill Wheat Dextrin (BENEFIBER PO) Take by mouth (Patient not taking: Reported on 12/16/2022) Acetaminophen (TYLENOL 8 HOUR PO) Take by mouth polyethylene glycol (GLYCOLAX) packet Take by mouth every other day (Patient not taking: Reported on 12/16/2022) No facility-administered encounter medications on file as of 12/16/2022. ANESTHESIA HISTORY: Difficulty with anesthesia? No Family history of difficulty with anesthesia? no Signs/symptoms of BRYAN? no BLEEDING HISTORY: History of bleeding issues in patient? no Bleeding problems in family? no History of anemia in patient? no Sickle Cell issues in patient or family? N/A REVIEW OF SYSTEMS: Comprehensive review of systems: History obtained from Mother and the patient. General ROS: negative Psychological ROS: positive for - anxiety and depression Allergy and Immunology ROS: positive for - seasonal allergies Respiratory ROS: no cough, shortness of breath, or wheezing Cardiovascular ROS: no chest pain or dyspnea on exertion Urinary ROS: positive for - dysuria and urinary frequency/urgency Neurological ROS: negative for - seizures A complete ROS was performed. Pertinent positives have been documented above or are in the HPI. Allother systems were negative. Recent Illnesses? Yes, GI virus last week that has resolved HISTORY: Noncontributory DEVELOPMENTAL HISTORY: Milestones: All met as expected IMMUNIZATIONS: Stated as up to date SOCIAL/FAMILY HISTORY: Harsh lives with parents and one brother Special Needs: None Preferred Language: Filipino School: Smoking/Alcohol/Drug Use or Exposure: None Family History Problem Relation Age of Onset Fibromyalgia Mother No known problems Father Bleeding Problem Maternal Grandmother h/o stroke - afib related Anesth Problems Neg Hx VITAL SIGNS: Temp and weight obtained via home equipment/family during this Telehealth visit. Completed set of vital signs to be completed on the day of this procedure. Vitals: 12/16/22 1116 Temp: 36.1 C (97 F) Ht Readings from Last 1 Encounters: 11/18/22 169.2 cm (83 %, Z= 0.97)* * Growth percentiles are based on CDC (Girls, 2-20 Years) data. Wt Readings from Last 1 Encounters: 12/16/22 67.5 kg (85 %, Z= 1.04)* * Growth percentiles are based on CDC (Girls, 2-20 Years) data. No height and weight on file for this encounter. SpO2 Readings from Last 3 Encounters: 11/19/22 99% 08/12/22 98% 05/12/22 99% PHYSICAL EXAM: Focused provider physical to be completed on the day of this procedure General: Patient appears healthy, well developed, well nourished, in no acute distress Head: atraumatic Neuro: alert, oriented appropriately for age Eyes: sclera and conjunctiva clear Ears: External ears WNL Nose: No drainage noted Dentition: intact Throat: oropharynx is poorly visualized, mucous membranes are pink and moist Neck: there is full range of motion Chest: Respirations appear easy, no signs of distress Cardiac: deferred Abdomen: deferred Back: deferred : deferred Skin: pink Lymphatic: not examined Musculoskeletal: Moves all extremities DIAGNOSTIC STUDIES REVIEWED: The following lab results have been ordered/reviewed. HCG DOS Calcium Date Value Ref Range Status 11/19/2022 8.9 7.6 - 11.0 mg/dL Final Carbon Dioxide Date Value Ref Range Status 11/19/2022 20.2 (L) 22.0 - 29.0 mmol/L Final Chloride Date Value Ref Range Status 11/19/2022 106 96 - 108 mmol/L Final Creatinine Date Value Ref Range Status 11/19/2022 0.59 0.50 - 1.00 mg/dL Final Glucose Date Value Ref Range Status 11/19/2022 122 (H) 70 - 99 mg/dL Final Comment: Criteria for Diagnosis of Diabetes: Fasting Specimen (no caloric intake for at least 8 hours): <100 mg/dL Normal 100-125 mg/dL Increased risk for Diabetes >125 mg/dL Diagnostic for Diabetes Random Glucose (any time of day without regard to last meal): > or = 200 mg/dL plus Classic Symptoms of Diabetes Potassium Date Value Ref Range Status 11/19/2022 3.7 3.3 - 5.1 mmol/L Final Sodium Date Value Ref Range Status 11/19/2022 137 133 - 145 mmol/L Final BUN Date Value Ref Range Status 11/19/2022 6 4 - 19 mg/dL Final RBC Date Value Ref Range Status 05/10/2022 4.43 4.10 - 4.80 10E12/L Final RDW Date Value Ref Range Status 05/10/2022 12.4 0.0 - 14.4 % Final WBC Date Value Ref Range Status 05/10/2022 16.0 (H) 4.5 - 13.0 10E9/L Final Hematocrit Date Value Ref Range Status 05/10/2022 36.7 (L) 37.0 - 46.0 % Final Hemoglobin Date Value Ref Range Status 11/19/2022 12.7 12.0 - 15.0 g/dl Final MCH Date Value Ref Range Status 05/10/2022 29.3 25.0 - 35.0 pg Final MCHC Date Value Ref Range Status 05/10/2022 35.4 31.0 - 37.0 % Final MCV Date Value Ref Range Status 05/10/2022 82.8 78.0 - 96.0 fl Final MPV Date Value Ref Range Status 05/10/2022 9.0 fl Final Comment: MPV is platelet range and age dependent % Eosinophils Date Value Ref Range Status 06/08/2019 1.80 0.00 - 3.00 % Final Lymphocytes Date Value Ref Range Status 05/10/2022 7 (L) 25 - 45 % Final % Monocytes Date Value Ref Range Status 05/10/2022 12 (H) 3 - 6 % Final % Neutrophils Date Value Ref Range Status 06/08/2019 49.4 34.0 - 64.0 % Final Neutrophil # Date Value Ref Range Status 06/08/2019 2.7 10E3/uL Final Hemoglobin Date Value Ref Range Status 11/19/2022 12.7 12.0 - 15.0 g/dl Final No results found for: APTT, INR TSH Date Value Ref Range Status 06/08/2019 1.069 0.350 - 5.500 uIU/mL Final HCG,Urine Date Value Ref Range Status 06/08/2019 Negative mIU/mL Final Comment: Non females and males-Negative females-Positive No results found for: HCGSERUM ASSESSMENT: Patient Active Problem List Diagnosis Mental disorder Major depressive disorder, single episode, severe without psychosis Anxiety state Moderate episode of recurrent major depressive disorder Ureteropelvic junction (UPJ) obstruction, right Hydronephrosis Infrequent urination Right flank pain Obstruction of right ureteropelvic junction (UPJ) Harsh Love is a 17 y.o. 1 m.o. female with Right Ureteropelvic junction (UPJ) obstruction. [facility] physical examination limited due to telehealth via video encounter. Pertinent and/or unperformed aspects of physical exam due to these limitations will be performed and/or addended by attending provider/anesthesia on day of surgery. Family instructed to contact the surgery center/PSH if any changes occur since this evaluation. PLAN: Surgery as scheduled Pain management team Patient/family education Nutritional management Hemodynamic monitoring Respiratory monitoring -HCG DOS. No other labs required prior to surgery. -Educated family that if patient develops viral illness, fever, requires unexpected breathing treatments or antibiotics or any other changes prior to surgery to notify the surgery center. -Educated family to stop all herbals/multivitamins/ibuprofen products at least 3 days prior to surgery. -Remove all piercings and nail swedish/acrylics on the day of surgery -Pre-operative acetaminophen ordered- Educated on benefits of pre-op analgesia and agree with administration. Please verify dose with anesthesia prior to administration. To be given upon arrival and after vital signs have been obtained -Patient and her mom do not express anxiety or concern regarding procedure and anesthesia. -Directed mom to [facility] web site to watch video on preparing for surgery. Care coordination: Moiz Gordon MD PCP OTHER FINDINGS OR COMMENTS: Cc: MD Tiffany Ruiz APRN-CNP 12/16/2022 2:02 PM This visit was conducted via telehealth. I spent 40 minutes with patient/family and performing chart review for this consult. Counseling and/or coordination of care was greater than 50% of the total time spent on the encounter. documented in this encounterTri[facility]04-21-[facility]23 Plan of care note* Plan of Care - Brianne Gupta RN - 12/19/2022 10:58 AM EDT Problem: Anxiety, Patient/Family Goal: Effective coping Outcome: Ongoing Problem: Falls, Risk of Goal: Absence of falls Outcome: Ongoing Goal: Absence of physical injury Outcome: Ongoing Problem: Infection Risk, Surgical Site Goal: Absence of infection signs and symptoms Outcome: Ongoing Problem: Adverse Surgical Event, Risk of Goal: Absence of injury Outcome: Ongoing [facility]03-22-2023 Plan of care note* Plan of Care - Monse Ross RN - 11/19/2022 1:00 PM EDT Problem: Anxiety, Patient/Family Goal: Effective coping Outcome: Completed Problem: Body Temperature - Abnormal, Risk of Goal: Body temperature within specified parameters Outcome: Completed Problem: Nausea/Vomiting Goal: Post operative nausea and vomiting Outcome: Completed Problem: Gas Exchange - Impaired Goal: Absence of hypoxia Outcome: Completed Problem: Fluid Volume Imbalance, Risk of Goal: Absence of imbalanced fluid volume signs and symptoms Outcome: Completed Problem: Falls, Risk of Goal: Absence of falls Outcome: Completed Goal: Absence of physical injury Outcome: Completed Problem: Infection Risk, Surgical Site Goal: Absence of infection signs and symptoms Outcome: Completed Problem: Adverse Surgical Event, Risk of Goal: Absence of injury Outcome: Completed Problem: Pain - Acute Goal: Reduced pain sensation Outcome: Completed Problem: Transition Readiness Goal: Knowledge of discharge instructions Outcome: Completed Goal: Able to safely transition to next level of care Outcome: Completed Patient Discharged Home [facility]03-22-2023 Miscellaneous Notes* Plan of Care - Monse Ross RN - 11/19/2022 1:00 PM EDT Problem: Anxiety, Patient/Family Goal: Effective coping Outcome: Completed Problem: Body Temperature - Abnormal, Risk of Goal: Body temperature within specified parameters Outcome: Completed Problem: Nausea/Vomiting Goal: Post operative nausea and vomiting Outcome: Completed Problem: Gas Exchange - Impaired Goal: Absence of hypoxia Outcome: Completed Problem: Fluid Volume Imbalance, Risk of Goal: Absence of imbalanced fluid volume signs and symptoms Outcome: Completed Problem: Falls, Risk of Goal: Absence of falls Outcome: Completed Goal: Absence of physical injury Outcome: Completed Problem: Infection Risk, Surgical Site Goal: Absence of infection signs and symptoms Outcome: Completed Problem: Adverse Surgical Event, Risk of Goal: Absence of injury Outcome: Completed Problem: Pain - Acute Goal: Reduced pain sensation Outcome: Completed Problem: Transition Readiness Goal: Knowledge of discharge instructions Outcome: Completed Goal: Able to safely transition to next level of care Outcome: Completed Patient Discharged Home * Case Management - Dara Giles RN - 11/19/2022 11:33 AM EDT Multidisciplinary Team Meeting Assessment/Plan of Care Reviewed at 1000 Are there Case Management needs identified at this time? Not at this time. [facility] will continue to monitor closely for potential home care (services/equipment) needs. Representatives: Case Management: Dara Giles RN, Juan Cordero RN Social Work: Danie CARABALLO Child Life: Pepper Li CCLS Nursing: Shaista Garcia RN relief charge [employer] Equipment Operator: Tevin Zapata * Op Note - Rahul Reid MD - 11/18/2022 4:21 PM EDT OPERATIVE REPORT NAME: Harsh Love UNIT#: [id number] [facility]#: [id number] DATE OF : 2005 DATE: 11/18/2022 SURGEON: RAHUL REID M.D. CARPENTRY SUPERVISOR: Buck PREOPERATIVE DIAGNOSIS: Right flank pain Right UPJ obstruction POSTOPERATIVE DIAGNOSIS: Same PROCEDURE: Right laparoscopic pyeloplasty Cystoscopy with right stent exchange ANESTHESIA: General + local. ESTIMATED BLOOD LOSS: 5-10 mL. DRAINS: 10 round IDALIA (RLQ), gallo. SPECIMENS: Urine for culture. COMPLICATIONS: None acutely. FLUOROSCOPIC FINDINGS: not applicable INDICATION: Harsh Love is a 17-year-old female with a history of urinary tract infectionand flank pain. CT scan revealed possible UPJ obstruction with what appeared to be a lower pole crossing vessel. A Lasix scan showed good drainage. The right side also had 44% function. Due to continued issues with pain we elected to place a stent. Stent placement did cause her pain to resolve. After discussion of all the options we then elected to proceed with laparoscopic pyeloplasty. The risksand benefits of surgery were discussed with the family in clinic and reviewed on the day of surgery. They expressed understanding and elected to proceed. DESCRIPTION OF PROCEDURE: After informed consent had been obtained the risks and benefits of the procedure explained to the patient's family, she was taken back to the operating room and placed in the supine position. She was placed under general anesthesia. Preoperative antibiotics were administered. An orogastric tube was placed. She was positioned with the right side elevated on a bump in botharms supported with arm boards. Her left leg was bent while her right leg was straight leaving access to the perineum for cystoscopy. All extremities were appropriately padded and she was secured in place with 2 inch silk tape. She was then prepped and draped in the normal sterile fashion. Timeout was undertaken identifying patient, procedure, site, and surgeon. We began by advancing the 10 Venezuelan working cystoscope through the patient's urethra into the bladder. Urine was taken and sent for culture. We grasped the end of the right ureteral stent and broughtit to the meatus. We passed a 0.032 Glidewire through the stent and remove the stent. We now passeda 5 [place]an open- ended ureteral catheter over the wire. We then passed a Gallo alongside the ureteral catheter into the bladder and inflated the balloon with 10 mL of sterile water. We now made an incision at the right side of the umbilicus. Veress needle was used to enter the abdomen and the water test was appropriate and opening pressure was less than 7. The abdomen was insufflated to a pressure of 15 after which a 5 mm port was placed under direct visualization with a 0 degree lens within the port. We examined the abdomen and there was no evidence of any injury. We now placed 5 mm ports in the right lower quadrant and subxiphoid regions by first identifying the areas for the port, anesthetizing the skin, incising the skin, and placing the port under direct visualization. On the right side we noted that the ileocolonic junction was higher up on the right sidewall than is often seen. We identified the appendix in the mid abdomen rather than in the right lower quadrant.We now incised along the white line of Toldt freeing the colon and a small portion of the proximal small bowel. This gave us access to the retroperitoneum. We were able to identify the ureter which was grasped with a laparoscopic [place]. We then used a combination of harmonic scalpel and hook electrocautery to dissect up along the ureter. At the lower pole we encountered crossing vessels. We used a right angle to dissect beneath these, freeing the UPJ from the vessels. The crossing vessels were at the area of transition from normal ureter to more dilated renal pelvis. We now incised across the ureter below the crossing vessels, making sure not to cut the ureteral catheter or wire. We transposed the renal pelvis and ureter anterior to the crossing vessels. I spatulated the ureter laterally. There was evidence of some edema from the indwelling stent. I placed a Prolene holding stitch through the anterior abdominal wall, through the renal pelvis superiorly, and then back out through theabdominal wall. This was used to elevate the pelvis and aid in the anastomosis. I now placed a 6-0 Monocryl through the most dependent portion of the renal pelvis laterally down to the most dependentportion of the spatulated ureter. I placed interrupted 5-0 Monocryl's on each side. I then ran the posterior wall using a 5-0 Monocryl. I placed the first stitch of the anterior wall repair and then placed the needle and stitch lateral while we proceeded with stent placement. We now removed the Gallo catheter and the ureteral catheter. We passed a 6 Venezuelan by 26 cm double-Jstent over the indwelling wire up into the kidney. Upon retracting the wire there was noted to be agood curl within the kidney visually. We then repeated cystoscopy, using the cystoscope to push thedistal stent into the bladder. We then confirmed there was a good curl within the bladder visually.The Gallo catheter was replaced and inflated with 10 mL of sterile water. I now returned to the anterior wall repair. This was done in a running fashion with our previously placed 5-0 Monocryl. I did irrigate the renal pelvis before completing closure. We now removed the holding stitch in the renal pelvis. We confirmed that we had a nice funneled anastomosis with the crossing vessels posterior to it. We lowered the pressure down to 8 and confirmed that there was no significant bleeding. We irrigated. We brought a 10 round IDALIA in through the subxiphoid port and out theright lower quadrant port. We placed the drain alongside the kidney and then placed the port back in the right lower quadrant incision. We now sequentially removed the 2 midline ports. For each we removed the port, placed a 2-0 Vicryl in the fascia, then replaced the port. We now used a 4-0 Vicryl to bring the white line of Toldt back together by anastomosing the tissue lateral to the colon to the sidewall in 1 area. This also retroperitonealized the drain. We now performed 1 final examination of the abdomen confirming no injury or bleeding. We removed the right lower quadrant port while using a [place] to hold the drain in place. We secured the drain with a 3-0 nylon at the skin. We now desufflated the abdomen and tied down our fascial sutures. We injected additional local anesthetic ateach of the sites. We closed the skin using 5-0 Monocryl in a subcuticular fashion. Superglue was th en applied to each of the incisions. A drain sponge was placed around the IDALIA and Tegaderms were used to secure it. A cath secure was placed over the Gallo. The patient was then returned to the fully supine position, awakened from anesthesia, and transferred to the recovery room once in stable condition. I was present and participated in the entire procedure. All instruments, sponges, and needles were accounted for at the conclusion of the case. DISPOSITION: The patient will be admitted for routine postoperative care. We will plan for stent removal in approximately 1 month. Rahul Reid M.D. * Plan of Care - Karen Harrison RN - 11/18/2022 1:19 PM EDT Education continues. * Brief Op Note - Gilberto Jane MD - 11/18/2022 12:48 PM EDT Urology Brief Op Note Name: Harsh Love Admission Date: 11/18/2022 12:48 PM Attending Provider: Rahul Reid MD Room/Bed: Periop Pool Bed/Pool Bed Age: 17 y.o. Time: 12:48 PM Hospital Day: 1 Diagnosis and Procedure Pre Op Dx:right UPJ obstruction, right flank pain Post Op Dx:same Procedure:right laparoscopic pyeloplasty Operative Staff Surgeon:Rahul Reid MD Asst:Gilberto Jane MD Anes:Mingo Landis, Procedure Data Anesthesia: General EBL:<5cc Complications:none Drains: None Fluids: See Anesthesia documentation Condition and Comments Condition:stable Disposition:Recovery Gilberto Jane MD * Plan of Care - Roro Gomes RN - 11/18/2022 9:54 AM EDT Problem: Anxiety, Patient/Family Goal: Effective coping Outcome: Ongoing Problem: Falls, Risk of Goal: Absence of falls Outcome: Ongoing Goal: Absence of physical injury Outcome: Ongoing documented in this encounterTriHealth03-22-2023 Progress note* Case Management - Dara Giles RN - 11/19/2022 11:33 AM EDT Multidisciplinary Team Meeting Assessment/Plan of Care Reviewed at 1000 Are there Case Management needs identified at this time? Not at this time. [facility] will continue to monitor closely for potential home care (services/equipment) needs. Representatives: Case Management: Dara Giles RN, Juan Cordero brick off bearer: Danie VIVEROSPhong Child Life: Pepper Jen [facility] Nursing: Shaista Garcia RN relief charge [employer] Equipment Operator: Tevin Zapata [facility]03-22-2023 History of Present illness Narrative* Henry Wright MD - 11/19/2022 6:37 AM EDT NAME: Harsh Love DATE: 11/19/2022 HOSPITAL DAY: Hospital Day: 2 SUBJECTIVE: Had some issues with gas pain last night but better this morning Some nausea, no emesis Was out of bed and walking in the halls multiple times last night Took in a decent amount of fluids (~25 ounces or so) No fevers Pain controlled OBJECTIVE: VITALS: BP 96/47 Pulse 70 Temp 36.9 C (98.4 F) Resp 14 Ht 169.2 cm Wt 65 kg LMP 10/29/2022 SpO2 99% BMI 22.70 kg/m I/O: Intake/Output Summary (Last 24 hours) at 11/19/2022 0637 Last data filed at 11/19/2022 0615 Gross per 24 hour Intake 2903.45 ml Output 2350 ml Net 553.45 ml I/O this shift: In: 1226.01 [I.V.:1226.01] Out: 1974 [Urine:1925; Drains:50] General: Alert, well appearing Eyes: Extraocular movements intact ENT: no nasal discharge Resp: Normal effort, no wheezing Heart: no cyanosis Abdomen: Soft, nondistended, minimal ttp, incisions c/d/I, IDALIA w/ scant SS output Musculoskeletal: Normocephalic head, no weakness Skin: Warm and dry : catheter draining see through red urine (removed) DIAGNOSTIC STUDIES REVIEWED: BMP: [ CBC: Recent Labs 11/18/22 1300 HGB 13.8 Blood culture: No results found for: BLOODCULTURE Urine culture: Urine Culture Date Value Ref Range Status 08/12/2022 No growth. Final ASSESSMENT/PLAN: Harsh is a 17 y.o. female with history of right flank pain and right UPJO, now s/p lap right pyeloplasty - regular diet - encourage ambulation - labs to be collected - catheter removed on rounds, continue to monitor urine output - decrease fluids to half maintenance - continue daily miralax - ancef post-op doses completed - if IDALIA output remains low and patient is doing well clinically, plan for removal of IDALIA and discharge after noon Anticipate discharge:today Gilberto Jane MD 11/19/2022 I personally discussed estrada portions of the history and physical examination of this patient and discussed the management plan with the resident. I reviewed the resident's note and agree with the documented findings and plan of care, except as noted above. Henry Wright MD documented in this encounterTri[facility]-21-[facility]23 Procedure note* Op Note - Rahul Reid MD - 11/18/2022 4:21 PM EDT OPERATIVE REPORT NAME: Harsh Love UNIT#: [id number] [facility]#: [id number] DATE OF : 2005 DATE: 11/18/2022 SURGEON: RAHUL REID M.D. CARPENTRY SUPERVISOR: Buck PREOPERATIVE DIAGNOSIS: Right flank pain Right UPJ obstruction POSTOPERATIVE DIAGNOSIS: Same PROCEDURE: Right laparoscopic pyeloplasty Cystoscopy with right stent exchange ANESTHESIA: General + local. ESTIMATED BLOOD LOSS: 5-10 mL. DRAINS: 10 round IDALIA (RLQ), gallo. SPECIMENS: Urine for culture. COMPLICATIONS: None acutely. FLUOROSCOPIC FINDINGS: not applicable INDICATION: Harsh Love is a 17-year-old female with a history of urinary tract infectionand flank pain. CT scan revealed possible UPJ obstruction with what appeared to be a lower pole crossing vessel. A Lasix scan showed good drainage. The right side also had 44% function. Due to continued issues with pain we elected to place a stent. Stent placement did cause her pain to resolve. After discussion of all the options we then elected to proceed with laparoscopic pyeloplasty. The risksand benefits of surgery were discussed with the family in clinic and reviewed on the day of surgery. They expressed understanding and elected to proceed. DESCRIPTION OF PROCEDURE: After informed consent had been obtained the risks and benefits of the procedure explained to the patient's family, she was taken back to the operating room and placed in the supine position. She was placed under general anesthesia. Preoperative antibiotics were administered. An orogastric tube was placed. She was positioned with the right side elevated on a bump in botharms supported with arm boards. Her left leg was bent while her right leg was straight leaving access to the perineum for cystoscopy. All extremities were appropriately padded and she was secured in place with 2 inch silk tape. She was then prepped and draped in the normal sterile fashion. Timeout was undertaken identifying patient, procedure, site, and surgeon. We began by advancing the 10 Venezuelan working cystoscope through the patient's urethra into the bladder. Urine was taken and sent for culture. We grasped the end of the right ureteral stent and broughtit to the meatus. We passed a 0.032 Glidewire through the stent and remove the stent. We now passeda 5 Venezuelan open- ended ureteral catheter over the wire. We then passed a Gallo alongside the ureteral catheter into the bladder and inflated the balloon with 10 mL of sterile water. We now made an incision at the right side of the umbilicus. Veress needle was used to enter the abdomen and the water test was appropriate and opening pressure was less than 7. The abdomen was insufflated to a pressure of 15 after which a 5 mm port was placed under direct visualization with a 0 degree lens within the port. We examined the abdomen and there was no evidence of any injury. We now placed 5 mm ports in the right lower quadrant and subxiphoid regions by first identifying the areas for the port, anesthetizing the skin, incising the skin, and placing the port under direct visualization. On the right side we noted that the ileocolonic junction was higher up on the right sidewall than is often seen. We identified the appendix in the mid abdomen rather than in the right lower quadrant.We now incised along the white line of Toldt freeing the colon and a small portion of the proximal small bowel. This gave us access to the retroperitoneum. We were able to identify the ureter which was grasped with a laparoscopic Eladia. We then used a combination of harmonic scalpel and hook electrocautery to dissect up along the ureter. At the lower pole we encountered crossing vessels. We used a right angle to dissect beneath these, freeing the UPJ from the vessels. The crossing vessels were at the area of transition from normal ureter to more dilated renal pelvis. We now incised across the ureter below the crossing vessels, making sure not to cut the ureteral catheter or wire. We transposed the renal pelvis and ureter anterior to the crossing vessels. I spatulated the ureter laterally. There was evidence of some edema from the indwelling stent. I placed a Prolene holding stitch through the anterior abdominal wall, through the renal pelvis superiorly, and then back out through theabdominal wall. This was used to elevate the pelvis and aid in the anastomosis. I now placed a 6-0 Monocryl through the most dependent portion of the renal pelvis laterally down to the most dependentportion of the spatulated ureter. I placed interrupted 5-0 Monocryl's on each side. I then ran the posterior wall using a 5-0 Monocryl. I placed the first stitch of the anterior wall repair and then placed the needle and stitch lateral while we proceeded with stent placement. We now removed the Gallo catheter and the ureteral catheter. We passed a 6 Venezuelan by 26 cm double-Jstent over the indwelling wire up into the kidney. Upon retracting the wire there was noted to be agood curl within the kidney visually. We then repeated cystoscopy, using the cystoscope to push thedistal stent into the bladder. We then confirmed there was a good curl within the bladder visually.The Gallo catheter was replaced and inflated with 10 mL of sterile water. I now returned to the anterior wall repair. This was done in a running fashion with our previously placed 5-0 Monocryl. I did irrigate the renal pelvis before completing closure. We now removed the holding stitch in the renal pelvis. We confirmed that we had a nice funneled anastomosis with the crossing vessels posterior to it. We lowered the pressure down to 8 and confirmed that there was no significant bleeding. We irrigated. We brought a 10 round IDALIA in through the subxiphoid port and out theright lower quadrant port. We placed the drain alongside the kidney and then placed the port back in the right lower quadrant incision. We now sequentially removed the 2 midline ports. For each we removed the port, placed a 2-0 Vicryl in the fascia, then replaced the port. We now used a 4-0 Vicryl to bring the white line of Toldt back together by anastomosing the tissue lateral to the colon to the sidewall in 1 area. This also retroperitonealized the drain. We now performed 1 final examination of the abdomen confirming no injury or bleeding. We removed the right lower quadrant port while using a [place] to hold the drain in place. We secured the drain with a 3-0 nylon at the skin. We now desufflated the abdomen and tied down our fascial sutures. We injected additional local anesthetic ateach of the sites. We closed the skin using 5-0 Monocryl in a subcuticular fashion. Superglue was th en applied to each of the incisions. A drain sponge was placed around the IDALIA and Tegaderms were used to secure it. A cath secure was placed over the Gallo. The patient was then returned to the fully supine position, awakened from anesthesia, and transferred to the recovery room once in stable condition. I was present and participated in the entire procedure. All instruments, sponges, and needles were accounted for at the conclusion of the case. DISPOSITION: The patient will be admitted for routine postoperative care. We will plan for stent removal in approximately 1 month. Rahul Reid M.D. [facility]03-21-20[facility] Plan of care note* Plan of Care - Karen Harrison RN - 11/18/2022 1:19 PM EDT Education continues. [facility]03-21-[facility] Procedure note* Brief Op Note - Gilberto Jane MD - 11/18/2022 12:48 PM EDT Urology Brief Op Note Name: Harsh Love Admission Date: 11/18/2022 12:48 PM Attending Provider: Rahul Reid MD Room/Bed: Periop Pool Bed/Pool Bed Age: 17 y.o. Time: 12:48 PM Hospital Day: 1 Diagnosis and Procedure Pre Op Dx:right UPJ obstruction, right flank pain Post Op Dx:same Procedure:right laparoscopic pyeloplasty Operative Staff Surgeon:Rahul Reid MD Asst:Gilberto Jane MD Anes:Mingo Landis, DO Procedure Data Anesthesia: General EBL:<5cc Complications:none Drains: None Fluids: See Anesthesia documentation Condition and Comments Condition:stable Disposition:Recovery Gilberto Jane MD [facility]03-21-[facility] Plan of care note* Plan of Care - Roro Gomes RN - 11/18/2022 9:54 AM EDT Problem: Anxiety, Patient/Family Goal: Effective coping Outcome: Ongoing Problem: Falls, Risk of Goal: Absence of falls Outcome: Ongoing Goal: Absence of physical injury Outcome: Ongoing [facility]03-21-2023 Attending History and physical note* Rahul Reid MD - 11/18/2022 7:05 AM EDT Interval H&P No changes in health per patient. No fevers, cough, vomiting, rash. Accompanied by mom and dad Regular rate and rhythm. Lungs clear to auscultation bilaterally. Right side marked OR with Dr. Franklin Jane MD PGY-4 7:05 AM Surgery and risks reviewed. All questions answered. Mom, dad, and Harsh expressed understanding and wished to proceed. Rahul Reid MD Source Note - Francoise Ramires APRN-CNP - 11/14/2022 11:30 AM EDT PRE-OP CONSULTATION This is a telemedicine video visit requested by the patient/guardian that was performed with the patient's location at home and the provider's location at office. DATE OF SERVICE: 11/14/2022 BENCH ASSEMBLER OPERATOR PROVIDER: CHAYO Figueroa SURGICAL DIAGNOSIS: right flank pain, hydronephrosis Proposed surgery date: 11/18/2022 (MAIN) Proposed surgical procedure: laparoscopic pyeloplasty Advice/opinion was requested by Rahul Reid MD for pre-surgical consultation. CHIEF COMPLAINT: right flank pain HISTORY OF PRESENT ILLNESS: Harsh Love is a 17 y.o. 0 m.o. female with a PMH significant for right flank pain, hydronephrosis, tight ureteropelvic junction obstruction, constipation, depression, and anxiety who is being consulted via telehealth/video for perioperative evaluation. Harsh reports intermittent back pain and a few UTIs over the years. However, last summer (February to May 2022) she had a UTI thattook several antibiotics to resolve. This infection resulted in an admission to the hospital for pyelonephritis and sepsis. She has had complaints of ongoing right flank pain. Harsh had a stent placed in 07/2022 which has helped relieve her pain. The stent itself is causing pain with urination. She denies blood in her urine and fevers. Patient was evaluated by urology and it was determined that she would benefit from surgery. Harsh has been otherwise at her baseline state of health and has not had any recent illnesses. The history is provided by the patient and mother and a chart review for evaluation for surgical risk factors. MEDICAL/SURGICAL HISTORY: Past Medical History: Diagnosis Date Depression Hydronephrosis MRSA (methicillin resistant Staphylococcus aureus) Pyelonephritis Sepsis 05/10/2022 Past Surgical History: Procedure Laterality Date TONSILLECTOMY AND ADENOIDECTOMY URETER STENT PLACEMENT Right 08/12/2022 CYSTOSCOPY WITH RIGHT STENT INSERTION performed by Rahul Reid MD at [facility] Past hospitalizations: yes - 05/2022 for pyelonephritis/sepsis DRUG/FOOD ALLERGIES: No Known Allergies MEDICATIONS: Outpatient Encounter Medications as of 11/14/2022 Medication Sig Dispense Refill Wheat Dextrin (BENEFIBER PO) Take by mouth Acetaminophen (TYLENOL 8 HOUR PO) Take by mouth polyethylene glycol (GLYCOLAX) packet Take by mouth every other day [DISCONTINUED] Ascorbic Acid (VITAMIN C) 250 MG tablet Take by mouth daily (Patient not taking: Reported on 10/27/2022) [DISCONTINUED] SENNA PO Take by mouth as needed (Patient not taking: Reported on 07/28/2022) No facility-administered encounter medications on file as of 11/14/2022. ANESTHESIA HISTORY: Difficulty with anesthesia? No Family history of difficulty with anesthesia? Yes- mom- delayed emergence Signs/symptoms of BRYAN? Yes- intermittent snoring BLEEDING HISTORY: History of bleeding issues in patient? no Bleeding problems in family? Yes- MGM- h/o stroke History of anemia in patient? no Sickle Cell issues in patient or family? N/A REVIEW OF SYSTEMS: Comprehensive review of systems: History obtained from Mother, chart review, and the patient. Psychological ROS: positive for - anxiety and depression Allergy and Immunology ROS: positive for - postnasal drip, seasonal allergies Gastrointestinal ROS: positive for - constipation Urinary ROS: positive for - infrequent urination, pain with urination-stent in place, h/o right flank pain, h/o pyelonephritits, UPJ obstruction, A complete ROS was performed. Pertinent positives have been documented above or are in the HPI. Allother systems were negative. Recent Illnesses? no History of COVID-19? yes - > 1 year ago HISTORY: Noncontributory No history on file. DEVELOPMENTAL HISTORY: Milestones: All met as expected IMMUNIZATIONS: Stated as up to date COVID vaccinated? no SOCIAL/FAMILY HISTORY: Zahirata lives with parents and one brother Special Needs: None Preferred Language: Filipino School: [employer] Smoking/Alcohol/Drug Use or Exposure: none Family History Problem Relation Age of Onset Fibromyalgia Mother No known problems Father Bleeding Problem Maternal Grandmother h/o stroke - afib related Anesth Problems Neg Hx VITAL SIGNS: Temp and weight obtained via home equipment/family during this Telehealth visit. Completed set of vital signs to be completed on the day of this procedure. Vitals: 11/14/22 1136 Temp: 36.5 C (97.7 F) Ht Readings from Last 1 Encounters: 10/27/22 169 cm (83 %, Z= 0.94)* * Growth percentiles are based on CDC (Girls, 2-20 Years) data. Wt Readings from Last 1 Encounters: 11/14/22 66.6 kg (84 %, Z= 0.98)* * Growth percentiles are based on CDC (Girls, 2-20 Years) data. No height and weight on file for this encounter. SpO2 Readings from Last 3 Encounters: 08/12/22 98% 05/12/22 99% 06/06/19 95% PHYSICAL EXAM: Focused provider physical to be completed on the day of this procedure General: Patient appears alert, oriented appropriately for age and in no acute distress Head: atraumatic Neuro: alert, oriented appropriately for age Eyes: sclera and conjunctiva clear Ears: external ears normal Nose: nares patent without discharge Dentition: intact Throat: oropharynx is poorly visualized, mucous membranes are pink and moist without lesions Neck: there is full range of motion Chest: respirations appear even and unlabored Cardiac: deferred Abdomen: deferred Back: deferred : deferred Skin: appropriate for race, no cyanosis Lymphatic: deferred Musculoskeletal: moves all extremities DIAGNOSTIC STUDIES REVIEWED: The following lab results have been ordered/reviewed. HCG ordered for day of procedure Calcium Date Value Ref Range Status 05/13/2022 8.8 7.6 - 11.0 mg/dL Final Carbon Dioxide Date Value Ref Range Status 05/13/2022 23.8 22.0 - 29.0 mmol/L Final Chloride Date Value Ref Range Status 05/13/2022 105 96 - 108 mmol/L Final Creatinine Date Value Ref Range Status 05/13/2022 0.76 0.50 - 1.00 mg/dL Final Glucose Date Value Ref Range Status 05/13/2022 107 (H) 70 - 99 mg/dL Final Comment: Criteria for Diagnosis of Diabetes: Fasting Specimen (no caloric intake for at least 8 hours): <100 mg/dL Normal 100-125 mg/dL Increased risk for Diabetes >125 mg/dL Diagnostic for Diabetes Random Glucose (any time of day without regard to last meal): > or = 200 mg/dL plus Classic Symptoms of Diabetes Potassium Date Value Ref Range Status 05/13/2022 3.4 3.3 - 5.1 mmol/L Final Sodium Date Value Ref Range Status 05/13/2022 140 133 - 145 mmol/L Final BUN Date Value Ref Range Status 05/13/2022 3 (L) 4 - 19 mg/dL Final RBC Date Value Ref Range Status 05/10/2022 4.43 4.10 - 4.80 10E12/L Final RDW Date Value Ref Range Status 05/10/2022 12.4 0.0 - 14.4 % Final WBC Date Value Ref Range Status 05/10/2022 16.0 (H) 4.5 - 13.0 10E9/L Final Hematocrit Date Value Ref Range Status 05/10/2022 36.7 (L) 37.0 - 46.0 % Final Hemoglobin Date Value Ref Range Status 05/10/2022 13.0 12.0 - 15.0 g/dl Final MCH Date Value Ref Range Status 05/10/2022 29.3 25.0 - 35.0 pg Final MCHC Date Value Ref Range Status 05/10/2022 35.4 31.0 - 37.0 % Final MCV Date Value Ref Range Status 05/10/2022 82.8 78.0 - 96.0 fl Final MPV Date Value Ref Range Status 05/10/2022 9.0 fl Final Comment: MPV is platelet range and age dependent % Eosinophils Date Value Ref Range Status 06/08/2019 1.80 0.00 - 3.00 % Final Lymphocytes Date Value Ref Range Status 05/10/2022 7 (L) 25 - 45 % Final % Monocytes Date Value Ref Range Status 05/10/2022 12 (H) 3 - 6 % Final % Neutrophils Date Value Ref Range Status 06/08/2019 49.4 34.0 - 64.0 % Final Neutrophil # Date Value Ref Range Status 06/08/2019 2.7 10E3/uL Final Hemoglobin Date Value Ref Range Status 05/10/2022 13.0 12.0 - 15.0 g/dl Final No results found for: APTT, INR TSH Date Value Ref Range Status 06/08/2019 1.069 0.350 - 5.500 uIU/mL Final HCG,Urine Date Value Ref Range Status 06/08/2019 Negative mIU/mL Final Comment: Non females and males-Negative females-Positive No results found for: HCGSERUM ASSESSMENT: Patient Active Problem List Diagnosis Mental disorder Major depressive disorder, single episode, severe without psychosis Anxiety state Moderate episode of recurrent major depressive disorder Ureteropelvic junction (UPJ) obstruction, right Hydronephrosis Infrequent urination Right flank pain Harsh Love is a 17 y.o. 0 m.o. female with right flank pain, hydronephrosis, tight ureteropelvic junction obstruction, constipation, depression, and anxiety. Based on this evaluation for surgical risk factors and review of necessary clinical studies (if indicated), she has no other past m edical history or past surgical history that would impact this procedure. [facility] physical examination limited due to telehealth via video encounter. Pertinent and/or unperformed aspects of physical exam due to these limitations will be performed and/or addended by attending provider/anesthesia on day of surgery. Family instructed to contact the surgery center/PS if any changes occur since this evaluation. PLAN: Surgery as scheduled Patient/family education Hemodynamic monitoring Respiratory monitoring Neurological monitoring Neurovascular monitoring -No contraindication to surgery based off history and physical exam. -HCG ordered for day of procedure -Educated family that if patient develops viral illness, fever, requires unexpected breathing treatments or antibiotics or any other changes prior to surgery to notify the surgery center. -Educated family to stop all herbals/multivitamins/ibuprofen products at least 2 weeks prior to surgery. -Remove all piercings and nail swedish/acrylics on the day of surgery -Pre-operative acetaminophen ordered- to be given upon arrival and after vital signs have been obtained. Parent educated on benefits of preop analgesia and agrees with administration prior to procedure -Surgery expected admission Care coordination: Moiz Gordon MD(PCP) OTHER FINDINGS OR COMMENTS: Cc: MD Francoise Ruiz, WASTE REMOVALIST-ORACLE DBA 11/14/2022 12:36 PM This visit was conducted via telehealth. I spent 40 minutes with patient/family and performing chart review for this consult. Counseling and/or coordination of care was greater than 50% of the total time spent on the encounter. [facility]03-21-2023 History and physical note* Rahul Reid MD - 11/18/2022 7:05 AM EDT Interval H&P No changes in health per patient. No fevers, cough, vomiting, rash. Accompanied by mom and dad Regular rate and rhythm. Lungs clear to auscultation bilaterally. Right side marked OR with Dr. Franklin Jane MD PGY-4 7:05 AM Surgery and risks reviewed. All questions answered. Mom, dad, and Harsh expressed understanding and wished to proceed. Rahul Reid MD Source Note - Francoise Ramires APRN-CNP - 11/14/2022 11:30 AM EDT PRE-OP CONSULTATION This is a telemedicine video visit requested by the patient/guardian that was performed with the patient's location at home and the provider's location at office. DATE OF SERVICE: 11/14/2022 BENCH ASSEMBLER OPERATOR PROVIDER: CHAYO Figueroa SURGICAL DIAGNOSIS: right flank pain, hydronephrosis Proposed surgery date: 11/18/2022 (MAIN) Proposed surgical procedure: laparoscopic pyeloplasty Advice/opinion was requested by Rahul Reid MD for pre-surgical consultation. CHIEF COMPLAINT: right flank pain HISTORY OF PRESENT ILLNESS: Harsh Love is a 17 y.o. 0 m.o. female with a PMH significant for right flank pain, hydronephrosis, tight ureteropelvic junction obstruction, constipation, depression, and anxiety who is being consulted via telehealth/video for perioperative evaluation. Harsh reports intermittent back pain and a few UTIs over the years. However, last summer (February to May 2022) she had a UTI thattook several antibiotics to resolve. This infection resulted in an admission to the hospital for pyelonephritis and sepsis. She has had complaints of ongoing right flank pain. Harsh had a stent placed in 07/2022 which has helped relieve her pain. The stent itself is causing pain with urination. She denies blood in her urine and fevers. Patient was evaluated by urology and it was determined that she would benefit from surgery. Harsh has been otherwise at her baseline state of health and has not had any recent illnesses. The history is provided by the patient and mother and a chart review for evaluation for surgical risk factors. MEDICAL/SURGICAL HISTORY: Past Medical History: Diagnosis Date Depression Hydronephrosis MRSA (methicillin resistant Staphylococcus aureus) Pyelonephritis Sepsis 05/10/2022 Past Surgical History: Procedure Laterality Date TONSILLECTOMY AND ADENOIDECTOMY URETER STENT PLACEMENT Right 08/12/2022 CYSTOSCOPY WITH RIGHT STENT INSERTION performed by Rahul Reid MD at [facility] Past hospitalizations: yes - 05/2022 for pyelonephritis/sepsis DRUG/FOOD ALLERGIES: No Known Allergies MEDICATIONS: Outpatient Encounter Medications as of 11/14/2022 Medication Sig Dispense Refill Wheat Dextrin (BENEFIBER PO) Take by mouth Acetaminophen (TYLENOL 8 HOUR PO) Take by mouth polyethylene glycol (GLYCOLAX) packet Take by mouth every other day [DISCONTINUED] Ascorbic Acid (VITAMIN C) 250 MG tablet Take by mouth daily (Patient not taking: Reported on 10/27/2022) [DISCONTINUED] SENNA PO Take by mouth as needed (Patient not taking: Reported on 07/28/2022) No facility-administered encounter medications on file as of 11/14/2022. ANESTHESIA HISTORY: Difficulty with anesthesia? No Family history of difficulty with anesthesia? Yes- mom- delayed emergence Signs/symptoms of BRYAN? Yes- intermittent snoring BLEEDING HISTORY: History of bleeding issues in patient? no Bleeding problems in family? Yes- MGM- h/o stroke History of anemia in patient? no Sickle Cell issues in patient or family? N/A REVIEW OF SYSTEMS: Comprehensive review of systems: History obtained from Mother, chart review, and the patient. Psychological ROS: positive for - anxiety and depression Allergy and Immunology ROS: positive for - postnasal drip, seasonal allergies Gastrointestinal ROS: positive for - constipation Urinary ROS: positive for - infrequent urination, pain with urination-stent in place, h/o right flank pain, h/o pyelonephritits, UPJ obstruction, A complete ROS was performed. Pertinent positives have been documented above or are in the HPI. Allother systems were negative. Recent Illnesses? no History of COVID-19? yes - > 1 year ago HISTORY: Noncontributory No history on file. DEVELOPMENTAL HISTORY: Milestones: All met as expected IMMUNIZATIONS: Stated as up to date COVID vaccinated? no SOCIAL/FAMILY HISTORY: Harsh lives with parents and one brother Special Needs: None Preferred Language: Filipino School: [employer] Smoking/Alcohol/Drug Use or Exposure: none Family History Problem Relation Age of Onset Fibromyalgia Mother No known problems Father Bleeding Problem Maternal Grandmother h/o stroke - afib related Anesth Problems Neg Hx VITAL SIGNS: Temp and weight obtained via home equipment/family during this Telehealth visit. Completed set of vital signs to be completed on the day of this procedure. Vitals: 11/14/22 1136 Temp: 36.5 C (97.7 F) Ht Readings from Last 1 Encounters: 10/27/22 169 cm (83 %, Z= 0.94)* * Growth percentiles are based on CDC (Girls, 2-20 Years) data. Wt Readings from Last 1 Encounters: 11/14/22 66.6 kg (84 %, Z= 0.98)* * Growth percentiles are based on CDC (Girls, 2-20 Years) data. No height and weight on file for this encounter. SpO2 Readings from Last 3 Encounters: 08/12/22 98% 05/12/22 99% 06/06/19 95% PHYSICAL EXAM: Focused provider physical to be completed on the day of this procedure General: Patient appears alert, oriented appropriately for age and in no acute distress Head: atraumatic Neuro: alert, oriented appropriately for age Eyes: sclera and conjunctiva clear Ears: external ears normal Nose: nares patent without discharge Dentition: intact Throat: oropharynx is poorly visualized, mucous membranes are pink and moist without lesions Neck: there is full range of motion Chest: respirations appear even and unlabored Cardiac: deferred Abdomen: deferred Back: deferred : deferred Skin: appropriate for race, no cyanosis Lymphatic: deferred Musculoskeletal: moves all extremities DIAGNOSTIC STUDIES REVIEWED: The following lab results have been ordered/reviewed. HCG ordered for day of procedure Calcium Date Value Ref Range Status 05/13/2022 8.8 7.6 - 11.0 mg/dL Final Carbon Dioxide Date Value Ref Range Status 05/13/2022 23.8 22.0 - 29.0 mmol/L Final Chloride Date Value Ref Range Status 05/13/2022 105 96 - 108 mmol/L Final Creatinine Date Value Ref Range Status 05/13/2022 0.76 0.50 - 1.00 mg/dL Final Glucose Date Value Ref Range Status 05/13/2022 107 (H) 70 - 99 mg/dL Final Comment: Criteria for Diagnosis of Diabetes: Fasting Specimen (no caloric intake for at least 8 hours): <100 mg/dL Normal 100-125 mg/dL Increased risk for Diabetes >125 mg/dL Diagnostic for Diabetes Random Glucose (any time of day without regard to last meal): > or = 200 mg/dL plus Classic Symptoms of Diabetes Potassium Date Value Ref Range Status 05/13/2022 3.4 3.3 - 5.1 mmol/L Final Sodium Date Value Ref Range Status 05/13/2022 140 133 - 145 mmol/L Final BUN Date Value Ref Range Status 05/13/2022 3 (L) 4 - 19 mg/dL Final RBC Date Value Ref Range Status 05/10/2022 4.43 4.10 - 4.80 10E12/L Final RDW Date Value Ref Range Status 05/10/2022 12.4 0.0 - 14.4 % Final WBC Date Value Ref Range Status 05/10/2022 16.0 (H) 4.5 - 13.0 10E9/L Final Hematocrit Date Value Ref Range Status 05/10/2022 36.7 (L) 37.0 - 46.0 % Final Hemoglobin Date Value Ref Range Status 05/10/2022 13.0 12.0 - 15.0 g/dl Final MCH Date Value Ref Range Status 05/10/2022 29.3 25.0 - 35.0 pg Final MCHC Date Value Ref Range Status 05/10/2022 35.4 31.0 - 37.0 % Final MCV Date Value Ref Range Status 05/10/2022 82.8 78.0 - 96.0 fl Final MPV Date Value Ref Range Status 05/10/2022 9.0 fl Final Comment: MPV is platelet range and age dependent % Eosinophils Date Value Ref Range Status 06/08/2019 1.80 0.00 - 3.00 % Final Lymphocytes Date Value Ref Range Status 05/10/2022 7 (L) 25 - 45 % Final % Monocytes Date Value Ref Range Status 05/10/2022 12 (H) 3 - 6 % Final % Neutrophils Date Value Ref Range Status 06/08/2019 49.4 34.0 - 64.0 % Final Neutrophil # Date Value Ref Range Status 06/08/2019 2.7 10E3/uL Final Hemoglobin Date Value Ref Range Status 05/10/2022 13.0 12.0 - 15.0 g/dl Final No results found for: APTT, INR TSH Date Value Ref Range Status 06/08/2019 1.069 0.350 - 5.500 uIU/mL Final HCG,Urine Date Value Ref Range Status 06/08/2019 Negative mIU/mL Final Comment: Non females and males-Negative females-Positive No results found for: HCGSERUM ASSESSMENT: Patient Active Problem List Diagnosis Mental disorder Major depressive disorder, single episode, severe without psychosis Anxiety state Moderate episode of recurrent major depressive disorder Ureteropelvic junction (UPJ) obstruction, right Hydronephrosis Infrequent urination Right flank pain Harsh Love is a 17 y.o. 0 m.o. female with right flank pain, hydronephrosis, tight ureteropelvic junction obstruction, constipation, depression, and anxiety. Based on this evaluation for surgical risk factors and review of necessary clinical studies (if indicated), she has no other past m edical history or past surgical history that would impact this procedure. [facility] physical examination limited due to telehealth via video encounter. Pertinent and/or unperformed aspects of physical exam due to these limitations will be performed and/or addended by attending provider/anesthesia on day of surgery. Family instructed to contact the surgery center/PS if any changes occur since this evaluation. PLAN: Surgery as scheduled Patient/family education Hemodynamic monitoring Respiratory monitoring Neurological monitoring Neurovascular monitoring -No contraindication to surgery based off history and physical exam. -HCG ordered for day of procedure -Educated family that if patient develops viral illness, fever, requires unexpected breathing treatments or antibiotics or any other changes prior to surgery to notify the surgery center. -Educated family to stop all herbals/multivitamins/ibuprofen products at least 2 weeks prior to surgery. -Remove all piercings and nail swedish/acrylics on the day of surgery -Pre-operative acetaminophen ordered- to be given upon arrival and after vital signs have been obtained. Parent educated on benefits of preop analgesia and agrees with administration prior to procedure -Surgery expected admission Care coordination: Moiz Gordon MD(PCP) OTHER FINDINGS OR COMMENTS: Cc: MD Francoise Ruiz APRN-CNP 11/14/2022 12:36 PM This visit was conducted via telehealth. I spent 40 minutes with patient/family and performing chart review for this consult. Counseling and/or coordination of care was greater than 50% of the total time spent on the encounter. [facility] History of Present illness Narrative* TERESA Kay CNP - 10/20/2022 2:20 PM EST Images from the original note were not included. [place] [id number] [facility] [id number] Dept: [phone] Dept Loc: [phone] HPI: Harsh Love is a 16 y.o. femalewho presents today for her medical conditions/complaints as noted below. Harsh Loveis c/o of physical and Health Maintenance (HIV--declines, COVID--declines, Flouride--has not been, Hep A--declines, Varicella--had chickenpox, Meningo--declines, Flu--declines) HPI- Harsh presents today with her mother for her well check and sports physical. 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 Will be participating in softball in the spring. Denies SOB, unexplained syncope/near-syncope, seizures, history of heart murmurs/cardiac abnormalities, and chest pain with exercise. There is no family history of sudden cardiac before the age of 50. There is no family history of hypertrophic cardiomyopathy, Marfan Syndrome, or arrhythmias. The patient has never been kept out of sports for injury. States she has been doing really well emotionally and denies current concerns of depression or anxiety. Does have a scabbed area on her left upper thigh that she would like looked at today. Noticed the area a week or so ago and thought it might be a pimple. Put a pimple patch on it and the area later opened up and bleed a little. Denies pussy drainage or a red streak moving away from the area. Diet: Strives for a healthy diet with fresh fruits and vegetables School: Doing really well. Currently going to the [employer]. Was interested in becoming a nurseanesthetist but now she is not sure if she wants to do all the schooling required for it. Not sure what she wants to do. Sleep: Bedtime is around 11:30 PM on a school night and wakes up around 7:20 AM. Feels rested when she wakes in the morning. Elimination: Has been following up with urology. Had a stent placed in July and has not been tolerating this well. Plans to get this taken out in October. States she has an obstruction in the ureter which caused the hydronephrosis. Is scheduled to see the urologist via VV on Thursday next week. Also struggles with constipation and rectal bleeding. Has been taking Miralax but has not been taking this consistently. States she strains to pass a bowel movement. Menstruation: Having regular cycles. LMP was around 10/09/22. Health Maintenance: Declines screening for HIV. Declines a COVID-19 vaccination. Declines to be vaccinated for Hep A. States she had varicella as a child. Declines a meningogoccal vaccination (first dose was 04/16/18). Declines a flu vaccination. Tdap current: 04/16/18. Past Medical History: Diagnosis Date MRSA infection Several times when younger Pyelonephritis 05/22/2022 Sepsis (HCC) 05/22/2022 Tonsillolith 01/13/2017 Urinary tract infection, site not specified 05/22/2022 Past Surgical History: Procedure Laterality Date ADENOIDECTOMY (HISTORICAL) Bilateral 02/25/2018 TONSILLECTOMY AND ADENOIDECTOMY (HISTORICAL) 02/25/2018 T&A TOOTH EXTRACTION (HISTORICAL) Family History Problem Relation Name Age of Onset Mental illness Mother Hyperlipidemia Father Social History Tobacco Use Smoking status: Never Smokeless tobacco: Never Substance Use Topics Alcohol use: No Current Outpatient Medications Medication Sig Dispense Refill acetaminophen (Tylenol) 325 MG tablet TAKE 2 TABLETS BY MOUTH EVERY 6 HOURS NEEDED FOR PAIN (mild pain) for up to 5 (FIVE) days ascorbic acid (Vitamin C) 250 MG chewable tablet Chew 500 mg in the morning. ibuprofen 200 MG tablet TAKE 2 TABLETS BY MOUTH EVERY 6 HOURS NEEDED for moderate pain for up to5 (FIVE) days. take with meals MAGNESIUM PO Take by mouth. polyethylene glycol, PEG, 3350 (Glycolax) 17 GM/SCOOP powder Take 17 grams as directed by mouth daily for 90 days senna (Senokot) 8.6 MG tablet Take 1 tablet by mouth daily. VITAMIN D, CHOLECALCIFEROL, PO Take by mouth. No current facility-administered medications for this visit. No Known Allergies Health Maintenance Topic Date Due Fluoride Varnish Never done Adolescent Depression Screening Never done Meningococcal Vaccine (2 - 2-dose series) 2021 Influenza Vaccine (1) 02/27/2023 (Originally 05/01/2022) HIV Screening 10/20/2023 (Originally 2005) COVID-19 Vaccine (1) 10/20/2023 (Originally 05/02/2006) DTaP/Tdap/Td Vaccines (5 - Td or Tdap) 04/16/2028 Zoster Vaccines (1 of 2) 10/31/2055 HIB Vaccines Completed Hepatitis B Vaccines Completed IPV Vaccines Completed MMR Vaccines Completed HPV Vaccines Completed Rotavirus Vaccines Aged Out Pneumococcal Vaccine: Pediatrics (0 to 5 Years) and At-Risk Patients (6 to 64 Years) Aged Out Hepatitis A Vaccines Discontinued Varicella Vaccines Discontinued Subjective: Review of Systems Constitutional: Negative for chills and fever. HENT: Negative for hearing loss and trouble swallowing. Eyes: Negative for pain and visual disturbance. Respiratory: Negative for cough, chest tightness, shortness of breath and wheezing. Cardiovascular: Negative for chest pain, palpitations and leg swelling. Gastrointestinal: Negative for abdominal distention, abdominal pain, blood in stool, constipation and diarrhea. Endocrine: Negative for polydipsia, polyphagia and polyuria. Genitourinary: Negative for dysuria and hematuria. Musculoskeletal: Negative for arthralgias and myalgias. Skin: Negative for color change, pallor, rash and wound. Neurological: Negative for dizziness, syncope, weakness and light-headedness. Hematological: Does not bruise/bleed easily. Psychiatric/Behavioral: Negative for dysphoric mood. The patient is not nervous/anxious. Objective: BP 114/68 Pulse (!) 96 Ht 5' 7 (1.702 m) Wt 146 lb 12.8 oz (66.6 kg) LMP 10/09/2022 (Approximate) SpO2 98% BMI 22.99 kg/m Physical Exam Constitutional: Oriented to person, place, and time. Appears well-developed and well-nourished. No distress. HENT: Head: Normocephalic and atraumatic. Right Ear: External ear normal. Left Ear: External ear normal. Nose: Nose normal. Mouth/Throat:Oropharynx is clear and moist. No oropharyngeal exudate. Bilateral TM's pearly ramirez with a good cone of light bilaterally. Eyes: Conjunctivae and EOM are normal. Pupils are equal, round, and reactive to light. Right eye exhibits no discharge. Left eye exhibits no discharge. Neck: Normal range of motion. Neck supple. No thyromegaly present. Cardiovascular: Normal rate, regular rhythm,normal heart sounds and intact distal pulses. Exam reveals no friction rub. No murmur heard. Normal heart rate when transitioning from squatting to standing. Carotid upstrokes brisk and without bruits bilaterally. Pulmonary/Chest: Effort normal and breath sounds normal. No respiratory distress.No wheezes. No rales. Abdominal: Soft. Bowel sounds are normal. No distension and no mass. There is no hepatosplenomegaly. There is no tenderness. Musculoskeletal: Normal range of motion. No edema, tenderness or deformity. Normal duck walk. Strength 5/5 with flexion and extension of extremities. Lymphadenopathy: No cervical adenopathy. Neurological: Alert and oriented to person, place,and time. Normal reflexes. Coordination normal. Skin: Skin is warm and dry. No rash noted. No erythema.No pallor. Small circular scab noted on leftinner thigh. Negative for erythema, induration, or drainage. Psychiatric: Normal mood and affect. Behavior is normal. Judgment and thought content normal. PHQ-9 negative. Assessment and Plan: 1. Well adolescent visit 2. Routine sports physical exam - Provided clearance for sports with recommendation to also obtain clearance from her urologist. 3. Mild episode of recurrent major depressive disorder (HCC) - Stable. 4. Anxiety state - Stable. 5. Ureteropelvic junction (UPJ) obstruction, right - Stable. Follow up with specialist as directed. 6. Hydronephrosis, unspecified hydronephrosis type - Stable. Follow up with specialist as directed. 7. Slow transit constipation - Discussed importance of taking Miralax daily with the goal of a soft, formed bowel movement every1-3 days. If doing this does not improve symptoms recommend further evaluation with GI- verbalized understanding. 8. Ingrown hair - Provided reassurance that nothing is infected. Keep skin well hydrated. Use clean razor blades when shaving and shave in direction of hair growth, not against it. Discussed signs and symptoms warranting follow up in the office- verbalized understanding. Anticipatory Guidance: Provided in AVS Encouraged to stay connected with family and help out at home. Encouraged healthy ways to deal with life stressors- talk with parents/trusted adult. Encouraged to abstain from smoking,alcohol, and recreational drugs. Wear seatbelt,helmet, protective gear, and do not text and drive. Encouraged a healthy diet. Encouraged regular physical exercise. Vaccinations given: none. Zahirata received counseling on the following healthy behaviors: continue current medications Patient given educational materials on: well adolescent examinations Discussed use, benefit, and side effects of prescribed medications. Barriers to medication compliance addressed. All patient questions answered. Pt voiced understanding. Follow Up: Follow up in about 1 year (around 10/20/2023) for physical. No orders of the defined types were placed in this encounter. @MEDORDMED@ TERESA Kay CNP 10/20/2022 3:54 PM documented in this [facility]12-13-2022 Plan of care note* Plan of Care - Akiko Norris RN - 08/12/2022 11:54 AM EST Care plan completed [facility]12-13-[facility] Miscellaneous Notes* Plan of Care - Akiko Norris RN - 08/12/2022 11:54 AM EST Care plan completed * Op Note - Rahul Reid MD - 08/12/2022 11:03 AM EST OPERATIVE REPORT NAME: Harsh Love UNIT#: [id number] [facility]#: [id number] DATE OF : 2005 DATE: 08/12/2022 SURGEON: RAHUL REID M.D. CARPENTRY SUPERVISOR: Buck PREOPERATIVE DIAGNOSIS: Right hydronephrosis Right flank pain POSTOPERATIVE DIAGNOSIS: Same PROCEDURE: Cystoscopy with right stent placement Fluoroscopy ANESTHESIA: General. ESTIMATED BLOOD LOSS: <1 mL. DRAINS: 6 fr x 26 cm JJ right stent. SPECIMENS: Urine for culture. COMPLICATIONS: None acutely. FLUOROSCOPIC FINDINGS: Normal ureter. Enlarged pelvis consistent with prior imaging. No filling defect. INDICATION: Harsh Love is a 16-year-old female who was previously admitted for urinary tract infection, flank pain, and right hydronephrosis. Subsequent VCUG showed no reflux and a Lasix scan showed 44% function with good drainage prior to Lasix on the right side. We treated her constipation and she continued to have pain. While we discussed the option of laparoscopic pyeloplasty, since her pain was not what we would classically expect with a UPJ obstruction we elected to proceed with cystoscopy with stent placement to see if the stent would resolve her pain. The risks and benefitsof surgery were discussed with the family in clinic and reviewed on the day of surgery. They expressed understanding and elected to proceed. DESCRIPTION OF PROCEDURE: After informed consent had been obtained the risks and benefits of the procedure explained to the patient's family, she was taken back to the operating room placed in supineposition. She was placed under general anesthesia and preoperative antibiotics administered. She was advanced to dorsolithotomy position. All extremities were appropriately padded. She was prepped and draped in normal sterile fashion. Timeout was undertaken identifying patient, procedure, site, andsurgeon. We began by advancing the 19 Venezuelan rigid cystoscope through the patient's urethra into the bladder. Urine was taken and sent for culture. The bladder was emptied. We identified the right ureteral orifice. We cannulated with a 5 Venezuelan open-ended ureteral catheter. We performed a retrograde pyelogram with the findings noted above. We then extended the ureteral catheter up to the level of the renal pelvis measuring measuring approximately 26 cm. We now passed a 0.032 Glidewire through the ureteral catheter and removed the ureteral catheter. Wepassed a 6 Venezuelan by 26 cm double-J stent over the wire. Upon retracting the wire there was noted to be a good curl within the renal pelvis on fluoroscopy as well as a good curl within the bladder visually. We drained the bladder and then passed lidocaine jelly per urethra. The patient was then returned to supine position, awakened from anesthesia, and transferred to the cover room in stable condition. I was present participated in the entire procedure. All instruments, sponges, needles were accounted for at the conclusion of the case. DISPOSITION: The patient will be discharged home once stable from anesthesia. We discussed stent pain. I will plan to see her back in 2 to 4 weeks to see if the indwelling stent resolves her prior right flank pain or if it continues. Rahul Reid M.D. * Brief Op Note - Gilberto Jane MD - 08/12/2022 10:50 AM EST Urology Brief Op Note Name: Harsh Love Admission Date: 08/12/2022 10:50 AM Attending Provider: Rahul Reid MD Room/Bed: Periop Pool Bed/Pool Bed Age: 16 y.o. Time: 10:50 AM Hospital Day: 1 Diagnosis and Procedure Pre Op Dx: right hydronephrosis, right flank pain Post Op Dx:same Procedure: cystoscopy, right retrograde pyelogram, right ureteral stent insertion (6fr 26cm) Operative Staff Surgeon:Rahul Reid MD Asst:Gilberto Jane MD Anes:Bang Zhou MD Procedure Data Anesthesia: General EBL:<5cc Complications:none Drains: None Fluids: See Anesthesia documentation Condition and Comments Condition:stable Disposition:Recovery Gilberto Jane MD * Ancillary Progress Note - Mary Lou Swift CCLS - 08/12/2022 10:00 AM EST Child Life Periop Note Patient Name: Harsh Love Date of : 2005 Date of Visit: 08/12/2022 Visit: Time Spent (15 minute units): Less than 15 minutes Introduced self and services to: Patient;Mother;Father Surgery for: Urology Assessment: Developmental Level: Within appropriate developmental parameters Affect/Behavior: Amiable;Cooperative;Displaying/Expressing appropriate anxiety; easy-going Listening/Attention: Appropriate for developmental age;Attentive;Interactive Caregiver/Family: Present;Supportive;Engaged Identified/Verbalized concerns: Anxiety appropriate to circumstance;Prefers intravenous induction;No concerns identified Interventions: Emotional Support: Encouraged expression of concerns and feelings;Reinforcement of understanding ofdiagnosis Provided developmentally appropriate psychosocial preparation to patient and family including:: Didactic encounter/information;Review/reinforce information due to familiarity with surgical experience Outcomes: Patient/Family demonstrates: Appropriate understanding of perioperative events;Increased coping andadjustment;Gabriella by: Support from parent caregiver;Gabriella by: Support from staff;Gabriella by: Use of therapeutic intervention Plan: Psychosocial Plan: Continue to provide ongoing support and services as needed;Provide post-op follow up and support RADHA Frey documented in this [facility]12-13-2022 Procedure note* Op Note - Rahul Reid MD - 08/12/2022 11:03 AM EST OPERATIVE REPORT NAME: Harsh Love UNIT#: [id number] [facility]#: [id number] DATE OF : 2005 DATE: 08/12/2022 SURGEON: RAHUL REID M.D. CARPENTRY SUPERVISOR: Buck PREOPERATIVE DIAGNOSIS: Right hydronephrosis Right flank pain POSTOPERATIVE DIAGNOSIS: Same PROCEDURE: Cystoscopy with right stent placement Fluoroscopy ANESTHESIA: General. ESTIMATED BLOOD LOSS: <1 mL. DRAINS: 6 fr x 26 cm JJ right stent. SPECIMENS: Urine for culture. COMPLICATIONS: None acutely. FLUOROSCOPIC FINDINGS: Normal ureter. Enlarged pelvis consistent with prior imaging. No filling defect. INDICATION: Harsh Love is a 16-year-old female who was previously admitted for urinary tract infection, flank pain, and right hydronephrosis. Subsequent VCUG showed no reflux and a Lasix scan showed 44% function with good drainage prior to Lasix on the right side. We treated her constipation and she continued to have pain. While we discussed the option of laparoscopic pyeloplasty, since her pain was not what we would classically expect with a UPJ obstruction we elected to proceed with cystoscopy with stent placement to see if the stent would resolve her pain. The risks and benefitsof surgery were discussed with the family in clinic and reviewed on the day of surgery. They expressed understanding and elected to proceed. DESCRIPTION OF PROCEDURE: After informed consent had been obtained the risks and benefits of the procedure explained to the patient's family, she was taken back to the operating room placed in supineposition. She was placed under general anesthesia and preoperative antibiotics administered. She was advanced to dorsolithotomy position. All extremities were appropriately padded. She was prepped and draped in normal sterile fashion. Timeout was undertaken identifying patient, procedure, site, andsurgeon. We began by advancing the 19 Venezuelan rigid cystoscope through the patient's urethra into the bladder. Urine was taken and sent for culture. The bladder was emptied. We identified the right ureteral orifice. We cannulated with a 5 Venezuelan open-ended ureteral catheter. We performed a retrograde pyelogram with the findings noted above. We then extended the ureteral catheter up to the level of the renal pelvis measuring measuring approximately 26 cm. We now passed a 0.032 Glidewire through the ureteral catheter and removed the ureteral catheter. Wepassed a 6 Venezuelan by 26 cm double-J stent over the wire. Upon retracting the wire there was noted to be a good curl within the renal pelvis on fluoroscopy as well as a good curl within the bladder visually. We drained the bladder and then passed lidocaine jelly per urethra. The patient was then returned to supine position, awakened from anesthesia, and transferred to the cover room in stable condition. I was present participated in the entire procedure. All instruments, sponges, needles were accounted for at the conclusion of the case. DISPOSITION: The patient will be discharged home once stable from anesthesia. We discussed stent pain. I will plan to see her back in 2 to 4 weeks to see if the indwelling stent resolves her prior right flank pain or if it continues. Rahul Reid M.D. [facility]12-13-2022 Procedure note* Brief Op Note - Gilberto Jane MD - 08/12/2022 10:50 AM EST Urology Brief Op Note Name: Harsh Love Admission Date: 08/12/2022 10:50 AM Attending Provider: Rahul Reid MD Room/Bed: Periop Pool Bed/Pool Bed Age: 16 y.o. Time: 10:50 AM Hospital Day: 1 Diagnosis and Procedure Pre Op Dx: right hydronephrosis, right flank pain Post Op Dx:same Procedure: cystoscopy, right retrograde pyelogram, right ureteral stent insertion (6fr 26cm) Operative Staff Surgeon:Rahul Reid MD Asst:Gilberto Jane MD Anes:Bang Zhou MD Procedure Data Anesthesia: General EBL:<5cc Complications:none Drains: None Fluids: See Anesthesia documentation Condition and Comments Condition:stable Disposition:Recovery Gilberto Jane MD [facility]12-13-2022 Attending History and physical note* Rahul Reid MD - 08/12/2022 10:06 AM EST Interval H&P No changes in health per mom. No fevers, cough, vomiting, rash. Regular rate and rhythm. Lungs clear to auscultation bilaterally. Right hand marked OR with Dr. Franklin Jane MD PGY-4 10:06 AM Surgery and risks reviewed. All questions answered. Mom, dad, and patient expressed understanding and wished to proceed. Rahul Reid MD Source Note - Rahul Reid MD - 07/28/2022 8:30 AM EST Harsh Love is here in follow-up for: Fluid In Kidney History of Presenting Problem: 07/28/2022: History provided by patient. Still having frequent pain on right side. Notice when active. 3/7 days. Variable time: 20 minutes to an hour. Better with ibuprofen/tylenol. Since last seen- UTIs: No; Unexplained fevers: No; Visible hematuria: No. BM every other day, did clean out and taking full cap daily. Misses BM when forgets to take miralax. Have alarm set. Old notes (for reference): 07/01/2022: History provided by mom. Has been having a lot more frequent side pain. Was ill over theweekend and vomited. Usually when her side hurts, she can lay down and rest and it'll get better. This week she missed school one day. Now pain is happening a few times per week. Also complaining of dysuria. No fever. Has right flank pain. Does not move/radiate. Has more pain when it is touched. Last week did senna and miralax. Has not had time to do a clean out because she has not been at home for an entire day. Thinking that maybe they will do it today. BM at least once a day usually. Did senna and had diarrhea and then did not go for a few days. Voiding probably every three hours. Trying to do the two hour schedule but it's hard. At school, goes about twice. Drinks water mostly. Has beentrying to do elimination diet. Difficult to follow a diet when she is always on the go. A couple over last few weeks. Havent done clean out. Pain more common when works extra hours. Has been drinkingmore at work. 06/02/2022: History provided by Mom and patient. Was admitted for pyelonephritis on 05/09. CT showing right hydronephrosis, consistent with right UPJ obstruction. Urine culture <10k enterococcus and staphylococcus. She was treated for the infection and was put on macrobid. She denies any UTIs, Voids 4-6 times per day. She has occasional flank pain but does not last long. Daily soft BM.Some pain during exam, but think related to position. Right side. Right sided pain- pressure, like being hit inthe side. -01/07. 05/09/22 [place] [facility] urine culture >100k Enterococcus per report. Given rocephin and culture repeated at [facility] (<10k Enterococcus, <10k staph). 04/16/22 UCx nl anabel and >100kEnterococcus. 04/07/22 Macrobid BID x 7 days ordered. 04/04/22 UCx >100k Enterococcus, 10-50k E Coli. UA neg. VCUG 06/02/2022: no VUR, normal bladder/urethra, no PVR, stool burden Lasix scan 06/02/2022: R 44, L 56, both drain well before lasix CT scan: R > L HN, R crossing vessel Past Medical History: Past Medical History: Diagnosis Date Depression Hydronephrosis MRSA (methicillin resistant Staphylococcus aureus) Pyelonephritis Past Surgical History: Procedure Laterality Date TONSILLECTOMY AND ADENOIDECTOMY Allergies: No Known Allergies Medications: Outpatient Encounter Medications as of 07/28/2022 Medication Sig Dispense Refill HOMEOPATHIC PRODUCTS PO Take by mouth as needed polyethylene glycol (MIRALAX;GLYCOLAX) 17 GM/SCOOP powder Take 17 g by mouth daily for 90 days 510 g 2 [DISCONTINUED] nitrofurantoin (MACRODANTIN) 100 MG capsule Take 1 Capsule (100 mg) by mouth daily for 90 days 30 Capsule 2 SENNA PO Take by mouth as needed (Patient not taking: Reported on 07/28/2022) ibuprofen (MOTRIN) 200 MG tablet Take 400 mg by mouth every 8 hours as needed for Pain Take with meals. (Patient not taking: Reported on 07/28/2022) acetaminophen (TYLENOL) 325 MG tablet Take 650 mg by mouth every 6 hours as needed for Pain (Patient not taking: Reported on 07/28/2022) No facility-administered encounter medications on file as of 07/28/2022. Family Medical History: Family History Problem Relation Age of Onset Fibromyalgia Mother No known problems Father Social History: Social History Socioeconomic History Marital status: Single Spouse name: Not on file Number of children: Not on file Years of education: Not on file Highest education level: Not on file Occupational History Not on file Tobacco Use Smoking status: Never Passive exposure: Never Smokeless tobacco: Never Vaping Use Vaping Use: Never used Substance and Sexual Activity Alcohol use: Never Drug use: Never Sexual activity: Never Other Topics Concern Speech difficulties Not Asked Toilet training problems Not Asked Inadequate sleep Not Asked Excessive TV viewing Not Asked Excessive video game use Not Asked Inadequate exercise Not Asked Poor diet Not Asked Second-hand smoke exposure Not Asked Alcohol/drug concerns Not Asked Violence concerns Not Asked Poor oral hygiene Not Asked Bike safety Not Asked Vehicle safety Not Asked Social History Narrative Not on file Additional History Is the patient on a special diet? No Age at toilet training? 2 yrs Per parents, immunizations are up to date. Yes Patient lives with? Parents Factors which may affect learning None Review of Systems: Constitutional: negative Eyes: negative Ears, nose, mouth, throat, and face: negative Respiratory: recent resp virus (last week) and still congested, green drainage Cardiovascular: negative Gastrointestinal: negative Integument/breast: negative Physical Examination: Vitals: 07/28/22 0829 Weight: 65.2 kg Height: 169 cm General: Well appearing, no acute distress Eyes: No exudates, conjunctiva normal HENT: Normocephalic Resp: Normal effort Lymphatic: No visible lymph nodes (neck) Abdomen: Non-distended, soft Neurologic: Grossly normal sensation Musculoskeletal: Normal ROM Skin: Dry, rash: No : Deferred Laboratory Testing: No results found for this visit on 07/28/22. Imaging: See HPI for brief read (+ media for scanned report/images). Assessment & Plan: Harsh was seen today for fluid in kidney. Diagnoses and all orders for this visit: Right flank pain Hydronephrosis, unspecified hydronephrosis type Infrequent urination Slow transit constipation Description of pain is more what we would expect with musculoskeletal However, with significant hydronephrosis (concerning for UPJ obstruction but good drainage on lasixscan) and continued pain, I told them I did not think observation was appropriate. I recommended that we proceed with cystoscopy with stent placement (rather than laparoscopic pyeloplasty). I reviewed how this procedure is performed and discussed the risks (bleeding, infection, anesthesia, injury to bladder/ureter/kidney, stent pain) and benefits (seeing if pain resolves with stent in). We discussed that resolution of the pain with the stent in place would prompt a recommendation of alaparoscopic pyeloplasty (and my roller machine operator will reserve some time 6-10 weeks after stent placement). If the pain continues, then we will plan for stent removal and recommend work up for musculoskeletal causes of pain. All questions were answered and they expressed understanding. Rahul Reid MD July 28, 2022 This note or partial portions of this note may have been created using a copy forward or copy pastefeature, but these portions have been verified and re- edited for accuracy and any portions not in need of editing or reviews are not being used to generate any component necessary for billing purposes Elements necessary for proper CPT code selection are based only on elements of the visit that are truly unique to this visit. Records reviewed for this visit are italicized in the HPI. Total time for today's visit: 30 (including 23 face to face, 7 minutes reviewing records and documenting). [facility]12-13-2022 History and physical note* Rahul Reid MD - 08/12/2022 10:06 AM EST Interval H&P No changes in health per mom. No fevers, cough, vomiting, rash. Regular rate and rhythm. Lungs clear to auscultation bilaterally. Right hand marked OR with Dr. Franklin Jane MD PGY-4 10:06 AM Surgery and risks reviewed. All questions answered. Mom, dad, and patient expressed understanding and wished to proceed. Rahul Reid MD Source Note - Rahul Reid MD - 07/28/2022 8:30 AM EST Harsh Walker Ivan is here in follow-up for: Fluid In Kidney History of Presenting Problem: 07/28/2022: History provided by patient. Still having frequent pain on right side. Notice when active. 3/7 days. Variable time: 20 minutes to an hour. Better with ibuprofen/tylenol. Since last seen- UTIs: No; Unexplained fevers: No; Visible hematuria: No. BM every other day, did clean out and taking full cap daily. Misses BM when forgets to take miralax. Have alarm set. Old notes (for reference): 07/01/2022: History provided by mom. Has been having a lot more frequent side pain. Was ill over theweekend and vomited. Usually when her side hurts, she can lay down and rest and it'll get better. This week she missed school one day. Now pain is happening a few times per week. Also complaining of dysuria. No fever. Has right flank pain. Does not move/radiate. Has more pain when it is touched. Last week did senna and miralax. Has not had time to do a clean out because she has not been at home for an entire day. Thinking that maybe they will do it today. BM at least once a day usually. Did senna and had diarrhea and then did not go for a few days. Voiding probably every three hours. Trying to do the two hour schedule but it's hard. At school, goes about twice. Drinks water mostly. Has beentrying to do elimination diet. Difficult to follow a diet when she is always on the go. A couple over last few weeks. Havent done clean out. Pain more common when works extra hours. Has been drinkingmore at work. 06/02/2022: History provided by Mom and patient. Was admitted for pyelonephritis on 05/09. CT showing right hydronephrosis, consistent with right UPJ obstruction. Urine culture <10k enterococcus and staphylococcus. She was treated for the infection and was put on macrobid. She denies any UTIs, Voids 4-6 times per day. She has occasional flank pain but does not last long. Daily soft BM.Some pain during exam, but think related to position. Right side. Right sided pain- pressure, like being hit inthe side. -01/07. 05/09/22 [place] [facility] urine culture >100k Enterococcus per report. Given rocephin and culture repeated at [facility] (<10k Enterococcus, <10k staph). 04/16/22 UCx nl anabel and >100kEnterococcus. 04/07/22 Macrobid BID x 7 days ordered. 04/04/22 UCx >100k Enterococcus, 10-50k E Coli. UA neg. VCUG 06/02/2022: no VUR, normal bladder/urethra, no PVR, stool burden Lasix scan 06/02/2022: R 44, L 56, both drain well before lasix CT scan: R > L HN, R crossing vessel Past Medical History: Past Medical History: Diagnosis Date Depression Hydronephrosis MRSA (methicillin resistant Staphylococcus aureus) Pyelonephritis Past Surgical History: Procedure Laterality Date TONSILLECTOMY AND ADENOIDECTOMY Allergies: No Known Allergies Medications: Outpatient Encounter Medications as of 07/28/2022 Medication Sig Dispense Refill HOMEOPATHIC PRODUCTS PO Take by mouth as needed polyethylene glycol (MIRALAX;GLYCOLAX) 17 GM/SCOOP powder Take 17 g by mouth daily for 90 days 510 g 2 [DISCONTINUED] nitrofurantoin (MACRODANTIN) 100 MG capsule Take 1 Capsule (100 mg) by mouth daily for 90 days 30 Capsule 2 SENNA PO Take by mouth as needed (Patient not taking: Reported on 07/28/2022) ibuprofen (MOTRIN) 200 MG tablet Take 400 mg by mouth every 8 hours as needed for Pain Take with meals. (Patient not taking: Reported on 07/28/2022) acetaminophen (TYLENOL) 325 MG tablet Take 650 mg by mouth every 6 hours as needed for Pain (Patient not taking: Reported on 07/28/2022) No facility-administered encounter medications on file as of 07/28/2022. Family Medical History: Family History Problem Relation Age of Onset Fibromyalgia Mother No known problems Father Social History: Social History Socioeconomic History Marital status: Single Spouse name: Not on file Number of children: Not on file Years of education: Not on file Highest education level: Not on file Occupational History Not on file Tobacco Use Smoking status: Never Passive exposure: Never Smokeless tobacco: Never Vaping Use Vaping Use: Never used Substance and Sexual Activity Alcohol use: Never Drug use: Never Sexual activity: Never Other Topics Concern Speech difficulties Not Asked Toilet training problems Not Asked Inadequate sleep Not Asked Excessive TV viewing Not Asked Excessive video game use Not Asked Inadequate exercise Not Asked Poor diet Not Asked Second-hand smoke exposure Not Asked Alcohol/drug concerns Not Asked Violence concerns Not Asked Poor oral hygiene Not Asked Bike safety Not Asked Vehicle safety Not Asked Social History Narrative Not on file Additional History Is the patient on a special diet? No Age at toilet training? 2 yrs Per parents, immunizations are up to date. Yes Patient lives with? Parents Factors which may affect learning None Review of Systems: Constitutional: negative Eyes: negative Ears, nose, mouth, throat, and face: negative Respiratory: recent resp virus (last week) and still congested, green drainage Cardiovascular: negative Gastrointestinal: negative Integument/breast: negative Physical Examination: Vitals: 07/28/22 0829 Weight: 65.2 kg Height: 169 cm General: Well appearing, no acute distress Eyes: No exudates, conjunctiva normal HENT: Normocephalic Resp: Normal effort Lymphatic: No visible lymph nodes (neck) Abdomen: Non-distended, soft Neurologic: Grossly normal sensation Musculoskeletal: Normal ROM Skin: Dry, rash: No : Deferred Laboratory Testing: No results found for this visit on 07/28/22. Imaging: See HPI for brief read (+ media for scanned report/images). Assessment & Plan: Harsh was seen today for fluid in kidney. Diagnoses and all orders for this visit: Right flank pain Hydronephrosis, unspecified hydronephrosis type Infrequent urination Slow transit constipation Description of pain is more what we would expect with musculoskeletal However, with significant hydronephrosis (concerning for UPJ obstruction but good drainage on lasixscan) and continued pain, I told them I did not think observation was appropriate. I recommended that we proceed with cystoscopy with stent placement (rather than laparoscopic pyeloplasty). I reviewed how this procedure is performed and discussed the risks (bleeding, infection, anesthesia, injury to bladder/ureter/kidney, stent pain) and benefits (seeing if pain resolves with stent in). We discussed that resolution of the pain with the stent in place would prompt a recommendation of alaparoscopic pyeloplasty (and my roller machine operator will reserve some time 6-10 weeks after stent placement). If the pain continues, then we will plan for stent removal and recommend work up for musculoskeletal causes of pain. All questions were answered and they expressed understanding. Rahul Reid MD July 28, 2022 This note or partial portions of this note may have been created using a copy forward or copy pastefeature, but these portions have been verified and re- edited for accuracy and any portions not in need of editing or reviews are not being used to generate any component necessary for billing purposes Elements necessary for proper CPT code selection are based only on elements of the visit that are truly unique to this visit. Records reviewed for this visit are italicized in the HPI. Total time for today's visit: 30 (including 23 face to face, 7 minutes reviewing records and documenting). [facility] Progress note* Ancillary Progress Note - Mary Lou Swift CCLS - 08/12/2022 10:00 AM EST Child Life Periop Note Patient Name: Harsh Love Date of : 2005 Date of Visit: 08/12/2022 Visit: Time Spent (15 minute units): Less than 15 minutes Introduced self and services to: Patient;Mother;Father Surgery for: Urology Assessment: Developmental Level: Within appropriate developmental parameters Affect/Behavior: Amiable;Cooperative;Displaying/Expressing appropriate anxiety; easy-going Listening/Attention: Appropriate for developmental age;Attentive;Interactive Caregiver/Family: Present;Supportive;Engaged Identified/Verbalized concerns: Anxiety appropriate to circumstance;Prefers intravenous induction;No concerns identified Interventions: Emotional Support: Encouraged expression of concerns and feelings;Reinforcement of understanding ofdiagnosis Provided developmentally appropriate psychosocial preparation to patient and family including:: Didactic encounter/information;Review/reinforce information due to familiarity with surgical experience Outcomes: Patient/Family demonstrates: Appropriate understanding of perioperative events;Increased coping andadjustment;Gabriella by: Support from parent caregiver;Gabriella by: Support from staff;Gabriella by: Use of therapeutic intervention Plan: Psychosocial Plan: Continue to provide ongoing support and services as needed;Provide post-op follow up and support RADHA Frey [facility]09-13-2022 Plan of care note* Plan of Care - Merissa Lu RN - 05/13/2022 2:43 PM EDT Problem: Pain - Acute Goal: Reduced pain sensation Outcome: Completed Problem: Infection Risk Goal: Absence of infection signs and symptoms Outcome: Completed Problem: Body Temperature - Abnormal Goal: Body temperature within specified parameters Outcome: Completed Goal: Knowledge of imbalanced body temperature prevention Outcome: Completed Problem: Transition Readiness Goal: Knowledge of discharge instructions Outcome: Completed Goal: Able to safely transition to next level of care Outcome: Completed [facility]09-13-2022 Miscellaneous Notes* Plan of Care - Merissa Lu RN - 05/13/2022 2:43 PM EDT Problem: Pain - Acute Goal: Reduced pain sensation Outcome: Completed Problem: Infection Risk Goal: Absence of infection signs and symptoms Outcome: Completed Problem: Body Temperature - Abnormal Goal: Body temperature within specified parameters Outcome: Completed Goal: Knowledge of imbalanced body temperature prevention Outcome: Completed Problem: Transition Readiness Goal: Knowledge of discharge instructions Outcome: Completed Goal: Able to safely transition to next level of care Outcome: Completed * Case Management - Beth Cerna RN - 05/13/2022 10:34 AM EDT Multidisciplinary Team Meeting Assessment/Plan of Care Reviewed at 1000 Are there Case Management needs identified at this time? No case management consult at this time; unit dependency case manager will monitor for home care needs (equipment/services) Representatives: Case Management: Beth Cerna RN and Dara Giles RN Nursing: Wilson Wen RN clinical coordinator [employer] Operator; Elsi Cross Child Life: Natalia Leon CCLS * Case Management - Dara Giles RN - 05/12/2022 10:18 AM EDT Assessment/Plan of Care Reviewed Are there Case Management needs identified at this time? Not at this time. [facility] will continue to monitor closely for potential home care (services/equipment) needs. * Plan of Care - Meaghan Ochoa RN - 05/11/2022 8:20 PM EDT Problem: Pain - Acute Goal: Reduced pain sensation Outcome: Ongoing Problem: Infection Risk Goal: Absence of infection signs and symptoms Outcome: Ongoing Problem: Body Temperature - Abnormal Goal: Body temperature within specified parameters Outcome: Ongoing Goal: Knowledge of imbalanced body temperature prevention Outcome: Ongoing Problem: Transition Readiness Goal: Knowledge of discharge instructions Outcome: Ongoing Goal: Able to safely transition to next level of care Outcome: Ongoing * Significant Event - Lucy Parker DO - 05/11/2022 10:03 AM EDT Situation Awareness (SA) Concern Resolved Note Name: Harsh Love Date: 05/11/2022 Type of SA Concern: Watcher Brief Resolution Description: Patient's acute clinical status improved with change of antibiotics. Vitals improved with blood pressure back to normal levels. Afebrile. Resolution discussed with Attending: must be notified for Watcher, DI H/VH, and Sepsis, Senior Resident, and Armhole Baster Hand Lucy Parker DO * Plan of Care - Kellee Amaral RN - 05/10/2022 9:55 PM EDT Problem: Pain - Acute Goal: Reduced pain sensation Outcome: Ongoing Problem: Infection Risk Goal: Absence of infection signs and symptoms Outcome: Ongoing Problem: Body Temperature - Abnormal Goal: Body temperature within specified parameters Outcome: Ongoing Goal: Knowledge of imbalanced body temperature prevention Outcome: Ongoing Problem: Transition Readiness Goal: Knowledge of discharge instructions Outcome: Ongoing Goal: Able to safely transition to next level of care Outcome: Ongoing Problem: Pain - Acute Goal: Reduced pain sensation Outcome: Ongoing Problem: Infection Risk Goal: Absence of infection signs and symptoms Outcome: Ongoing Problem: Body Temperature - Abnormal Goal: Body temperature within specified parameters Outcome: Ongoing Problem: Body Temperature - Abnormal Goal: Knowledge of imbalanced body temperature prevention Outcome: Ongoing Problem: Transition Readiness Goal: Knowledge of discharge instructions Outcome: Ongoing Problem: Transition Readiness Goal: Able to safely transition to next level of care Outcome: Ongoing * Ancillary Progress Note - An Jones - 05/10/2022 1:53 PM EDT NUTRITION MONITORING: Reviewed H&P, progress notes, nursing nutrition screen, problem list, growth, current nutritionsupport, nutritionally significant labs and medications. Harsh Love is a 16 y.o. female Patient Active Problem List Diagnosis Mental disorder Major depressive disorder, single episode, severe without psychosis Anxiety state Moderate episode of recurrent major depressive disorder Pyelonephritis Ureteropelvic junction (UPJ) obstruction, right Sepsis Past Medical History: Diagnosis Date Depression MRSA (methicillin resistant Staphylococcus aureus) Current Diet: NPO PO Intake(%): No Known Allergies Body mass index is 22.75 kg/m . at the 72 %ile (Z= 0.58) based on CDC (Girls, 2- 20 Years) BMI-for-age based on BMI available as of 05/09/2022. Medications: Reviewed Lab Results: Reviewed Recent Labs 05/10/22 0516 NA 137 K 3.1* CL 106 CO2 21.9* BUN 6 GLU 139* CALCIUM 8.2 CREATININE 0.72 Recent Labs 05/10/22 1106 WBC 16.0* RBC 4.43 HGB 13.0 HCT 36.7* MCV 82.8 MCH 29.3 MCHC 35.4 RDW 12.4 PLT 161 MPV 9.0 DIFFCOMPLETE Manual Nutrition Concerns: Patient's diet to be advanced. Plan: Sand Buffer/Coordinator Of Health Services to follow-up in two days. Monitor for diet advancement, nutritional intake, tolerance, clinical condition, and weight changes. NPO >3days, Refer to dietitian for further evaluation and nutrition support. An Jones May 10, 2022 * Significant Event - Yolis Rodgers DO - 05/10/2022 9:34 AM EDT Situation Awareness (SA) Significant Event Note Name: Harsh Love Date: 05/10/2022 Type of SA concern: Watcher Unruly deterioration index score and warning history for last 8 hours: Unruly Index Date/Time Deterioration Index Unruly Warning Level 05/10/22 0139 69 -- 09/06/21 242 61 -- 05/10/22 0300 56 -- 05/10/22 0310 55 -- 05/10/22 0312 56 -- 05/10/22 0321 56 -- 05/10/22 0401 55 -- 05/10/22 0455 55 -- 05/10/22 0456 61 -- 05/10/22 0500 63 -- 05/10/22 0600 62 -- 05/10/22 0649 70 -- 05/10/22 0700 71 -- 05/10/22 0800 71 -- 05/10/22 0820 74 -- 05/10/22 0900 72 -- 05/10/22 0910 73 -- Vital signs: Vitals for the past 8 hrs: Pulse Resp Temp BP SpO2 05/10/22 0910 109 16 36.4 C (97.5 F) 94/60 98 % 05/10/22 0900 102 17 -- -- 99 % 05/10/22 0820 90 18 36.2 C (97.2 F) (!) 88/48 -- 05/10/22 0800 90 18 -- -- 98 % 05/10/22 0700 83 16 -- -- 98 % 05/10/22 0649 105 17 36.9 C (98.4 F) -- 98 % 05/10/22 0600 97 16 -- -- 97 % 05/10/22 0500 (!) 114 22 -- -- 99 % 05/10/22 0456 (!) 122 18 (!) 38.9 C (102.1 F) -- 99 % 05/10/22 0401 (!) 133 13 (!) 39.1 C (102.3 F) -- 99 % 05/10/22 0312 (!) 135 28 -- 100/55 100 % 05/10/22 0310 (!) 147 23 (!) 39.1 C (102.4 F) -- 98 % 05/10/22 0300 (!) 141 24 -- -- 100 % 05/10/22 0242 (!) 122 23 (!) 38.6 C (101.5 F) -- 100 % Pain score: Numeric Rating Scale: 2 Brief reason patient being made SA concern: Patient being made a watcher due to concerns for sepsis. She has had downtrending blood pressures since admission requiring two 1L LR boluses, most recently at 0130 this morning. Also with high fevers and persistent tachycardia overnight but currently afebrile and HR 100s. Focused exam: General: Tired and ill-appearing. Interactive when directly addressed but otherwise laying in bed with eyes shut. HEENT: Normocephalic and atraumatic. No ocular discharge, no nasal discharge; moist mucous membranes. Cardiac: Regular rhythm, rate appropriate for age. Normal heart sounds. No murmurs, rubs or gallops. Strong pulses felt in all extremities; however, capillary refill is delayed (3 seconds). Respiratory: Respirations are easy and non-labored, good air exchange bilaterally. No rales, rhonchi, or wheezes. Abdomen: Abdomen soft and non-distended with normal bowel sounds. No obvious splenomegaly. Has tenderness with palpation of the R flank and CVA area. Neurologic: Symmetric limb movements. A/O x3 - knows her name, year, and that she is at the hospital. Skin: Skin is warm. Mental model and working diagnosis: Harsh is a 16 y.o. 6 m.o. female with prior history of multiple UTIs admitted with R hydronephrosis. Current working diagnosis is pyelonephritis with R hydronephrosis and R UPJ obstruction. Now concerning for sepsis. Reportedly had sexual intercourse 2 weeks ago without protection so also considering PID on the differential. Other differential diagnoses: - PID Mitigation plan: Will give another 1L LR bolus over 1 hour. Will also do a renal US with duplex to ensure adequate blood flow and monitor the extent of patient's hydronephrosis. Will obtain urine GC/chlamydia, CBC, and CRP and have records from [place] ED faxed over. Two blood cultures and urine culture were obtained at their ED on day of admission. Time of bedside huddle when mitigation plan developed: 0900 Expected improvement after plan enacted: Improved blood pressure Deadline for re-evaluation and documentation of addendum: Next MARJORIE/resident evaluation in 1 hours Re-evaluation for expected improvement will occur at: 1 hour Escalation plan if expected improvement not met by deadline: May require vasopressors for unstable vital signs Additional escalation criteria: PICU level of care Concerning signs and symptoms to look out for: Decrease in mental status BP not responding to IV bolus Poor perfusion Unstable vital signs Participants in bedside huddle: Attending: must be notified for Watcher, DI H/VH, and Sepsis, Senior Resident, Bedside nurse, Armhole Baster Hand, and Patient's family Yolis Rodgers DO Pediatrics Resident, PGY-1 9:48 AM 05/10/2022 * Plan of Care - Karla Reynolds RN - 05/10/2022 3:27 AM EDT Problem: Pain - Acute Goal: Reduced pain sensation 05/10/2022326 by Karla Reynolds RN Outcome: Ongoing 05/10/202244 by Karla Reynolds RN Outcome: Ongoing Problem: Infection Risk Goal: Absence of infection signs and symptoms 05/10/2022326 by Karla Reynolds RN Outcome: Ongoing 05/10/202244 by Karla Reynolds RN Outcome: Ongoing Problem: Body Temperature - Abnormal Goal: Body temperature within specified parameters 05/10/2022326 by Karla Reynolds RN Outcome: Ongoing 05/10/202244 by Karla Reynolds RN Outcome: Ongoing Goal: Knowledge of imbalanced body temperature prevention 05/10/2022326 by Karla Reynolds RN Outcome: Ongoing 05/10/202244 by Karla Reynolds RN Outcome: Ongoing Problem: Transition Readiness Goal: Knowledge of discharge instructions 05/10/2022326 by Karla Reynolds RN Outcome: Ongoing 05/10/202244 by Karla Reynolds RN Outcome: Ongoing Goal: Able to safely transition to next level of care 05/10/2022326 by Karla Reynolds RN Outcome: Ongoing 05/10/202244 by Karla Reynolds RN Outcome: Ongoing * Provider Consult - Fred Martinez MD - 05/09/2022 2:02 PM EDT UROLOGY CONSULT NOTE NAME: Harsh Love DATE OF SERVICE: 05/09/2022 PRIMARY CARE PROVIDER: Nicolle Chowdhury Md, MD REQUESTING PROVIDER: Anna Lynn MD HOSPITAL DAY: Hospital Day: 1 REASON FOR CONSULTATION: Harsh Love is being seen today for a consultive service at the request of Anna Lynn MD for an opinion or medical advice regarding pyelonephritis. ASSESSMENT: 16 year old female with a history of frequent UTIs, now with right flank pain and hydronephrosis consistent with right UPJ obstruction RECOMMENDATIONS: -no acute surgical intervention indicated at this time -CT from OSH reviewed; right hydronephrosis, likely R UPJ obstruction; also noted distended bladderand large stool burden -will continue IV antibiotics for now and see how she does clinically overnight; she was likely untreated previously with macrobid; if she is worsening or not improving, we will consider a R PNT vs right ureteral stent tomorrow; thus, NPO@mn -labs from OSH: Cr 0.8, wnl; leukocytosis to 16; lactic acid 1.1, UA with 1+ bacteria but negative for nitrites, LE, wbc, rbc -check urine culture -pain/nausea control Discussed with Dr Martinez and the primary team HISTORY OF PRESENT ILLNESS: Harsh is a 16 y.o. female with a history of frequent, recurrent UTIs who presented to OSH, [facility], for worsening flank pain today. The patient notes several months of right flank pain that usually is dull but has flares at times She was recently diagnosed with a UTI in February and treated with keflex, but she continued to have symptoms and underwent two courses of Macrobid, which did not alleviate her symptoms completely. She presented to [place], where she got a LENNY and then a CT showing right hydronephrosis, consistent with right UPJ obstruction. Also an ileus but no calculi were noted. She was given IV antibiotics and transferred to [facility] for further care. She currently reports 8/10 right CVA pain as well as chills and dysuria. She denies hematuria. She notes some constipation. PAST MEDICAL HISTORY: Past Medical History: Diagnosis Date Depression MRSA (methicillin resistant Staphylococcus aureus) PAST SURGICAL HISTORY: Past Surgical History: Procedure Laterality Date TONSILLECTOMY AND ADENOIDECTOMY DRUG/FOOD ALLERGIES: No Known Allergies MEDICATIONS: Prior to Admission Meds: Medications Prior to Admission Medication Sig Dispense Refill Last Dose MAGNESIUM PO Take by mouth Past Month Probiotic Product (PROBIOTIC-10 PO) Take by mouth Past Month VITAMIN D, CHOLECALCIFEROL, PO Take by mouth Past Month ibuprofen (MOTRIN) 200 MG tablet Take 200 mg by mouth every 6 hours as needed Past Week ondansetron (ZOFRAN-ODT) 4 MG disintegrating tablet Take 4 mg by mouth every 8 hours as needed 05/09/2022 ibuprofen (MOTRIN) 200 MG tablet Take 400 mg by mouth every 8 hours as needed for Pain Take with meals. Past Week acetaminophen (TYLENOL) 325 MG tablet Take 650 mg by mouth every 6 hours as needed for Pain Past Week cephALEXin (KEFLEX) 500 MG capsule Take 500 mg by mouth 2 times daily (Patient not taking: Reportedon 05/09/2022) Not Taking nitrofurantoin monohydrate (MACROBID) 100 MG capsule Take 100 mg by mouth 2 times daily (Patient not taking: Reported on 05/09/2022) Not Taking etonogestrel (NEXPLANON) 68 MG subdermal implant Inject 1 implant into the skin once (Patient not taking: Reported on 05/09/2022) Not Taking melatonin 3 MG tablet Take 3 mg by mouth at bedtime as needed for Sleep (Patient not taking: No sigreported) Not Taking Scheduled Meds: NaCl 0.9% 2 mL Intravenous Q8H Continuous Infusions: PRN Meds:.NaCl 0.9%, NaCl 0.9%, NaCl, sterile water, NaCl FAMILY HISTORY: History reviewed. No pertinent family history. REVIEW OF SYSTEMS: Pertinent items are noted in HPI. Pertinent items are noted in HPI. Please see H&P. Constitutional: negative for abnormal development and pos fevers Eyes: negative for visual disturbance Respiratory: negative for stridor and wheezing Cardiovascular: negative for syncope Gastrointestinal: negative for abdominal pain, nausea and vomiting Genitourinary:pos for dysuria and flank pain Integument: negative for skin color change Musculoskeletal:negative for muscle weakness OBJECTIVE: Vitals: 05/09/22 1400 BP: 113/74 Pulse: (!) 116 Resp: 20 Temp: 37.7 C (99.9 F) Height: 170.2 cm Weight - Scale: 65.9 kg BSA (Calculated - sq m): 1.76 sq meters Body mass index is 22.75 kg/m . Intake/Output: No intake or output data in the 24 hours ending 05/09/22 1513 General: Patient appears in mild distress, tearful Head: atraumatic Eyes: extraocular movements are intact Neck: supple Chest: normal effort, tachycardic Cardiac: no cyanosis Abdomen: soft, nontender and nondistended : right CVAT Skin: pink, warm, well perfused Musculoskeletal: normal tone, with full range of motion DIAGNOSTIC STUDIES REVIEWED: BMP: [ CBC: Invalid input(s): CORRWBC Blood culture: No results found for: BLOODCULTURE Urine culture: No results found for: URINECULT Radiology: CT 05/09 ([place]): IMPRESSION: Moderately severe right hydronephrosis. No radiodense urolithiasis. Ileus. Bryan Murdock MD 05/09/2022 I personally discussed estrada portions of the history and physical examination of this patient and discussed the management plan with the resident. I reviewed the resident's note and agree with the documented findings and plan of care, except as noted above. Fred Martinez MD documented in this encounterTriHealth09-13-2022 Hospital course Narrative* Stef Escobedo MD - 05/13/2022 2:00 PM EDT Images from the original note were not included. Discharge/Transfer Summary Name: Harsh Love MR#: [id number] : 2005 Room #: 6227/01 Age/Sex: 16 y.o. female Admit Date: 05/09/2022 Admitting: No admitting provider for patient encounter. Discharge Date: 05/13/22 Discharged from: [facility] Attending: Stef Escobedo MD Final Diagnosis: Pyelonephritis Significant Findings (Problem List): Active Hospital Problems Diagnosis Pyelonephritis Sepsis Ureteropelvic junction (UPJ) obstruction, right Resolved Hospital Problems No resolved problems to display. Reason for Hospitalization: Pyelonephritis Discharge Condition: Stable Hospital Course (Care, treatment and services provided): Brief Narrative Hospital Course: Prior to admission: Patient endorsed several months of low back pain thought to be muscular strain from sports. In February 2022 she was seen in an urgent care where she was diagnosed with a UTI and started on cephalexin. Antibiotic coverage was switched to macrobid when urine culture resulted. She wasfound to still have a UTI after completion of macrobid and was placed back on cephalexin. Patient was seen in outpatient urology by Dr. Ding. Urology ordered a renal ultrasound which showed right-sided hydronephrosis. A CT of the abdomen and pelvis showed moderate to severe right-sided hydronephrosis as well as a moderate stool burden. Week prior to admission patient experienced worsening backpain, and on day of admission patient awoke with shaking chills, headache, and back pain. Brought to [place] ED by parents. [place] ED course: Tachycardic on arrival with HR 140, T 99, BP 101/73. CBC with WBCs 16. CMP WNL. UA with 1+ bacteria. Lactic acid WNL. CXR WNL. Blood and urine cultures drawn. Urine culture + 100,000 CFUs of enterococcus sensitive to ampicillin. Given 1 g of rocephin and 2 L IV fluids before transfer to [facility]. [facility] course: Patient had shaking chills and complained of back pain on arrival. She had multiple high fevers (Tmax 40.6 C) that were managed with tylenol, and continued to trend down. She was started on maintenance IVF. She was seen by Urology for a UPJ blockage noted on ultrasound - no surgical intervention occurred during this admission. A bowel regimen of Senna was started. Her RFA was positivefor R/EV, and patient was kept in contact/droplet precautions. Her vitals were monitored on [employer]. She was deemed a watcher for her fevers and depressed BP to 88/48, but after changing her antibiotics from ceftriaxone to cefepime + Vancomycin, her vitals improved and her watcher status was resolved. Her antibiotics were later changed to then just Vancomycin, and after sensitivities were assessed to just Unasyn. Ended up growing enterococcus sensitive to ampicillin as well as MSSA in her urine. Urology obtained a Renal Lasix Scan with the plan to be evaluated as an outpatient follow-up to further manage her UPJ blockage and hydronephrosis. Her antibiotics were transitioned to Augmentin to be discharged home on. Her IVF were decreased with increased PO intake. Patient was stable upon discharge to home. Plan for 2w augmentin followed by macrodantin daily afterward for UTI prophylaxis. Discharge Day Exam: Refer to daily progress note for physical exam Immunizations Administered for This Admission No immunizations on file. Significant Imaging Results: US Duplex Abdomen Pelvis Complete Final Result IMPRESSION: 1. Moderate to severe right pelvocaliectasis, similar to the CT exam 05/08/2022. No obstructing stone or mass identified. Imaging appearance could be due to ureteropelvic junction obstruction. 2. Prominent left extrarenal pelvis without intrarenal pelviectasis or caliectasis. 3. Enlarged kidneys for age, height, and weight bilaterally. 4. Grossly unremarkable renal Doppler evaluation. This report has been created using voice recognition software US Renal Complete Final Result IMPRESSION: 1. Moderate to severe right pelvocaliectasis, similar to the CT exam 05/08/2022. No obstructing stone or mass identified. Imaging appearance could be due to ureteropelvic junction obstruction. 2. Prominent left extrarenal pelvis without intrarenal pelviectasis or caliectasis. 3. Enlarged kidneys for age, height, and weight bilaterally. 4. Grossly unremarkable renal Doppler evaluation. This report has been created using voice recognition software Pending Test Results and Tests to Obtain as Outpatient: In-Process Results No orders found from 04/14/2022 to 05/14/2022. Preliminary Results No orders found from 04/14/2022 to 05/14/2022. Disposition: She was discharged to home. Discharge Medications: She did have significant changes to their home medications (see below) Medication List START taking these medications Morning Afternoon Evening Bedtime As Needed amoxicillin-clavulanate 875-125 MG tablet Take 1 Tablet (875 mg) by mouth every 12 hours for 13 days Commonly known as: AUGMENTIN [ ] [ ] [ ] [ ] [ ] nitrofurantoin 100 MG capsule Take 1 Capsule (100 mg) by mouth daily for 90 days Commonly known as: MACRODANTIN Start taking on: May 27, 2022 [ ] [ ] [ ] [ ] [ ] polyethylene glycol 17 GM/SCOOP powder Take 17 g by mouth daily for 90 days Commonly known as: MIRALAX;GLYCOLAX [ ] [ ] [ ] [ ] [ ] senna 8.6 MG tablet Take 1 Tablet (8.6 mg) by mouth daily for 42 days Commonly known as: SENOKOT Start taking on: May 14, 2022 [ ] [ ] [ ] [ ] [ ] CONTINUE taking these medications which HAVE changed Morning Afternoon Evening Bedtime As Needed ibuprofen 200 MG tablet Take 400 mg by mouth every 8 hours as needed for Pain Take with meals. What changed: Another medication with the same name was removed. Continue taking this medication, and follow the directions you see here. Commonly known as: MOTRIN [ ] [ ] [ ] [ ] [ ] * ondansetron 4 MG disintegrating tablet Take 4 mg by mouth every 8 hours as needed What changed: Another medication with the same name was added. Make sure you understand how and when to take each. Commonly known as: ZOFRAN-ODT [ ] [ ] [ ] [ ] [ ] * ondansetron 4 MG disintegrating tablet Take 1 Tablet (4 mg) by mouth every 8 hours as needed for Nausea for up to 10 doses What changed: You were already taking a medication with the same name, and this prescription was added. Make sure you understand how and when to take each. Commonly known as: ZOFRAN-ODT [ ] [ ] [ ] [ ] [ ] * This list has 2 medication(s) that are the same as other medications prescribed for you. Read thedirections carefully, and ask your doctor or other care provider to review them with you. CONTINUE taking these medications which HAVE NOT changed at this visit Morning Afternoon Evening Bedtime As Needed acetaminophen 325 MG tablet Take 650 mg by mouth every 6 hours as needed for Pain Commonly known as: TYLENOL [ ] [ ] [ ] [ ] [ ] MAGNESIUM PO Take by mouth [ ] [ ] [ ] [ ] [ ] melatonin 3 MG tablet Take 3 mg by mouth at bedtime as needed for Sleep [ ] [ ] [ ] [ ] [ ] PROBIOTIC-10 PO Take by mouth [ ] [ ] [ ] [ ] [ ] STOP taking these medications cephALEXin 500 MG capsule Commonly known as: KEFLEX nitrofurantoin monohydrate 100 MG capsule Commonly known as: MACROBID VITAMIN D (CHOLECALCIFEROL) PO Where to Get Your Medications These medications were sent to [id number] - [place], [place] - [address] [place] [id number] amoxicillin-clavulanate 875-125 MG tablet nitrofurantoin 100 MG capsule ondansetron 4 MG disintegrating tablet polyethylene glycol 17 GM/SCOOP powder senna 8.6 MG tablet Discharge Instructions: Please follow-up with Urology as an outpatient in 2 weeks. Complete Renal Lasix Scan and Voiding Cysto-Urethrogram (VCUG) before this appointment. Continue taking antibiotics as prescribed. - Augmentin 875 mg by mouth every 12 hours daily until 05/25/22. - Once completing Augmentin, you will start taking Macrodantain 100 mg every day until you see Urology. Encourage your child to drink extra fluids to help clear the infection. Cranberry juice may be helpful. You can give your child acetaminophen (Tylenol) or ibuprofen (Advil) for the painful urination or for fever over 102 F (39 C). Call your healthcare provider IMMEDIATELY or return to the ED If: Your child has increasing back pain, worsening fever trending upward, or develops new symptoms. Your child starts acting very sick. Call during office hours if: Fever or painful urination lasts more than 48 hours after your child starts taking an antibiotic. You have other concerns or questions. Bladder irritant foods to avoid or limit: Cranberry juice (in large amounts) Grapefruit and grapefruit juice Lázaro Oranges and orange juice Pineapple and pineapple juice Strawberries [place] peppers Pickles Sauerkraut Tomatoes and tomato products Processed sandwich meats (salami, bologna) Soy Yogurt [place] Horseradish Ketchup Salad Dressings Soy sauce Vinegar Refugio Sauce Alcohol Coffee (caffeinated and decaffeinated) Tea (caffeinated and decaffeinated) Carbonated drinks (cola, non-cola, diet, and caffeine-free) Chocolate Australian food [place] Islander food Pizza Spicy foods Cypriot food Artificial sweeteners (Equal (sweetener), NutraSweet , Saccharin, and Sweet N Low ) Monosodium glutamate (MSG) Instructions/Follow Up Future Labs/Procedures Expected by Expires Follow-up As directed Comments: Follow up with your spiritual minister in 1 week. Call the Pediatric Hospital Medicine office at [phone] if unable to connect with primary care provider. Urology will call you about a follow-up appointment. If they do not reach you within 1 week, then please call the office to schedule an appointment. The office phone number is [phone]. If you have any questions or further symptoms, then please call that number for further instructions. [place] State Law: Child Safety Seat Instructions As directed Comments: It is the [facility] Law that every child under 8 years old must ride in an appropriate child safety seat unless the child is 4'9 or taller. Every child from 8-15 years old who is not secured in a child safety seat must be secured in the vehicle's seat belt. [facility] advises that all motor vehicle passengers be restrained. Patient Instructions As directed Comments: It was a pleasure caring for Harsh while she was in the hospital! She was admitted for pyelonephritis, which is a kidney infection caused by bacteria. She was on IV antibiotics and fluids while in the hospital. As she began to improve, her IV antibiotics were stopped, and she was switched to oral antibiotics. She was given other medications to help with pain, fevers, and nausea symptoms. All of these symptoms started to downtrend by time of discharge. Urology followed her closely as well in the hospital. There recommendations were to follow-up in their clinicon an out-patient basis for additional testing. She will be discharged on an antibiotic called Augmentin for a total of 14 days. This prescription has been sent to your pharmacy. Then, after this antibiotic is over, she is to start taking another antibiotic called nitrofurantoin per urology recommendations. This medication is being given prophylaticailly to ensure that she does not develop another episode of pyelonephritis. However, if her current symptoms worsen or new symptoms arise, then please call your spiritual minister for further care instructions. Additionally, she will need to follow-up with her primary care provider in 1 week after discharge. She will also need to follow-up with urology on an out-patient basis. Urology will contact you about an appointment and further testing, if they do not contact you within 1 week, then please contact their office. We ask that she continue to stay hydrated. She needs to have at minimum 2 liters of water per day. Additionally, we ask that she have at least 1 stool per day. She has been sent home with Senna, which can be taken daily. Additionally, she can take daily miralax, which can be increased or decreased depending on her stool frequency. Discharge Orders Future Labs/Procedures Expected by Expires Activity as tolerated As directed Call physician/healthcare provider for: Decreased drinking, no urination/no wet diaper for 8 hours As directed Call physician/healthcare provider for: Difficulty breathing (breathing faster, working harder to breathe causing ribs to stick out or pulling above the chest, nostrils flaring, grunting, change in color, pauses in breathing) As directed Call physician/healthcare provider for: New Problem As directed Call physician/healthcare provider for: Temperature >100.4 As directed Regular diet for age As directed Signed: Lucy Parker DO. PGY-1 Resident. 05/13/2022 11:48 AM Hospitalist Attending I reviewed the above summary on the day of discharge. I agree with the findings described in the note above except for changes as noted by or addition. Management of the patient has been carried out in accordance with my plans. Plan discussed with caregiver(s) and questions addressed. Stef Escobedo MD 05/13/2022 documented in this encounterTriHealth09-13-2022 History of Present illness Narrative* Stef Escobedo MD - 05/13/2022 11:06 AM EDT Resident Daily Progress Note Name: Harsh Love Date:05/13/2022 Attending:Stef Escobedo MD Admission Date: 05/09/2022 Hospital Day: 5 SUBJECTIVE: Overnight, patient did have a fever last night and once this morning that both quickly returned to normal after getting a dose of tylenol. Otherwise, no acute events. This morning, patient resting comfortably in bed. She did endorse feeling a lot better, denying anycurrent pain or nausea. She is a little concerned about going home today because of worry for if she feels bad again, but does think she is doing much better. Mom is worried, but does feel she can take care of her at home. She denies CP, SOB, vomiting, headache, dysuria, hematuria, or hematochezia. She has been afebrile since 4:20 AM this morning. OBJECTIVE: Vitals: 05/13/22 0845 BP: Pulse: 56 Resp: 14 Temp: Temp: 37.3 C (99.1 F) Temp Min: 36.8 C (98.2 F) Max: 38.7 C (101.7 F) Heart Rate: 56 Pulse Min: 56 Max: 88 Resp: 14 Resp Min: 14 Max: 20 BP: (!) 116/99 BP Min: 110/73 Max: 117/87 No data recorded Date 05/12/22 0000 - 05/12/22235805/13/22 0000 - 05/13/222358 Shift 7569-7425 8032-3164 24 Hour Total 3386-7997 5821-3369 24 Hour Total INTAKE P.O. 120 1595 1715 600 600 Liquid (mL) 120 1595 1715 600 600 I.V.(mL/kg/hr) 1226.03(1.55) 798.08(1.01) 2024.11(1.28) 665.18 665.18 Saline Flush (mL) 2 2 4 4 Volume (mL) (Dextrose 5 % NaCl 0.9% KCl 20 mEq/L IV) 1195.93 733.82 1929.75 601.07 601.07 Volume (mL) (NaCl 0.9 % IV Flush bag 30 mL) 30.1 62.26 92.36 60.11 60.11 IV Piggyback 214.88 214.88 133.4 133.4 Volume (mL) (ondansetron (ZOFRAN) 6 mg in NaCl 0.9% 15 mL IV) 15 15 Volume (mL) (vancomycin in D5W (VANCOCIN) IV 1,000 mg) 199.88 199.88 Volume (mL) (ampicillin-sulbactam (UNASYN) 3,000 mg of Unasyn in NaCl 0.9% 66.7 mL IV) 133.4 133.4 Shift Total(mL/kg) 1560.91(23.69) 2393.08(36.31) 3953.99(60) 1398.58(21.22) 1398.58(21.22) OUTPUT Urine(mL/kg/hr) 2100(2.66) 2100(2.66) 4200(2.66) 1700 1700 Urine 2100 2099 4200 1700 1700 Stool(mL/kg/hr) Stool Occurrence 3 x 3 x Shift Total(mL/kg) 2100(31.87) 2100(31.87) 4200(63.73) 1700(25.8) 1700(25.8) NET -539.09 293.08 -246.01 -301.42 -301.42 Weight (kg) 65.9 65.9 65.9 65.9 65.9 65.9 Dietary Orders (From admission, onward) Start Ordered 05/10/22 1425 DIET REGULAR FOR AGE DIET EFFECTIVE NOW 05/10/22 1424 Patient Lines/Drains/Airways Status Active IV Lines Name Placement date Placement time Site Days Peripheral IV 05/12/22 Left Forearm 05/12/22 1729 -- less than 1 Patient Lines/Drains/Airways Status Active NG/Airways None General: Resting comfortably, sleeping in bed. Rouses for exam and answers questions appropriately.Appears fatigued, but this is much improved from yesterday. No acute distress, non-toxic appearing. HEENT: Normocephalic and atraumatic. No ocular discharge, no nasal discharge; moist mucous membranes. Cardiac: Regular rhythm, rate appropriate for age. Normal heart sounds. No murmurs, rubs or gallops. Pulses symmetrical. Capillary refill 2-3 seconds, warm and well-perfused. Respiratory: Respirations are easy and non-labored, good air exchange bilaterally. No rales, rhonchi, or wheezes. Abdomen: Abdomen soft and non-distended with normal bowel sounds. No tenderness to palpation of abdomen. Mild tenderness with palpation of the R flank area but greatly improving. Neurologic: Symmetric limb movements, age appropriate response to hands on care. Skin: Skin is warm and dry. Smiling on my exam. Agree with rest of exam. CVA tenderness much improved today. Scheduled Meds: amoxicillin-clavulanate 875 mg Oral Q12H melatonin 6 mg Oral at Bedtime senna 8.6 mg Oral Daily NaCl 0.9% 2 mL Intravenous Q8H Continuous Infusions: PRN Meds: NaCl 0.9%, NaCl 0.9%, NaCl, sterile water, NaCl, acetaminophen, ondansetron Data Review: Enterococcus faecalis Staphylococcus aureus SENSITIVITY SENSITIVITY Ampicillin <=2 Sensitive Nitrofurantoin <=16 Sensitive <=16 Sensitive Oxacillin 0.5 Sensitive Tetracycline <=1 Sensitive Trimethoprim/Sulfa <=10 Sensitive Vancomycin ORA 2 Sensitive 1 Sensitive Urine culture from [place] shows >100,000 CFUs of E. Faealis sensitive to ampicillin. Recent Results (from the past 24 hour(s)) Basic Metabolic Panel Collection Time: 05/12/22 11:25 AM Result Value Ref Range Sodium 137 133 - 145 mmol/L Potassium 3.6 3.3 - 5.1 mmol/L Chloride 106 96 - 108 mmol/L Carbon Dioxide 23.5 22.0 - 29.0 mmol/L BUN 3 (L) 4 - 19 mg/dL Glucose 112 (H) 70 - 99 mg/dL Creatinine 0.80 0.50 - 1.00 mg/dL Calcium 9.0 7.6 - 11.0 mg/dL C-reactive protein Collection Time: 05/12/22 11:25 AM Result Value Ref Range C-Reactive Protein 7.4 (H) 0.0 - 1.0 mg/dL eGFR Collection Time: 05/12/22 11:25 AM Result Value Ref Range eGFR 87.87 NA Basic Metabolic Panel Collection Time: 05/13/22 6:05 AM Result Value Ref Range Sodium 140 133 - 145 mmol/L Potassium 3.4 3.3 - 5.1 mmol/L Chloride 105 96 - 108 mmol/L Carbon Dioxide 23.8 22.0 - 29.0 mmol/L BUN 3 (L) 4 - 19 mg/dL Glucose 107 (H) 70 - 99 mg/dL Creatinine 0.76 0.50 - 1.00 mg/dL Calcium 8.8 7.6 - 11.0 mg/dL eGFR Collection Time: 05/13/22 6:05 AM Result Value Ref Range eGFR 92.49 NA US Duplex Abdomen Pelvis Complete Final Result IMPRESSION: 1. Moderate to severe right pelvocaliectasis, similar to the CT exam 05/08/2022. No obstructing stone or mass identified. Imaging appearance could be due to ureteropelvic junction obstruction. 2. Prominent left extrarenal pelvis without intrarenal pelviectasis or caliectasis. 3. Enlarged kidneys for age, height, and weight bilaterally. 4. Grossly unremarkable renal Doppler evaluation. This report has been created using voice recognition software US Renal Complete Final Result IMPRESSION: 1. Moderate to severe right pelvocaliectasis, similar to the CT exam 05/08/2022. No obstructing stone or mass identified. Imaging appearance could be due to ureteropelvic junction obstruction. 2. Prominent left extrarenal pelvis without intrarenal pelviectasis or caliectasis. 3. Enlarged kidneys for age, height, and weight bilaterally. 4. Grossly unremarkable renal Doppler evaluation. This report has been created using voice recognition software Assessment: Principal Problem: Pyelonephritis Active Problems: Ureteropelvic junction (UPJ) obstruction, right Sepsis Harsh is a 16 year old female with past medical history of depression, anxiety, and multiple UTIs admitted for pyelonephritis in the setting of suspected right UPJ obstruction with concern for sepsis. Urology following, does not feel surgical intervention is warranted at this time. Urine cultures grew Enterococcus faecalis and staph aureus, and was treated with Unasyn after assessing sensitivities. CRP elevation improved to 7.4 from 11.9. Creatinine trending down. Patient required hospitalization for IV antibiotics, IVF, and close clinical monitoring. Patient clinically improving, fever curve trending down overall. Her PO fluid intake has remarkably improved and her labs are stable. She has been transitioned to PO antibiotics, and is medically stable for discharge to home with plans tofollow with Urology as outpatient. Plan: Problem Based Plan: Principal Problem: Pyelonephritis Active Problems: Ureteropelvic junction (UPJ) obstruction, right Sepsis - discontinued IV Unasyn - started on Augmentin PO for 14 days - Consult to urology, appreciate recs - obtain OP VCUG and Renal Lasix scan - plan for OP F/u in 2 weeks - discontinued IVF - Tylenol prn for fever, pain - spot doses of motrin - Zofran prn for nausea - Strict I/Os - Contact/droplet isolation for +REV - continue Senna at 1/2 prior dose - continue melatonin 6 mg Qhs - Dispo: d/c today as long as no changes in plan by Urology Signed: Lucy Parker DO. PGY-1 Resident. 05/13/2022 6:31 AM Hospitalist Attending I reviewed the history and performed a pertinent physical examination at 1040. I agree with the findings described in the note above except for changes as noted by or addition. Management of the patient has been carried out in accordance with my plans. Plan discussed with caregiver(s) and questionsaddressed. Stef Escobedo MD * Rahul Reid MD - 05/13/2022 7:17 AM EDT NAME: Harsh Love DATE: 05/13/2022 HOSPITAL DAY: Hospital Day: 5 SUBJECTIVE: Had a fever yesterday evening (7pm) and early this AM (4am) Pain improved; does not want to be rushed home too soon OBJECTIVE: VITALS: BP 110/73 (Patient Position: Supine) Pulse 88 Temp 36.8 C (98.2 F) Resp 20 Ht 170.2 cm Wt65.9 kg LMP 05/07/2022 SpO2 99% BMI 22.75 kg/m I/O: Intake/Output Summary (Last 24 hours) at 05/13/2022 0718 Last data filed at 05/13/2022 0700 Gross per 24 hour Intake 4311.38 ml Output 4200 ml Net 111.38 ml No intake/output data recorded. General: Alert, well appearing Eyes: Extraocular movements intact ENT: no nasal discharge Resp: Normal effort, no wheezing Heart: no cyanosis Abdomen: Soft, nondistended, nontender Musculoskeletal: Normocephalic head, no weakness Skin: Warm and dry : mild right flank ttp DIAGNOSTIC STUDIES REVIEWED: BMP: Recent Labs 05/13/22 0605 NA 140 K 3.4 CL 105 CO2 23.8 BUN 3* GLU 107* CREATININE 0.76 CALCIUM 8.8 [ CBC: Invalid input(s): CORRWBC Blood culture: No results found for: BLOODCULTURE Urine culture: Urine Culture Date Value Ref Range Status 05/09/2022 Enterococcus faecalis (A) Final Comment: <10,000 CFU/ml 05/09/2022 Staphylococcus aureus (A) Final Comment: <10,000 CFU/ml ASSESSMENT/PLAN: Harsh is a 16 y.o. female with a history of frequent UTIs, now with right flank pain and hydronephrosis consistent with right UPJ obstruction -continues to have fevers; trend -continue antibiotics per primary -urine culture low count staph and enterococcus -Cr wnl -if afebrile >24hrs and still inpatient, then can do renal lasix scan and VCUG; otherwise, can be done as outpatient -recommend prophylactic antibiotics as outpatient until seen in office for follow up Anticipate discharge: per primary Bryan Murdock MD 05/13/2022 attending: Pt seen and examined. I have discussed the patient with the resident and agree with the above note,assessment, and plan. Feeling much better. Had dose of Amox. Planning to go home today Discussed with mom and patient that I am OK with home on antibiotics, then follow up in urology with lasix scan + VCUG before appt. Reviewed what to watch for at home (increasing fever or pain, new symptoms) Discussed what to do if these occur Advised timed voiding schedule, reviewed good toileting technique Discussed importance of soft BM daily All questions were answered and they expressed understanding. Rahul Reid MD * Rahul Reid MD - 05/12/2022 7:41 AM EDT NAME: Harsh Love DATE: 05/12/2022 HOSPITAL DAY: Hospital Day: 4 SUBJECTIVE: Feeling much better in terms of pain, afebrile overnight OBJECTIVE: VITALS: BP 101/67 (Patient Position: Supine) Pulse 77 Temp 36.9 C (98.4 F) Resp 22 Ht 170.2 cm Wt65.9 kg LMP 05/07/2022 SpO2 96% BMI 22.75 kg/m I/O: Intake/Output Summary (Last 24 hours) at 05/12/2022 0741 Last data filed at 05/12/2022 0700 Gross per 24 hour Intake 3227 ml Output 3400 ml Net -173 ml No intake/output data recorded. General: Alert, well appearing Eyes: Extraocular movements intact ENT: no nasal discharge Resp: Normal effort, no wheezing Heart: no cyanosis Abdomen: Soft, nondistended, nontender Musculoskeletal: Normocephalic head, no weakness Skin: Warm and dry : mild right flank discomfort to palpation DIAGNOSTIC STUDIES REVIEWED: BMP: Recent Labs 05/11/22 0634 NA 138 K 3.8 CL 111* CO2 19.0* BUN 5 GLU 172* CREATININE 0.57 CALCIUM 8.5 [ CBC: Invalid input(s): CORRWBC Blood culture: No results found for: BLOODCULTURE Urine culture: Urine Culture Date Value Ref Range Status 05/09/2022 Enterococcus faecalis (A) Final Comment: <10,000 CFU/ml 05/09/2022 Staphylococcus aureus (A) Final Comment: <10,000 CFU/ml ASSESSMENT/PLAN: Harsh is a 16 y.o. female with a history of frequent UTIs, now with right flank pain and hydronephrosis consistent with right UPJ obstruction -fever curve improving; afebrile since 1729 on 05/11 -continue antibiotics -urine culture staph and enterococcus -Cr 05/11 0.5, wnl; c-will discuss need for renal scan inpatient vs outpatient Anticipate discharge: per primary Bryan Murdock MD 05/12/2022 ' attending: Pt seen and examined. I have discussed the patient with the resident and agree with the above note,assessment, and plan. Discussed with mom (patient sleeping) Lasix scan and VCUG when afebrile > 24 hours Can be done inpatient versus outpatient Follow up in clinic after testing All questions were answered and mom expressed understanding. Rahul Reid MD * Stef Escobedo MD - 05/12/2022 6:50 AM EDT Resident Daily Progress Note Name: Harsh Love Date:05/12/2022 Attending:Kaila Coppola DO Admission Date: 05/09/2022 Hospital Day: 4 SUBJECTIVE: Overnight, patient did receive another 3 mg of melatonin for sleep aid. She also had worsening painaround 2AM, so she was given Toradol. This morning still tired and weak feeling, but is starting to feel better. She is not nauseous, butdoes endorse epigastric stomach pain. Her frequent loose stools have decreased in number. Her flankpain is diminished. She was able to sleep better. She has been drinking some gingerale and has eaten half a bowl of chicken noodle soup for lunch and dinner yesterday. She doesn't feel very hungry right now. She and mom both endorse that they feel she is improving and moving in the right direction. She denies CP, SOB, vomiting, headache, dysuria, hematuria, or hematochezia. She has been afebrile since 5:30 PM last night. Still with discomfort and decreased appetite on rounds this AM. Patient and family both agree though that overall she is finally starting to show some improvement. OBJECTIVE: Vitals: 05/12/22 0600 BP: Pulse: 80 Resp: 20 Temp: Temp: 36.9 C (98.4 F) Temp Min: 36.5 C (97.7 F) Max: 38.3 C (100.9 F) Heart Rate: 80 Pulse Min: 71 Max: 114 Resp: 20 Resp Min: 11 Max: 27 BP: 101/67 BP Min: 92/52 Max: 118/82 SpO2: 98 % SpO2 Min: 96 % Max: 100 % Date 05/11/22 0000 - 05/11/22235805/12/22 0000 - 05/12/222358 Shift 8002-5140 4805-5921 24 Hour Total 3126-9010 5267-8963 24 Hour Total INTAKE I.V.(mL/kg/hr) 1658.34(2.1) 1210.49(1.53) 2868.83(1.81) 696.28 696.28 Volume (mL) (Dextrose 5 % NaCl 0.9% KCl 20 mEq/L IV) 1658.34 1180 2838.34 696.28 696.28 Volume (mL) (NaCl 0.9 % IV Flush bag 30 mL) 30.49 30.49 IV Piggyback 329.52 434.96 764.48 78.28 78.28 Volume (mL) (ondansetron (ZOFRAN) 6 mg in NaCl 0.9% 15 mL IV) 14.42 29.65 44.07 15 15 Volume (mL) (ceFEPime (MAXIPIME) in dextrose IV 2,000 mg) 100.23 100.23 Volume (mL) (vancomycin in D5W (VANCOCIN) IV 1,000 mg) 214.87 405.31 620.18 63.28 63.28 Shift Total(mL/kg) 1987.86(30.17) 1645.45(24.97) 3633.31(55.13) 774.56(11.75) 774.56(11.75) OUTPUT Urine(mL/kg/hr) 700(0.89) 1400(1.77) 2100(1.33) 1300 1300 Urine 700 1400 2100 1300 1300 Urine Occurrence 1 x 1 x Stool(mL/kg/hr) Stool Occurrence 2 x 2 x 4 x 1 x 1 x Shift Total(mL/kg) 700(10.62) 1400(21.24) 2100(31.87) 1300(19.73) 1300(19.73) NET 1287.86 245.45 1533.31 -525.44 -525.44 Weight (kg) 65.9 65.9 65.9 65.9 65.9 65.9 Dietary Orders (From admission, onward) Start Ordered 05/10/22 1425 DIET REGULAR FOR AGE DIET EFFECTIVE NOW 05/10/22 1424 Patient Lines/Drains/Airways Status Active IV Lines Name Placement date Placement time Site Days Peripheral IV 05/09/22 Left Antecubital 05/09/22 1402 -- 2 Patient Lines/Drains/Airways Status Active NG/Airways None General: Resting comfortably, sleeping in bed. Rouses for exam and answers questions appropriately.Appears fatigued. No acute distress, non-toxic appearing. HEENT: Normocephalic and atraumatic. No ocular discharge, no nasal discharge; moist mucous membranes. Cardiac: Regular rhythm, rate appropriate for age. Normal heart sounds. No murmurs, rubs or gallops. Pulses symmetrical. Capillary refill 2-3 seconds, warm and well-perfused. Respiratory: Respirations are easy and non-labored, good air exchange bilaterally. No rales, rhonchi, or wheezes. Abdomen: Abdomen soft and non-distended with normal bowel sounds. Tenderness with palpation of the R flank area but improving, per patient. Agree, significant R CVA tenderness. Neurologic: Symmetric limb movements, age appropriate response to hands on care. Skin: Skin is warm and dry. Scheduled Meds: melatonin 6 mg Oral at Bedtime senna 8.6 mg Oral Daily vancomycin 1,000 mg Intravenous Q8H EXACT NaCl 0.9% 2 mL Intravenous Q8H Continuous Infusions: Dextrose 5 % NaCl 0.9% KCl 20 mEq/L 100 mL/hr at 05/12/22 0600 PRN Meds: NaCl 0.9%, NaCl 0.9%, NaCl, sterile water, NaCl, acetaminophen, ondansetron Data Review: Enterococcus faecalis Staphylococcus aureus SENSITIVITY SENSITIVITY Ampicillin <=2 Sensitive Nitrofurantoin <=16 Sensitive <=16 Sensitive Oxacillin 0.5 Sensitive Tetracycline <=1 Sensitive Trimethoprim/Sulfa <=10 Sensitive Vancomycin ORA 2 Sensitive 1 Sensitive Recent Results (from the past 24 hour(s)) Basic Metabolic Panel Collection Time: 05/12/22 11:25 AM Result Value Ref Range Sodium 137 133 - 145 mmol/L Potassium 3.6 3.3 - 5.1 mmol/L Chloride 106 96 - 108 mmol/L Carbon Dioxide 23.5 22.0 - 29.0 mmol/L BUN 3 (L) 4 - 19 mg/dL Glucose 112 (H) 70 - 99 mg/dL Creatinine 0.80 0.50 - 1.00 mg/dL Calcium 9.0 7.6 - 11.0 mg/dL C-reactive protein Collection Time: 05/12/22 11:25 AM Result Value Ref Range C-Reactive Protein 7.4 (H) 0.0 - 1.0 mg/dL eGFR Collection Time: 05/12/22 11:25 AM Result Value Ref Range eGFR 87.87 NA US Duplex Abdomen Pelvis Complete Final Result IMPRESSION: 1. Moderate to severe right pelvocaliectasis, similar to the CT exam 05/08/2022. No obstructing stone or mass identified. Imaging appearance could be due to ureteropelvic junction obstruction. 2. Prominent left extrarenal pelvis without intrarenal pelviectasis or caliectasis. 3. Enlarged kidneys for age, height, and weight bilaterally. 4. Grossly unremarkable renal Doppler evaluation. This report has been created using voice recognition software US Renal Complete Final Result IMPRESSION: 1. Moderate to severe right pelvocaliectasis, similar to the CT exam 05/08/2022. No obstructing stone or mass identified. Imaging appearance could be due to ureteropelvic junction obstruction. 2. Prominent left extrarenal pelvis without intrarenal pelviectasis or caliectasis. 3. Enlarged kidneys for age, height, and weight bilaterally. 4. Grossly unremarkable renal Doppler evaluation. This report has been created using voice recognition software Assessment: Principal Problem: Pyelonephritis Active Problems: Ureteropelvic junction (UPJ) obstruction, right Sepsis Harsh is a 16 year old female with past medical history of depression, anxiety, and multiple UTIs admitted for pyelonephritis in the setting of suspected right UPJ obstruction with concern for sepsis. Resolved watcher status 05/11/22. Urology following, does not feel surgical intervention is warranted at this time. Urine cultures grew Enterococcus faecalis and staph aureus, and is being treatedwith Unasyn after assessing sensitivities. CRP elevation improved to 7.4 from 11.9. Creatinine elevated from 0.57 to 0.80. Patient requires continued hospitalization for IV antibiotics, IVF, and close clinical monitoring. Patient clinically improving. If patient's PO intake increases and her Creatinine is stable upon repeat BMP tomorrow, IVF can be discontinued. Will transition patient to PO Augmentin at discharge. Urine culture from [place] shows >100,000 CFUs of E. Faealis sensitive to ampicillin. Plan: Problem Based Plan: Principal Problem: Pyelonephritis Active Problems: Ureteropelvic junction (UPJ) obstruction, right Sepsis - discontinue Vancomycin - start 3000 mg IV Unasyn Q6hrs, 2/2 sensitive for both Enterococcus faecalis and Staph aureus - will plan to dc Unasyn and start Augmentin PO for discharge - Consult to urology, appreciate recs - awaiting plan for if need for Renal Lasix scan (IP vs OP) - plan for OP F/u in 2 weeks - continue mIVF D5 NS w KCL @ 100mL/hr - needs to increase PO intake and have stable Creatinine before discontinuing IVF - Tylenol prn for fever, pain - spot doses of Toradol prn for severe pain - Zofran prn for nausea. Can add compazine prn if continues - repeat BMP tomorrow to monitor Cr - Strict I/Os - Contact/droplet isolation for +REV - continue Senna at 1/2 prior dose - discontinue [employer] d/t stable vitals - continue melatonin 6 mg Qhs - Dispo: potentially as early as tomorrow if clinical improvement, VSS, Cr stable, and increased POintake Signed: Lucy Parker DO. FM PGY-1 Resident. 05/12/2022 6:31 AM Hospitalist Attending I reviewed the history and performed a pertinent physical examination at 1115. I agree with the findings described in the note above except for changes as noted by or addition. Management of the patient has been carried out in accordance with my plans. Plan discussed with caregiver(s) and questionsaddressed. Stef Escobedo MD * Kaila Coppola DO - 05/11/2022 6:30 AM EDT Resident Daily Progress Note Name: Harsh Love Date:05/11/2022 Attending:Kaila Coppola DO Admission Date: 05/09/2022 Hospital Day: 3 SUBJECTIVE: Overnight, patient was experiencing a lot of pain that was not being controlled with the tylenol. She was given one dose of Taisha, but became nauseous and vomited directly after. D/t her being febrileand having worsening pain, she was then given Toradol. With the worsening nausea, she was given Compazine x2 after Zofran was not helping. This morning patient resting comfortably sleeping in bed. She did awaken briefly for exam and did endorse not being in any pain or nauseous at the moment. She quickly went back to sleep after my exam. Mom at bedside. She states that Harsh wanted to order breakfast this morning, but by the time itarrived she no longer felt like eating. Reviewed culture results with mom. Switched antibiotics yesterday after UCx revealed GPC. Fever curve downtrending. OBJECTIVE: Vitals: 05/11/22 1000 BP: Pulse: (!) 114 Resp: 16 Temp: 36.8 C (98.2 F) Temp: 36.8 C (98.2 F) Temp Min: 36.2 C (97.2 F) Max: 40.6 C (105.1 F) Heart Rate: (!) 114 Pulse Min: 81 Max: 138 Resp: 16 Resp Min: 12 Max: 24 BP: 92/52 BP Min: 90/48 Max: 114/71 SpO2: 99 % SpO2 Min: 96 % Max: 100 % Date 09 - 05/10/22235805/11/2205/11/222358 Shift 1199-2359 24 Hour Total 1199-2359 24 Hour Total INTAKE P.O. 280 280 Liquid (mL) 280 280 I.V.(mL/kg/hr) 3271.23(4.14) 1716.99(2.17) 4988.22(3.15) 1558.17 1558.17 Volume (mL) (Dextrose 5 % and 0.9% NaCl IV) 1286.41 1286.41 Volume (mL) (Lactated Ringers IV Bolus 1,000 mL) 984.78 984.78 Volume (mL) (Lactated Ringers IV Bolus 1,000 mL) 1000.04 1000.04 Volume (mL) (Dextrose 5 % NaCl 0.9% KCl 20 mEq/L IV) 1650.94 1650.94 1558.17 1558.17 Volume (mL) (NaCl 0.9 % IV Flush bag 30 mL) 66.05 66.05 IV Piggyback 9.23 654.53 663.76 329.52 329.52 Volume (mL) (cefTRIAXone in D5W (ROCEPHIN) IV 2,000 mg) 50.19 50.19 Volume (mL) (ondansetron (ZOFRAN) 6 mg in NaCl 0.9% 15 mL IV) 9.23 18.97 28.2 14.42 14.42 Volume (mL) (ceFEPime (MAXIPIME) in dextrose IV 2,000 mg) 200.04 200.04 100.23 100.23 Volume (mL) (vancomycin in D5W (VANCOCIN) IV 1,000 mg) 385.33 385.33 214.87 214.87 Shift Total(mL/kg) 3280.46(49.78) 2651.52(40.24) 5931.98(90.02) 1887.69(28.65) 1887.69(28.65) OUTPUT Urine(mL/kg/hr) 1050(1.33) 1350(1.71) 2400(1.52) 300 300 Urine 1050 1350 2400 300 300 Emesis/NG/GT 100 350 450 Emesis 100 350 450 Stool(mL/kg/hr) Stool Occurrence 1 x 2 x 3 x 1 x 1 x Shift Total(mL/kg) 1150(17.45) 1700(25.8) 2850(43.25) 300(4.55) 300(4.55) NET 2130.46 951.52 3081.98 1587.69 1587.69 Weight (kg) 65.9 65.9 65.9 65.9 65.9 65.9 Dietary Orders (From admission, onward) Start Ordered 05/10/22 1425 DIET REGULAR FOR AGE DIET EFFECTIVE NOW 05/10/22 1424 Patient Lines/Drains/Airways Status Active IV Lines Name Placement date Placement time Site Days Peripheral IV 05/09/22 Left Antecubital 05/09/22 1402 -- 1 Patient Lines/Drains/Airways Status Active NG/Airways None General: Resting comfortably, sleeping in bed. Rouses for exam. No acute distress, non-toxic appearing. HEENT: Normocephalic and atraumatic. No ocular discharge, no nasal discharge; moist mucous membranes. Cardiac: Regular rhythm, rate appropriate for age. Normal heart sounds. No murmurs, rubs or gallops. Pulses symmetrical, brisk refill. Capillary refill 2-3 seconds, warm and well-perfused. Respiratory: Respirations are easy and non-labored, good air exchange bilaterally. No rales, rhonchi, or wheezes. Abdomen: Abdomen soft and non-distended with normal bowel sounds. Tenderness with palpation of the R flank area but improving, per patient. Neurologic: Symmetric limb movements, age appropriate response to hands on care. Skin: Skin is warm and dry. Scheduled Meds: vancomycin 1,000 mg Intravenous Q8H EXACT NaCl 0.9% 2 mL Intravenous Q8H senna 17.2 mg Oral Daily Continuous Infusions: Dextrose 5 % NaCl 0.9% KCl 20 mEq/L 100 mL/hr at 05/11/22 1000 PRN Meds: NaCl 0.9%, NaCl 0.9%, NaCl, sterile water, NaCl, acetaminophen, ondansetron Data Review: Urine culture: <10,000 CFU/ml enterococcus faecalis and staph aureus. Sensitivities pending Results for orders placed or performed during the hospital encounter of 05/09/22 (from the past 24 hour(s)) Lactate,WB Result Value Ref Range Lactate,WB 1.1 0.5 - 1.6 mmol/L Blood Gas, Venous Result Value Ref Range Temperature, venous 37.0 degrees C Hemoglobin Gases venous 10.1 (L) 12.0 - 16.0 g/dl pH Giovanny 7.393 7.280 - 7.420 NA pCO2, Venous 38.7 38.0 - 52.0 mm Hg pO2 Venous 67.7 mm Hg HCO3 Venous 23.1 22.0 - 28.0 mmol/L TCO2 Venous 24.2 24.0 - 30.0 mmol/L O2 Sat Venous 95.3 % O2 Hgb Giovanny 92.9 % T.Hgb STD BE Venous -1.2 mmol/L Basic Metabolic Panel Result Value Ref Range Sodium 138 133 - 145 mmol/L Potassium 3.8 3.3 - 5.1 mmol/L Chloride 111 (H) 96 - 108 mmol/L Carbon Dioxide 19.0 (L) 22.0 - 29.0 mmol/L BUN 5 4 - 19 mg/dL Glucose 172 (H) 70 - 99 mg/dL Creatinine 0.57 0.50 - 1.00 mg/dL Calcium 8.5 7.6 - 11.0 mg/dL C-reactive protein Result Value Ref Range C-Reactive Protein 11.9 (H) 0.0 - 1.0 mg/dL eGFR Result Value Ref Range eGFR 123.32 NA US Duplex Abdomen Pelvis Complete Final Result IMPRESSION: 1. Moderate to severe right pelvocaliectasis, similar to the CT exam 05/08/2022. No obstructing stone or mass identified. Imaging appearance could be due to ureteropelvic junction obstruction. 2. Prominent left extrarenal pelvis without intrarenal pelviectasis or caliectasis. 3. Enlarged kidneys for age, height, and weight bilaterally. 4. Grossly unremarkable renal Doppler evaluation. This report has been created using voice recognition software US Renal Complete Final Result IMPRESSION: 1. Moderate to severe right pelvocaliectasis, similar to the CT exam 05/08/2022. No obstructing stone or mass identified. Imaging appearance could be due to ureteropelvic junction obstruction. 2. Prominent left extrarenal pelvis without intrarenal pelviectasis or caliectasis. 3. Enlarged kidneys for age, height, and weight bilaterally. 4. Grossly unremarkable renal Doppler evaluation. This report has been created using voice recognition software Assessment: Principal Problem: Pyelonephritis Active Problems: Ureteropelvic junction (UPJ) obstruction, right Sepsis Harsh is a 16 year old female with past medical history of depression, anxiety, and multiple UTIs admitted for pyelonephritis in the setting of suspected right UPJ obstruction now with concern forsepsis. Made a watcher yesterday, but resolved this morning. Urology assessed patient yesterday anddoes not feel surgical intervention is warranted at this time. Urine cultures grew Enterococcus faecalis and staph aureus. Reviewed prior records - patient grew enterococcus on 04/16. Transitioned antibiotics from ceftriaxone to vancomycin and cefepime, now to just vancomycin. Will await sensitivities for further delineation of antibiotics. Repeat renal US yesterday with Duplex revealed similar findings to CT from 05/08/22, as well as prominent L extrarenal pelvis with normal Doppler. CRP elevation improved to 11.9. CBC with WBC 16.0. Patient requires continued hospitalization for IV antibioticsand close clinical monitoring. 16yo F with R UPJ obstruction and sepsis from pyelonephritis. Clinically improving. Urine cultures growing enterococcus and staph aureus, current appropriate coverage with vancomycin. Plan: Problem Based Plan: Principal Problem: Pyelonephritis Active Problems: Ureteropelvic junction (UPJ) obstruction, right Sepsis - Patient watcher status resolved this morning (1000) - Continue Vancomycin IV q8hr for coverage of enterococcus and staph - Vanc trough prior to 4th dose today at 1330 - F/U urine cx, will plan to adjust abx after sensitivities are back - discontinue cefepime d/t adequate coverage w/ Vanc - Consult to urology, appreciate recs - plan to see patient tomorrow to determine if need for Renal Lasix scan (IP vs OP) - plan for OP F/u in 2 weeks - decreased mIVF with D5 NS w KCL to @ 100mL/hr - Tylenol prn for fever, pain - Zofran prn for nausea. Can add compazine prn if continues - Strict I/Os - Contact/droplet isolation for +REV - Heating pad prn - Senna daily - CRM/MANAGER CLINICAL SERVICES - Vitals spaced to Q shift / routine Signed: Lucy Parker DO. PGY-1 Resident. 05/11/2022 6:31 AM Pediatric Hospital Medicine Attending I reviewed the history and performed a pertinent physical examination. I agree with the findings described in the note above except for changes as noted by or addition. Management of the patient has been carried out in accordance with my plans. Plan discussed with caregiver(s) and questions addressed. This note or partial portions of this note may have been created using a copy forward or copy pastefeature, but these portions have been verified and re- edited for accuracy and any portions not in need of editing or reviews are note being used to generate any component necessary for billing purposes. Elements necessary for proper CPT code selection are based only on elements of the visit that are truly unique to this visit. Time spent on the assessment, plan, and coordination of care for this patient was 35 minutes. Kaila Coppola DO * Kaila Coppola DO - 05/10/2022 6:43 AM EDT Resident Daily Progress Note Name: Harsh Love Date:05/10/2022 Attending:Kaila Coppola DO Admission Date: 05/09/2022 Hospital Day: 2 SUBJECTIVE: Overnight, febrile to 105F with low BP (88 systolic, repeat 90). Given 1L LR bolus (4th bolus sincepresenting to the ED on day of admission). Continued to be febrile and uncomfortable with pain and nausea overnight. Given Roxicodone x1 and spot dose of Motrin. This morning, patient is tired but no complaint of pain or nausea. Throughout the morning, patient with episode of hypotension with BP 88/48. Was afebrile at the timewith HR in the 90s-100s. Repeated 1L LR bolus (3rd bolus since admission to the floor) with improvement in her BP. Made a watcher due to sepsis. Developed another fever of 105.1F at 1200 with tachycardia (120s), shaking chills, headache, worsening R flank pain, nausea, and emesis x1, given Tylenol and Zofran. Repeat temp at 1250 was 101.5F, gave spot dose of Motrin. OBJECTIVE: Vitals: 05/10/22 1400 BP: 94/50 Pulse: 87 Resp: 18 Temp: Temp: 36.9 C (98.4 F) Temp Min: 36.2 C (97.2 F) Max: 41.6 C (106.9 F) Heart Rate: 87 Pulse Min: 83 Max: 147 Resp: 18 Resp Min: 12 Max: 30 BP: 94/50 (patient awake) BP Min: 88/48 Max: 114/71 SpO2: 98 % SpO2 Min: 96 % Max: 100 % Date 05/09/22 1200 - 05/09/22235805/10/22 - 05/10/222358 Shift 7021-3325 24 Hour Total 5213-6225 2111-0912 24 Hour Total INTAKE I.V.(mL/kg/hr) 1459.25 1459.25 3271.23(4.14) 431.45 3702.68 Volume (mL) (Dextrose 5 % and 0.9% NaCl IV) 459.16 459.16 1286.41 1286.41 Volume (mL) (Lactated Ringers IV Bolus 1,000 mL) 1000.09 1000.09 Volume (mL) (Lactated Ringers IV Bolus 1,000 mL) 984.78 984.78 Volume (mL) (Lactated Ringers IV Bolus 1,000 mL) 1000.04 1000.04 Volume (mL) (Dextrose 5 % NaCl 0.9% KCl 20 mEq/L IV) 401.41 401.41 Volume (mL) (NaCl 0.9 % IV Flush bag 30 mL) 30.04 30.04 IV Piggyback 37.83 37.83 9.23 104.36 113.59 Volume (mL) (cefTRIAXone in D5W (ROCEPHIN) IV 1,000 mg) 22.83 22.83 Volume (mL) (cefTRIAXone in D5W (ROCEPHIN) IV 2,000 mg) 50.19 50.19 Volume (mL) (ondansetron (ZOFRAN) 6 mg in NaCl 0.9% 15 mL IV) 15 15 9.23 3.97 13.2 Volume (mL) (ceFEPime (MAXIPIME) in dextrose IV 2,000 mg) 50.2 50.2 Shift Total(mL/kg) 1497.08(22.72) 1497.08(22.72) 3280.46(49.78) 535.81(8.13) 3816.27(57.91) OUTPUT Urine(mL/kg/hr) 192 771 0223(1.33) 1050 Urine 433 140 8292 1050 Urine Occurrence 1 x 1 x Emesis/NG/GT 100 100 Emesis 100 100 Stool(mL/kg/hr) Stool Occurrence 1 x 1 x Shift Total(mL/kg) 700(10.62) 700(10.62) 1150(17.45) 1150(17.45) NET 797.08 797.08 2130.46 535.81 2666.27 Weight (kg) 65.9 65.9 65.9 65.9 65.9 Dietary Orders (From admission, onward) Start Ordered 05/11/22 0001 DIET NPO TIME SPECIFIED DIET EFFECTIVE MIDNIGHT 05/10/22 1425 05/10/22 1425 DIET REGULAR FOR AGE DIET EFFECTIVE NOW 05/10/22 1424 Patient Lines/Drains/Airways Status Active IV Lines Name Placement date Placement time Site Days Peripheral IV 05/09/22 Left Antecubital 05/09/22 1402 -- 1 Patient Lines/Drains/Airways Status Active NG/Airways None General: Ill and tired-appearing, answers questions when directly asked but otherwise keeps her eyes closed. Seems uncomfortable. HEENT: Normocephalic and atraumatic. No ocular discharge, no nasal discharge; moist mucous membranes. Cardiac: Regular rhythm, rate appropriate for age. Normal heart sounds. No murmurs, rubs or gallops. Pulses symmetrical, brisk refill. At time of my exam in the morning just prior to LR bolus patient was tachycardic to 110s. 2+ periperhal pulses bilaterally. Capillary refill 3-4 seconds. Warm. Respiratory: Respirations are easy and non-labored, good air exchange bilaterally. No rales, rhonchi, or wheezes. Abdomen: Abdomen soft and non-distended with normal bowel sounds. Tenderness with palpation of the R flank area but not as severe as it was yesterday per patient. Normoactive bowel sounds. Neurologic: Symmetric limb movements, age appropriate response to hands on care. Skin: Skin is warm and dry. Please see exam findings in significant event note from later in the morning. Scheduled Meds: cefepime 2,000 mg Intravenous Q8H vancomycin 1,000 mg Intravenous Q8H EXACT NaCl 0.9% 2 mL Intravenous Q8H senna 17.2 mg Oral Daily Continuous Infusions: Dextrose 5 % NaCl 0.9% KCl 20 mEq/L 150 mL/hr at 05/10/22 1400 PRN Meds: NaCl 0.9%, NaCl 0.9%, NaCl, sterile water, NaCl, acetaminophen, ondansetron Data Review: Results for orders placed or performed during the hospital encounter of 05/09/22 (from the past 24 hour(s)) Respiratory Panel Film Array Specimen: Nasopharyngeal Result Value Ref Range Respiratory Panel Film Array See Below (A) Urinalysis, Complete (Chemistry & Micro) Result Value Ref Range Color Ur Yellow NA Character Clear NA Specific gravity 1.005 1.005 - 1.030 NA Leukocyte Esterase Ur Negative Negative leuk/ul Nitrites Negative Negative mg/dl pH Ur 6.0 5.0 - 8.0 NA Hemoglobin Ur Negative Negative RBC's/uL Protein Ur Negative Neg.-Trace mg/dL Glucose Ur Negative Negative mg/dL Ketones Ur 2+ (A) Negative mg/dL Urobilinogen 0.2 (Negative) Negative mg/dl Bilirubin Ur Negative Negative mg/dL Volume Ur 12 12 ml Urine culture Specimen: Urine-Cath Result Value Ref Range Urine Culture Enterococcus faecalis (A) Urine Culture Staphylococcus aureus (A) Urinalysis, Automated-[place] Result Value Ref Range WBC UR 0.0 0.0 - 20.0 /uL RBC, Urine 0.0 0.0 - 20.0 /uL Mucous Ur Small NA Squamous Epithelial Cells Ur 2 0 - 20 /uL Basic Metabolic Panel Result Value Ref Range Sodium 137 133 - 145 mmol/L Potassium 3.1 (L) 3.3 - 5.1 mmol/L Chloride 106 96 - 108 mmol/L Carbon Dioxide 21.9 (L) 22.0 - 29.0 mmol/L BUN 6 4 - 19 mg/dL Glucose 139 (H) 70 - 99 mg/dL Creatinine 0.72 0.50 - 1.00 mg/dL Calcium 8.2 7.6 - 11.0 mg/dL Lipase Result Value Ref Range Lipase 21 13 - 95 U/L eGFR Result Value Ref Range eGFR 97.63 NA C-reactive protein Result Value Ref Range C-Reactive Protein 12.0 (H) 0.0 - 1.0 mg/dL Complete Blood Count with Differential Result Value Ref Range WBC 16.0 (H) 4.5 - 13.0 10E9/L Nucleated RBC Percent 0.0 -1.0 - 0.0 % RBC 4.43 4.10 - 4.80 10E12/L Hemoglobin 13.0 12.0 - 15.0 g/dl Hematocrit 36.7 (L) 37.0 - 46.0 % MCV 82.8 78.0 - 96.0 fl MCH 29.3 25.0 - 35.0 pg MCHC 35.4 31.0 - 37.0 % RDW 12.4 0.0 - 14.4 % Platelets 161 150 - 450 10E9/L MPV 9.0 fl Differential Complete Manual NA % Immature Granulocyte 0.60 % Manual Differential Result Value Ref Range Band Neutrophil 13 (H) 5 - 11 % Segmented Neutrophils 67 (H) 34 - 64 % Lymphocytes 7 (L) 25 - 45 % Atypical Lymphocytes 1 0 - 8 % % Monocytes 12 (H) 3 - 6 % % Metamyelocytes 0 0 - 0 % % Myelocytes 0 0 - 0 % % Promyelocytes 0 0 - 0 % Absolute Neutrophil No. 12.8 (H) 1.8 - 7.5 10E3/uL Cell Morphology Normal NA Lactate,WB Result Value Ref Range Lactate,WB 1.1 0.5 - 1.6 mmol/L Blood Gas, Venous Result Value Ref Range Temperature, venous 37.0 degrees C Hemoglobin Gases venous 10.1 (L) 12.0 - 16.0 g/dl pH Giovanny 7.393 7.280 - 7.420 NA pCO2, Venous 38.7 38.0 - 52.0 mm Hg pO2 Venous 67.7 mm Hg HCO3 Venous 23.1 22.0 - 28.0 mmol/L TCO2 Venous 24.2 24.0 - 30.0 mmol/L O2 Sat Venous 95.3 % O2 Hgb Giovanny 92.9 % T.Hgb STD BE Venous -1.2 mmol/L US Duplex Abdomen Pelvis Complete Final Result IMPRESSION: 1. Moderate to severe right pelvocaliectasis, similar to the CT exam 05/08/2022. No obstructing stone or mass identified. Imaging appearance could be due to ureteropelvic junction obstruction. 2. Prominent left extrarenal pelvis without intrarenal pelviectasis or caliectasis. 3. Enlarged kidneys for age, height, and weight bilaterally. 4. Grossly unremarkable renal Doppler evaluation. This report has been created using voice recognition software US Renal Complete Final Result IMPRESSION: 1. Moderate to severe right pelvocaliectasis, similar to the CT exam 05/08/2022. No obstructing stone or mass identified. Imaging appearance could be due to ureteropelvic junction obstruction. 2. Prominent left extrarenal pelvis without intrarenal pelviectasis or caliectasis. 3. Enlarged kidneys for age, height, and weight bilaterally. 4. Grossly unremarkable renal Doppler evaluation. This report has been created using voice recognition software Assessment: Principal Problem: Pyelonephritis Active Problems: Ureteropelvic junction (UPJ) obstruction, right Sepsis Harsh is a 16 year old female with past medical history of depression, anxiety, and multiple UTIs admitted for pyelonephritis in the setting of suspected right UPJ obstruction now with concern forsepsis. Made a watcher this morning. Urology assessed patient this morning and does not feel surgical intervention is warranted at this time. Called [place] ED for culture results, blood cultures x2 are pending but urine culture grew gram positive cocci. Reviewed prior records - patient grew enterococcus on 04/16. Transitioned antibiotics from ceftriaxone to vancomycin and cefepime. Discussed patient's case with PICU and patient can continue to be monitored on the floor and should improve with change in antibiotics. Repeat renal US this morning with Duplex revealed similar findings to CT from 05/08/22, as well as prominent L extrarenal pelvis with normal Doppler. CRP elevated to 12.0. CBC withWBC 16.0. Patient requires admission for IV antibiotics and close clinical monitoring. Plan: Problem Based Plan: Principal Problem: Pyelonephritis Active Problems: Ureteropelvic junction (UPJ) obstruction, right Sepsis - Patient made a watcher this morning (approx 0930) - Discussed with PICU - ICU level care not necessary at this time - Goal: MAP >65 while awake - Discontinue ceftriaxone - Switch antibiotics to Vancomycin IV q8hr, Cefepime IV q8hr - Vanc trough prior to 4th dose - Obtain VBG, lactate - Consult to urology, appreciate recs - mIVF with D5 NS w KCL at 1.5x (150ml/hr) - Tylenol prn for fever, pain - Zofran prn for nausea - Strict I/Os - Contact/droplet isolation - AM BMP - Heating pad prn - Senna daily - CRM/MANAGER CLINICAL SERVICES - Vitals q1hr, can space when clinically improving Yolis Rodgers DO Pediatrics Resident, PGY-1 2:43 PM 05/10/2022 Pediatric [facility] Medicine Attending I reviewed the history and performed a pertinent physical examination. I agree with the findings described in the note above except for changes as noted by or addition. Management of the patient has been carried out in accordance with my plans. Plan discussed with caregiver(s) and questions addressed. This note or partial portions of this note may have been created using a copy forward or copy pastefeature, but these portions have been verified and re- edited for accuracy and any portions not in need of editing or reviews are note being used to generate any component necessary for billing purposes. Elements necessary for proper CPT code selection are based only on elements of the visit that are truly unique to this visit. Time spent on the assessment, plan, and coordination of care for this patient was 45 minutes. Kaila Coppola DO * Fred Martinez MD - 05/10/2022 6:27 AM EDT NAME: Harsh Love DATE: 05/10/2022 HOSPITAL DAY: Hospital Day: 2 SUBJECTIVE: Patient febrile overnight and into this morning. Per nursing she was being cooled with ice overnight. This morning patient resting comfortably in bed. She states she feels good overall. Denies flank pain, dysuria, or hematuria. Only complaint is ofa headache this morning. No issues voiding. She has not had a bowel movement for a few days. OBJECTIVE: VITALS: BP 100/55 (Patient Position: Supine) Pulse 97 Temp (!) 38.9 C (102.1 F) Resp 16 Ht 170.2 cm Wt 65.9 kg LMP 05/07/2022 SpO2 97% BMI 22.75 kg/m I/O: Intake/Output Summary (Last 24 hours) at 05/10/2022 0627 Last data filed at 05/10/2022 0500 Gross per 24 hour Intake 3105.98 ml Output 1400 ml Net 1705.98 ml I/O this shift: In: 2016.39 [I.V.:1999.36; IV Piggyback:17.03] Out: 1400 [Urine:1400] General: Alert, well appearing Eyes: Extraocular movements intact ENT: no nasal discharge Resp: Normal effort, no wheezing Heart: no cyanosis Abdomen: Soft, nondistended, nontender Musculoskeletal: Normocephalic head, no weakness Skin: Warm and dry : Mild right flank discomfort to palpation. No left flank discomfort to palpation. Bladder non-distended DIAGNOSTIC STUDIES REVIEWED: BMP: Recent Labs 05/10/22 0516 NA 137 K 3.1* CL 106 CO2 21.9* BUN 6 GLU 139* CREATININE 0.72 CALCIUM 8.2 [ CBC: Invalid input(s): CORRWBC Blood culture: No results found for: BLOODCULTURE Urine culture: No results found for: URINECULT ASSESSMENT/PLAN: Harsh is a 16 y.o. female with a history of frequent UTIs, now with right flank pain and hydronephrosis consistent with right UPJ obstruction -Fever curve appears to be improving and patient doing well from a symptom standpoint. Ok for regular diet. No intervention at this time -Continue broad spectrum abx. Ucx pending -Cr stable this morning. Consider repeat CBC to monitor leukocytosis -Imaging reviewed. Right hydronephrosis with likely R UPJ obstruction. Bladder distended and large stool burden -Void every 2 hours. Relax and don't push. -Recommend aggressive bowel regimen as constipation is a risk factor for UTI. Patient has not had aBM for a few days and CT scan showed significant constipation Discussed with Dr. Martinez Anticipate discharge:per primary Javier Whittaker, PGY-5 7:21 AM 05/10/2022 Feeling better this afternoon. I personally discussed estrada portions of the history and physical examination of this patient and discussed the management plan with the resident. I reviewed the resident's note and agree with the documented findings and plan of care, except as noted above. Discussed with family, will check renal scan and may require pyeloplasty. Fred Martinez MD [facility] [id number] Progress note* Case Management - Beth Cerna RN - 05/13/2022 10:34 AM EDT Multidisciplinary Team Meeting Assessment/Plan of Care Reviewed at 1000 Are there Case Management needs identified at this time? No case management consult at this time; unit dependency case manager will monitor for home care needs (equipment/services) Representatives: Case Management: Beth Cerna RN and Dara Giles RN Nursing: Wilson Wen RN clinical coordinator [employer]; Elsi Cross Child Life: Natalia Leon CCLS [facility]09-12-2022 Progress note* Case Management - Dara Giles RN - 05/12/2022 10:18 AM EDT Assessment/Plan of Care Reviewed Are there Case Management needs identified at this time? Not at this time. [facility] will continue to monitor closely for potential home care (services/equipment) needs. [facility]09-11-2022 Plan of care note* Plan of Care - Meaghan Ochoa RN - 05/11/2022 8:20 PM EDT Problem: Pain - Acute Goal: Reduced pain sensation Outcome: Ongoing Problem: Infection Risk Goal: Absence of infection signs and symptoms Outcome: Ongoing Problem: Body Temperature - Abnormal Goal: Body temperature within specified parameters Outcome: Ongoing Goal: Knowledge of imbalanced body temperature prevention Outcome: Ongoing Problem: Transition Readiness Goal: Knowledge of discharge instructions Outcome: Ongoing Goal: Able to safely transition to next level of care Outcome: Ongoing [facility]09-11-2022 Hospital Discharge instructions* Discharge Instructions* Lucy Parker DO - 05/11/2022 11:47 AM EDT Please follow-up with Urology as an outpatient in 2 weeks. Complete Renal Lasix Scan and Voiding Cysto-Urethrogram (VCUG) before this appointment. Continue taking antibiotics as prescribed. - Augmentin 875 mg by mouth every 12 hours daily until 05/25/22. - Once completing Augmentin, you will start taking Macrodantain 100 mg every day until you see Urology. Encourage your child to drink extra fluids to help clear the infection. Cranberry juice may be helpful. You can give your child acetaminophen (Tylenol) or ibuprofen (Advil) for the painful urination or for fever over 102 F (39 C). Call your healthcare provider IMMEDIATELY or return to the ED If: Your child has increasing back pain, worsening fever trending upward, or develops new symptoms. Your child starts acting very sick. Call during office hours if: Fever or painful urination lasts more than 48 hours after your child starts taking an antibiotic. You have other concerns or questions. Bladder irritant foods to avoid or limit: Cranberry juice (in large amounts) Grapefruit and grapefruit juice Lázaro Oranges and orange juice Pineapple and pineapple juice Strawberries [place] peppers Pickles Sauerkraut Tomatoes and tomato products Processed sandwich meats (salami, bologna) Soy Yogurt [place] Horseradish Ketchup Salad Dressings Soy sauce Vinegar Refugio Sauce Alcohol Coffee (caffeinated and decaffeinated) Tea (caffeinated and decaffeinated) Carbonated drinks (cola, non-cola, diet, and caffeine-free) Chocolate Australian food [place] Islander food Pizza Spicy foods Cypriot food Artificial sweeteners (Equal (sweetener), NutraSweet , Saccharin, and Sweet N Low ) Monosodium glutamate (MSG) * Attachments The following attachments cannot be sent through Care Everywhere. * Pediatric Advisor: Urinary Tract Infection (Filipino) documented in this encounterTriHealth09-11-2022 Progress note* Significant Event - Lucy Parker DO - 05/11/2022 10:03 AM EDT Situation Awareness (SA) Concern Resolved Note Name: Harsh Love Date: 05/11/2022 Type of SA Concern: Watcher Brief Resolution Description: Patient's acute clinical status improved with change of antibiotics. Vitals improved with blood pressure back to normal levels. Afebrile. Resolution discussed with Attending: must be notified for Watcher, SANDRO H/VH, and Sepsis, Senior Resident, and Armhole Baster Hand Lucy Parker DO [facility] Work Phone: [phone] Plan of care note* Plan of Care - Kellee Amaral RN - 05/10/2022 9:55 PM EDT Problem: Pain - Acute Goal: Reduced pain sensation Outcome: Ongoing Problem: Infection Risk Goal: Absence of infection signs and symptoms Outcome: Ongoing Problem: Body Temperature - Abnormal Goal: Body temperature within specified parameters Outcome: Ongoing Goal: Knowledge of imbalanced body temperature prevention Outcome: Ongoing Problem: Transition Readiness Goal: Knowledge of discharge instructions Outcome: Ongoing Goal: Able to safely transition to next level of care Outcome: Ongoing Problem: Pain - Acute Goal: Reduced pain sensation Outcome: Ongoing Problem: Infection Risk Goal: Absence of infection signs and symptoms Outcome: Ongoing Problem: Body Temperature - Abnormal Goal: Body temperature within specified parameters Outcome: Ongoing Problem: Body Temperature - Abnormal Goal: Knowledge of imbalanced body temperature prevention Outcome: Ongoing Problem: Transition Readiness Goal: Knowledge of discharge instructions Outcome: Ongoing Problem: Transition Readiness Goal: Able to safely transition to next level of care Outcome: Ongoing [facility]09-10-2022 Progress note* Ancillary Progress Note - An Jones - 05/10/2022 1:53 PM EDT NUTRITION MONITORING: Reviewed H&P, progress notes, nursing nutrition screen, problem list, growth, current nutritionsupport, nutritionally significant labs and medications. Harsh Love is a 16 y.o. female Patient Active Problem List Diagnosis Mental disorder Major depressive disorder, single episode, severe without psychosis Anxiety state Moderate episode of recurrent major depressive disorder Pyelonephritis Ureteropelvic junction (UPJ) obstruction, right Sepsis Past Medical History: Diagnosis Date Depression MRSA (methicillin resistant Staphylococcus aureus) Current Diet: NPO PO Intake(%): No Known Allergies Body mass index is 22.75 kg/m . at the 72 %ile (Z= 0.58) based on CDC (Girls, 2- 20 Years) BMI-for-age based on BMI available as of 05/09/2022. Medications: Reviewed Lab Results: Reviewed Recent Labs 05/10/22 0516 NA 137 K 3.1* CL 106 CO2 21.9* BUN 6 GLU 139* CALCIUM 8.2 CREATININE 0.72 Recent Labs 05/10/22 1106 WBC 16.0* RBC 4.43 HGB 13.0 HCT 36.7* MCV 82.8 MCH 29.3 MCHC 35.4 RDW 12.4 PLT 161 MPV 9.0 DIFFCOMPLETE Manual Nutrition Concerns: Patient's diet to be advanced. Plan: Sand [facility]/Coordinator Of Health Services to follow-up in two days. Monitor for diet advancement, nutritional intake, tolerance, clinical condition, and weight changes. NPO >3days, Refer to dietitian for further evaluation and nutrition support. An Jones May 10, 2022 [facility]09-10-2022 Progress note* Significant Event - Yolis Rodgers DO - 05/10/2022 9:34 AM EDT Situation Awareness (SA) Significant Event Note Name: Harsh Walker Love Date: 05/10/2022 Type of SA concern: Watcher Unruly deterioration index score and warning history for last 8 hours: Unruly Index Date/Time Deterioration Index Unruly Warning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 Meaghan Ochoa, PARKER)0642 (Stopped - Provider: Meaghan Ochoa RN) Continuous Medication Order 05/11/2022 05/12/2022 05/13/2022 Dextrose 5 % NaCl 0.9% KCl 20 mEq/L IV (CANCELED) CONTINUOUS, Intravenous, at 100 mL/hr, Starting on 05/10/22 at 1100, For 90 days 0000 (Dose/Rate Verification - Provider: Kellee Amaral RN)0100 (Dose/Rate Verification - Provider: Kellee Amaral RN)0105 (Rate/Dose Change - Provider: Kellee Amaral RN)0109 (Rate/Dose Change - Provider: Kellee Amaral RN)0200 (Dose/Rate Verification - Provider: Kellee Amaral RN)0300 (Dose/Rate Verification - Provider: Kellee Amaral, RN)0319 (Paused - Provider: Kellee Amaral RN)0327 (Restarted - Provider: Kellee Amaral RN)0333 (Paused - Provider: Kellee Amaral RN)0336 (Restarted - Provider: Kellee Amaral RN)0400 (Dose/Rate Verification - Provider: Kellee Amaral RN)0500 (Dose/Rate Verification - Provider: Meaghan Ochoa RN)0600 (Dose/Rate Verification - Provider: Kellee Amaral RN)0700 (Dose/Rate Verification - Provider: Meaghan Ochoa, RN)0800 (Dose/Rate Verification - Provider: Keara Billy RN)0805 (Rate/Dose Change - Provider: Keara Billy RN)0807 (Rate/Dose Change - Provider: Keara Billy RN)0811 (New Bag - Provider: Keara Billy RN)0900 (Dose/Rate Verification - Provider: Keara Billy RN)0955 (Rate/Dose Change - Provider: Keara Billy RN)0956 (Dose/Rate Verification - Provider: Keara Billy RN - Comment: [Action automatically changed])1000 (Dose/Rate Verification - Provider: Keara Billy RN)1100 (Dose/Rate Verification - Provider: Keara Billy RN)1200 (Dose/Rate Verification - Provider: Keara Billy RN)1300 (Dose/Rate Verification - Provider: Keara Billy RN)1400 (Dose/Rate Verification - Provider: Keara Billy RN)1500 (Dose/Rate Verification - Provider: Keara Billy RN)1600 (Dose/Rate Verification - Provider: Keara Billy RN)1648 (Rate/Dose Change - Provider: Keara Billy RN)1650 (Paused - Provider: Keara Billy RN)1650 (Rate/Dose Change - Provider: Keara Billy RN)1750 (Rate/Dose Change - Provider: Keara Billy RN)1754 (Stopped - Provider: Keara Billy RN)1754 (New Bag - Provider: Shaista Garcia RN)1758 (Dose/Rate Verification - Provider: Keara Billy RN)1758 (Dose/Rate Verification - Provider: Keara Billy RN)1758 (Paused - Provider: Keara Billy RN)1802 (Paused - Provider: Keara Billy RN)1802 (Paused - Provider: Keara Billy RN)1802 (Restarted - Provider: Keara Billy RN)1900 (Dose/Rate Verification - Provider: Keara Billy RN)2000 (Dose/Rate Verification - Provider: Meaghan Ochoa RN)2100 (Dose/Rate Verification - Provider: Meaghan Ochoa, PARKER)2200 (Dose/Rate Verification - Provider: Meaghan Ochoa RN)2300 (Dose/Rate Verification - Provider: Meaghan Ochoa, RN) 0000 (Dose/Rate Verification - Provider: Meaghan Ochoa, RN)0100 (Dose/Rate Verification - Provider: Meaghan Ochoa, RN)0200 (Dose/Rate Verification - Provider: Meaghan Ochoa, RN)0225 (Paused - Provider: Meaghan Ochoa, PARKER)0227 (Restarted - Provider: Meaghan Ochoa, RN)0300 (Dose/Rate Verification - Provider: Meaghan Ochoa, RN)0347 (New Bag - Provider: Meaghan Ochoa RN)0400 (Dose/Rate Verification - Provider: Meaghan Ochoa RN)0500 (Dose/Rate Verification - Provider: Meaghan Ochoa RN)0600 (Dose/Rate Verification - Provider: Meaghan Ochoa RN)0700 (Dose/Rate Verification - Provider: Meaghan Ochoa RN)0800 (Dose/Rate Verification - Provider: Jimmy Piña RN)0900 (Dose/Rate Verification - Provider: Jimmy Piña RN)1000 (Dose/Rate Verification - Provider: Jimmy Piña RN)1100 (Dose/Rate Verification - Provider: Jimmy Piña RN)1200 (Dose/Rate Verification - Provider: Jimmy Piña RN)1338 (Paused - Provider: Jimmy Piña RN)1338 (Restarted - Provider: Jimmy Piña RN)1437 (Rate/Dose Change - Provider: Jimmy Piña RN)1451 (Paused - Provider: Jimmy Piña RN)1454 (Rate/Dose Change - Provider: Jimmy Piña RN)1456 (New Bag - Provider: Jimmy Piña RN)1500 (Dose/Rate Verification - Provider: Jimmy Piña RN)1558 (Stopped - Provider: Jimmy Piña RN)1726 (Restarted - Provider: Tarah José RN)1732 (Restarted from Bag - Provider: Jimmy Piña RN)1902 (Dose/Rate Verification - Provider: Indigo Darnell RN)2000 (Dose/Rate Verification - Provider: Indigo Darnell RN)2100 (Dose/Rate Verification - Provider: Indigo Darnell RN)2200 (Dose/Rate Verification - Provider: Indigo Darnell, RN)2300 (Dose/Rate Verification - Provider: Indigo Darnell RN) 0000 (Dose/Rate Verification - Provider: Indigo Darnell RN)0057 (Restarted - Provider: Indigo Darnell RN)0100 (Dose/Rate Verification - Provider: Indigo Darnell RN)0200 (Dose/Rate Verification - Provider: Indigo Darnell RN)0300 (Dose/Rate Verification - Provider: Indigo Darnell RN)0400 (Dose/Rate Verification - Provider: Indigo Darnell RN)0411 (Rate/Dose Change - Provider: Indigo Darnell RN)0412 (Stopped - Provider: Indigo Darnell RN)0415 (New Bag - Provider: Leila Bangura RN)0500 (Dose/Rate Verification - Provider: Indigo Darnell RN)0607 (Due: Stopped - Provider: Fahad Gan DO) PRN Medication Order 05/11/2022 05/12/2022 05/13/2022 acetaminophen (TYLENOL) 325 MG tablet 650 mg 650 mg (9.86 mg/kg/DOSE), Oral, EVERY 6 HOURS PRN, Starting on Thu05/09/22 at 1547, Until Thu05/13/22 at 1704, Mild Pain = Pain Score 1-3, Fever 0550 (Given - Provider: Kellee Amaral, PARKER)1125 (Given - Provider: Keara Billy, PARKER)1729 (Given - Provider: Keara Billy, PARKER)2325 (Given - Provider: Meagahn Ochoa, PARKER) 0539 (Given - Provider: Meaghan Ochoa, PARKER)1150 (Given - Provider: Jimmy Piña, PARKER)1751 (Given - Provider: Tarah José, PARKER) 0055 (Not Given - Provider: Bettie Nicolas RN - Reason: Patient/family refused)0425 (Given - Provider: Indigo Darnell RN) NaCl 0.9 % 10 mL 10 mL PRN, Intravenous, at 0-999 mL/hr, Line Care, For mixture of medications, Starting on Thu05/09/22 at 1402, For 90 days, For mixture of medications NaCl 0.9 % IV Flush bag 30 mL 30 mL PRN, Intravenous, at 0-999 mL/hr, Flush IV line after medication IVPB bag if given., Starting on Thu05/09/22 at 1402, For 90 days, Flush IV line after medication IVPB bag if given. 1509 (New Bag - Provider: Keara Billy RN)1518 (Rate/Dose Change - Provider: Keara Billy RN)1523 (Stopped - Provider: Keara Billy RN) 0642 (New Bag - Provider: Meaghan Ochoa RN)0651 (Rate/Dose Change - Provider: Meaghan Ochoa RN)0653 (Stopped - Provider: Meaghan Ochoa RN)1321 (New Bag - Provider: Jimmy Piña RN)1335 (Rate/Dose Change - Provider: Jimmy Piña RN)1338 (Stopped - Provider: Jimmy Piña RN)1820 (New Bag - Provider: Tarah José RN)1838 (Rate/Dose Change - Provider: Tarah José RN)1900 (Dose/Rate Verification - Provider: Tarah José RN)1902 (Stopped - Provider: Indigo Darnell RN) 0040 (New Bag - Provider: Indigo Darnell RN)0043 (Paused - Provider: Indigo Darnell RN)0046 (Restarted - Provider: Indigo Darnell RN)0056 (Rate/Dose Change - Provider: Indigo Darnell RN)0056 (Stopped - Provider: Indigo Darnell RN)0636 (New Bag - Provider: Indigo Darnell RN)0651 (Rate/Dose Change - Provider: Indigo Darnell, PARKER)0652 (Stopped - Provider: Indigo Darnell, RN) NaCl 0.9% PosiFlush 2 mL 2 mL PRN, Intravenous, at 0-999 mL/hr, Line Care, Starting on Thu05/09/22 at 1402, For 90 days 1246 (Push - Provider: Jimmy Piña RN) 0556 (Push - Provider: Indigo Darnell RN) NaCl 0.9% PosiFlush 5 mL 5 mL PRN, Intravenous, at 0-999 mL/hr, Line Care, Starting on Thu05/09/22 at 1402, For 90 days, Central Line. ondansetron (ZOFRAN) 6 mg in NaCl 0.9% 15 mL IV 6 mg (0.091 mg/kg/DOSE), Intravenous, at 30 mL/hr, EVERY 8 HOURS PRN, Starting on Thu05/09/22 at 1958, Until Thu05/13/22 at 1704, First Line Nausea 0259 (New Bag - Provider: Meaghan Ochoa RN)0259 (Rate/Dose Change - Provider: Kellee Amaral RN)0300 (Dose/Rate Verification - Provider: Kellee Amaral, RN)0319 (Paused - Provider: Kellee Amaral RN)0326 (Restarted - Provider: Kellee Amaral RN)0331 (Paused - Provider: Kellee Amaral RN)0336 (Restarted - Provider: Kellee Amaral, RN)0342 (Stopped - Provider: Kellee Amaral RN)1246 (New Bag - Provider: Keara Billy RN)1300 (Dose/Rate Verification - Provider: Keara Billy RN)1316 (Stopped - Provider: Keara Billy RN)2102 (New Bag - Provider: Meaghan Ochoa RN)2133 (Stopped - Provider: Meaghan Ochoa RN) 0502 (New Bag - Provider: Meaghan Ochoa, PARKER) 1704 (Due: Stopped) sterile water injection 10 mL 10 mL, Intravenous, PRN, Starting on Thu05/09/22 at 1402, Until Thu05/13/22 at 1704, For mixture of medications, For mixture of medications 0500 (Canceled Entry - Provider: Meaghan Ochoa RN) Scheduled Medication Order 08/10/2022 08/11/2022 08/12/2022 acetaminophen (TYLENOL) tablet 825 mg (COMPLETED) 825 mg (12.4 mg/kg/DOSE), Oral, ONCE, 1 dose, On Thu08/12/22 at 1000, Pre-op 0931 (Given - Provid er: Valerie Brink RN) iopamidol (ISOVUE-300) 61 % injection 5 mL (COMPLETED) 5 mL (0.076 ml/kg/DOSE), Other, ONCE, 1 dose, On Thu08/12/22 at 1130, Radiology 1045 (Given - Provid er: Maria C Hathaway, RT(R)) PRN Medication Order 08/10/2022 08/11/2022 08/12/2022 lidocaine jelly (XYLOCAINE JELLY) 2 % (CANCELED) PRN, Starting on Thu08/12/22 at 1040, Until Thu08/12/22 at 1046, Intra-op 1040 (Given - Provid er: Rahul Reid MD) Oxygen (CANCELED) See Flowsheet Row, PRN, Starting on Thu08/12/22 at 1058, Until Thu08/12/22 at 1131, Keep sats greater or equal to 95% 1046 (Gas Start - Pr ovider: Suzanne Delacruz RN)1102 (Gas Stop - Provider: Suzanne Delacruz, PARKER) Scheduled Medication Order 11/17/2022 11/18/2022 11/19/2022 acetaminophen (TYLENOL) 325 MG tablet 650 mg 650 mg (40 mg/kg/DAY), Oral, EVERY 6 HOURS EXACT, 360 doses, First dose on Thu11/18/22 at 1500, Last dose on Thu02/16/23 at 0430 1506 (Given - Provider: Monse Ross RN)2026 (Given - Provider: Sandra Cortes RN) 0433 (Given - Provider: Sandra Cortes RN)0920 (Not Given - Provider: Monse Ross RN - Reason: Other)1037 (Given - Provider: Andrew Redd, BREAD MOLDER) acetaminophen (TYLENOL) tablet 1,000 mg (COMPLETED) 1,000 mg (15 mg/kg/DOSE), Oral, ONCE, 1 dose, On Thu11/18/22 at 0700, Pre-op 0635 (Given - Provider: Arline Salazar, PARKER) ceFAZolin (ANCEF) 1,000 mg in sterile water 10 mL IV (COMPLETED) 1,000 mg (15.4 mg/kg/DOSE), Intravenous, EVERY 6 HOURS, 2 doses, First dose on Thu11/18/22 at 1430, Last dose on Thu11/18/22 at 2100, Administer over 3 Minutes 1508 (Given - Provider: Monse Ross RN)2033 (Given - Provider: Sandra Cortes RN) Ibuprofen (MOTRIN) tablet 400 mg 400 mg (24.6 mg/kg/DAY), Oral, EVERY 6 HOURS, 360 doses, First dose on Thu11/19/22 at 1200, Last dose on Thu02/17/23 at 0600 1125 (Given - Provid er: Andrew Redd, BREAD MOLDER) ketorolac (TORADOL) 30 MG/ML Injection 15 mg (CANCELED) 15 mg (0.923 mg/kg/DAY), Intravenous, EVERY 6 HOURS, 20 doses, First dose on Thu11/18/22 at 1800, Last dose on Thu11/23/22 at 1200 1800 (Given - Provider: Monse Ross RN)2353 (Given - Provider: Sandra Cortes RN) 0615 (Given - Provider: Sandra Cortes RN) NaCl 0.9% PosiFlush 2 mL 2 mL EVERY 8 HOURS (0.0923 mL/kg/DAY), Intravenous, at 0-999 mL/hr, First dose on Thu11/18/22 at 1430, For 90 days 1508 (New Bag - Provider: Monse Ross RN) 0001 (Not Given - Provider: Sandra Cortes RN - Reason: Running IV fluids)0916 (Not Given - Provider: Andrew Redd, BREAD MOLDER - Reason: Running IV fluids)1556 (Due: Stopped) polyethylene glycol (GLYCOLAX) packet 8.5 g 8.5 g (0.131 g/kg/DAY), Oral, DAILY, 90 doses, First dose on Thu11/18/22 at 1330, Last dose on Thu02/15/23 at 0900, Nursing to dilute with 120 ml of fluid 1430 (Not Given - Provider: Monse Ross RN - Reason: Other) 0915 (Given - Provider: Andrew Redd, BREAD MOLDER) Continuous Medication Order 11/17/2022 11/18/2022 11/19/2022 Dextrose 5 % and 0.45% NaCl IV CONTINUOUS, Intravenous, at 60 mL/hr, Starting on Thu11/18/22 at 1330, For 90 days 1411 (New Bag - Provider: Monse Ross RN)1501 (Dose/Rate Verification - Provider: Monse Ross RN)1508 (Paused - Provider: Monse Ross RN)1510 (Restarted - Provider: Monse Ross RN)1520 (Dose/Rate Verification - Provider: Monse Ross RN)1601 (Dose/Rate Verification - Provider: Monse Ross RN)1701 (Dose/Rate Verification - Provider: Monse Ross RN)1704 (Dose/Rate Verification - Provider: Monse Ross RN)1801 (Dose/Rate Verification - Provider: Monse Ross RN)1807 (Dose/Rate Verification - Provider: Monse Ross RN)1811 (Paused - Provider: Monse Ross RN)1813 (Restarted - Provider: Monse Ross RN)190 (Dose/Rate Verification - Provider: Monse Ross RN)190 (Paused - Provider: Monse Ross RN)191 (Restarted - Provider: Monse Ross RN)192 (Dose/Rate Verification - Provider: Monse Ross RN)2000 (Paused - Provider: Sandra Cortes RN)2003 (Restarted - Provider: Sandra Cortes RN)2054 (Paused - Provider: Sandra Cortes RN)2103 (Restarted - Provider: Sandra Cortes RN)2128 (Paused - Provider: Sandra Cortes RN)2132 (Restarted - Provider: Sandra Cortes RN)230 (Dose/Rate Verification - Provider: Sandra Cortes RN)235 (Stopped - Provider: Sandra Cortes RN)2352 (New Bag - Provider: Sandra Cortes RN) 0200 (Dose/Rate Verification - Provider: Sandra Cortes RN)0615 (Dose/Rate Verification - Provider: Sandra Cortes RN)0638 (Rate/Dose Change - Provider: Sandra Cortes RN)0644 (Dose/Rate Verification - Provider: Sandra Cortes RN - Comment: [Action automatically changed])0700 (Dose/Rate Verification - Provider: Sandra Cortes RN)0800 (Dose/Rate Verification - Provider: Andrew Redd, BREAD MOLDER)0900 (Dose/Rate Verification - Provider: Andrew Redd, BREAD MOLDER)0944 (Paused - Provider: Andrew Redd, BREAD MOLDER)1006 (Restarted - Provider: Monse Ross RN)1100 (Dose/Rate Verification - Provider: Andrew Redd, BREAD MOLDER)1101 (Dose/Rate Verification - Provider: Monse Ross RN)1149 (Stopped - Provider: Monse Ross RN)1150 (New Bag - Provider: Andrew Redd, BREAD MOLDER)1200 (Dose/Rate Verification - Provider: Andrew Redd, BREAD MOLDER)1201 (Dose/Rate Verification - Provider: Monse Ross RN)1301 (Dose/Rate Verification - Provider: Monse Ross RN)1304 (Stopped - Provider: Monse Ross RN) PRN Medication Order 11/17/2022 11/18/2022 11/19/2022 HYDROmorphone HCl PF (DILAUDID) injection 200 mcg (CANCELED) 200 mcg (3.08 mcg/kg/DOSE), Intravenous, EVERY 10 MIN PRN, 3 doses, Starting on Thu11/18/22 at 1309, Until Thu11/18/22 at 1354, Moderate Pain = Pain Score 4-6, Use IV narcotic prior to using oxycodone when not tolerating oral intake., Call anesthesiologist before giving third dose of pain medication., PACU 1311 (Given - Provider: Karen Harrison, PARKER) Lactated Ringers IV (CANCELED) CONTINUOUS PRN, Intravenous, Starting on Thu11/18/22 at 0910, Intra-op 0910 (New Bag - Provider: Camille Meadows APRN-SKI TOPPER)1156 (Anesthesia Volume Adjustment - Provider: Everton Recinos, Student)1203 (New Bag - Provider: Everton Recinos, Student)1243 (Stopped - Provider: Everton Recinos Student)1243 (Restarted from Bag - Provider: Karen Harrison RN)1251 (Rate/Dose Change - Provider: Karen Harrison RN)1253 (Paused - Provider: Karen Harrison RN)1259 (Paused - Provider: Karen Harrison RN)1259 (Restarted - Provider: Karen Harrison RN)1401 (Dose/Rate Verification - Provider: Karen Harrison RN)1411 (Stopped - Provider: Monse Ross RN) NaCl 0.9 % 10 mL 10 mL PRN (0.154 ml/kg/DOSE), Intravenous, at 0-999 mL/hr, Line Care, For mixture of medications, Starting on Thu11/18/22 at 1402, For 90 days, For mixture of medications NaCl 0.9 % IV Flush bag 30 mL 30 mL PRN (0.462 ml/kg/DOSE), Intravenous, at 0-999 mL/hr, Flush IV line after medication IVPB bag if given., Starting on Thu11/18/22 at 1402, For 90 days, Flush IV line after medication IVPB bag if given. NaCl 0.9% PosiFlush 2 mL 2 mL PRN (0.0308 ml/kg/DOSE), Intravenous, at 0-999 mL/hr, Line Care, Starting on Thu11/18/22 at 1402, For 90 days NaCl 0.9% PosiFlush 5 mL 5 mL PRN (0.0769 ml/kg/DOSE), Intravenous, at 0-999 mL/hr, Line Care, Starting on Thu11/18/22 at 1402, For 90 days 1801 (New Bag - Provider: Monse Ross RN) 1556 (Due: Stopped) oxyCODONE (immediate release) (ROXICODONE) tablet 5 mg 5 mg (0.0769 mg/kg/DOSE), Oral, EVERY 6 HOURS PRN, Starting on Thu11/18/22 at 1246, Until Thu11/19/22 at 1556, Moderate Pain = Pain Score 4-6, Severe Pain = Pain Score 7-10 2202 (Given - Provider: Sandra Cortes RN) ROPivacaine (NAROPIN) 0.2% injection (CANCELED) PRN, Starting on Thu11/18/22 at 1242, Until Thu11/18/22 at 1243, Intra-op 1000 (Given - Provider: Rahul Reid MD)1242 (Canceled Entry - Provider: Rahul Reid MD) sterile water injection 10 mL 10 mL (0.154 ml/kg/DOSE), Intravenous, PRN, Starting on Thu11/18/22 at 1402, Until Thu11/19/22 at 1556, For mixture of medications, For mixture of medications Scheduled Medication Order 12/17/2022 12/18/2022 12/19/2022 acetaminophen (TYLENOL) 325 MG tablet 650 mg (COMPLETED) 650 mg (9.63 mg/kg/DOSE), Oral, ONCE, 1 dose, On Thu12/19/22 at 1100, Pre-op 1057 (Given - Provid er: Luz Maria Ramirez RN) Continuous Medication Order 12/17/2022 12/18/2022 12/19/2022 Lactated Ringers IV (CANCELED) CONTINUOUS, Intravenous, at 100 mL/hr, Starting on Thu12/19/22 at 1230, For 90 days, PACU 1209 (New Bag - Prov ider: Pepper Law RN)1320 (Stopped - Provider: Pepper Law, PARKER) PRN Medication Order 12/17/2022 12/18/2022 12/19/2022 lidocaine jelly (XYLOCAINE JELLY) 2 % (CANCELED) PRN, Starting on Thu12/19/22 at 1156, Until Thu12/19/22 at 1201, Intra-op 1156 (Given - Provid er: Rahul Reid MD) Oxygen (CANCELED) See Flowsheet Row, PRN, Starting on Thu12/19/22 at 1208, Until Thu12/19/22 at 1347, Keep sats greater or equal to 95% 1201 (Gas Start - Pr ovider: Pepper Law RN)1228 (Gas Stop - Provider: Pepper Law RN) Scheduled Medication Order 12/19/2024 12/20/2024 12/21/2024 cefdinir (OMNICEF) capsule 300 mg 300 mg, Oral, EVERY 12 HOURS SCHEDULED (2 times per day), 10 doses, First dose on Thu12/20/24 at 1030, Last dose on Thu12/24/24 at 2100, Antimicrobial Indications: Urinary Tract Infection 1210 (Given - Provider: José Miguel Cobos, RN) 0143 (Given - Provider: Suzanne Pretty, PARKER)0909 (Given - Provider: Ledy Erwin, PARKER)2100 (Due) diphenhydrAMINE (BENADRYL) injection 50 mg (COMPLETED) 50 mg, IntraVENous, ONCE, 1 dose, On Thu12/20/24 at 1545, IV Push at rate not to exceed 25 mg/min. 1551 (Given - Provider: José Miguel Cobos, RN) droPERidol (INAPSINE) injection 2.5 mg (COMPLETED) 2.5 mg, IntraVENous, ONCE, 1 dose, On Thu12/20/24 at 1800 1755 (Given - Provider: José Miguel Cobos, PARKER) sodium chloride 0.9 % bolus 1,000 mL (COMPLETED) 1,000 mL (14.9 mL/kg), IntraVENous, at 2,000 mL/hr, Administer over 30 Minutes, ONCE, On Thu12/20/24 at 1100, For 1 dose, May be administered over 15 minutes if well tolerated. 1205 (New Bag - Provider: José Miguel Cobos, PARKER)1428 (Stopped - Provider: José Miguel Cobos, PARKER) Care Teams (unrecognized sec tion and content) Program Management Analyst Relationship Specialty Start Date End Date No Primary Care, [place] [address] PCP - General Pediatrics 06/06/19 Program Management Analyst Relationship Specialty Start Date End Date No Primary Care, [place] [address] PCP - General Pediatrics 06/06/19 Program Management Analyst Relationship Specialty Start Date End Date No Primary Care, [place] [address] PCP - General Pediatrics 06/06/19 Program Management Analyst Relationship Specialty Start Date End Date Moiz Gordon MD [address] [facility] [place], [place] [id number] PCP - General Family Medicine 07/01/22 Program Management Analyst Relationship Specialty Start Date End Date Moiz Gordon MD [address] [facility] [place], [place] [id number] PCP - General Family Medicine 07/01/22 Program Management Analyst Relationship Specialty Start Date End Date Moiz Gordon MD [address] [facility] [place] [address] PCP - General Family Medicine 11/18/22 Program Management Analyst Relationship Specialty Start Date End Date Moiz Gordon MD [address] [facility] [place] [address] PCP - General Family Medicine 11/18/22 Program Management Analyst Relationship Specialty Start Date End Date Moiz Gordon MD [address] [place] [address], [place] [address] PCP - General 01/13/17 Program Management Analyst Relationship Specialty Start Date End Date Moiz Gordon MD [address] [place] [address], [place] [address] PCP - General 01/13/17 Program Management Analyst Relationship Specialty Start Date End Date Moiz Gordon MD [address] [place] [address], [place] [address] PCP - General 01/13/17 Program Management Analyst Relationship Specialty Start Date End Date Moiz Gordon MD [address] [place] [address], [place] [address] PCP - General 01/13/17 Program Management Analyst Relationship Specialty Start Date End Date Moiz Gordon MD [address] [place] [address], [place] [address] PCP - General 01/13/17 Program Management Analyst Relationship Specialty Start Date End Date [facility] [place] [address] PCP - General 01/13/17 Program Management Analyst Relationship Specialty Start Date End Date Moiz Gordon [facility] [place] [address] PCP - General 01/13/17 Program Management Analyst Relationship Specialty Start Date End Date Moiz Gordon [place] [facility] [place] [address] PCP - General 01/13/17 Program Management Analyst Relationship Specialty Start [place] [address] PCP - General 01/13/17 Team Status: Active Member Role Status Dates Minerva Garcia BENCH ASSEMBLER OPERATOR, BENCH ASSEMBLER OPERATOR-C Family Provider Active Minerva Garcia BENCH ASSEMBLER OPERATOR, BENCH ASSEMBLER OPERATOR-C Primary Care Provider Active Team Status: Inactive Member Role Status Dates Minerva Garcia BENCH ASSEMBLER OPERATOR, BENCH ASSEMBLER OPERATOR-C Primary Care Provider Active Dr. Leo Glover MD Emergency Provider Active Program Management Analyst Relationship Specialty Start Date End Date Moiz Gordon MD [address] [place], [place] [address] [address] PCP - General 01/13/17 Program Management Analyst Relationship Specialty Start Date End Date Moiz Gordon MD [address] [place] [address] [place] [address] PCP - General 01/13/17 Program Management Analyst Relationship Specialty Start Date End Date Moiz Gordon MD [address] [place], [place] [address] [address] PCP - General 01/13/17 Program Management Analyst Relationship Specialty Start Date End Date Moiz Gordon MD [address] [place] [address] [place] [address] PCP - General 01/13/17 Program Management Analyst Relationship Specialty Start Date End Date Moiz Gordon MD [address] [place] [id number] PCP - General 01/13/17 Program Management Analyst Relationship Specialty Start Date End Date Moiz Gordon MD PCP - General Family Medicine 01/13/17 FOR RECORDS PERTAINING TO PATIENTS WHO ARE OR HAVE BEEN ENROLLED IN A CHEMICAL DEPENDENCY/SUBSTANCEABUSE PROGRAM, SOME INFORMATION MAY BE OMITTED. This clinical summary was aggregated from multiple sources. Caution should be exercised in using it in the provision of clinical care. This summary normalizes information from multiple sources, and as a consequence, information in this document may materially change the coding, format and clinical context of patient data. In addition, data may be omitted in some cases. CLINICAL DECISIONS SHOULD BE BASED ON THE PRIMARY CLINICAL RECORDS. [facility] [employer] [facility] provides no warranty or guarantee of the accuracy or completeness of information in this document.
--- NOTE | 2025-02-04 17:52 | EKG12_ITS ---
Test Reason : Blood Pressure : */* mmHG Vent. Rate : 92 BPM Atrial Rate : 92 BPM P-R Int : 120 ms QRS Dur : 92 ms QT Int : 376 ms P-R-T Axes : 11 23 29 degrees QTcB Int : 464 ms Normal sinus rhythm RSR' or QR pattern in V1 suggests right ventricular conduction delay Borderline ECG Confirmed by Orlando Omalley ([id number]), editor news UMANG DOVE ([id number]) on 02/06/2025 9:21:07 AM Referred By: Confirmed By: Orlando Omalley
[2025-02-04 18:18] LABS: Absolute Lymphocyte Count 1.78 X10^3/uL (0.83-4.51); Absolute Neutrophil Count 6.8 X10^3/uL (2.0-7.7); Basophil# 0.02 X10^3/uL; Basophil% 0.2 % (0-1); Hemoglobin 11.9 g/dL (12.0-15.0); Lymphocyte # 1.78 X10^3/ul (0.83-4.51); Lymphocyte % 18.9 % (19-41); Mean Corpuscular Hgb 29.2 pg (27.0-32.0); Mean Corpuscular Volume 83.5 fL (81-99); Monocyte# 0.78 X10^3/uL; Monocyte% 8.3 % (0-10); NRBC Flagged by Analyzer 0 % (0-5); Platelet Count 243 K/mm3 (150-450); RBC Distribution Width CV 13.9 % (11.6-14.6); RBC Distribution Width SD 42.5 fl (35.1-43.9); Red Blood Count 4.07 M/mm3 (4.2-5.4); White Blood Count 9.4 K/mm3 (4.4-11.0)
[2025-02-04] MEDS: 0.9% Normal Saline (1000mL) 1,000 ML 999 ML IV (18:36)
[2025-02-04] MEDS: Ondansetron 4 MG/2 ML Vial IV (18:36)
[2025-02-04 18:51] LABS: Internal QC Validated? YES +Cl - CLEAR BKGD; Record Kit Lot#, Serum Preg. 947241
[2025-02-04 18:53] LABS: Alcohol, Blood (Medical)-Serum < 10.1 mg/dL (<=10.0); Anion Gap 13 (5-15); BUN 7 mg/dL (4-19); BUN/Creat Ratio 13.8 RATIO (10-20); Calcium,Total 9.2 mg/dL (7.6-11.0); Carbon Dioxide 20.1 mmol/L (21.0-32.0); Chloride 101 mmol/L (98-108); Creatinine, Serum 0.54 mg/dL (0.70-1.20); EST Glomerular Filtration Rate 136 (>60); Estimated Creatinine Clearance 162.95 ml/min (50-250); Glucose 90 mg/dL (70-99); Potassium 3.6 mmol/L (3.3-5.1); Sodium Level 134 mmol/L (133-145)
[2025-02-04 19:33] LABS: Mucous, Urine 0 SEEN /hpf (<or=2+); Red Blood Cells-Urine 0 SEEN /hpf (0-5)
[2025-02-04 19:35] LABS: Color, Urine Straw (Yellow); Glucose, Dipstick Normal (Normal); Ketone-Dipstick 15 mg/dl (Negative); Leukocyte Esterase-Dipstick 100 /ul (Negative); Nitrite-Dipstick Negative (Negative); Occult Blood-Urine Negative /ul (Negative); Protein-Dipstick 30 mg/dl (Negative); Specific Gravity, Urine 1.015 (1.002-1.030); Urine Bilirubin Dipstick Negative (Negative); Urine Clarity Clear (Clear); Urine Urobilinogen Normal (Normal)
[2025-02-04 19:43] LABS: Bacteria 2+ /hpf (None Seen); Squamous Epithelial Cells - UA 0-5 SEEN /hpf (5-10); White Blood Cells 0-5 SEEN /hpf (0-5)
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
[2025-02-04 20:12] LABS: Amphetamine Urine NEGATIVE (<1000 ng/mL); Barbiturate Urine NEGATIVE (< 200 ng/mL); Benzodiazepine Urine PRESUMPTIVE POSITIVE (< 200 ng/mL); Buprenorphine Urine NEGATIVE (< 200 ng/mL); Cocaine Urine NEGATIVE (< 300 ng/mL); Fentanyl, Urine NEGATIVE; Methadone Urine NEGATIVE (< 300 ng/mL); Opiates Urine NEGATIVE (< 300 ng/mL); Oxycodone, Urine NEGATIVE (< 100 ng/mL); PCP Urine NEGATIVE (< 25 ng/mL); THC Urine PRESUMPTIVE POSITIVE (< 50 ng/mL)
[2025-02-04] MEDS: Cephalexin 250 MG Capsule 500 MG PO (21:25)
[2025-02-04 22:10] LABS: Pregnancy, Serum, hCG Quali. POSITIVE Negative
--- NOTE | 2025-02-04 22:30 | ED.RN ---
The patient called this RN into the room because she stated I am not sure if my water broke or if I peed myself but the bed is all wet. This RN was cleaning the bed and replacing the linens and the patient's hospital gowns. The patient's mother was at the bedside and the patient started to say she wanted to go home to [place] and be with her baby spenser. The patient was calm at this point, the patient's mother was explaining to the patient that she was not able to go home tonight. This RN left the room with the soiled linens, when this RN and multiple other nurses at the nurses station heard the patient screaming and banging her fists on the bed. This RN pulled the appropriate prn order, while nurses at the nurses station when into the room to help deescalate the patient. The patient began to yell I just want to , I cannot live like this anymore, I need someone to just fucking kill me. I cannot live like this anymore when I cannot even process my own thoughts. This RN medicated the patient, see MAR documentation. Celia, RN at bedside explained to the patient the expectations for the patient's stay overnight. We educated the patient that we gave her medications to calm her down. The patient stated good, I just need something to put me to sleep so that I never wake up because I cannot live like this, it is so hard when no one understands what is happening in my mind. Suicide precautions initiated, safety maintained, and the patient educated on appropriate behavior. notified.
[2025-02-04] MEDS: Haloperidol Lactate 5 MG/ML Vial 1 MG IV (22:36)
[2025-02-05] VITALS: BP 89/51; PULSE 82; RESP 16; O2SAT 100
[2025-02-05 01:00] VITALS: BP 85/50; PULSE 76; RESP 16; O2SAT 100
--- NOTE | 2025-02-05 02:33 | ED.RN ---
This RN obtained medication list from the patient's mother after incident previously noted. This RN was unable to order home medications prior to incident. Now the patient is sleeping.
[2025-02-05 06:22] VITALS: BP 90/55; PULSE 55; RESP 16; TEMP 37.1; O2SAT 100
== END 2025-02-05 07:07 ==
PROVIDERS: Emergency Provider Emergency Medicine; PCP Registered Nurse; Visit Provider Emergency Medicine
DX: O99.342 Other mental disorders complicating pregnancy, second trimester (principal); F23 Brief psychotic disorder; F60.3 Borderline personality disorder; F31.4 Bipolar disorder, current episode depressed, severe, without psychotic features; R45.851 Suicidal ideations; F43.10 Post-traumatic stress disorder, unspecified; F41.1 Generalized anxiety disorder; O99.332 Smoking (tobacco) complicating pregnancy, second trimester; F17.290 Nicotine dependence, other tobacco product, uncomplicated; Z3A.19 19 weeks gestation of pregnancy; Z79.899 Other long term (current) drug therapy
CPT/HCPCS: 80048; 80307; 81001; 82077; 84703; 85025; 93005; 96361; 96374; 96375; 99285; A4216; J2405